=== PATIENT | female | born 1960 | race Caucasian/White ===

== ENCOUNTER 2018-09-09 13:40 | Inpatient (IN) | payer MEDICARE, OTHER ==
[2018-09-09 15:44] LABS: Basophils % (A) 0 %; Eosinophils # (A) 0.5 k/uL (0-0.7); Eosinophils % (A) 9 %; HCT 43.8 % (34.0-46.0); HGB 14.2 gm/dL (11.4-16.0); Lymphocytes # (A) 1.5 k/uL (1.0-4.8); Lymphocytes % (A) 28 %; MCH 29.7 pg (25.0-35.0); MCHC 32.4 g/dL (31.0-37.0); MCV 91.6 fL (80.0-100.0); Monocytes # (A) 0.6 k/uL (0-1.0); Monocytes % (A) 11 %; Neutrophils # (A) 2.6 k/uL (1.3-7.7); Neutrophils % (A) 48 %; Platelet Count 142 k/uL (150-450); RBC 4.79 m/uL (3.80-5.40); RDW 14.8 % (11.5-15.5); WBC 5.5 k/uL (3.8-10.6)
[2018-09-09 15:58] LABS: ALT 25 U/L (9-52); AST 30 U/L (14-36); Albumin 3.4 g/dL (3.5-5.0); Alcohol <10 mg/dL; Alkaline Phosphatase 66 U/L (38-126); Anion Gap 5 mmol/L; Blood Urea Nitrogen 12 mg/dL (7-17); Calcium 9.4 mg/dL (8.4-10.2); Carbon Dioxide 27 mmol/L (22-30); Chloride 111 mmol/L (98-107); Glucose 131 mg/dL (74-99); Potassium 4.2 mmol/L (3.5-5.1); Sodium 143 mmol/L (137-145); Total Bilirubin 0.3 mg/dL (0.2-1.3); Total Protein 6.6 g/dL (6.3-8.2)
--- NOTE | 2018-09-09 18:57 | ED ---
General Adult HPI - General Chief complaint: Weakness Stated complaint: Altered mental status Time Seen by Provider: 09/09/18 18:06 Source: patient Mode of arrival: EMS Limitations: no limitations - History of Present Illness Initial comments: 57-year-old female patient with past medical history significant for CVA, seizure disorder, wheelchair bound with disability, currently living in adult foster care, presents to the emergency department today for evaluation of decreased mental status. Caregiver reports that patient has had a gradual decline over the last year. They state that over the last 2 weeks this is becoming much worse. They state patient is sleeping constantly, not as interactive as she used to be, and is not feeding herself. They state this behavior is abnormal for her. States they have seen a psychiatrist multiple times for medication adjustments. States that it weaning her off her Seroquel but it is not helping. Caregiver reports that she did have elevated ammonia levels a few weeks ago, those have returned to normal. They believe is due to the Depakote however this medication has not been adjusted. Patient has been wearing oxygen during naps and at bedtime for decreased O2 saturation while sleeping. They deny any coughing. They deny any fever or chills. Some swelling, but no more than usual to the lower extremities. States her vital signs have been stable. Caregivers deny any rash, shortness breath, vomiting, or diarrhea. Patient is unable to contribute to history. - Related Data Home Medications Medication Instructions Recorded Confirmed ALPRAZolam [Xanax] 0.5 mg PO BID PRN 09/09/18 09/09/18 Baclofen [Lioresal] 10 mg PO DAILY@0700 09/09/18 09/09/18 Baclofen [Lioresal] 20 mg PO BID@1600,199909/09/18 09/09/18 Bethanechol Chloride [Urecholine] 50 mg PO TID@0700,1600,199909/09/18 09/09/18 Bisacodyl [Dulcolax] 10 mg RECTAL Q96H PRN 09/09/18 09/09/18 Carvedilol [Coreg] 3.125 mg PO BID@0800,199909/09/18 09/09/18 Divalproex Sodium [Depakote] 500 mg PO BID@0700,1600 09/09/18 09/09/18 Divalproex [Depakote] 250 mg PO BID@0700,199909/09/18 09/09/18 EPINEPHrine [Epipen 2-Molina] 0.3 mg IM ONCE PRN 09/09/18 09/09/18 Ergocalciferol (Vitamin D2) 50,000 unit PO FR@0700 09/09/18 09/09/18 [Vitamin D2] Escitalopram [Lexapro] 20 mg PO DAILY@0700 09/09/18 09/09/18 Haloperidol [Haldol] 5 mg PO BID@0700,1600 09/09/18 09/09/18 Ibuprofen [Motrin] 600 mg PO Q6HR PRN 09/09/18 09/09/18 Ketoconazole 2% Shampoo [Nizoral] 1 applic TOPICAL MOWEFR 09/09/18 09/09/18 Loratadine [Claritin] 10 mg PO DAILY@0700 09/09/18 09/09/18 Magnesium Hydroxide [Milk of 2,400 mg PO Q72H PRN 09/09/18 09/09/18 Magnesia] Montelukast [Singulair] 10 mg PO HS@199909/09/18 09/09/18 Mylanta 30 ml PO QID PRN 09/09/18 09/09/18 Na Phos,M-B/Na Phos,Di-Ba [Fleet 133 ml RECTAL Q120D PRN 09/09/18 09/09/18 Adult] Nystatin [Nystop] 1 applic TOPICAL BID PRN 09/09/18 09/09/18 Pravastatin Sodium [Pravachol] 20 mg PO HS@199909/09/18 09/09/18 Sennosides [Senna] 17.2 mg PO HS@199909/09/18 09/09/18 Sodium Chloride [[place]] 1 spray EA NOSTRIL BID PRN 09/09/18 09/09/18 Tamsulosin [Flomax] 0.4 mg PO HS@199909/09/18 09/09/18 Topiramate [Topamax] 50 mg PO HS@199909/09/18 09/09/18 Zinc Oxide [Desitin] 1 applic TOPICAL TID PRN 09/09/18 09/09/18 metroNIDAZOLE [metroNIDAZOLE 0.75% 1 applic TOPICAL BID@0800,199909/09/18 09/09/18 Gel] Allergies Allergy/AdvReac Type Severity Reaction Status Date / Time bee venom protein (honey bee) Allergy Unknown Verified 09/09/18 18:16 latex Allergy Unknown Verified 09/09/18 18:16 Penicillins Allergy Unknown Verified 09/09/18 18:16 sulfamethoxazole Allergy Unknown Verified 09/09/18 18:16 [From Bactrim] Tetanus Vaccines and Toxoid Allergy Unknown Verified 09/09/18 18:16 trimethoprim [From Bactrim] Allergy Unknown Verified 09/09/18 18:16 acetaminophen [From Tylenol] AdvReac Unknown Verified 09/09/18 18:16 Review of Systems ROS Statement: Those systems with pertinent positive or pertinent negative responses have been documented in the HPI. ROS Other: All systems not noted in ROS Statement are negative. Past Medical History Past Medical History: CVA/TIA, Seizure Disorder History of Any Multi-Drug Resistant Organisms: None Reported Past Psychological History: Anxiety, Schizophrenia Smoking Status: Former smoker Past Alcohol Use History: None Reported Past Drug Use History: None Reported General Exam Limitations: no limitations General appearance: in no apparent distress, lethargic, other (Physical well- developed, well-nourished adult female patient in no acute distress. Patient appears drowsy and lethargic upon exam. No respiratory distress. Vital signs upon presentation are temperature 98.4F, pulse 78, respirations 18, blood pressure 139/80, pulse ox 94% on room air.) Eye exam: Present: normal appearance, PERRL, EOMI. Absent: scleral icterus, conjunctival injection, periorbital swelling ENT exam: Present: normal exam, mucous membranes moist Respiratory exam: Present: normal lung sounds bilaterally. Absent: respiratory distress, wheezes, rales, rhonchi, stridor Cardiovascular Exam: Present: regular rate, normal rhythm, normal heart sounds. Absent: systolic murmur, diastolic murmur, rubs, gallop, clicks GI/Abdominal exam: Present: soft, normal bowel sounds. Absent: distended, tenderness, guarding, rebound, rigid Neurological exam: Present: other. Absent: alert (Drowsy), oriented X3 (Oriented 1) Psychiatric exam: Present: normal affect, normal mood Skin exam: Present: warm, dry, intact, normal color. Absent: rash Course Vital Signs 09/09/18 09/09/18 14:07 18:20 Temperature 98.4 F Pulse Rate 78 Respiratory 18 18 Rate Blood Pressure 139/80 O2 Sat by Pulse 94 L Oximetry EKG Findings - EKG Comments: EKG Findings:: EKG obtained in 194 shows normal sinus rhythm with a ventricular rate is 75, FL interval 164, QRS duration 84, QT 394, QTC 439. No evidence of ST elevation or depression. Medical Decision Making - Medical Decision Making 57-year-old female patient is brought in by caregivers for evaluation of altered mental status. The report patient is sleeping more, not acting her usual self, knows unable to feed herself. Physical examination reveals clear equal lung sounds. 2+ pitting edema to the bilateral lower legs and feet. Labs reviewed and showed an elevated ammonia level at 61. Depakote levels within therapeutic range at 105. White blood cell count is normal. Normal urinalysis. Chest x- ray showed advanced stage interstitial pulmonary edema versus pneumonia. Patient's oxygen saturations have been low and she was placed on oxygen 3 weeks ago to where at bedtime the nap time. Given patient's altered mental status, chest x-ray findings will admit to the hospital for further evaluation. We'll treat with IV antibiotics for possible pneumonia. We'll give Lasix given swelling and possibility of pulmonary edema. Lactulose will be given for elevated ammonia level. My attending Dr. Holman was in to see and evaluate the patient, he agrees with this plan of care. - Lab Data Result diagrams: 09/09/18 15:33 09/09/18 15:33 Lab Results 09/09/18 09/09/18 09/09/18 Range/Units 15:33 15:33 15:33 WBC 5.5 (3.8-10.6) k/uL RBC 4.79 (3.80-5.40) m/uL Hgb 14.2 (11.4-16.0) gm/dL Hct 43.8 (34.0-46.0) % MCV 91.6 (80.0-100.0) fL MCH 29.7 (25.0-35.0) pg MCHC 32.4 (31.0-37.0) g/dL RDW 14.8 (11.5-15.5) % Plt Count 142 L (150-450) k/uL Neutrophils % 48 % Lymphocytes % 28 % Monocytes % 11 % Eosinophils % 9 % Basophils % 0 % Neutrophils # 2.6 (1.3-7.7) k/uL Lymphocytes # 1.5 (1.0-4.8) k/uL Monocytes # 0.6 (0-1.0) k/uL Eosinophils # 0.5 (0-0.7) k/uL Basophils # 0.0 (0-0.2) k/uL Sodium 143 (137-145) mmol/L Potassium 4.2 (3.5-5.1) mmol/L Chloride 111 H (98-107) mmol/L Carbon Dioxide 27 (22-30) mmol/L Anion Gap 5 mmol/L BUN 12 (7-17) mg/dL Creatinine 0.57 (0.52-1.04) mg/dL Est GFR (CKD-EPI)AfAm >90 (>60 ml/min/1.73 sqM) Est GFR (CKD-EPI)NonAf >90 (>60 ml/min/1.73 sqM) Glucose 131 H (74-99) mg/dL Calcium 9.4 (8.4-10.2) mg/dL Total Bilirubin 0.3 (0.2-1.3) mg/dL AST 30 (14-36) U/L ALT 25 (9-52) U/L Alkaline Phosphatase 66 (38-126) U/L Ammonia (<30) umol/L NT-Pro-B Natriuret Pep 70 pg/mL Total Protein 6.6 (6.3-8.2) g/dL Albumin 3.4 L (3.5-5.0) g/dL Urine Color Urine Appearance (Clear) Urine pH (5.0-8.0) Ur Specific [place] (1.001-1.035) Urine Protein (Negative) Urine Glucose (UA) (Negative) Urine Ketones (Negative) Urine Blood (Negative) Urine Nitrite (Negative) Urine Bilirubin (Negative) Urine Urobilinogen (<2.0) mg/dL Ur Leukocyte Esterase (Negative) Urine Opiates Screen (NotDetected) Ur Oxycodone Screen (NotDetected) Urine Methadone Screen (NotDetected) Ur Propoxyphene Screen (NotDetected) Ur Barbiturates Screen (NotDetected) Valproic Acid ug/mL U Tricyclic Antidepress (NotDetected) Ur Phencyclidine Scrn (NotDetected) Ur Amphetamines Screen (NotDetected) U Methamphetamines Scrn (NotDetected) U Benzodiazepines Scrn (NotDetected) Urine Cocaine Screen (NotDetected) U Marijuana (THC) Screen (NotDetected) Serum Alcohol <10 mg/dL 09/09/18 09/09/18 09/09/18 Range/Units 19:35 19:35 19:35 WBC (3.8-10.6) k/uL RBC (3.80-5.40) m/uL Hgb (11.4-16.0) gm/dL Hct (34.0-46.0) % MCV (80.0-100.0) fL MCH (25.0-35.0) pg MCHC (31.0-37.0) g/dL RDW (11.5-15.5) % Plt Count (150-450) k/uL Neutrophils % % Lymphocytes % % Monocytes % % Eosinophils % % Basophils % % Neutrophils # (1.3-7.7) k/uL Lymphocytes # (1.0-4.8) k/uL Monocytes # (0-1.0) k/uL Eosinophils # (0-0.7) k/uL Basophils # (0-0.2) k/uL Sodium (137-145) mmol/L Potassium (3.5-5.1) mmol/L Chloride (98-107) mmol/L Carbon Dioxide (22-30) mmol/L Anion Gap mmol/L BUN (7-17) mg/dL Creatinine (0.52-1.04) mg/dL Est GFR (CKD-EPI)AfAm (>60 ml/min/1.73 sqM) Est GFR (CKD-EPI)NonAf (>60 ml/min/1.73 sqM) Glucose (74-99) mg/dL Calcium (8.4-10.2) mg/dL Total Bilirubin (0.2-1.3) mg/dL AST (14-36) U/L ALT (9-52) U/L Alkaline Phosphatase (38-126) U/L Ammonia 61 H (<30) umol/L NT-Pro-B Natriuret Pep pg/mL Total Protein (6.3-8.2) g/dL Albumin (3.5-5.0) g/dL Urine Color Yellow Urine Appearance Clear (Clear) Urine pH 6.5 (5.0-8.0) Ur Specific [place] 1.027 (1.001-1.035) Urine Protein Trace H (Negative) Urine Glucose (UA) Negative (Negative) Urine Ketones Negative (Negative) Urine Blood Negative (Negative) Urine Nitrite Negative (Negative) Urine Bilirubin Negative (Negative) Urine Urobilinogen 3.0 (<2.0) mg/dL Ur Leukocyte Esterase Negative (Negative) Urine Opiates Screen Not Detected (NotDetected) Ur Oxycodone Screen Not Detected (NotDetected) Urine Methadone Screen Not Detected (NotDetected) Ur Propoxyphene Screen Not Detected (NotDetected) Ur Barbiturates Screen Not Detected (NotDetected) Valproic Acid 105.7 ug/mL U Tricyclic Antidepress Detected H (NotDetected) Ur Phencyclidine Scrn Not Detected (NotDetected) Ur Amphetamines Screen Not Detected (NotDetected) U Methamphetamines Scrn Not Detected (NotDetected) U Benzodiazepines Scrn Not Detected (NotDetected) Urine Cocaine Screen Not Detected (NotDetected) U Marijuana (THC) Screen Not Detected (NotDetected) Serum Alcohol mg/dL - Radiology Data Radiology results: report reviewed, image reviewed Three-view x-ray of the chest was obtained. Report was reviewed in its entirety. Impression by Dr. Elaine shows suspect advanced interstitial alveolar phase cardiogenic pulmonary edema. Disposition Clinical Impression: Pulmonary edema, Pneumonia, Hyperammonemia, Altered mental status Disposition: ADMITTED IP TO THIS [facility] Condition: Serious Decision to Admit Reason: Admit from EC Decision Date: 09/09/18 Decision Time: 21:35
[2018-09-09 20:06] LABS: Appearance,Urine Clear (Clear); Bilirubin,Urine Negative (Negative); Blood,Urine Negative (Negative); Color,Urine Yellow; Glucose,Urine (UA) Negative (Negative); Ketones,Urine Negative (Negative); Leukocyte Esterase,Urine Negative (Negative); Nitrite,Urine Negative (Negative); PH, Urine 6.5 (5.0-8.0); Protein,Urine Trace (Negative); Specific Gravity,Urine 1.027 (1.001-1.035)
[2018-09-09 20:26] LABS: Amphetamine Screen,Urine Not Detected (NotDetected); Barbiturate Screen,Urine Not Detected (NotDetected); Benzodiazepines Screen,Urine Not Detected (NotDetected); Cocaine Screen,Urine Not Detected (NotDetected); Methadone Screen, Urine Not Detected (NotDetected); Opiate Screen,Urine Not Detected (NotDetected); Oxycodone Screen, Urine Not Detected (NotDetected); Phencyclidine Screen,Urine Not Detected (NotDetected); Tricyclic Antidepressant,Urine Detected (NotDetected); Urn Cannabinoid Scrn Not Detected (NotDetected)
--- NOTE | 2018-09-09 20:35 | XR ---
EXAMINATION: XR chest 3V DATE AND TIME: 09/09/2018 7:05 PM CLINICAL INDICATION: PHH; Pain TECHNIQUE: Departmental protocol COMPARISON: 09/11/2009 FINDINGS: The overlying soft tissues are very prominent. There is silhouetting of the pulmonary vasculature to a moderate marked by a fine reticular pattern o f increased density and with coalescent areas of pulmonary consolidation. Moderately enlarged cardiac silhouette noted. These radiographic findings suggest cardiogenic advanced interstitial and alveolar phase pulmonary edema. This diagnosis requires clinical exclusion of differential consideration, nam kel pneumonia. No abnormal gas collections. No acute bone or soft tissue findings. IMPRESSION: Suspect advanced interstitial/alveolar phase cardiogenic pulmonary edema.
[2018-09-09] MEDS ORDERED: LEVOFLOXACIN 750MG-D5W PMX 750 MG in DEXTROSE/WATER 1 150ML.BAG IVPB STA (21:29)
[2018-09-09] MEDS ORDERED: PIPERACILLIN-TAZOBACTAM 3.375 GM in SODIUM CHLORIDE 0.9% 100 ML IVPB STA (21:29)
[2018-09-09] MEDS ORDERED: FUROSEMIDE 10 MG/ML 4 ML VIAL IV STA (21:29)
[2018-09-09] MEDS ORDERED: NALOXONE 0.4 MG/ML 1 ML VIAL IV PRN (21:30)
[2018-09-09] MEDS ORDERED: LACTULOSE 20 GM/30 ML CUP PO ONE (21:32)
[2018-09-09 23:38] VITALS: BMI 32.4
[2018-09-10] MEDS ORDERED: TOPIRAMATE 25 MG TAB PO SCH (00:59)
[2018-09-10] MEDS: DIVALPROEX 250 MG TABLET.DR PO SCH ×2 (02:50→07:58)
[2018-09-10] MEDS: CARVEDILOL 3.125 MG TAB PO SCH ×3 (02:50→21:02)
[2018-09-10] MEDS ORDERED: LEVOFLOXACIN 750MG-D5W PMX 750 MG in DEXTROSE/WATER 1 150ML.BAG IVPB SCH (05:00)
[2018-09-10] MEDS ORDERED: PIPERACILLIN-TAZOBACTAM 3.375 GM in SODIUM CHLORIDE 0.9% 100 ML IVPB SCH (08:00)
[2018-09-10] MEDS ORDERED: FUROSEMIDE 10 MG/ML 2 ML VIAL IV SCH (09:00)
[2018-09-10 09:48] LABS: Basophils % (A) 0 %; Eosinophils # (A) 0.4 k/uL (0-0.7); Eosinophils % (A) 8 %; Lymphocytes # (A) 1.5 k/uL (1.0-4.8); Lymphocytes % (A) 26 %; MCH 29.3 pg (25.0-35.0); MCHC 31.9 g/dL (31.0-37.0); Mean Platelet Volume 7.6; Monocytes # (A) 0.5 k/uL (0-1.0); Monocytes % (A) 9 %; Neutrophils # (A) 3.1 k/uL (1.3-7.7); Neutrophils % (A) 54 %; Platelet Count 150 k/uL (150-450); RBC 5.11 m/uL (3.80-5.40); RDW 14.5 % (11.5-15.5); WBC 5.8 k/uL (3.8-10.6)
[2018-09-10] MEDS ORDERED: LACTULOSE 20 GM/30 ML CUP PO ONE (13:00)
[2018-09-10] MEDS ORDERED: NYSTATIN 100,000 UNIT/GM POWD 15 GM TOPICAL PRN (13:14)
[2018-09-10] MEDS ORDERED: MAG HYDROX/AL HYDROX/SIMETH 30 ML CUP PO PRN (13:14)
[2018-09-10] MEDS ORDERED: BISACODYL 10 MG SUPP RECTAL PRN (13:14)
[2018-09-10] MEDS ORDERED: EPINEPHrine 1 MG/ML 1 ML AMP IM PRN (13:14)
[2018-09-10] MEDS ORDERED: MAGNESIUM HYDROXIDE 2,400 MG/10 ML CUP PO PRN (13:14)
--- NOTE | 2018-09-10 13:17 | P.DS ---
Providers Date of admission: 09/09/18 21:39 Attending physician: Kwan Gomez Consults: 09/10/18 12:22 Consult Physician Routine Consulting Provider: Alan Erickson Consult Reason/Comments: Medication management Depakote, see today please Do you want consulting provider notified?: Yes Primary care physician: [facility] Course: Please refer to my HPI for further details Patient Condition at Discharge: Serious Plan - Discharge Summary Discharge Rx Participant: Yes New Discharge Prescriptions: Continue Mylanta 30 ml PO QID PRN PRN Reason: Chest Pain Ibuprofen [Motrin] 600 mg PO Q6HR PRN PRN Reason: Pain ALPRAZolam [Xanax] 0.5 mg PO BID PRN PRN Reason: Anxiety Sodium Chloride [[place]] 1 spray EA NOSTRIL BID PRN PRN Reason: Congestion Nystatin [Nystop] 1 applic TOPICAL BID PRN PRN Reason: Skin Irritation EPINEPHrine [Epipen 2-Molina] 0.3 mg IM ONCE PRN PRN Reason: Anaphylaxis Zinc Oxide [Desitin] 1 applic TOPICAL TID PRN PRN Reason: Skin Irritation Na Phos,M-B/Na Phos,Di-Ba [Fleet Adult] 133 ml RECTAL Q120D PRN PRN Reason: Constipation Bisacodyl [Dulcolax] 10 mg RECTAL Q96H PRN PRN Reason: Constipation Magnesium Hydroxide [Milk of Magnesia] 2,400 mg PO Q72H PRN PRN Reason: Constipation Ketoconazole 2% Shampoo [Nizoral] 1 applic TOPICAL MOWEFR metroNIDAZOLE [metroNIDAZOLE 0.75% Gel] 1 applic TOPICAL BID@0800,1999 Topiramate [Topamax] 50 mg PO HS@1999 Tamsulosin [Flomax] 0.4 mg PO HS@1999 Sennosides [Senna] 17.2 mg PO HS@1999 Pravastatin Sodium [Pravachol] 20 mg PO HS@1999 Montelukast [Singulair] 10 mg PO HS@1999 Divalproex Sodium [Depakote] 500 mg PO BID@0700,1600 Carvedilol [Coreg] 3.125 mg PO BID@0800,2000 Loratadine [Claritin] 10 mg PO DAILY@0700 Escitalopram [Lexapro] 20 mg PO DAILY@0700 Haloperidol [Haldol] 5 mg PO BID@0700,1600 Ergocalciferol (Vitamin D2) [Vitamin D2] 50,000 unit PO FR@0700 Bethanechol Chloride [Urecholine] 50 mg PO TID@07,1599,1999 Baclofen [Lioresal] 20 mg PO BID@1599,1999 Baclofen [Lioresal] 10 mg PO DAILY@0700 Changed Divalproex [Depakote] 250 mg PO HS #0 Discharge Medication List ALPRAZolam [Xanax] 0.5 mg PO BID PRN 09/09/18 [History] Baclofen [Lioresal] 10 mg PO DAILY@0709/09/18 [History] Baclofen [Lioresal] 20 mg PO BID@1599,199909/09/18 [History] Bethanechol Chloride [Urecholine] 50 mg PO TID@0700,1599,199909/09/18 [History] Bisacodyl [Dulcolax] 10 mg RECTAL Q96H PRN 09/09/18 [History] Carvedilol [Coreg] 3.125 mg PO BID@0800,199909/09/18 [History] Divalproex Sodium [Depakote] 500 mg PO BID@0700,159909/09/18 [History] EPINEPHrine [Epipen 2-Molina] 0.3 mg IM ONCE PRN 09/09/18 [History] Ergocalciferol (Vitamin D2) [Vitamin D2] 50,000 unit PO FR@0700 09/09/18 [History] Escitalopram [Lexapro] 20 mg PO DAILY@69909/09/18 [History] Haloperidol [Haldol] 5 mg PO BID@0700,159909/09/18 [History] Ibuprofen [Motrin] 600 mg PO Q6HR PRN 09/09/18 [History] Ketoconazole 2% Shampoo [Nizoral] 1 applic TOPICAL MOWEFR 09/09/18 [History] Loratadine [Claritin] 10 mg PO DAILY@69909/09/18 [History] Magnesium Hydroxide [Milk of Magnesia] 2,400 mg PO Q72H PRN 09/09/18 [History] Montelukast [Singulair] 10 mg PO HS@199909/09/18 [History] Mylanta 30 ml PO QID PRN 09/09/18 [History] Na Phos,M-B/Na Phos,Di-Ba [Fleet Adult] 133 ml RECTAL Q120D PRN 09/09/18 [History] Nystatin [Nystop] 1 applic TOPICAL BID PRN 09/09/18 [History] Pravastatin Sodium [Pravachol] 20 mg PO HS@199909/09/18 [History] Sennosides [Senna] 17.2 mg PO HS@199909/09/18 [History] Sodium Chloride [[place]] 1 spray EA NOSTRIL BID PRN 09/09/18 [History] Tamsulosin [Flomax] 0.4 mg PO HS@199909/09/18 [History] Topiramate [Topamax] 50 mg PO HS@199909/09/18 [History] Zinc Oxide [Desitin] 1 applic TOPICAL TID PRN 09/09/18 [History] metroNIDAZOLE [metroNIDAZOLE 0.75% Gel] 1 applic TOPICAL BID@0800,199909/09/18 [History] Divalproex [Depakote] 250 mg PO HS #0 09/10/18 [Rx] Follow up Appointment(s)/Referral(s): [facility]inley, JACKY [REFERRING] - 3 Days
--- NOTE | 2018-09-10 13:17 | P.HPIM ---
History of Present Illness Patient is a 57-year-old the on disability the and the mental retardation on multiple psychiatric medications polypharmacy brought in by the caregivers as patient is sleeping excessively. Patient is found to have limited ammonia le vels. Patient is also on a lot of medications that can make her drowsy and sleepy. Patient is on a lot of psychiatric medications. Patient is found to have elevated ammonia 60 received 1 dose of lactulose came down to 48. And that this elevated ammonia level is attributed to do Depakote I'm decreasing the dose of Depakote to 250 mg patient uses Depakote for mood stabilization patient is also on Lamictal and multiple other antipsychotic medications along with the cyclobenzaprine. Patient apparently was desaturating at nighttime as well but probably this may be related to his sleep apnea although chest x-ray showed suspicious infiltrate for the pulmonary edema or atypical pneumonia. Patient will benefit from a CAT scan which can be done as an outpatient patient will be referred to [facility]. Patient is clinically stable at this time patient does not have any signs or symptoms of pneumonia including fever or leukocytosis patient denied any cough. Patient does not have any elevated JVD and obtain an echocardiogram although this can be done as outpatient patient does need to stay here for that patient is saturating 98% on room air at this time patient will be discharged today after evaluation by psychiatric since patient is on multiple antipsychotic medications, will get their opinion before she leaves. Patient can be discharged today and is medically stable and patient will not be continued on any antibiotics with concerns of side effects from polypharmacy due to prolongation as there is no clear-cut evidence patient has pneumonia. Patient will not be continued on Lasix either as there is no conclusive evidence patient has pulmonary edema although she urinated well with Lasix patient's BNP is only 58 patient is prone for dehydration with diuretic therapy. We will try and obtain echo cardiac exam before discharge but that shouldn't hold her discharge. Review of Systems REVIEW OF SYSTEMS: CONSTITUTIONAL: No fever, no malaise, no fatigue. HEENT: No recent visual problems or hearing problems. Denied any sore throat. CARDIOVASCULAR: No chest pain, orthopnea, PND, no palpitations, no syncope. PULMONARY: No shortness of breath, no cough, no hemoptysis. GASTROINTESTINAL: No diarrhea, no nausea, no vomiting, no abdominal pain. NEUROLOGICAL: No headaches, no weakness, no numbness. HEMATOLOGICAL: Denies any bleeding or petechiae. GENITOURINARY: Denies any burning micturition, frequency, or urgency. MUSCULOSKELETAL/RHEUMATOLOGICAL: Denies any joint pain, swelling, or any muscle pain. ENDOCRINE: Denies any polyuria or polydipsia. The rest of the 14-point review of systems is negative. Past Medical History Past Medical History: CVA/TIA, Seizure Disorder Additional Past Medical History / Comment(s): Wears oxygen at night History of Any Multi-Drug Resistant Organisms: None Reported Past Psychological History: Anxiety, Schizophrenia Smoking Status: Former smoker Past Alcohol Use History: None Reported Past Drug Use History: None Reported - Past Family History Father Family Medical History: Unable to Obtain Mother Family Medical History: Unable to Obtain Medications and Allergies Home Medications Medication Instructions Recorded Confirmed Type ALPRAZolam [Xanax] 0.5 mg PO BID PRN 09/09/18 09/09/18 History Baclofen [Lioresal] 10 mg PO DAILY@0700 09/09/18 09/09/18 History Baclofen [Lioresal] 20 mg PO BID@1600,199909/09/18 09/09/18 History Bethanechol Chloride [Urecholine] 50 mg PO TID@0700,1600,199909/09/18 09/09/18 History Bisacodyl [Dulcolax] 10 mg RECTAL Q96H PRN 09/09/18 09/09/18 History Carvedilol [Coreg] 3.125 mg PO BID@0800,199909/09/18 09/09/18 History Divalproex Sodium [Depakote] 500 mg PO BID@0700,1600 09/09/18 09/09/18 History EPINEPHrine [Epipen 2-Molina] 0.3 mg IM ONCE PRN 09/09/18 09/09/18 History Ergocalciferol (Vitamin D2) 50,000 unit PO FR@69909/09/18 09/09/18 History [Vitamin D2] Escitalopram [Lexapro] 20 mg PO DAILY@0700 09/09/18 09/09/18 History Haloperidol [Haldol] 5 mg PO BID@0700,1600 09/09/18 09/09/18 History Ibuprofen [Motrin] 600 mg PO Q6HR PRN 09/09/18 09/09/18 History Ketoconazole 2% Shampoo [Nizoral] 1 applic TOPICAL MOWEFR 09/09/18 09/09/18 History Loratadine [Claritin] 10 mg PO DAILY@0700 09/09/18 09/09/18 History Magnesium Hydroxide [Milk of 2,400 mg PO Q72H PRN 09/09/18 09/09/18 History Magnesia] Montelukast [Singulair] 10 mg PO HS@199909/09/18 09/09/18 History Mylanta 30 ml PO QID PRN 09/09/18 09/09/18 History Na Phos,M-B/Na Phos,Di-Ba [Fleet 133 ml RECTAL Q120D PRN 09/09/18 09/09/18 History Adult] Nystatin [Nystop] 1 applic TOPICAL BID PRN 09/09/18 09/09/18 History Pravastatin Sodium [Pravachol] 20 mg PO HS@199909/09/18 09/09/18 History Sennosides [Senna] 17.2 mg PO HS@199909/09/18 09/09/18 History Sodium Chloride [[place]] 1 spray EA NOSTRIL BID PRN 09/09/18 09/09/18 History Tamsulosin [Flomax] 0.4 mg PO HS@199909/09/18 09/09/18 History Topiramate [Topamax] 50 mg PO HS@199909/09/18 09/09/18 History Zinc Oxide [Desitin] 1 applic TOPICAL TID PRN 09/09/18 09/09/18 History metroNIDAZOLE [metroNIDAZOLE 0.75% 1 applic TOPICAL BID@08,199909/09/18 09/09/18 History Gel] Divalproex [Depakote] 250 mg PO HS #0 09/10/18 09/09/18 Rx Allergies Allergy/AdvReac Type Severity Reaction Status Date / Time bee venom protein (honey bee) Allergy Unknown Verified 09/09/18 18:16 latex Allergy Unknown Verified 09/09/18 18:16 Penicillins Allergy Unknown Verified 09/09/18 18:16 sulfamethoxazole Allergy Unknown Verified 09/09/18 18:16 [From Bactrim] Tetanus Vaccines and Toxoid Allergy Unknown Verified 09/09/18 18:16 trimethoprim [From Bactrim] Allergy Unknown Verified 09/09/18 18:16 acetaminophen [From Tylenol] AdvReac Unknown Verified 09/09/18 18:16 Physical Exam Vitals: Vital Signs Temp Pulse Pulse Resp BP BP Pulse Ox 09/10/18 07:34 98.9 F 71 16 105/69 98 09/10/18 02:50 74 126/68 09/10/18 01:01 98.5 F 75 18 114/78 100 09/10/18 00:10 16 09/09/18 23:29 97 09/09/18 23:16 98.6 F 73 18 117/69 89 L 09/09/18 23:05 98.2 F 80 16 110/78 100 09/09/18 19:30 76 18 132/87 98 09/09/18 18:20 18 09/09/18 14:07 98.4 F 78 18 139/80 94 L Intake and Output 09/09/18 09/10/18 09/10/18 22:59 06:59 14:59 Intake Total 250 Balance 250 Intake: Intake, IV Titration 250 Amount Levofloxacin 750Mg-D5w 150 Pmx 750 mg In Dextrose/ Water 1 150ml.bag @ 100 mls/hr IVPB Q24H [facility] Rx#: [id number] Piperacillin-Tazobactam 3 100 .375 gm In Sodium Chloride 0.9% 100 ml @ 200 mls/hr IVPB ONCE STA Rx#:[id number] Other: Voiding Method Diaper Diaper Incontinent Incontinent # Voids 3 PHYSICAL EXAMINATION: GENERAL: The patient is alert and oriented x2 which is her baseline, not in any acute distress. Well developed, well nourished. HEENT: Pupils are round and equally reacting to light. EOMI. No scleral icterus. No conjunctival pallor. Normocephalic, atraumatic. No pharyngeal erythema. No thyromegaly. CARDIOVASCULAR: S1 and S2 present. No murmurs, rubs, or gallops. PULMONARY: Chest is clear to auscultation, no wheezing or crackles. ABDOMEN: Soft, nontender, nondistended, normoactive bowel sounds. No palpable organomegaly. MUSCULOSKELETAL: No joint swelling or deformity. EXTREMITIES: No cyanosis, clubbing, or pedal edema. NEUROLOGICAL: Gross neurological examination did not reveal any focal deficits. SKIN: No rashes. Results CBC & Chem 7: 09/10/18 08:52 09/09/18 15:33 Labs: Abnormal Lab Results - Last 24 Hours (Table) 09/09/18 09/09/18 09/09/18 Range/Units 15:33 15:33 19:35 Hct (34.0-46.0) % Plt Count 142 L (150-450) k/uL Chloride 111 H (98-107) mmol/L Glucose 131 H (74-99) mg/dL Ammonia 61 H (<30) umol/L Albumin 3.4 L (3.5-5.0) g/dL Urine Protein (Negative) U Tricyclic Antidepress (NotDetected) 09/09/18 09/10/18 09/10/18 Range/Units 19:35 08:52 08:52 Hct 47.0 H (34.0-46.0) % Plt Count (150-450) k/uL Chloride (98-107) mmol/L Glucose (74-99) mg/dL Ammonia 49 H (<30) umol/L Albumin (3.5-5.0) g/dL Urine Protein Trace H (Negative) U Tricyclic Antidepress Detected H (NotDetected) Thrombosis Risk Factor Assmnt - Choose All That Apply Each Factor Represents 1 point: Age 41-60 years, Obesity (BMI >25) Thrombosis Risk Factor Assessment Total Risk Factor Score: 2 Thrombosis Risk Factor Assessment Level: Low Risk Assessment and Plan Plan: -Decreased level of consciousness toxic encephalopathy from polypharmacy and Depakote may have contributed to that decreasing the dose of Depakote we'll give another dose of lactulose patient's ammonia level is elevated -Hyperammonemia secondary to Depakote dose of which will be decreased patient will be evaluated by psychiatric here and will be followed by psychiatry as an outpatient -Schizophrenia and anxiety disorder -Possible obstructive sleep apnea will benefit from outpatient sleep study -There is no convincing evidence of congestive heart failure or pneumonia we'll obtain a CAT scan of the abdomen patient will be referred to pulmonology as an outpatient -Hyperlipidemia -Hypertension Plan as mentioned above
--- NOTE | 2018-09-10 15:35 | CT ---
EXAMINATION TYPE: CT angio chest DATE OF EXAM: 09/10/2018 COMPARISON: None HISTORY: PE CT DLP: 569.7 mGycm CONTRAST: CT chest with contrast and 3D reconstruction with MIP imaging is performed with IV Contrast, patient injected with 100 mL of Isovue 370. Contrast-enhanced CT of the chest was performed through the course of the pulmonary arteries with kristin g and mediastinal window settings submitted. 3D reconstruction with MIP imaging was also performed. PULMONARY ARTERIES: The pulmonary arteries and their major tributaries are patent. I do not see analisa dence for sizable filling defect to suggest pulmonary embolic process. LUNGS: Diffuse airspace infiltrates may reflect a pneumonia multifocal type. No evidence for atelecta sis. No pulmonary nodule or mass is detected. No pleural effusion. MEDIASTINUM: Thoracic aorta is of normal caliber,however, evaluation is limited given timing of the contrast bolus. If there is concern for thoracic aortic pathology consider ERICK. Correlate clinicall y . The heart is not enlarged. No evidence for mediastinal mass. No mediastinal lymph nodes greater than 1cm. HILAR STRUCTURES: No evidence for mass. No hilar lymph nodes greater than 1 cm. UPPER ABDOMEN: No significant abnormality is seen. IMPRESSION: 1. No evidence for Pulmonary embolism at this time. 2. Consider multifocal pneumonia.
[2018-09-10] MEDS: HALOPERIDOL 5 MG TAB PO SCH (15:45)
[2018-09-10] MEDS: BETHANECHOL 25 MG TAB PO SCH ×2 (15:45→21:00)
--- NOTE | 2018-09-10 17:00 | P.CN ---
Psychiatric Consult - . Consult date: 09/10/18 Consult:: 09/10/18 16:54 Depakote adjustment and psychiatric medication evaluation Assessment and Plan (1) Major depressive disorder Narrative/Plan: 57-year-old female patient with past medical history significant for CVA, seizure disorder, wheelchair bound with disability, currently living in adult foster care, presents to the emergency department today for evaluation of decreased mental status. Caregiver reports that patient has had a gradual decline over the last year. They state that over the last 2 weeks this is becoming much worse. They state patient is sleeping constantly, not as interactive as she used to be, and is not feeding herself. They state this behavior is abnormal for her. States they have seen a psychiatrist multiple times for medication adjustments. States that it weaning her off her Seroquel but it is not helping. Caregiver reports that she did have elevated ammonia levels a few weeks ago, those have returned to normal. They believe is due to the Depakote however this medication has not been adjusted. Patient has been wearing oxygen during naps and at bedtime for decreased O2 saturation while sleeping. They deny any coughing. They deny any fever or chills. Some swelling, but no more than usual to the lower extremities. States her vital signs have been stable. Caregivers deny any rash, shortness breath, vomiting, or diarrhea. Patient is unable to contribute to history. - Related Data Home Medications Medication Instructions Recorded Confirmed ALPRAZolam [Xanax] 0.5 mg PO BID PRN 09/09/18 09/09/18 Baclofen [Lioresal] 10 mg PO DAILY@0700 09/09/18 09/09/18 Baclofen [Lioresal] 20 mg PO BID@1600,199909/09/18 09/09/18 Bethanechol Chloride [Urecholine] 50 mg PO TID@0700,1600,199909/09/18 09/09/18 Bisacodyl [Dulcolax] 10 mg RECTAL Q96H PRN 09/09/18 09/09/18 Carvedilol [Coreg] 3.125 mg PO BID@0800,199909/09/18 09/09/18 Divalproex Sodium [Depakote] 500 mg PO BID@0700,1600 09/09/18 09/09/18 Divalproex [Depakote] 250 mg PO BID@0700,199909/09/18 09/09/18 EPINEPHrine [Epipen 2-Molina] 0.3 mg IM ONCE PRN 09/09/18 09/09/18 Ergocalciferol (Vitamin D2) 50,000 unit PO FR@0700 09/09/18 09/09/18 [Vitamin D2] Escitalopram [Lexapro] 20 mg PO DAILY@0700 09/09/18 09/09/18 Haloperidol [Haldol] 5 mg PO BID@0700,1600 09/09/18 09/09/18 Ibuprofen [Motrin] 600 mg PO Q6HR PRN 09/09/18 09/09/18 Ketoconazole 2% Shampoo [Nizoral] 1 applic TOPICAL MOWEFR 09/09/18 09/09/18 Loratadine [Claritin] 10 mg PO DAILY@0700 09/09/18 09/09/18 Magnesium Hydroxide [Milk of 2,400 mg PO Q72H PRN 09/09/18 09/09/18 Magnesia] Montelukast [Singulair] 10 mg PO HS@199909/09/18 09/09/18 Mylanta 30 ml PO QID PRN 09/09/18 09/09/18 Na Phos,M-B/Na Phos,Di-Ba [Fleet 133 ml RECTAL Q120D PRN 09/09/18 09/09/18 Adult] Nystatin [Nystop] 1 applic TOPICAL BID PRN 09/09/18 09/09/18 Pravastatin Sodium [Pravachol] 20 mg PO HS@199909/09/18 09/09/18 Sennosides [Senna] 17.2 mg PO HS@199909/09/18 09/09/18 Sodium Chloride [[place]] 1 spray EA NOSTRIL BID PRN 09/09/18 09/09/18 Tamsulosin [Flomax] 0.4 mg PO HS@199909/09/18 09/09/18 Topiramate [Topamax] 50 mg PO HS@199909/09/18 09/09/18 Zinc Oxide [Desitin] 1 applic TOPICAL TID PRN 09/09/18 09/09/18 metroNIDAZOLE [metroNIDAZOLE 0.75% 1 applic TOPICAL BID@0800,199909/09/18 09/09/18 Gel] Allergies Allergy/AdvReac Type Severity Reaction Status Date / Time bee venom protein (honey bee) Allergy Unknown Verified 09/09/18 18:16 latex Allergy Unknown Verified 09/09/18 18:16 Penicillins Allergy Unknown Verified 09/09/18 18:16 sulfamethoxazole Allergy Unknown Verified 09/09/18 18:16 [From Bactrim] Tetanus Vaccines and Toxoid Allergy Unknown Verified 09/09/18 18:16 trimethoprim [From Bactrim] Allergy Unknown Verified 09/09/18 18:16 acetaminophen [From Tylenol] AdvReac Unknown Verified 09/09/18 18:16 Mental status examination: This is a pleasant 57-year-old female who was from the [facility] had altered mental status is able to answer some questions in mental status examination reveals a pleasant 57-year-old female who is awake and alert. It appears that her psychiatrist on the outpatient arena has been decreasing her Depakote and replacing it with Topamax. She had elevated blood level when she entered the hospital 107 ng per mL with elevated ammonia. After reviewing her mental status and discussing with internal medicine doctor I discontinued the Depakote and increase the Topamax 100 mg by mouth twice a day. Reviewing all her medications should stay intact including her haloperidol. Thank you for allowing me to participate care of your patient Alan Erickson D.O. PhD Current Visit: Yes Status: Acute Priority: Low Code(s): F32.9 - MAJOR DEPRESSIVE DISORDER, SINGLE EPISODE, UNSPECIFIED SNOMED Code(s): 244546525 (2) Neurocognitive disorder Current Visit: Yes Status: Acute Priority: Low Code(s): R41.9 - UNSP SYMPTOMS AND SIGNS W COGNITIVE FUNCTIONS AND AWARENESS SNOMED Code(s): 122544758 Time with Patient: Less than 30
[2018-09-10] MEDS: PIPERACILLIN-TAZOBACTAM 3.375 GM in SODIUM CHLORIDE 0.9% 100 ML IVPB SCH ×2 (17:25→23:48)
--- NOTE | 2018-09-10 17:54 | ECHOF ---
Referral Reason:r/o CHF MEASUREMENTS -------- HEIGHT: 157.5 cm WEIGHT: 84.4 kg BP: IVSd: 1.1 cm (0.6 - 1.1) LVIDd: 4.3 cm (3.9 - 5.3) LVPWd: 1.2 cm (0.6 - 1.1) IVSs: 1.7 cm LVIDs: 2.0 cm LVPWs: 1.8 cm Ao Diam: 2.8 cm (2.0 - 3.7) AV Cusp: 1.9 cm (1.5 - 2.6) LA Diam: 2.7 cm (2.7 - 3.8) MV E Bryan: 0.55 m/s MV DecT: 182 ms MV A Bryan: 0.53 m/s MV E/A Ratio: 1.04 RAP: 5.00 mmHg RVSP: 8.22 mmHg FINDINGS -------- Sinus rhythm. This was a technically difficult study with suboptimal views. The left ventricular size is normal. There is mild concentric left ventricular hypertrophy. Overa ll left ventricular systolic function is normal with, an EF between 55 - 60 %. The RV was not well visualized. The left atrium was not well visualized. The right atrium was not well visualized. Lumason used The aortic valve was not well visualized. The mitral valve was not well visualized. There is trace mitral regurgitation. The tricuspid valve was not well visualized. Trace tricuspid regurgitation present. The right onelia tricular systolic pressure, as measured by Doppler, is 8.22mmHg. The pulmonic valve was not well visualized. The aortic root size is normal. The inferior vena cava was not well visualized. CONCLUSIONS -------- 1. Sinus rhythm. 2. This was a technically difficult study with suboptimal views. 3. The left ventricular size is normal. 4. There is mild concentric left ventricular hypertrophy. 5. Overall left ventricular systolic function is normal with, an EF between 55 - 60 %. 6. The RV was not well visualized. 7. The left atrium was not well visualized. 8. The right atrium was not well visualized. 9. Lumason used 10. The aortic valve was not well visualized. 11. The mitral valve was not well visualized. 12. There is trace mitral regurgitation. 13. The tricuspid valve was not well visualized. 14. Trace tricuspid regurgitation present. 15. The right ventricular systolic pressure, as measured by Doppler, is 8.22mmHg. 16. The pulmonic valve was not well visualized. 17. The aortic root size is normal. 18. The inferior vena cava was not well visualized. ABATEMENT WORKER: Kiah Kaye RDCS
[2018-09-10] MEDS ORDERED: PRAVASTATIN SODIUM 20 MG TAB PO SCH (20:00)
[2018-09-10] MEDS ORDERED: SENNOSIDES 8.6 MG TAB PO SCH (20:00)
[2018-09-10] MEDS ORDERED: TAMSULOSIN 0.4 MG CAP.ER.24H PO SCH (20:00)
[2018-09-10] MEDS: TOPIRAMATE 100 MG TAB PO SCH (21:01)
[2018-09-11 01:25] VITALS: RESP 18
[2018-09-11] MEDS ORDERED: ESCITALOPRAM 20 MG TAB PO SCH (07:00)
[2018-09-11] MEDS: PIPERACILLIN-TAZOBACTAM 3.375 GM in SODIUM CHLORIDE 0.9% 100 ML IVPB SCH (08:18)
[2018-09-11] MEDS: CARVEDILOL 3.125 MG TAB PO SCH (08:18)
[2018-09-11] MEDS: BETHANECHOL 25 MG TAB PO SCH (08:18)
[2018-09-11] MEDS: TOPIRAMATE 100 MG TAB PO SCH (08:18)
[2018-09-11] MEDS: HALOPERIDOL 5 MG TAB PO SCH (08:19)
[2018-09-11 08:37] VITALS: BP 119/78; PULSE 98; TEMP 99
[2018-09-11] MEDS ORDERED: IPRATROPIUM-ALBUTEROL 3 ML NEB INHALATION PRN (09:52)
--- NOTE | 2018-09-11 10:36 | XR ---
EXAMINATION TYPE: XR chest 1V portable DATE OF EXAM: 09/11/2018 COMPARISON: Prior chest x-ray 09/09/2018 HISTORY: Shortness of breath, abnormal chest x-ray TECHNIQUE: Single frontal view of the chest is obtained. FINDINGS: Lung volumes are low. Heart is enlarged. Central vascularity and interstitium are increase d. Patchy bibasilar density persists. No pneumothorax or pleural effusion evident. Bandlike area of i ncreased density in the right upper lobe again seen. Arthropathy present in the shoulders. IMPRESSION: Expiratory rotated exam. Correlate for congestive heart failure, interstitial pneumoniti s, pneumonia, follow-up recommended.
[2018-09-11] MEDS ORDERED: AMOXIC-POT CLAV 875-125MG 1 EACH TAB PO SCH (11:00)
[2018-09-11] MEDS ORDERED: IPRATROPIUM-ALBUTEROL 3 ML NEB INHALATION SCH (13:00)
--- NOTE | 2018-09-11 13:05 | P.CNPUL ---
History of Present Illness Consult date: 09/11/18 Requesting physician: Ariana Hester Chief complaint: lethargy, altered mentation, desaturation History of present illness: This is a 57-year-old white female patient of Dr. Turk, who resides in a [place] [facility], and has past medical history of schizophrenia, anxiety, past medical history of CVA, seizure disorder, gait dysfunction, and patient is wheelchair- bound. Patient was brought in on 09/10/2018 for evaluation of increased lethargy, apparently patient was sleeping excessively at the [place] [facility], not feeding herself. Her give her reports patient had been gradually declining over the period of the last year, liver in the last 2 weeks she has been progressively worse, less interactive, more lethargic with decreased oral intake. Patient follows with a psychiatrist for medication adjustments, and there was a concern that some of her antipsychotic medications were causing excessive drowsiness. Patient has been requiring oxygen at bedtime and during naps related to decreased O2 saturations. No reports of fever or chills, no cough, or congestion. No increased swelling in her lower extremities. Reporte dly her vital signs have been stable at the [place] [facility]. No nausea, vomiting or diarrhea. Chest x-ray was completed showing a diffuse interstitial/alveolar phase cardiogenic pulmonary edema. EKG showed normal sinus rhythm with nonspecific T-wave abnormality. Echocardiogram showed preserved left ventricle systolic function with an EF of 55-60%, trace MR, trace TR no evidence of pulmonary hypertension with right-sided pressures of 8.22 mmHg. Blood work was reviewed, and showed no evidence of leukocytosis, white blood cell count was 5.5, hemoglobin is 14.2, lites were unremarkable, renal function was within normal limits, proBNP was normal at 70, an ammonia level was elevated at 61, and subsequently came down to 49. Urinalysis showed trace protein, but no evidence of infection, serum alcohol level was less than 10, urine tox screen showed tricyclic antidepressants. CT angios the chest was completed and showed no evidence for pulmonary embolism, it did show diffuse airspace infiltrates possibly relating to multifocal pneumonia, no evidence of atelectasis, no pulmonary nodules or mass, no pleural effusion. Patient has been diuresed, she was started on antibiotics in the form of Levaquin and Zosyn. Follow-up chest x-ray was obtained today showing increased central vascularity and interstitium, and persistence of patchy bibasilar density, with the possibility of interstitial pneumonitis, or pneumonia. Clinically patient is stable, she has been evaluated by psychiatry, and her anti-psychotics have been discontinued, Depakote has been discontinued, and Topamax was increased. She is more awake, she is answering simple questions, and she is able to make her needs known. She denies any shortness of breath, no cough or congestion, lung sounds reveal diminished breath sounds with basilar rales. No wheezing or rhonchi. Room air pulse ox is 94%, as have a low-grade fever with a temp of 99.1F. Respirations are even and nonlabored, we requested a repeat evaluation for evaluation of her swallowing ability. Otherwise seems to be pretty comfortable today's evaluation, no acute distress Review of Systems All systems: negative Constitutional: Reports lethargy, Reports weakness, Denies chills, Denies fever Eyes: denies blurred vision, denies pain Ears, nose, mouth and throat: Denies headache, Denies sore throat Cardiovascular: Denies chest pain, Denies shortness of breath Respiratory: Reports home oxygen, Denies cough Gastrointestinal: Denies abdominal pain, Denies diarrhea, Denies nausea, Denies vomiting Genitourinary: Denies dysuria, Denies hematuria Musculoskeletal: Denies myalgias Integumentary: Denies pruritus, Denies rash Neurological: Denies numbness, Denies weakness Psychiatric: Denies anxiety, Denies depression Endocrine: Denies fatigue, Denies weight change Past Medical History Past Medical History: CVA/TIA, Seizure Disorder Additional Past Medical History / Comment(s): Wears oxygen at night History of Any Multi-Drug Resistant Organisms: None Reported Past Psychological History: Anxiety, Schizophrenia Smoking Status: Former smoker Past Alcohol Use History: None Reported Past Drug Use History: None Reported - Past Family History Father Family Medical History: Unable to Obtain Mother Family Medical History: Unable to Obtain Medications and Allergies Home Medications Medication Instructions Recorded Confirmed Type ALPRAZolam [Xanax] 0.5 mg PO BID PRN 09/09/18 09/09/18 History Bethanechol Chloride [Urecholine] 50 mg PO TID@0700,1600,2000 09/09/18 09/09/18 History Bisacodyl [Dulcolax] 10 mg RECTAL Q96H PRN 09/09/18 09/09/18 History Carvedilol [Coreg] 3.125 mg PO BID@799,199909/09/18 09/09/18 History EPINEPHrine [Epipen 2-Molina] 0.3 mg IM ONCE PRN 09/09/18 09/09/18 History Ergocalciferol (Vitamin D2) 50,000 unit PO FR@69909/09/18 09/09/18 History [Vitamin D2] Escitalopram [Lexapro] 20 mg PO DAILY@0700 09/09/18 09/09/18 History Haloperidol [Haldol] 5 mg PO BID@0700,1600 09/09/18 09/09/18 History Ibuprofen [Motrin] 600 mg PO Q6HR PRN 09/09/18 09/09/18 History Ketoconazole 2% Shampoo [Nizoral] 1 applic TOPICAL MOWEFR 09/09/18 09/09/18 Hi story Magnesium Hydroxide [Milk of 2,400 mg PO Q72H PRN 09/09/18 09/09/18 History Magnesia] Montelukast [Singulair] 10 mg PO HS@199909/09/18 09/09/18 History Mylanta 30 ml PO QID PRN 09/09/18 09/09/18 History Na Phos,M-B/Na Phos,Di-Ba [Fleet 133 ml RECTAL Q120D PRN 09/09/18 09/09/18 Hi story Adult] Nystatin [Nystop] 1 applic TOPICAL BID PRN 09/09/18 09/09/18 History Pravastatin Sodium [Pravachol] 20 mg PO HS@199909/09/18 09/09/18 History Sennosides [Senna] 17.2 mg PO HS@199909/09/18 09/09/18 History Sodium Chloride [[place]st] 1 spray EA NOSTRIL BID PRN 09/09/18 09/09/18 History Tamsulosin [Flomax] 0.4 mg PO HS@199909/09/18 09/09/18 History Topiramate [Topamax] 50 mg PO HS@199909/09/18 09/09/18 History Zinc Oxide [Desitin] 1 applic TOPICAL TID PRN 09/09/18 09/09/18 History metroNIDAZOLE [metroNIDAZOLE 0.75% 1 applic TOPICAL BID@0800,199909/09/18 09/09/18 History Gel] Amoxic-Pot Clav 875-125Mg 1 tab PO Q12HR #14 tablet 09/11/18 Rx [Augmentin 875-125] Topiramate [Topamax] 100 mg PO BID tab 09/11/18 Rx Allergies Allergy/AdvReac Type Severity Reaction Status Date / Time bee venom protein (honey bee) Allergy Unknown Verified 09/09/18 18:16 latex Allergy Unknown Verified 09/09/18 18:16 Penicillins Allergy Unknown Verified 09/09/18 18:16 sulfamethoxazole Allergy Unknown Verified 09/09/18 18:16 [From Bactrim] Tetanus Vaccines and Toxoid Allergy Unknown Verified 09/09/18 18:16 trimethoprim [From Bactrim] Allergy Unknown Verified 09/09/18 18:16 acetaminophen [From Tylenol] AdvReac Unknown Verified 09/09/18 18:16 Physical Exam Vitals: Vital Signs Temp Pulse Resp BP Pulse Ox 09/11/18 08:00 18 09/11/18 07:00 99.0 F 98 16 119/78 94 L 09/11/18 01:12 99.1 F 76 18 123/72 96 09/10/18 19:06 99.1 F 88 20 117/80 92 L 09/10/18 14:02 97.6 F 74 16 109/71 94 L Intake and Output 09/10/18 09/11/18 09/11/18 22:59 06:59 14:59 Other: Voiding Method Diaper Diaper Incontinent Incontinent # Voids 1 1 1 # Bowel Movements 1 1 1 GENERAL EXAM: Alert, pleasant, 57-year-old white female, on room air, with a pulse ox of 94%, answering simple questions appropriately comfortable in no apparent distress. HEAD: Normocephalic/atraumatic. EYES: Normal reaction of pupils, equal size. Conjunctiva pink, sclera white. NOSE: Clear with pink turbinates. THROAT: No erythema or exudates. NECK: No masses, no JVD, no thyroid enlargement, no adenopathy. CHEST: No chest wall deformity. Symmetrical expansion. LUNGS: Equal air entry with diminished breath sounds with bibasilar crackles CVS: Regular rate and rhythm, normal S1 and S2, no gallops, no murmurs, no rubs ABDOMEN: Soft, nontender. No hepatosplenomegaly, normal bowel sounds, no guarding or rigidity. EXTREMITIES: No clubbing, no edema, no cyanosis, 2+ pulses and upper and lower extremities. MUSCULOSKELETAL: Muscle strength and tone normal. SPINE: No scoliosis or deformity SKIN: No rashes CENTRAL NERVOUS SYSTEM: Alert and oriented -1. No focal deficits, tone is normal in all 4 extremities. PSYCHIATRIC: Alert and oriented -1. Appropriate affect. Intact judgment and insight. Results - Laboratory Findings CBC and BMP: 09/10/18 08:52 09/09/18 15:33 Abnormal lab findings: Abnormal Labs 09/09/18 09/09/18 09/09/18 15:33 15:33 19:35 Hct Plt Count 142 L Chloride 111 H Glucose 131 H Ammonia 61 H Albumin 3.4 L Urine Protein U Tricyclic Antidepress 09/09/18 09/10/18 09/10/18 19:35 08:52 08:52 Hct 47.0 H Plt Count Chloride Glucose Ammonia 49 H Albumin Urine Protein Trace H U Tricyclic Antidepress Detected H - Diagnostic Findings Chest x-ray: report reviewed, image reviewed CT scan - chest: report reviewed, image reviewed Assessment and Plan Plan: Assessment: #1. Acute hypoxemic respiratory failure is secondary to diffuse airspace disease/multifocal pneumonia and there may be a component of pneumonitis, and pulmonary edema #2. Decreased level of consciousness, altered mentation on presentation, multifactorial, could be related to sepsis, in addition to psychiatric med ications, including antipsychotics, and seizure medications, in addition to elevated ammonia level #3. History of CVA/TIA #4. Seizure disorder, on Depakote and Topamax, Depakote has been placed on hold #5. Straight of schizophrenia, and anxiety #6. Former smoker #7. Gait dysfunction, patient is wheelchair bound #8. Decreased functional status, and patient requires extensive assistance with all ADLs including feeding, dressing, toileting #9. Resident of a local [place] [facility] Plan: Patient has been treated with one and Zosyn, and she has received several doses of IV diuretics, has been adjustments made to her psychiatric medications, and patient is clinically improving, she is more alert, she is answering simple questions, she is able to make her needs known. Remains on oxygen, at 2 L. She denies any shortness of breath, cough or congestion, today's chest x-ray has been reviewed and still show significant abnormality in the way of increased central vascularity and interstitium, and patchy bibasilar densities. Cultures showed no growth, low-grade fever of 99.1F, pulse signs are stable. Lab work is unremarkable. the attending physician is discharging the patient back to [place] [facility] today on oral antibiotics, she will need follow-up chest x-ray and follow-up appointments in the pulmonary clinic in one week I performed a history & physical examination of the patient and discussed their management with my nurse practitioner, Daphne Avila. I reviewed the nurse glory lezama's note and agree with the documented findings and plan of care. Lung sounds are positive for diminished breath sounds with bibasilar crackles. The findings and the impression was discussed with the patient. I attest to the documentation by the nurse practitioner. Time with Patient: Greater than 30
--- NOTE | 2018-09-11 14:44 | P.DS ---
Providers Date of admission: 09/09/18 21:39 Attending physician: Kwan Gomez Consults: 09/10/18 12:22 Consult Physician Routine Consulting Provider: Alan Erickson Consult Reason/Comments: Medication management Depakote, see today please Do you want consulting provider notified?: Yes 09/10/18 16:29 Consult Physician Routine Consulting Provider: Dash Jimenez Consult Reason/Comments: multifocal pneumonia Do you want consulting provider notified?: Yes Primary care physician: [facility] Course: Patient is a 57-year-old the on disability the and the mental retardation on multiple psychiatric medications polypharmacy brought in by the caregivers as patient is sleeping excessively. Patient is found to have limited ammonia levels. Patient is also on a lot of medications that can make her drowsy and sleepy. Patient is on a lot of psychiatric medications. Patient is found to have elevated ammonia 60 received 1 dose of lactulose came down to 48. And that this elevated ammonia level is attributed to do Depakote I'm decreasing the dose of Depakote to 250 mg patient uses Depakote for mood stabilization patient is also on Lamictal and multiple other antipsychotic medications along with the cyclobenzaprine. Patient apparently was desaturating at nighttime as well but probably this may be related to his sleep apnea although chest x-ray showed suspicious infiltrate for the pulmonary edema or atypical pneumonia. Patient will benefit from a CAT scan which can be done as an outpatient patient will be referred to food and beverage assistant. Patient is clinically stable at this time patient does not have any signs or symptoms of pneumonia including fever or leukocytosis patient denied any cough. Patient does not have any elevated JVD and obtain an echocardiogram although this can be done as outpatient patient does need to stay here for that patient is saturating 98% on room air at this time patient will be discharged today after evaluation by psychiatric since patient is on multiple antipsychotic medications, will get their opinion before she leaves. Patient can be discharged today and is medically stable and patient will not be continued on any antibiotics with concerns of side effects from polypharmacy due to prolongation as there is no clear-cut evidence patient has pneumonia. Patient will not be continued on Lasix either as there is no conclusive evidence patient has pulmonary edema although she urinated well with Lasix patient's BNP is only 58 patient is prone for dehydration with diuretic therapy. We will try and obtain echo cardiac exam before discharge but that shouldn't hold her discharge. 09/11/2018 I did a CAT scan of the chest as today which showed diffuse bilateral infiltrates consistent with pneumonia patient probably had aspiration pneumonia from excess Dilantin which is being discontinued at this time. Patient is clinically doing well today patient was started on Zosyn yesterday will be discharged on Augmentin for 7 days. Patient most probably has chemical pneumonitis PHYSICAL EXAMINATION: GENERAL: The patient is alert and oriented x2 which is her baseline, not in any acute distress. Well developed, well nourished. HEENT: Pupils are round and equally reacting to light. EOMI. No scleral icterus. No conjunctival pallor. Normocephalic, atraumatic. No pharyngeal erythema. No thyromegaly. CARDIOVASCULAR: S1 and S2 present. No murmurs, rubs, or gallops. PULMONARY: Chest is clear to auscultation, no wheezing or crackles. ABDOMEN: Soft, nontender, nondistended, normoactive bowel sounds. No palpable organomegaly. MUSCULOSKELETAL: No joint swelling or deformity. EXTREMITIES: No cyanosis, clubbing, or pedal edema. NEUROLOGICAL: Gross neurological examination did not reveal any focal deficits. SKIN: No rashes. Assessment and Plan Plan: -Decreased level of consciousness toxic encephalopathy from polypharmacy and Depakote may have contributed to that decreasing the dose of Depakote we'll give another dose of lactulose patient's ammonia level is elevated -Bilateral pneumonia probably secondary to aspiration from Dilantin and the was on Zosyn is being discharged on Augmentin for 7 days -Hypoxia not in respiratory failure is secondary to aspiration pneumonia -Hyperammonemia secondary to Depakote dose of which will be decreased patient will be evaluated by psychiatric here and will be followed by psychiatry as an outpatient -Schizophrenia and anxiety disorder -Possible obstructive sleep apnea will benefit from outpatient sleep study -There is no convincing evidence of congestive heart failure, patient had normal ejection fraction -Hyperlipidemia -Hypertension Patient Condition at Discharge: Serious Plan - Discharge Summary Discharge Rx Participant: Yes New Discharge Prescriptions: New Amoxic-Pot Clav 875-125Mg [Augmentin 875-125] 1 tab PO Q12HR #14 tablet Topiramate [Topamax] 100 mg PO BID #60 tab Continue Mylanta 30 ml PO QID PRN PRN Reason: Chest Pain Ibuprofen [Motrin] 600 mg PO Q6HR PRN PRN Reason: Pain ALPRAZolam [Xanax] 0.5 mg PO BID PRN PRN Reason: Anxiety Sodium Chloride [Freestone] 1 spray EA NOSTRIL BID PRN PRN Reason: Congestion Nystatin [Nystop] 1 applic TOPICAL BID PRN PRN Reason: Skin Irritation EPINEPHrine [Epipen 2-Molina] 0.3 mg IM ONCE PRN PRN Reason: Anaphylaxis Zinc Oxide [Desitin] 1 applic TOPICAL TID PRN PRN Reason: Skin Irritation Na Phos,M-B/Na Phos,Di-Ba [Fleet Adult] 133 ml RECTAL Q120D PRN PRN Reason: Constipation Bisacodyl [Dulcolax] 10 mg RECTAL Q96H PRN PRN Reason: Constipation Magnesium Hydroxide [Milk of Magnesia] 2,400 mg PO Q72H PRN PRN Reason: Constipation Ketoconazole 2% Shampoo [Nizoral] 1 applic TOPICAL MOWEFR metroNIDAZOLE [metroNIDAZOLE 0.75% Gel] 1 applic TOPICAL BID@799,1999 Topiramate [Topamax] 50 mg PO HS@1999 Tamsulosin [Flomax] 0.4 mg PO HS@1999 Sennosides [Senna] 17.2 mg PO HS@1999 Pravastatin Sodium [Pravachol] 20 mg PO HS@1999 Montelukast [Singulair] 10 mg PO HS@1999 Carvedilol [Coreg] 3.125 mg PO BID@799,1999 Escitalopram [Lexapro] 20 mg PO DAILY@0700 Haloperidol [Haldol] 5 mg PO BID@0700,1600 Ergocalciferol (Vitamin D2) [Vitamin D2] 50,000 unit PO FR@07 Bethanechol Chloride [Urecholine] 50 mg PO TID@0700,1599,1999 Discontinued Divalproex Sodium [Depakote] 500 mg PO BID@0700,1600 Divalproex [Depakote] 250 mg PO BID@699,1999 Loratadine [Claritin] 10 mg PO DAILY@0700 Baclofen [Lioresal] 20 mg PO BID@1599,1999 Baclofen [Lioresal] 10 mg PO DAILY@0700 Discharge Medication List ALPRAZolam [Xanax] 0.5 mg PO BID PRN 09/09/18 [History] Bethanechol Chloride [Urecholine] 50 mg PO TID@0700,1600,199909/09/18 [History] Bisacodyl [Dulcolax] 10 mg RECTAL Q96H PRN 09/09/18 [History] Carvedilol [Coreg] 3.125 mg PO BID@799,199909/09/18 [History] EPINEPHrine [Epipen 2-Molina] 0.3 mg IM ONCE PRN 09/09/18 [History] Ergocalciferol (Vitamin D2) [Vitamin D2] 50,000 unit PO FR@69909/09/18 [History] Escitalopram [Lexapro] 20 mg PO DAILY@69909/09/18 [History] Haloperidol [Haldol] 5 mg PO BID@0700,1600 09/09/18 [History] Ibuprofen [Motrin] 600 mg PO Q6HR PRN 09/09/18 [History] Ketoconazole 2% Shampoo [Nizoral] 1 applic TOPICAL MOWEFR 09/09/18 [History] Magnesium Hydroxide [Milk of Magnesia] 2,400 mg PO Q72H PRN 09/09/18 [History] Montelukast [Singulair] 10 mg PO HS@199909/09/18 [History] Mylanta 30 ml PO QID PRN 09/09/18 [History] Na Phos,M-B/Na Phos,Di-Ba [Fleet Adult] 133 ml RECTAL Q120D PRN 09/09/18 [History] Nystatin [Nystop] 1 applic TOPICAL BID PRN 09/09/18 [History] Pravastatin Sodium [Pravachol] 20 mg PO HS@199909/09/18 [History] Sennosides [Senna] 17.2 mg PO HS@199909/09/18 [History] Sodium Chloride [Freestone] 1 spray EA NOSTRIL BID PRN 09/09/18 [History] Tamsulosin [Flomax] 0.4 mg PO HS@199909/09/18 [History] Topiramate [Topamax] 50 mg PO HS@199909/09/18 [History] Zinc Oxide [Desitin] 1 applic TOPICAL TID PRN 09/09/18 [History] metroNIDAZOLE [metroNIDAZOLE 0.75% Gel] 1 applic TOPICAL BID@799,199909/09/18 [History] Amoxic-Pot Clav 875-125Mg [Augmentin 875-125] 1 tab PO Q12HR #14 tablet 09/11/18 [Rx] Topiramate [Topamax] 100 mg PO BID #60 tab 09/11/18 [Rx] Follow up Appointment(s)/Referral(s): [facility] [REFERRING] - 09/16/18 3:30 pm Yoon Montenegro MD [STAFF PHYSICIAN] - 09/17/18 3:15 pm (with Tiffany) Patient Instructions/Handouts: Pneumonia (DC) Activity/Diet/Wound Care/Special Instructions: Activity as tolerated Chopped food with 1:1 supervision Discharge Disposition: OTHER INSTITUTION NOT DEFINED
[2018-09-12] MEDS ORDERED: KETOCONAZOLE 2% SHAMPOO 1 APPLIC/ML TOPICAL SCH (09:00)
== END 2018-09-11 15:12 | disposition home or self-care (01) | DRG 91 ==
LOC: EC 13:40 → 4SSUR 21:39 → EEVIPCON 21:39
PROVIDERS: ADMIT Hospitalist; ATTEND Hospitalist
DX: G92 Toxic encephalopathy (principal); J69.0 Pneumonitis due to inhalation of food and vomit; E72.20 Disorder of urea cycle metabolism, unspecified; F20.9 Schizophrenia, unspecified; R09.02 Hypoxemia; T42.6X5A Adverse effect of other antiepileptic and sedative-hypnotic drugs, initial encounter; T42.0X5A Adverse effect of hydantoin derivatives, initial encounter; E86.0 Dehydration; F41.9 Anxiety disorder, unspecified; F79 Unspecified intellectual disabilities; G40.909 Epilepsy, unspecified, not intractable, without status epilepticus; G47.30 Sleep apnea, unspecified; E78.5 Hyperlipidemia, unspecified; R32 Unspecified urinary incontinence; I10 Essential (primary) hypertension; R26.9 Unspecified abnormalities of gait and mobility; Z99.81 Dependence on supplemental oxygen; Z79.899 Other long term (current) drug therapy; Z99.3 Dependence on wheelchair; Z86.73 Personal history of transient ischemic attack (TIA), and cerebral infarction without residual deficits; Z87.891 Personal history of nicotine dependence; Z88.0 Allergy status to penicillin; Z88.2 Allergy status to sulfonamides; Z88.7 Allergy status to serum and vaccine; Z88.6 Allergy status to analgesic agent; Z91.030 Bee allergy status; Z91.040 Latex allergy status
CPT/HCPCS: 36415; 71045; 71046; 71275; 80053; 80164; 80306; 80320; 81003; 82140; 83880; 85025; 87040; 93005; 93306; 96365; 96375; 99285

== ENCOUNTER 2019-01-23 17:26 | Inpatient (IN) | payer MEDICARE, OTHER ==
[2019-01-23] MEDS ORDERED: SODIUM CHLORIDE 0.9% 1,000 ML IV STA (18:23)
[2019-01-23] MEDS ORDERED: PNEUMONIA PROTOCOL UTILIZED 1 EACH MISC PO PRN (18:26)
[2019-01-23] MEDS ORDERED: IBUPROFEN 400 MG TAB PO STA (18:26)
[2019-01-23] MEDS ORDERED: AZTREONAM 2 GM in SODIUM CHLORIDE 0.9% 100 ML IVPB STA (18:31)
--- NOTE | 2019-01-23 18:36 | ED ---
General Adult HPI - General Chief complaint: Shortness of Breath Stated complaint: Cough Time Seen by Provider: 01/23/19 17:32 Source: patient, EMS, RN notes reviewed, old records reviewed (Review of report from [facility] Caregiver Mode of arrival: EMS Limitations: no limitations - History of Present Illness Initial comments: Patient is a pleasant 58 female presenting to the emergency department as a transfer from [facility]. While there patient was diagnosed with pneumonia. This was multifocal pneumonia on computed tomography scan. Patient had a lactic acid of 1.0. White blood cell count 16. Patient did have blood cultures ordered and was started on Levaquin. Patient has been coughing for months. Patient has had some difficulty in breathing and low pulse ox level. Patient states she does not feel short of breath at this time. - Related Data Home Medications Medication Instructions Recorded Confirmed ALPRAZolam [Xanax] 0.5 mg PO BID 09/09/18 01/23/19 Bethanechol Chloride [Urecholine] 50 mg PO TID@0700,1599,199909/09/18 01/23/19 Bisacodyl [Dulcolax] 10 mg RECTAL Q96H PRN 09/09/18 01/23/19 Carvedilol [Coreg] 3.125 mg PO BID@699,199909/09/18 01/23/19 EPINEPHrine [Epipen 2-Molina] 0.3 mg IM ONCE PRN 09/09/18 01/23/19 Ergocalciferol (Vitamin D2) 50,000 unit PO FR@69909/09/18 01/23/19 [Vitamin D2] Escitalopram [Lexapro] 20 mg PO DAILY@69909/09/18 01/23/19 Haloperidol [Haldol] 5 mg PO TID@0730,1530,2330 09/09/18 01/23/19 Ibuprofen [Motrin] 600 mg PO Q6HR PRN 09/09/18 01/23/19 Ketoconazole 2% Shampoo [Nizoral] 1 applic TOPICAL MOWEFR 09/09/18 01/23/19 Magnesium Hydroxide [Milk of 2,400 mg PO Q72H PRN 09/09/18 01/23/19 Magnesia] Montelukast [Singulair] 10 mg PO HS@199909/09/18 01/23/19 Mylanta 30 ml PO QID PRN 09/09/18 01/23/19 Na Phos,M-B/Na Phos,Di-Ba [Fleet 133 ml RECTAL Q120D PRN 09/09/18 01/23/19 Adult] Nystatin [Nystop] 1 applic TOPICAL BID PRN 09/09/18 01/23/19 Pravastatin Sodium [Pravachol] 20 mg PO HS@199909/09/18 01/23/19 Sennosides [Senna] 17.2 mg PO HS@199909/09/18 01/23/19 Sodium Chloride [Cul[place]on] 1 spray EA NOSTRIL BID PRN 09/09/18 01/23/19 Tamsulosin [Flomax] 0.4 mg PO HS@199909/09/18 01/23/19 Zinc Oxide [Desitin] 1 applic TOPICAL TID PRN 09/09/18 01/23/19 metroNIDAZOLE [metroNIDAZOLE 0.75% 1 applic TOPICAL BID@0800,199909/09/18 01/23/19 Gel] ALPRAZolam [Xanax] 0.5 mg PO DAILY PRN 01/23/19 01/23/19 Acetaminophen Tab [Tylenol Tab] 325 mg PO Q6H PRN 01/23/19 01/23/19 Aspirin EC [Ecotrin Low Dose] 81 mg PO DAILY@0700 01/23/19 01/23/19 Baclofen [Lioresal] 10 mg PO BID@0700,199901/23/19 01/23/19 Budesonide [Pulmicort] 0.5 mg INHALATION RT-BID 01/23/19 01/23/19 Miconazole Nitrate [Miconazole 1 applic TOPICAL BID@08,199901/23/19 01/23/19 Nitrate 2%] QUEtiapine [SEROquel] 200 mg PO HS@199901/23/19 01/23/19 Topiramate [Topamax] 100 mg PO BID@0800,199901/23/19 01/23/19 Trolamine Salicylate/Aloe Vera 1 applic TOPICAL BID PRN 01/23/19 01/23/19 [Aspercreme 10% Cream] Allergies Allergy/AdvReac Type Severity Reaction Status Date / Time bee venom protein (honey bee) Allergy Unknown Verified 01/23/19 17:57 latex Allergy Unknown Verified 01/23/19 17:57 Penicillins Allergy Unknown Verified 01/23/19 17:57 sulfamethoxazole Allergy Unknown Verified 01/23/19 17:57 [From Bactrim] Tetanus Vaccines and Toxoid Allergy Unknown Verified 01/23/19 17:57 trimethoprim [From Bactrim] Allergy Unknown Verified 01/23/19 17:57 acetaminophen [From Tylenol] AdvReac Unknown Verified 01/23/19 17:57 Review of Systems ROS Statement: Those systems with pertinent positive or pertinent negative responses have been documented in the HPI. ROS Other: All systems not noted in ROS Statement are negative. Constitutional: Denies: fever Eyes: Denies: eye pain ENT: Denies: ear pain Respiratory: Reports: cough, dyspnea Cardiovascular: Denies: chest pain Endocrine: Denies: fatigue Gastrointestinal: Denies: abdominal pain Genitourinary: Denies: dysuria Musculoskeletal: Denies: back pain Skin: Denies: rash Neurological: Denies: weakness Past Medical History Past Medical History: CVA/TIA, Seizure Disorder Additional Past Medical History / Comment(s): Wears oxygen at night History of Any Multi-Drug Resistant Organisms: None Reported Past Surgical History: Orthopedic Surgery Additional Past Surgical History / Comment(s): previous trach Past Psychological History: Anxiety, Schizophrenia Smoking Status: Former smoker Past Alcohol Use History: None Reported Past Drug Use History: None Reported - Past Family History Father Family Medical History: Unable to Obtain Mother Family Medical History: Unable to Obtain General Exam Limitations: no limitations General appearance: alert, in no apparent distress Head exam: Present: normocephalic Eye exam: Present: normal appearance Neck exam: Present: normal inspection Respiratory exam: Present: normal lung sounds bilaterally. Absent: respiratory distress Cardiovascular Exam: Present: regular rate, normal rhythm GI/Abdominal exam: Present: soft. Absent: tenderness Extremities exam: Present: normal inspection Neurological exam: Present: alert Psychiatric exam: Present: normal affect, normal mood Skin exam: Present: normal color Course Vital Signs 01/23/19 17:27 Temperature 100.7 F H Pulse Rate 92 Respiratory 18 Rate Blood Pressure 109/94 O2 Sat by Pulse 95 Oximetry Medical Decision Making - Medical Decision Making Case was discussed in detail with practitioner Glory Razo, who will admit covering for Dr. Shefifeld, who admits for Dr. Turk. Disposition Clinical Impression: Multifocal pneumonia, Sepsis Disposition: ADMITTED IP TO THIS HOSP Condition: Serious Is patient prescribed a controlled substance at d/c from ED?: No Referrals: Nicholas Turk MD [Primary Care Provider] - 1-2 days Decision Time: 18:36
[2019-01-23] MEDS: IPRATROPIUM-ALBUTEROL 3 ML NEB INHALATION PRN (19:33)
[2019-01-23] MEDS: SODIUM CHLORIDE 0.9% 1,000 ML IV SCH (19:35)
[2019-01-23] MEDS ORDERED: BISACODYL 10 MG SUPP RECTAL PRN (22:02)
[2019-01-23] MEDS ORDERED: ACETAMINOPHEN TAB 325 MG TAB PO PRN (22:02)
[2019-01-23] MEDS ORDERED: ALOE VERA TOPICAL PRN (22:02)
[2019-01-23] MEDS ORDERED: MYLANTA PO PRN (22:02)
[2019-01-23] MEDS ORDERED: TROLAMINE SALICYLATE TOPICAL PRN (22:02)
[2019-01-23] MEDS ORDERED: ZINC OXIDE TOPICAL PRN (22:02)
[2019-01-23] MEDS ORDERED: NYSTATIN 100,000 UNIT/GM POWD 15 GM TOPICAL PRN (22:02)
[2019-01-23] MEDS ORDERED: MAGNESIUM HYDROXIDE 2,400 MG/10 ML CUP PO PRN (22:02)
[2019-01-23] MEDS: ALPRAZolam 0.5 MG TAB PO SCH (22:28)
[2019-01-23] MEDS: HALOPERIDOL 5 MG TAB PO SCH (23:13)
[2019-01-24] MEDS: IBUPROFEN 600 MG TAB PO PRN ×2 (01:03→20:31)
[2019-01-24] MEDS: AZTREONAM 2 GM in SODIUM CHLORIDE 0.9% 100 ML IVPB SCH ×3 (04:10→20:12)
[2019-01-24] MEDS: SODIUM CHLORIDE 0.9% 1,000 ML IV SCH ×2 (04:29→08:35)
[2019-01-24] MEDS: ASPIRIN 81 MG PO SCH (06:46)
[2019-01-24] MEDS: BACLOFEN 10 MG TAB PO SCH ×2 (06:46→20:13)
[2019-01-24] MEDS: CARVEDILOL 3.125 MG TAB PO SCH ×2 (06:46→20:12)
[2019-01-24] MEDS: BETHANECHOL CHLORIDE 50 MG PO SCH ×3 (06:46→20:14)
[2019-01-24] MEDS: ESCITALOPRAM 20 MG TAB PO SCH (06:46)
[2019-01-24] MEDS: BUDESONIDE 0.5 MG/2 ML NEBU INHALATION SCH ×2 (08:10→19:24)
[2019-01-24] MEDS: ALPRAZolam 0.5 MG TAB PO SCH ×2 (08:33→22:26)
[2019-01-24] MEDS: HALOPERIDOL 5 MG TAB PO SCH ×3 (08:33→23:34)
[2019-01-24] MEDS: MICONAZOLE NITRATE 2% CREAM 14 GM TUBE TOPICAL SCH ×2 (08:34→20:15)
[2019-01-24] MEDS: TOPIRAMATE 100 MG TAB PO SCH ×2 (08:34→20:13)
[2019-01-24] MEDS: METRONIDAZOLE TOPICAL SCH ×2 (08:35→20:15)
--- NOTE | 2019-01-24 08:44 | XR ---
EXAMINATION TYPE: XR chest 2V DATE OF EXAM: 01/24/2019 HISTORY: pneumonia. REFERENCE: Previous study dated 09/11/2018. FINDINGS: The heart is enlarged. There is vascular congestion and pulmonary edema. I suspect small, b ilateral effusions. IMPRESSION: FINDINGS MOST CONSISTENT WITH CONGESTIVE HEART FAILURE. I COULD NOT EXCLUDE SUPERIMPOSED PNEUMONIA.
--- NOTE | 2019-01-24 11:54 | P.HPIM ---
History of Present Illness H&P Date: 01/24/19 Chief Complaint: Transferred from [facility] for pneumonia Ms. Armstrong is a 58-year-old female with a past medical history of COPD, schizophrenia, depression with anxiety, pseudotumor cerebri, hyperlipidemia, chronic low back pain, hypertension, urinary retention transferred from [facility] for multifocal pneumonia. The patient has been coughing for the past 1-2 months cough is nonproductive for the most part but sometimes with white phlegm has been happening for the past 1 month. She was seen by a video effects editor and started on Pulmicort that did not help her. So she was transferred to [facility]. In the hospital patient was found to have low oxygen saturation, elevated white count and a computed tomography scan of the chest was consistent with multifocal pneumonia. So the patient was given a dose of Levaquin and transferred to [facility]. The discharge papers from [facility] have been reviewed she had an EKG showing a heart rate of 88 bpm in sinus rhythm. A CT of the thorax without contrast showing multifocal patchy and confluent groundglass, greatest in the mid and lower lobes. No pleural effusion. Differential diagnosis ARDS, multifocal pneumonia including atypical infections, interstitial pneumonitis. Borderline and mildly enlarged mediastinal lymph nodes measuring up to 1.2 cm. She had a white count of 16.14, hemoglobin of 14, platelets 208. Sodium 141 potassium 4 chloride 109 bicarb 22 creatinine 0.7 troponin less than 0.012 lactic acid is 1 INR of 0.98 influenza A and B is negative. So the patient has been admitted for management of multifocal pneumonia and pulmonary consult has been placed. Currently the patient is lying comfortably in the bed, she still has some cough ongoing. She denies having any difficulty in breathing. No fevers chills or rigors. Patient denies having any abdominal pain nausea vomiting or diarrhea. Patient wears diapers for urinary incontinence. Patient has history of stroke and the is bedbound and mostly around with a wheelchair. She is a resident of [facility]. Patient has a public guardian Sana Lancaster - [phone]. Review of Systems REVIEW OF SYSTEMS: PSYCH: Schizophrenia NEURO: History of stroke. Moves around with a wheelchair VASCULAR: Denies having any lower extremity edema. HEMATOLOGIC: No history of easy bleeding and bruising . No recent infections . RESPIRATORY: As per HPI IMMUNE: No infections INTEGUMENT: no rashes OPHTHALMOLOGIC: No blurry vision and no eye discharge : No dysuria or hematuria RIDES SUPERVISOR: No bleeding PV CARDIAC: No chest pain or paroxysmal nocturnal dyspnea MUSCULOSKELETAL : No Aches or pains in the joints or muscles. GI: No abdominal pain, Nausea or vomiting. No constipation or diarrhea. All 13 review of systems are done. Patient is slow to respond but gives me appropriate answers. Past Medical History Past Medical History: COPD, CVA/TIA, GERD/Reflux, Osteoarthritis (OA), Seizure Disorder Additional Past Medical History / Comment(s): Wears oxygen at night History of Any Multi-Drug Resistant Organisms: None Reported Past Surgical History: Orthopedic Surgery Additional Past Surgical History / Comment(s): previous trach Past Psychological History: Anxiety, Schizophrenia Smoking Status: Former smoker Past Alcohol Use History: None Reported Past Drug Use History: None Reported - Past Family History Father Family Medical History: Unable to Obtain Mother Family Medical History: Unable to Obtain Medications and Allergies Home Medications Medication Instructions Recorded Confirmed Type ALPRAZolam [Xanax] 0.5 mg PO BID 09/09/18 01/23/19 History Bethanechol Chloride [Urecholine] 50 mg PO TID@0700,1600,199909/09/18 01/23/19 History Bisacodyl [Dulcolax] 10 mg RECTAL Q96H PRN 09/09/18 01/23/19 History Carvedilol [Coreg] 3.125 mg PO BID@699,199909/09/18 01/23/19 History EPINEPHrine [Epipen 2-Molina] 0.3 mg IM ONCE PRN 09/09/18 01/23/19 History Ergocalciferol (Vitamin D2) 50,000 unit PO FR@69909/09/18 01/23/19 History [Vitamin D2] Escitalopram [Lexapro] 20 mg PO DAILY@0700 09/09/18 01/23/19 History Haloperidol [Haldol] 5 mg PO TID@0730,1530,2330 09/09/18 01/23/19 History Ibuprofen [Motrin] 600 mg PO Q6HR PRN 09/09/18 01/23/19 History Ketoconazole 2% Shampoo [Nizoral] 1 applic TOPICAL MOWEFR 09/09/18 01/23/19 History Magnesium Hydroxide [Milk of 2,400 mg PO Q72H PRN 09/09/18 01/23/19 History Magnesia] Montelukast [Singulair] 10 mg PO HS@199909/09/18 01/23/19 History Mylanta 30 ml PO QID PRN 09/09/18 01/23/19 History Na Phos,M-B/Na Phos,Di-Ba [Fleet 133 ml RECTAL Q120D PRN 09/09/18 01/23/19 History Adult] Nystatin [Nystop] 1 applic TOPICAL BID PRN 09/09/18 01/23/19 History Pravastatin Sodium [Pravachol] 20 mg PO HS@199909/09/18 01/23/19 History Sennosides [Senna] 17.2 mg PO HS@199909/09/18 01/23/19 History Sodium Chloride [[place]ilwell] 1 spray EA NOSTRIL BID PRN 09/09/18 01/23/19 History Tamsulosin [Flomax] 0.4 mg PO HS@199909/09/18 01/23/19 History Zinc Oxide [Desitin] 1 applic TOPICAL TID PRN 09/09/18 01/23/19 History metroNIDAZOLE [metroNIDAZOLE 0.75% 1 applic TOPICAL BID@799,199909/09/18 01/23/19 History Gel] ALPRAZolam [Xanax] 0.5 mg PO DAILY PRN 01/23/19 01/23/19 History Acetaminophen Tab [Tylenol Tab] 325 mg PO Q6H PRN 01/23/19 01/23/19 History Aspirin EC [Ecotrin Low Dose] 81 mg PO DAILY@0700 01/23/19 01/23/19 History Baclofen [Lioresal] 10 mg PO BID@07,199901/23/19 01/23/19 History Budesonide [Pulmicort] 0.5 mg INHALATION RT-BID 01/23/19 01/23/19 History Miconazole Nitrate [Miconazole 1 applic TOPICAL BID@799,199901/23/19 01/23/19 History Nitrate 2%] QUEtiapine [SEROquel] 200 mg PO HS@199901/23/19 01/23/19 History Topiramate [Topamax] 100 mg PO BID@0800,2000 01/23/19 01/23/19 History Trolamine Salicylate/Aloe Vera 1 applic TOPICAL BID PRN 01/23/19 01/23/19 History [Aspercreme 10% Cream] Allergies Allergy/AdvReac Type Severity Reaction Status Date / Time bee venom protein (honey bee) Allergy Unknown Verified 01/23/19 17:57 latex Allergy Unknown Verified 01/23/19 17:57 Penicillins Allergy Unknown Verified 01/23/19 17:57 sulfamethoxazole Allergy Unknown Verified 01/23/19 17:57 [From Bactrim] Tetanus Vaccines and Toxoid Allergy Unknown Verified 01/23/19 17:57 trimethoprim [From Bactrim] Allergy Unknown Verified 01/23/19 17:57 Physical Exam Vitals: Vital Signs Temp Pulse Pulse Resp BP BP Pulse Ox 01/24/19 05:03 98.1 F 97 18 103/67 95 01/23/19 21:00 97.7 F 91 18 101/70 94 L 01/23/19 20:02 100.5 F H 88 20 100/60 97 01/23/19 19:47 96 01/23/19 19:33 98 01/23/19 19:25 20 01/23/19 18:39 89 18 109/58 95 01/23/19 17:27 100.7 F H 92 18 109/94 95 Intake and Output 01/23/19 01/24/19 01/24/19 22:59 06:59 14:59 Intake Total 300 Output Total 1 Balance 299 Intake: Oral 300 Output: Urine/Stool Mix 1 Other: Voiding Method Incontinent # Voids 4 1 # Bowel Movements 1 Weight 68.946 kg GEN. APPEARANCE: alert, in no apparent distress HEAD EXAM: atraumatic, normocephalic, normal inspection EYE EXAM: Pupils equal and round and reactive to light. No pallor. No icterus. ENT EXAM: normal exam, mucous membranes moist NECK EXAM: normal inspection. Absent: tenderness, meningismus, full ROM, lymphadenopathy RESPIRATORY EXAM: Diffuse rhonchi in all lung johns. CARDIOVASCULAR EXAM: regular rate, normal rhythm, normal heart sounds. No additional sounds. GI/ABDOMINAL EXAM: soft, normal bowel sounds. Absent: distended, tenderness, guarding, rebound, rigid EXTREMITIES EXAM: No lower extremity edema. NEUROLOGICAL EXAM: Patient is weak on the left upper and lower extremity compared to right. PSYCHIATRIC EXAM: normal affect, normal mood Results Results: Labs from [facility] have been reviewed. CAT scan of the chest reviewed. Thrombosis Risk Factor Assmnt - Choose All That Apply Each Factor Represents 1 point: Age 41-60 years Thrombosis Risk Factor Assessment Total Risk Factor Score: 1 Thrombosis Risk Factor Assessment Level: Low Risk Assessment and Plan Assessment: ASSESSMENT Sepsis secondary to multifocal pneumonia History of stroke/TIA - left-sided weakness Schizophrenia COPD Hypertension Bipolar disorder Hyperlipidemia Chronic debility PLAN: Patient has been started on aztreonam and levofloxacin and admitted for further management. Pulmonary consult has been placed. Continue with breathing treatments. Patient has been resumed on her home medications. Patient has a public legal guardian. All the reports from [facility] have been reviewed. The treatment plan was discussed in detail with the patient at bedside. Further recommendations to follow depending on the progress of the patient.
[2019-01-24 12:43] LABS: Basophils % (A) 0 %; Eosinophils % (A) 9 %; HCT 39.9 % (34.0-46.0); HGB 12.9 gm/dL (11.4-16.0); Lymphocytes # (A) 1.2 k/uL (1.0-4.8); Lymphocytes % (A) 10 %; MCH 29.2 pg (25.0-35.0); MCHC 32.4 g/dL (31.0-37.0); MCV 90.2 fL (80.0-100.0); Mean Platelet Volume 7.2; Monocytes # (A) 0.5 k/uL (0-1.0); Monocytes % (A) 4 %; Neutrophils # (A) 8.2 k/uL (1.3-7.7); Neutrophils % (A) 74 %; Platelet Count 184 k/uL (150-450); RBC 4.43 m/uL (3.80-5.40); RDW 13.3 % (11.5-15.5); WBC 11.1 k/uL (3.8-10.6)
[2019-01-24 12:50] LABS: ALT 21 U/L (9-52); AST 20 U/L (14-36); African American GFR (CKD) >90 (>60 ml/min/1.73 sqM); Albumin 3.5 g/dL (3.5-5.0); Alkaline Phosphatase 83 U/L (38-126); Anion Gap 6 mmol/L; Blood Urea Nitrogen 8 mg/dL (7-17); Calcium 8.8 mg/dL (8.4-10.2); Carbon Dioxide 24 mmol/L (22-30); Chloride 113 mmol/L (98-107); Glucose 99 mg/dL (74-99); Potassium 4.2 mmol/L (3.5-5.1); Sodium 143 mmol/L (137-145); Total Bilirubin 0.3 mg/dL (0.2-1.3); Total Protein 6.8 g/dL (6.3-8.2)
--- NOTE | 2019-01-24 13:06 | CONS ---
CONSULTATION This is a pulmonary/critical care. DATE OF SERVICE: January 24, 2019 HISTORY OF PRESENT ILLNESS: This is a 58-year-old female who was apparently brought to the emergency room with complaints of cough, chest congestion, phlegm production and shortness of breath. She has a history of schizophrenia, anxiety, and CVA as well as seizure disorder. Anyway, the patient was transferred down from [facility]. She apparently there was diagnosis having multifocal pneumonia on CT scan. [place] [address]. Her lactic acid was 1. Blood cultures were ordered and done and she was started on Levaquin and sent down for evaluation. Apparently she was quite short of breath. Her pulse ox was low. Currently, she is lying in bed. Nearly flat. She is able to verbalize. She does not appear to be in any respiratory distress. There is no audible wheezing, use of accessory muscles or conversational dyspnea. MEDICATIONS: Reviewed. She is on Xanax, Urocholine, Dulcolax, Coreg, EpiPen, vitamin D2, Lexapro, Haldol, Motrin, Nizoral, milk of magnesia, Singulair, Mylanta, Fleet's enema, nystatin, Pravachol, Senna, Preston nasal spray, Flomax, and Desitin ointment, metronidazole gel, Xanax,Tylenol, low-dose aspirin, baclofen, Pulmicort, miconazole nitrate, Seroquel, Topamax, and Aspercreme. ALLERGIES: INCLUDE BEE VENOM, LATEX AND PENICILLIN WELL SULFA ANTIBIOTICS, TETANUS VACCINE, TRIMETHOPRIM, AND TYLENOL. MEDICAL HISTORY: Vague. She apparently has a history of CAD, CVA, and seizure disorder. She also apparently has a history of anxiety and schizophrenia. She has a previous history of having a tracheostomy tube as well. Again, she is a poor historian and most of the history is obtained from the ER ghanshyam. She has also had some orthopedic procedures. SOCIAL HISTORY: Apparently positive for previous tobacco use. She apparently is unable to tell us about alcohol or illicit drug use. It appears to be that she has not had any of those 2 things in the past. FAMILY HISTORY: Family history is unable to be obtained. Again, the patient is probably a bit mentally challenged. Apparently, the documentation by the ER physician was from a [facility] caregiver. REVIEW OF SYSTEMS: Is positive for shortness of breath, cough, chest congestion and yellow phlegm production from the respiratory system. The rest of the other 13 of 14 review of systems is essentially negative, but again somewhat limited because of the fact the patient is a poor historian. PHYSICAL EXAMINATION: VITAL SIGNS: Current vital signs are reviewed. Temperature is 98.1. Heart rate 97, respiratory rate 18, blood pressure 103/67 mean 79, 3 L saturation 95%. GENERAL: Appears in no acute distress. HEENT examination is grossly unremarkable. Nasal O2 in place at 3 L/minute. NECK: Supple. Full range of motion. No adenopathy. Cardiovascular exam reveals regular rhythm and rate. S1, S2 normal. No S3, S4, or murmur. LUNGS: Reveal coarse rhonchi. No cough. No wheezes. A few scattered crackles. ABDOMEN: Soft. EXTREMITIES are intact. No edema. SKIN: Without rash. NEUROLOGIC: Examination is difficult to assess. She does verbalize. She seems to be reasonably alert. She does move all 4 extremities. LABS: Reviewed. No labs from this institution. Microbiology has not been done as well. She apparently does have a CT scan at the other institution showing multi focal pneumonia. Her chest x-ray here is evaluated. It shows what appears to be possible CHF versus pneumonia. Again, no labs have been done here. Medications are reviewed. ASSESSMENT: 1. Cough, shortness of breath, phlegm production, chest congestion, which may relate to underlying heart failure and/or pneumonia. 2. Very poor historian. 3. History of seizure disorder. 4. History of schizophrenia. 5. History of cerebrovascular accident. 6. Nocturnal hypoxemia. 7. Previous history of tobacco use. 8. Rule out chronic obstructive pulmonary disease. 9. Degenerative joint disease. 10.History of pseudotumor cerebri. 11.History of hyperlipidemia. 12.History of chronic back pain. 13.History of hypertension. 14.History of urinary retention. PLAN: Unfortunately, I do not have the data from the outside hospital to review. Apparently the CT scan of the thorax with contrast showed multifocal patchy and confluent ground- glass opacities, more so in the mid and lower lung johns. There was no pleural effusion. The differential diagnosis was that of ARDS versus multifocal pneumonia and/or atypical infections. Medications are reviewed. Additional recommendations and suggestions are forthcoming. We will get some basic labs including CBC, comprehensive metabolic profile. Urinalysis and N terminal proBNP. Additional recommendations and suggestions are forthcoming. MMODL / IJN: [id number] /
[2019-01-24] MEDS: ENOXAPARIN 40 MG/0.4 ML SYRINGE SQ SCH (13:15)
[2019-01-24] MEDS: LEVOFLOXACIN 750MG-D5W PMX 750 MG in DEXTROSE/WATER 1 150ML.BAG IVPB SCH (17:06)
[2019-01-24] MEDS: TAMSULOSIN 0.4 MG CAP.ER.24H PO SCH (20:12)
[2019-01-24] MEDS: SENNOSIDES 8.6 MG TAB PO SCH (20:12)
[2019-01-24] MEDS: PRAVASTATIN SODIUM 20 MG TAB PO SCH (20:13)
[2019-01-24] MEDS: MONTELUKAST 10 MG TAB PO SCH (20:13)
[2019-01-24] MEDS: QUEtiapine 200 MG TAB PO SCH (20:18)
[2019-01-25] MEDS: SODIUM CHLORIDE 0.9% 1,000 ML IV SCH ×3 (01:21→20:35)
[2019-01-25] MEDS: AZTREONAM 2 GM in SODIUM CHLORIDE 0.9% 100 ML IVPB SCH ×3 (03:50→20:31)
[2019-01-25] MEDS: BACLOFEN 10 MG TAB PO SCH ×2 (06:37→20:33)
[2019-01-25] MEDS: CARVEDILOL 3.125 MG TAB PO SCH ×2 (06:37→20:32)
[2019-01-25] MEDS: ASPIRIN 81 MG PO SCH (06:37)
[2019-01-25] MEDS: ESCITALOPRAM 20 MG TAB PO SCH (06:37)
[2019-01-25] MEDS: BETHANECHOL CHLORIDE 50 MG PO SCH ×3 (06:38→20:34)
[2019-01-25] MEDS: METRONIDAZOLE TOPICAL SCH ×2 (07:06→20:34)
[2019-01-25 07:49] LABS: Basophils # (A) 0.1 k/uL (0-0.2); Basophils % (A) 1 %; Eosinophils # (A) 0.9 k/uL (0-0.7); Eosinophils % (A) 9 %; HCT 42.1 % (34.0-46.0); HGB 12.5 gm/dL (11.4-16.0); Hypochromasia Moderate; Lymphocytes # (A) 1.2 k/uL (1.0-4.8); Lymphocytes % (A) 12 %; MCH 27.8 pg (25.0-35.0); MCHC 29.7 g/dL (31.0-37.0); MCV 93.7 fL (80.0-100.0); Mean Platelet Volume 7.8; Monocytes # (A) 0.5 k/uL (0-1.0); Monocytes % (A) 6 %; Neutrophils # (A) 6.9 k/uL (1.3-7.7); Neutrophils % (A) 70 %; Platelet Count 210 k/uL (150-450); RDW 13.6 % (11.5-15.5); WBC 9.9 k/uL (3.8-10.6)
[2019-01-25] MEDS: MICONAZOLE NITRATE 2% CREAM 14 GM TUBE TOPICAL SCH ×2 (07:58→20:33)
[2019-01-25] MEDS: TOPIRAMATE 100 MG TAB PO SCH ×2 (07:58→20:33)
[2019-01-25] MEDS: ENOXAPARIN 40 MG/0.4 ML SYRINGE SQ SCH (07:58)
[2019-01-25] MEDS: ALPRAZolam 0.5 MG TAB PO SCH ×2 (07:58→20:32)
[2019-01-25] MEDS: HALOPERIDOL 5 MG TAB PO SCH ×3 (07:58→23:36)
[2019-01-25 08:01] LABS: ALT 26 U/L (9-52); AST 20 U/L (14-36); African American GFR (CKD) >90 (>60 ml/min/1.73 sqM); Albumin 3.3 g/dL (3.5-5.0); Alkaline Phosphatase 93 U/L (38-126); Anion Gap 7 mmol/L; Blood Urea Nitrogen 7 mg/dL (7-17); Calcium 8.9 mg/dL (8.4-10.2); Carbon Dioxide 24 mmol/L (22-30); Chloride 112 mmol/L (98-107); Glucose 101 mg/dL (74-99); Sodium 143 mmol/L (137-145); Total Bilirubin 0.2 mg/dL (0.2-1.3); Total Protein 6.6 g/dL (6.3-8.2)
[2019-01-25] MEDS: BUDESONIDE 0.5 MG/2 ML NEBU INHALATION SCH ×2 (09:27→21:00)
--- NOTE | 2019-01-25 11:43 | P.PN ---
Subjective Progress Note Date: 01/25/19 Principal diagnosis: Multifocal pneumonia Ms. Armstrong is a 58-year-old female with a past medical history of COPD, schizophrenia, depression with anxiety, pseudotumor cerebri, hyperlipidemia, chronic low back pain, hypertension, urinary retention transferred from [facility] for multifocal pneumonia. The patient has been coughing for the past 1-2 months cough is nonproductive for the most part but sometimes with white phlegm has been happening for the past 1 month. She was seen by a box maker and started on Pulmicort that did not help her. So she was transferred to [facility]. In the hospital patient was found to have low oxygen saturation, elevated white count and a computed tomography scan of the chest was consistent with multifocal pneumonia. So the patient was given a dose of Levaquin and transferred to [facility]. On 01/25/2019-patient is lying in the bed comfortably. She states that she feels much better. She still has mild difficulty in breathing. No cough. Denies having any fevers chills or rigors. Patient denies having abdominal pain nausea vomiting or diarrhea. Patient wears diapers for urinary incontinence. No other new complaints. Active Medications Acetaminophen (Tylenol Tab) 325 mg PO Q6H PRN PRN Reason: MILD Pain Albuterol/Ipratropium (Duoneb 0.5 Mg-3 Mg/3 Ml Soln) 3 ml INHALATION RT-Q4H PRN PRN Reason: shortness of breath Last Admin: 01/23/19 19:33 Dose: 3 ml Documented by: Alprazolam (Xanax) 0.5 mg PO BID [facility] Last Admin: 01/25/19 07:58 Dose: 0.5 mg Documented by: Aspirin (Aspirin) 81 mg PO DAILY@0700 [facility] Last Admin: 01/25/19 06:37 Dose: 81 mg Documented by: Baclofen (Lioresal) 10 mg PO BID@0700,2000 [facility] Last Admin: 01/25/19 06:37 Dose: 10 mg Documented by: Bisacodyl (Dulcolax) 10 mg RECTAL Q96H PRN PRN Reason: Constipation Budesonide (Pulmicort) 0.5 mg INHALATION RT-BID [facility] Last Admin: 01/25/19 09:27 Dose: Not Given Documented by: Carvedilol (Coreg) 3.125 mg PO BID@699,1999 [facility] Last Admin: 01/25/19 06:37 Dose: 3.125 mg Documented by: Enoxaparin Sodium (Lovenox) 40 mg SQ DAILY [facility] Last Admin: 01/25/19 07:58 Dose: 40 mg Documented by: Escitalopram Oxalate (Lexapro) 20 mg PO DAILY@0700 [facility] Last Admin: 01/25/19 06:37 Dose: 20 mg Documented by: Haloperidol (Haldol) 5 mg PO TID@0730,1530,2330 [facility] Last Admin: 01/25/19 07:58 Dose: 5 mg Documented by: Sodium Chloride (Saline 0.9%) 1,000 mls @ 100 mls/hr IV .Q10H [facility] Last Admin: 01/25/19 01:21 Dose: 100 mls/hr Documented by: Aztreonam 2 gm/ Sodium (Chloride) 100 mls @ 100 mls/hr IVPB Q8H [facility]; Protocol Last Admin: 01/25/19 03:50 Dose: 100 mls/hr Documented by: Levofloxacin 750 mg/ IV (Solution) 150 mls @ 100 mls/hr IVPB Q24H [facility] Stop: 02/03/19 18:01 Last Admin: 01/24/19 17:06 Dose: 100 mls/hr Documented by: Ibuprofen (Motrin) 600 mg PO Q6HR PRN PRN Reason: MODERATE Pain Last Admin: 01/24/19 20:31 Dose: 600 mg Documented by: Magnesium Hydroxide (Milk Of Magnesia) 2,400 mg PO Q72H PRN PRN Reason: Constipation Miconazole Nitrate (Monistat-Derm) 1 applic TOPICAL BID@ [facility] Last Admin: 01/25/19 07:58 Dose: 1 applic Documented by: Miscellaneous Information (Pneumonia Protocol Utilized) 1 each PO ONCE PRN PRN Reason: Per Protocol Montelukast Sodium (Singulair) 10 mg PO HS@1999 [facility] Last Admin: 01/24/19 20:13 Dose: 10 mg Documented by: Bethanechol Chloride ([Urecholine] 50 Mg) 50 mg PO TID@0700,1600,1999 [facility] Last Admin: 01/25/19 07:07 Dose: Not Given Documented by: Metronidazole [ Metronidazole 0.75% Gel] 1 applic TOPICAL BID@ [facility] Last Admin: 01/25/19 07:06 Dose: Not Given Documented by: Nystatin (Mycostatin Powder) 1 applic TOPICAL BID PRN PRN Reason: Skin Irritation Pravastatin Sodium (Pravachol) 20 mg PO HS@1999 [facility] Last Admin: 01/24/19 20:13 Dose: 20 mg Documented by: Quetiapine Fumarate (Seroquel) 200 mg PO HS@1999 [facility] Last Admin: 01/24/19 20:18 Dose: 200 mg Documented by: Senna (Senokot) 17.2 mg PO HS@1999 [facility] Last Admin: 01/24/19 20:12 Dose: 17.2 mg Documented by: Tamsulosin HCl (Flomax) 0.4 mg PO HS@1999 [facility] Last Admin: 01/24/19 20:12 Dose: 0.4 mg Documented by: Topiramate (Topamax) 100 mg PO BID@ [facility] Last Admin: 01/25/19 07:58 Dose: 100 mg Documented by: Objective - Vital Signs Vital signs: Vital Signs Temp 97.7 F 01/25/19 04:52 Pulse 68 01/25/19 04:52 Resp 17 01/25/19 04:52 BP 116/75 01/25/19 04:52 Pulse Ox 99 01/25/19 04:52 Intake & Output 01/24/19 01/25/19 01/25/19 18:59 06:59 18:59 Intake Total 1950 300 Output Total 1 750 Balance 1949 -750 300 Intake: IV 1050 Aztreonam 2 gm In Sodium 100 Chloride 0.9% 100 ml @ 100 mls/hr IVPB Q8H [facility] Rx#:[id number] Levofloxacin 750Mg-D5w 150 Pmx 750 mg In Dextrose/ Water 1 150ml.bag @ 100 mls/hr IVPB Q24H [facility] Rx#: [id number] Sodium Chloride 0.9% 1, 800 000 ml @ 100 mls/hr IV . Q10H [facility] Rx#:[id number] Oral 900 300 Output: Urine 750 Urine/Stool Mix 1 Other: Voiding Method Incontinent Incontinent # Voids 1 - Exam GEN. APPEARANCE: alert, in no apparent distress HEAD EXAM: atraumatic, normocephalic, normal inspection EYE EXAM: Pupils equal and round and reactive to light. No pallor. No icterus. ENT EXAM: normal exam, mucous membranes moist NECK EXAM: No JVD. RESPIRATORY EXAM: Diffuse rhonchi in all lung johns. CARDIOVASCULAR EXAM: regular rate, normal rhythm, normal heart sounds. No additional sounds. GI/ABDOMINAL EXAM: soft, normal bowel sounds. Absent: distended, tenderness, guarding, rebound, rigid EXTREMITIES EXAM: No lower extremity edema. NEUROLOGICAL EXAM: Patient is weak on the left upper and lower extremity compared to right. PSYCHIATRIC EXAM: normal affect, normal mood - Labs CBC & Chem 7: 01/25/19 07:00 01/25/19 07:00 Labs: Abnormal Lab Results - Last 24 Hours (Table) 01/24/19 01/24/19 01/25/19 Range/Units 12:26 12:26 07:00 WBC 11.1 H (3.8-10.6) k/uL MCHC 29.7 L (31.0-37.0) g/dL Neutrophils # 8.2 H (1.3-7.7) k/uL Eosinophils # 1.0 H 0.9 H (0-0.7) k/uL Chloride 113 H (98-107) mmol/L Glucose (74-99) mg/dL Albumin (3.5-5.0) g/dL 01/25/19 Range/Units 07:00 WBC (3.8-10.6) k/uL MCHC (31.0-37.0) g/dL Neutrophils # (1.3-7.7) k/uL Eosinophils # (0-0.7) k/uL Chloride 112 H (98-107) mmol/L Glucose 101 H (74-99) mg/dL Albumin 3.3 L (3.5-5.0) g/dL Assessment and Plan Assessment: ASSESSMENT Sepsis secondary to multifocal pneumonia History of stroke/TIA - left-sided weakness Schizophrenia COPD Hypertension Bipolar disorder Hyperlipidemia Chronic debility PLAN: Continue with aztreonam and levofloxacin. Continue with breathing treatm ents. Continue with the current medication regimen. Continue with GI/DVT prophylaxis. Further recommendations to follow depending on the progress of the patient.
--- NOTE | 2019-01-25 12:50 | PN ---
PROGRESS NOTE DATE OF SERVICE: 01/25/2019 This is a 58-year-old mentally handicapped individual with severe schizophrenia, seizure disorder, and anxiety as well as CVA, who was brought in to the emergency room, transferred down from [facility] for possible multifocal pneumonia. She was a very poor historian. It was difficult to get any history from her. It was not clear to me that this was pneumonia versus heart failure. Anyway, the patient is seemingly much more stable today. She seems much less short of breath. She is on a couple liters of O2. She is not complaining of any issues right now although, again, she is a very poor historian. She is lying nearly flat in bed. Does not appear to be in any distress. No audible wheezing or use of accessory muscles. She denies any other complaints including chest pain, chest discomfort, nausea, vomiting or diarrhea. PHYSICAL EXAMINATION: Current vital signs reviewed. Temperature 97.7 heart rate 68, respiratory rate 17, blood pressure 116/75, mean 88, 3 L saturation is 99%. Appears in no acute distress. No respiratory distress. HEENT examination is grossly unremarkable. Mucous membranes are moist. Nasal O2 noted. NECK: Supple. Full range of motion. No adenopathy or thyromegaly. Neck veins flat. CARDIOVASCULAR examination reveals regular rhythm and rate. Heart rate in the 60s. S1, S2 normal. No distinct murmur. LUNGS: Reveal a few scattered rhonchi and crackles. No wheezes. Breath sounds are equal. She does not take deep breaths. ABDOMEN: Soft. Bowel sounds are heard. EXTREMITIES are intact. No edema. SKIN: Without rash. NEUROLOGIC examination is very difficult to assess. She is a little lethargic initially. She does arouse. She does answer questions. She moves all 4 extremities. LABS: Reviewed. White count 9.9, hemoglobin 12.5, hematocrit 42.1, platelet count normal. Sodium and potassium normal. Chloride 112, CO2 is 24. BUN is 7, creatinine 0.55, anion gap is 7. Her N-terminal proBNP was only 315. Albumin 3.3. Microbiologic studies are negative. Chest x-ray shows diffuse bilateral infiltrates. In my opinion, it is more consistent with CHF than with pneumonia. A repeat chest x-ray will be ordered in the morning. Current medications are reviewed. She is on aztreonam, updrafts and Levaquin. She is not getting any Lasix. I will add some to her regimen. ASSESSMENT: 1. Diffuse bilateral infiltrates, with shortness of breath and cough, which may relate to underlying pneumonia and/or heart failure. 2. Very poor historian. 3. History of seizure disorder. 4. History of severe schizophrenia. 5. History of cerebrovascular accident. 6. Nocturnal hypoxemia. 7. Previous history of tobacco use. 8. Possible underlying chronic obstructive pulmonary disease. 9. Degenerative joint disease. 10.History of pseudotumor cerebri. 11.History of hyperlipidemia. 12.History of chronic back pain. 13.History of hypertension. 14.History of urinary retention. PLAN: The patient will have some Lasix added to her regimen at 40 mg a day. Additional recommendations and suggestions are forthcoming. Repeat chest x-ray in the morning. Clinically, she looks much more stable today than yesterday. MMODL / RANULFON: [id number] /
[2019-01-25] MEDS: FUROSEMIDE 40 MG TAB PO SCH (15:40)
[2019-01-25] MEDS: LEVOFLOXACIN 750MG-D5W PMX 750 MG in DEXTROSE/WATER 1 150ML.BAG IVPB SCH (17:23)
[2019-01-25] MEDS: PRAVASTATIN SODIUM 20 MG TAB PO SCH (20:32)
[2019-01-25] MEDS: SENNOSIDES 8.6 MG TAB PO SCH (20:32)
[2019-01-25] MEDS: TAMSULOSIN 0.4 MG CAP.ER.24H PO SCH (20:33)
[2019-01-25] MEDS: MONTELUKAST 10 MG TAB PO SCH (20:33)
[2019-01-25] MEDS: QUEtiapine 200 MG TAB PO SCH (20:38)
[2019-01-25] MEDS: IBUPROFEN 600 MG TAB PO PRN (21:49)
[2019-01-26] MEDS: AZTREONAM 2 GM in SODIUM CHLORIDE 0.9% 100 ML IVPB SCH (04:02)
[2019-01-26] MEDS: SODIUM CHLORIDE 0.9% 1,000 ML IV SCH ×2 (04:03→15:12)
[2019-01-26] MEDS: ESCITALOPRAM 20 MG TAB PO SCH (06:04)
[2019-01-26] MEDS: CARVEDILOL 3.125 MG TAB PO SCH ×2 (06:04→20:55)
[2019-01-26] MEDS: BETHANECHOL CHLORIDE 50 MG PO SCH ×3 (06:04→20:57)
[2019-01-26] MEDS: BACLOFEN 10 MG TAB PO SCH ×2 (06:04→20:55)
[2019-01-26] MEDS: ASPIRIN 81 MG PO SCH (06:04)
[2019-01-26] MEDS: METRONIDAZOLE TOPICAL SCH ×2 (07:32→20:57)
[2019-01-26] MEDS: HALOPERIDOL 5 MG TAB PO SCH ×3 (07:33→22:47)
[2019-01-26] MEDS: FUROSEMIDE 40 MG TAB PO SCH ×2 (07:33→15:11)
[2019-01-26] MEDS: ENOXAPARIN 40 MG/0.4 ML SYRINGE SQ SCH (07:33)
[2019-01-26] MEDS: MICONAZOLE NITRATE 2% CREAM 14 GM TUBE TOPICAL SCH ×2 (07:33→20:56)
[2019-01-26] MEDS: ALPRAZolam 0.5 MG TAB PO SCH ×2 (07:33→20:55)
[2019-01-26] MEDS: TOPIRAMATE 100 MG TAB PO SCH ×2 (07:33→20:55)
[2019-01-26 08:03] LABS: Basophils # (A) 0.1 k/uL (0-0.2); Basophils % (A) 1 %; Eosinophils # (A) 0.7 k/uL (0-0.7); Eosinophils % (A) 7 %; HCT 40.7 % (34.0-46.0); HGB 12.4 gm/dL (11.4-16.0); Hypochromasia Slight; Lymphocytes # (A) 1.4 k/uL (1.0-4.8); Lymphocytes % (A) 14 %; MCH 28.3 pg (25.0-35.0); MCHC 30.4 g/dL (31.0-37.0); Mean Platelet Volume 7.9; Monocytes # (A) 0.5 k/uL (0-1.0); Monocytes % (A) 6 %; Neutrophils % (A) 71 %; Platelet Count 170 k/uL (150-450); RBC 4.37 m/uL (3.80-5.40); RDW 13.5 % (11.5-15.5); WBC 9.9 k/uL (3.8-10.6)
[2019-01-26 08:14] LABS: African American GFR (CKD) >90 (>60 ml/min/1.73 sqM); Anion Gap 8 mmol/L; Blood Urea Nitrogen 11 mg/dL (7-17); Calcium 8.6 mg/dL (8.4-10.2); Carbon Dioxide 27 mmol/L (22-30); Chloride 107 mmol/L (98-107); Glucose 107 mg/dL (74-99); Potassium 3.8 mmol/L (3.5-5.1); Sodium 142 mmol/L (137-145)
[2019-01-26] MEDS: BUDESONIDE 0.5 MG/2 ML NEBU INHALATION SCH ×2 (10:11→21:07)
--- NOTE | 2019-01-26 10:39 | XR ---
EXAMINATION TYPE: XR chest 2V DATE OF EXAM: 01/26/2019 COMPARISON: 01/24/2019 INDICATION: CHF versus pneumonia TECHNIQUE: Frontal and lateral views of the chest are obtained. FINDINGS: The heart size is enlarged. The pulmonary vasculature is prominent. There is patchy diffuse infiltrate increased infiltrates bilaterally more compatible with pulmonary e sudha.. IMPRESSION: 1. Findings compatible with congestive heart failure in the proper clinical setting.
[2019-01-26] MEDS: metroNIDAZOLE-NS PMX 500 MG in SALINE 1 100ML.BAG IVPB SCH ×2 (11:42→20:56)
--- NOTE | 2019-01-26 13:30 | FL ---
EXAMINATION TYPE: FL barium swallow w video DATE OF EXAM: 01/26/2019 COMPARISON: NONE HISTORY: Pneumonia, rule out aspiration TECHNIQUE: Fluoroscopy. FINDINGS: Fluoroscopic guidance was provided for the procedure performed in conjunction with the [facility] pathology department. Please see complete report forthcoming from the Speech Pathology departmen t. Various consistencies from thin liquid to solids were administered. Fluoroscopy time 1 minute 39 seconds. Number of images: 0. No aspiration or penetration was evident. No significant pooling was observed in the vallecula. There was normal propulsion of the bolus. IMPRESSION: 1. Normal modified barium swallow.
[2019-01-26 13:57] LABS: Appearance,Urine Clear (Clear); Bilirubin,Urine Negative (Negative); Blood,Urine Negative (Negative); Color,Urine Light Yellow; Glucose,Urine (UA) Negative (Negative); Ketones,Urine Negative (Negative); Leukocyte Esterase,Urine Negative (Negative); Nitrite,Urine Negative (Negative); Protein,Urine Negative (Negative); Specific Gravity,Urine 1.011 (1.001-1.035); Urobilinogen,Urine <2.0 mg/dL (<2.0)
--- NOTE | 2019-01-26 16:01 | P.PN ---
Subjective Progress Note Date: 01/26/19 Principal diagnosis: Diffuse bilateral infiltrates, shortness of breath, related to possibility of underlying pneumonia, and interstitial lung disease On 01/26/2019 patient seen in follow-up on medical surgical floor. She is resting in bed, is currently on 2 L of oxygen her pulse ox is 95%, patient did have a fever spike last night with a T-max of 102.3 degrees Fahrenheit, this morning she is afebrile, hemodynamically patient is stable. There is a questionable pneumonia at diffuse infiltrates bilaterally. Reviewing patient's previous CT chest with contrast patient does have some chronic changes involving bilateral bases, likely related to interstitial lung disease. Possibility of chronic aspiration is being considered, current antibiotic coverage includes aztreonam and Levaquin, related to patient's ALLERGY to penicillins. His labs have been reviewed, and showing white blood cell count of 9.9, hemoglobin of 12.4, electrodes and renal profile were within normal limits, is unable to produce a sputum culture for us, blood culture showed no growth, ID service c onsultation was requested, and their evaluation is pending, patient is also being diuresis, she is on Lasix 40 twice a day by mouth. Today's follow-up chest x-ray has been reviewed showing findings compatible with prominent pulmonary vasculature, and patchy diffuse infiltrates bilaterally. His ech ocardiogram from August 2018 showed EF of 55-60%, no evidence of significant valvular disease. No pulmonary hypertension, with a PA systolic of 8.2 mmHg. Objective - Vital Signs Vital signs: Vital Signs Temp 99.5 F 01/26/19 14:19 Pulse 111 H 01/26/19 14:19 Resp 18 01/26/19 14:19 BP 117/77 01/26/19 14:19 Pulse Ox 95 01/26/19 14:19 Intake & Output 01/25/19 01/26/19 01/26/19 18:59 06:59 18:59 Intake Total 1768 450 240 Output Total 1600 600 Balance 168 -150 240 Intake: IV 1050 Aztreonam 2 gm In Sodium 100 Chloride 0.9% 100 ml @ 100 mls/hr IVPB Q8H [facility] Rx#:[id number] Levofloxacin 750Mg-D5w 150 Pmx 750 mg In Dextrose/ Water 1 150ml.bag @ 100 mls/hr IVPB Q24H [facility] Rx#: [id number] Sodium Chloride 0.9% 1, 800 000 ml @ 100 mls/hr IV . Q10H [facility] Rx#:[id number] Oral 718 450 240 Output: Urine 1600 600 Other: Voiding Method Incontinent Incontinent Incontinent # Voids 0 # Bowel Movements 0 0 1 - Exam GENERAL EXAM: Alert, pleasant 58-year-old white female, on 2 L of oxygen, patient has mumbled speech at times, and appears to be somewhat developmentally delayed but comfortable in no apparent distress. HEAD: Normocephalic/atraumatic. EYES: Normal reaction of pupils, equal size. Conjunctiva pink, sclera white. NOSE: Clear with pink turbinates. THROAT: No erythema or exudates. NECK: No masses, no JVD, no thyroid enlargement, no adenopathy. CHEST: No chest wall deformity. Symmetrical expansion. LUNGS: Equal air entry with no crackles, wheeze, rhonchi or dullness. Diminished breath sounds bilaterally. Coarse Velcro-like crackles at posterior bilateral bases CVS: Regular rate and rhythm, normal S1 and S2, no gallops, no murmurs, no rubs ABDOMEN: Soft, nontender. No hepatosplenomegaly, normal bowel sounds, no guard ing or rigidity. EXTREMITIES: No clubbing, no edema, no cyanosis, 2+ pulses and upper and lower extremities. MUSCULOSKELETAL: Muscle strength and tone normal. SPINE: No scoliosis or deformity SKIN: No rashes CENTRAL NERVOUS SYSTEM: Alert and oriented -3. No focal deficits, tone is normal in all 4 extremities. PSYCHIATRIC: Alert and oriented -3. Appropriate affect. Intact judgment and insight. - Labs CBC & Chem 7: 01/26/19 07:14 01/26/19 07:14 Labs: Abnormal Lab Results - Last 24 Hours (Table) 01/26/19 01/26/19 01/26/19 Range/Units 06:02 07:14 07:14 MCHC 30.4 L (31.0-37.0) g/dL ESR 64 H (0-20) mm/hr Glucose 107 H (74-99) mg/dL Assessment and Plan Plan: Assessment: #1. Diffuse bilateral infiltrates, and the possibility of pneumonia is being considered, possibly related to chronic aspiration on the background of interstitial lung disease possibly IPF #2. Acute toxic rest or a failure related to the above #3. History of cerebrovascular accident with residual left-sided weakness #4. History of schizophrenia #5. History of seizure disorder #6. Previous history of tobacco use #7. Hypertension #11. History of hyperlipidemia #12. History of chronic pain #13. History of chronic medical debility #14. COPD Plan: We'll switch the antibiotic coverage from aztreonam and Levaquin to Levaquin and Flagyl, continue with the bronchodilators, continue oral Lasix, we will request speech therapy evaluation chronic aspiration suspected. ID service evaluation is pending, continue maintaining aspiration precautions, here for culture, will follow I performed a history & physical examination of the patient and discussed their management with my nurse practitioner, Daphne Avila. I reviewed the nurse practitioner's note and agree with the documented findings and plan of care. Lung sounds are positive for Velcro-like crackles. The findings and the impression was discussed with the patient. I attest to the documentation by the nurse practitioner. Time with Patient: Less than 30
--- NOTE | 2019-01-26 16:21 | P.PN ---
Subjective Progress Note Date: 01/26/19 Principal diagnosis: Multifocal pneumonia Ms. Armstrong is a 58-year-old female with a past medical history of COPD, schizophrenia, depression with anxiety, pseudotumor cerebri, hyperlipidemia, chronic low back pain, hypertension, urinary retention transferred from [facility] for multifocal pneumonia. The patient has been coughing for the past 1-2 months cough is nonproductive for the most part but sometimes with white phlegm has been happening for the past 1 month. She was seen by a burnt lime drawer and started on Pulmicort that did not help her. So she was transferred to [facility]. In the hospital patient was found to have low oxygen saturation, elevated white count and a computed tomography scan of the chest was consistent with multifocal pneumonia. So the patient was given a dose of Levaquin and transferred to [facility]. On 01/25/2019-patient is lying in the bed comfortably. She states that she feels much better. She still has mild difficulty in breathing. No cough. Denies having any fevers chills or rigors. Patient denies having abdominal pain nausea vomiting or diarrhea. Patient wears diapers for urinary incontinence. No other new complaints. On 01/26/2019 - overnight patient spiked a fever of 102.3 but afebrile c urrently. Her blood pressure and heart rate has been stable. Patient denies having any cough or difficulty in breathing. She is mostly bedbound. On reviewing her last on this morning her white count has been around 9. So we will get a chest x-ray. Patient continues to be on aztreonam and levofloxacin for multifocal pneumonia. Patient denies having any lower extremity swelling. No abdominal pain nausea vomiting or diarrhea. No dysuria or hematuria. Active Medications Acetaminophen (Tylenol Tab) 325 mg PO Q6H PRN PRN Reason: MILD Pain Albuterol/Ipratropium (Duoneb 0.5 Mg-3 Mg/3 Ml Soln) 3 ml INHALATION RT-Q4H PRN PRN Reason: shortness of breath Last Admin: 01/23/19 19:33 Dose: 3 ml Documented by: Alprazolam (Xanax) 0.5 mg PO BID ILEANA Last Admin: 01/26/19 07:33 Dose: 0.5 mg Documented by: Aspirin (Aspirin) 81 mg PO DAILY@0700 [facility] Last Admin: 01/26/19 06:04 Dose: 81 mg Documented by: Baclofen (Lioresal) 10 mg PO BID@ [facility] Last Admin: 01/26/19 06:04 Dose: 10 mg Documented by: Bisacodyl (Dulcolax) 10 mg RECTAL Q96H PRN PRN Reason: Constipation Budesonide (Pulmicort) 0.5 mg INHALATION RT-BID [facility] Last Admin: 01/26/19 10:11 Dose: Not Given Documented by: Carvedilol (Coreg) 3.125 mg PO BID@ [facility] Last Admin: 01/26/19 06:04 Dose: 3.125 mg Documented by: Enoxaparin Sodium (Lovenox) 40 mg SQ DAILY [facility] Last Admin: 01/26/19 07:33 Dose: 40 mg Documented by: Escitalopram Oxalate (Lexapro) 20 mg PO DAILY@0700 [facility] Last Admin: 01/26/19 06:04 Dose: 20 mg Documented by: Furosemide (Lasix) 40 mg PO BID@0900,1600 [facility] Last Admin: 01/26/19 15:11 Dose: 40 mg Documented by: Haloperidol (Haldol) 5 mg PO TID@0730,1530,2330 [facility] Last Admin: 01/26/19 15:11 Dose: 5 mg Documented by: Sodium Chloride (Saline 0.9%) 1,000 mls @ 100 mls/hr IV .Q10H [facility] Last Admin: 01/26/19 15:12 Dose: 100 mls/hr Documented by: Levofloxacin 750 mg/ IV (Solution) 150 mls @ 100 mls/hr IVPB Q24H [facility] Stop: 02/03/19 18:01 Last Admin: 01/25/19 17:23 Dose: 100 mls/hr Documented by: Metronidazole 500 mg/ IV (Solution) 100 mls @ 100 mls/hr IVPB Q8H [facility] Last Admin: 01/26/19 11:42 Dose: 100 mls/hr Documented by: Ibuprofen (Motrin) 600 mg PO Q6HR PRN PRN Reason: MODERATE Pain Last Admin: 01/25/19 21:49 Dose: 600 mg Documented by: Magnesium Hydroxide (Milk Of Magnesia) 2,400 mg PO Q72H PRN PRN Reason: Constipation Miconazole Nitrate (Monistat-Derm) 1 applic TOPICAL BID@ [facility] Last Admin: 01/26/19 07:33 Dose: 1 applic Documented by: Miscellaneous Information (Pneumonia Protocol Utilized) 1 each PO ONCE PRN PRN Reason: Per Protocol Montelukast Sodium (Singulair) 10 mg PO HS@1999 [facility] Last Admin: 01/25/19 20:33 Dose: 10 mg Documented by: Bethanechol Chloride ([Urecholine] 50 Mg) 50 mg PO TID@07, [facility] Last Admin: 01/26/19 15:12 Dose: Not Given Documented by: Metronidazole [ Metronidazole 0.75% Gel] 1 applic TOPICAL BID@ [facility] Last Admin: 01/26/19 07:32 Dose: Not Given Documented by: Nystatin (Mycostatin Powder) 1 applic TOPICAL BID PRN PRN Reason: Skin Irritation Pravastatin Sodium (Pravachol) 20 mg PO HS@1999 [facility] Last Admin: 01/25/19 20:32 Dose: 20 mg Documented by: Quetiapine Fumarate (Seroquel) 200 mg PO HS@1999 [facility] Last Admin: 01/25/19 20:38 Dose: 200 mg Documented by: Senna (Senokot) 17.2 mg PO HS@1999 [facility] Last Admin: 01/25/19 20:32 Dose: 17.2 mg Documented by: Tamsulosin HCl (Flomax) 0.4 mg PO HS@1999 [facility] Last Admin: 01/25/19 20:33 Dose: 0.4 mg Documented by: Topiramate (Topamax) 100 mg PO BID@ [facility] Last Admin: 01/26/19 07:33 Dose: 100 mg Documented by: Objective - Vital Signs Vital signs: Vital Signs Temp 99.5 F 01/26/19 14:19 Pulse 111 H 01/26/19 14:19 Resp 18 01/26/19 14:19 BP 117/77 01/26/19 14:19 Pulse Ox 95 01/26/19 14:19 Intake & Output 01/25/19 01/26/19 01/26/19 18:59 06:59 18:59 Intake Total 1768 450 240 Output Total 1600 600 Balance 168 -150 240 Intake: IV 1050 Aztreonam 2 gm In Sodium 100 Chloride 0.9% 100 ml @ 100 mls/hr IVPB Q8H [facility] Rx#:[id number] Levofloxacin 750Mg-D5w 150 Pmx 750 mg In Dextrose/ Water 1 150ml.bag @ 100 mls/hr IVPB Q24H [facility] Rx#: [id number] Sodium Chloride 0.9% 1, 800 000 ml @ 100 mls/hr IV . Q10H [facility] Rx#:[id number] Oral 718 450 240 Output: Urine 1600 600 Other: Voiding Method Incontinent Incontinent Incontinent # Voids 0 # Bowel Movements 0 0 1 - Exam GEN. APPEARANCE: alert, in no apparent distress HEAD EXAM: atraumatic, normocephalic, normal inspection EYE EXAM: Pupils equal and round and reactive to light. No pallor. No icterus. ENT EXAM: Mucous membranes looks dry NECK EXAM: No JVD. RESPIRATORY EXAM: Diffuse rhonchi in all lung johns. CARDIOVASCULAR EXAM: regular rate, normal rhythm, normal heart sounds. No additional sounds. GI/ABDOMINAL EXAM: soft, normal bowel sounds. Absent: distended, tenderness, guarding, rebound, rigid EXTREMITIES EXAM: No lower extremity edema. NEUROLOGICAL EXAM: Patient is weak on the left upper and lower extremity compar ed to right. - Labs CBC & Chem 7: 01/26/19 07:14 01/26/19 07:14 Labs: Abnormal Lab Results - Last 24 Hours (Table) 01/26/19 01/26/19 01/26/19 Range/Units 06:02 07:14 07:14 MCHC 30.4 L (31.0-37.0) g/dL ESR 64 H (0-20) mm/hr Glucose 107 H (74-99) mg/dL Assessment and Plan Assessment: ASSESSMENT Sepsis secondary to multifocal pneumonia Fever History of stroke/TIA - left-sided weakness Schizophrenia COPD Hypertension Bipolar disorder Hyperlipidemia Chronic debility PLAN: As she spiked a fever overnight, will obtain a chest x-ray. We will also get blood cultures, sputum cultures and urine analysis. Continue with aztreonam and levofloxacin for now and will consult ID Dr. Aldridge. Continue with breathing treatments. Continue with the current medication regimen. Continue with GI/DVT prophylaxis. Further recommendations to follow depending on the progress of the patient.
[2019-01-26] MEDS: LEVOFLOXACIN 750MG-D5W PMX 750 MG in DEXTROSE/WATER 1 150ML.BAG IVPB SCH (17:01)
[2019-01-26 18:36] LABS: Anti-Smith Ab Interp NEGATIVE (NEGATIVE)
[2019-01-26] MEDS: QUEtiapine 200 MG TAB PO SCH (20:55)
[2019-01-26] MEDS: TAMSULOSIN 0.4 MG CAP.ER.24H PO SCH (20:55)
[2019-01-26] MEDS: MONTELUKAST 10 MG TAB PO SCH (20:55)
[2019-01-26] MEDS: PRAVASTATIN SODIUM 20 MG TAB PO SCH (20:55)
[2019-01-26] MEDS: SENNOSIDES 8.6 MG TAB PO SCH (20:55)
[2019-01-26 21:19] LABS: Rheumatoid Factor 5 IU/mL (0-15)
[2019-01-27 00:29] LABS: Procalcitonin 0.05 ng/mL (0.02-0.09)
[2019-01-27] MEDS: SODIUM CHLORIDE 0.9% 1,000 ML IV SCH ×3 (04:44→22:01)
[2019-01-27] MEDS: metroNIDAZOLE-NS PMX 500 MG in SALINE 1 100ML.BAG IVPB SCH ×3 (04:44→20:02)
[2019-01-27] MEDS: BACLOFEN 10 MG TAB PO SCH ×2 (06:07→20:00)
[2019-01-27] MEDS: BETHANECHOL CHLORIDE 50 MG PO SCH ×3 (06:08→20:07)
[2019-01-27] MEDS: ESCITALOPRAM 20 MG TAB PO SCH (06:08)
[2019-01-27] MEDS: ASPIRIN 81 MG PO SCH (06:08)
[2019-01-27] MEDS: CARVEDILOL 3.125 MG TAB PO SCH ×3 (06:08→20:21)
[2019-01-27] MEDS: IPRATROPIUM-ALBUTEROL 3 ML NEB INHALATION PRN ×3 (07:33→19:20)
[2019-01-27] MEDS: BUDESONIDE 0.5 MG/2 ML NEBU INHALATION SCH ×2 (07:34→19:20)
[2019-01-27 07:55] LABS: Basophils % (A) 0 %; Eosinophils # (A) 0.7 k/uL (0-0.7); Eosinophils % (A) 6 %; HCT 41.3 % (34.0-46.0); HGB 13.1 gm/dL (11.4-16.0); Hypochromasia Slight; Lymphocytes # (A) 1.4 k/uL (1.0-4.8); Lymphocytes % (A) 13 %; MCH 28.6 pg (25.0-35.0); MCHC 31.7 g/dL (31.0-37.0); Mean Platelet Volume 6.4; Monocytes # (A) 0.6 k/uL (0-1.0); Monocytes % (A) 5 %; Neutrophils # (A) 7.8 k/uL (1.3-7.7); Neutrophils % (A) 72 %; Platelet Count 203 k/uL (150-450); RBC 4.59 m/uL (3.80-5.40); WBC 10.8 k/uL (3.8-10.6)
[2019-01-27] MEDS: HALOPERIDOL 5 MG TAB PO SCH ×3 (08:01→22:32)
[2019-01-27] MEDS: ENOXAPARIN 40 MG/0.4 ML SYRINGE SQ SCH (08:02)
[2019-01-27] MEDS: FUROSEMIDE 40 MG TAB PO SCH ×2 (08:02→16:56)
[2019-01-27] MEDS: MICONAZOLE NITRATE 2% CREAM 14 GM TUBE TOPICAL SCH ×2 (08:02→20:04)
[2019-01-27] MEDS: ALPRAZolam 0.5 MG TAB PO SCH ×2 (08:02→21:18)
[2019-01-27] MEDS: TOPIRAMATE 100 MG TAB PO SCH ×2 (08:02→20:01)
[2019-01-27] MEDS: METRONIDAZOLE TOPICAL SCH ×2 (08:03→20:07)
[2019-01-27 08:15] LABS: African American GFR (CKD) >90 (>60 ml/min/1.73 sqM); Anion Gap 7 mmol/L; Blood Urea Nitrogen 12 mg/dL (7-17); Calcium 8.9 mg/dL (8.4-10.2); Carbon Dioxide 27 mmol/L (22-30); Chloride 107 mmol/L (98-107); Glucose 123 mg/dL (74-99); Potassium 3.6 mmol/L (3.5-5.1); Sodium 141 mmol/L (137-145)
--- NOTE | 2019-01-27 09:21 | P.PN ---
Subjective Progress Note Date: 01/27/19 I am seeing this patient in follow-up on 01/27/2019. Seeing this patient in follow-up. The patient was thought to have interstitial lung disease/fibrosis. A superimposed pneumonia was doubtful. Based on that, I ordered a pro Kimberly level that came back at 0.05 indicating that the possibility of an acute infection is felt to be less likely. The patient had also connected tissue disease markers sent that came back within normal limits. Swallow evaluation was done and there was no evidence of any aspiration. Currently the patient is on 2 L of oxygen by nasal cannula. The white cell count is not elevated. She is not much communicative on today's evaluation. Electrodes are all within normal limits. The patient has not spiked temperatures since 01/25/2019. Her current temperature is 97.4. Objective - Vital Signs Vital signs: Vital Signs Temp 97.4 F L 01/27/19 05:00 Pulse 76 01/27/19 07:50 Resp 18 01/27/19 05:00 BP 107/66 01/27/19 05:00 Pulse Ox 98 01/27/19 05:00 Intake & Output 01/26/19 01/27/19 01/27/19 18:59 06:59 18:59 Intake Total 360 500 120 Output Total 1200 Balance 360 -700 120 Intake: Oral 360 500 120 Output: Urine 1200 Other: Voiding Method Incontinent Incontinent # Voids 0 # Bowel Movements 1 0 - Exam GENERAL EXAM: Alert, pleasant 58-year-old white female, on 2 L of oxygen, patient has mumbled speech at times, and appears to be somewhat developmentally delayed but comfortable in no apparent distress. HEAD: Normocephalic/atraumatic. EYES: Normal reaction of pupils, equal size. Conjunctiva pink, sclera white. NOSE: Clear with pink turbinates. THROAT: No erythema or exudates. NECK: No masses, no JVD, no thyroid enlargement, no adenopathy. CHEST: No chest wall deformity. Symmetrical expansion. LUNGS: Equal air entry with no crackles, wheeze, rhonchi or dullness. Diminished breath sounds bilaterally. Coarse Velcro-like crackles at posterior bilateral bases CVS: Regular rate and rhythm, normal S1 and S2, no gallops, no murmurs, no rubs ABDOMEN: Soft, nontender. No hepatosplenomegaly, normal bowel sounds, no guarding or rigidity. EXTREMITIES: No clubbing, no edema, no cyanosis, 2+ pulses and upper and lower extremities. MUSCULOSKELETAL: Muscle strength and tone normal. SPINE: No scoliosis or deformity SKIN: No rashes CENTRAL NERVOUS SYSTEM: Alert and oriented -3. No focal deficits, tone is normal in all 4 extremities. PSYCHIATRIC: Alert and oriented -3. Appropriate affect. Intact judgment and insight. - Labs CBC & Chem 7: 01/27/19 07:41 01/27/19 07:41 Labs: Abnormal Lab Results - Last 24 Hours (Table) 01/26/19 01/27/19 01/27/19 Range/Units 06:02 07:41 07:41 WBC 10.8 H (3.8-10.6) k/uL Neutrophils # 7.8 H (1.3-7.7) k/uL ESR 64 H (0-20) mm/hr Glucose 123 H (74-99) mg/dL Assessment and Plan Plan: #1. Diffuse bilateral infiltrates, and the possibility of pneumonia is being considered, possibly related to chronic aspiration on the background of interstitial lung disease possibly IPF the connected tissue disease markers of been all negative. The possibility of a recurrent aspiration cannot be compl etely excluded. In my opinion, the comparison CAT scan of the chest has not shown any major difference comparing it to the previous CAT scan from August 2018. The patient has chronic ILD. Currently she is afebrile. #2. Acute hypoxic respiratory failure related to the above #3. History of cerebrovascular accident with residual left-sided weakness #4. History of schizophrenia #5. History of seizure disorder #6. Previous history of tobacco use #7. Hypertension #11. History of hyperlipidemia #12. History of chronic pain #13. History of chronic medical debility #14. COPD ISAIAH No clear indication for an underlying pneumonia. The patient could have possibly a aspiration/chemical pneumonitis which caused some fever. The pro calcitonin level is low. The CAT chest findings are essentially chronic related to ILD. This is most likely consistent with IPF. I do not think this patient is a candidate for a thoracoscopic wedge biopsy based on her comorbidities. Aspiration precautions. Swallow evaluation came back within normal limits. Connected tissue disease markers came back within normal limits. Pro calcitonin is low. Complete the course of antibiotics for a total of 5 days utilizing a combination of Levaquin and Flagyl and the patient can be released.
--- NOTE | 2019-01-27 12:45 | P.CONS ---
History of Present Illness - Reason for Consult Consult date: 01/26/19 Multifocal pneumonia Requesting physician: Johanne Wakefield - Chief Complaint Shortness of breath fever and cough - History of Present Illness Patient is a 58 year female who was transferred to this facility from [facility] after the patient was diagnosed with pneumonia at that facility with evidence of multifocal pneumonia on computed tomography scan pat ient did have elevated white count of 16,000 was 1.0 patient did have blood culture drawn and she was started on Levaquin and subsequently transferred to this facility, on presentation hospital the patient did have a fever 100.7 the patient did spike another fever 102.3 last night that prompted this infection disease consultation, patient did have mildly elevated white count of 11.1 on presentation that has subsequently normalized, patient has been treated with IV Levaquin and Flagyl was added yesterday for concern for aspiration pneumonia as the patient to have multiple antibiotic ALLERGIES, patient currently afebrile as of this morning the patient had denies having any chest pain she did have some cough and occasionally bring up some sputum denies having any nausea no vomiting no choking on the food no abdominal pain or diarrhea and no urinary symptoms Review of Systems Positive point has been mentioned in the HPI rest of the systems are negative Past Medical History Past Medical History: COPD, CVA/TIA, GERD/Reflux, Osteoarthritis (OA), Seizure Disorder Additional Past Medical History / Comment(s): Wears oxygen at night History of Any Multi-Drug Resistant Organisms: None Reported Past Surgical History: Orthopedic Surgery Additional Past Surgical History / Comment(s): previous trach Past Psychological History: Anxiety, Schizophrenia Smoking Status: Former smoker Past Alcohol Use History: None Reported Past Drug Use History: None Reported - Past Family History Father Family Medical History: Unable to Obtain Mother Family Medical History: Unable to Obtain Medications and Allergies Home Medications Medication Instructions Recorded Confirmed Type ALPRAZolam [Xanax] 0.5 mg PO BID 09/09/18 01/23/19 History Bethanechol Chloride [Urecholine] 50 mg PO TID@0700,1600,199909/09/18 01/23/19 History Bisacodyl [Dulcolax] 10 mg RECTAL Q96H PRN 09/09/18 01/23/19 History Carvedilol [Coreg] 3.125 mg PO BID@0700,199909/09/18 01/23/19 History EPINEPHrine [Epipen 2-Molina] 0.3 mg IM ONCE PRN 09/09/18 01/23/19 History Ergocalciferol (Vitamin D2) 50,000 unit PO FR@0700 09/09/18 01/23/19 History [Vitamin D2] Escitalopram [Lexapro] 20 mg PO DAILY@0700 09/09/18 01/23/19 History Haloperidol [Haldol] 5 mg PO TID@0730,1530,2330 09/09/18 01/23/19 History Ibuprofen [Motrin] 600 mg PO Q6HR PRN 09/09/18 01/23/19 History Ketoconazole 2% Shampoo [Nizoral] 1 applic TOPICAL MOWEFR 09/09/18 01/23/19 History Magnesium Hydroxide [Milk of 2,400 mg PO Q72H PRN 09/09/18 01/23/19 History Magnesia] Montelukast [Singulair] 10 mg PO HS@199909/09/18 01/23/19 History Mylanta 30 ml PO QID PRN 09/09/18 01/23/19 History Na Phos,M-B/Na Phos,Di-Ba [Fleet 133 ml RECTAL Q120D PRN 09/09/18 01/23/19 History Adult] Nystatin [Nystop] 1 applic TOPICAL BID PRN 09/09/18 01/23/19 History Pravastatin Sodium [Pravachol] 20 mg PO HS@199909/09/18 01/23/19 History Sennosides [Senna] 17.2 mg PO HS@199909/09/18 01/23/19 History Sodium Chloride [[place]] 1 spray EA NOSTRIL BID PRN 09/09/18 01/23/19 History Tamsulosin [Flomax] 0.4 mg PO HS@199909/09/18 01/23/19 History Zinc Oxide [Desitin] 1 applic TOPICAL TID PRN 09/09/18 01/23/19 History metroNIDAZOLE [metroNIDAZOLE 0.75% 1 applic TOPICAL BID@0800,199909/09/18 01/23/19 History Gel] ALPRAZolam [Xanax] 0.5 mg PO DAILY PRN 01/23/19 01/23/19 History Acetaminophen Tab [Tylenol Tab] 325 mg PO Q6H PRN 01/23/19 01/23/19 History Aspirin EC [Ecotrin Low Dose] 81 mg PO DAILY@0700 01/23/19 01/23/19 History Baclofen [Lioresal] 10 mg PO BID@0700,199901/23/19 01/23/19 History Budesonide [Pulmicort] 0.5 mg INHALATION RT-BID 01/23/19 01/23/19 History Miconazole Nitrate [Miconazole 1 applic TOPICAL BID@08,199901/23/19 01/23/19 History Nitrate 2%] QUEtiapine [SEROquel] 200 mg PO HS@199901/23/19 01/23/19 History Topiramate [Topamax] 100 mg PO BID@0800,199901/23/19 01/23/19 History Trolamine Salicylate/Aloe Vera 1 applic TOPICAL BID PRN 01/23/19 01/23/19 History [Aspercreme 10% Cream] Allergies Allergy/AdvReac Type Severity Reaction Status Date / Time bee venom protein (honey bee) Allergy Unknown Verified 01/23/19 17:57 latex Allergy Unknown Verified 01/23/19 17:57 Penicillins Allergy Unknown Verified 01/23/19 17:57 sulfamethoxazole Allergy Unknown Verified 01/23/19 17:57 [From Bactrim] Tetanus Vaccines and Toxoid Allergy Unknown Verified 01/23/19 17:57 trimethoprim [From Bactrim] Allergy Unknown Verified 01/23/19 17:57 Physical Exam Vitals: Vital Signs Temp Pulse Pulse Resp BP Pulse Ox 01/26/19 10:47 97.5 F L 83 14 116/75 01/26/19 05:00 97.0 F L 68 20 93/60 97 01/25/19 23:38 98.8 F 01/25/19 21:15 84 01/25/19 21:00 102.3 F H 80 88 20 133/77 98 01/25/19 15:39 100.3 F H 01/25/19 13:42 100.8 F H 76 20 112/71 96 Intake and Output 01/25/19 01/26/19 01/26/19 22:59 06:59 14:59 Intake Total 318 250 120 Output Total 1400 200 Balance -1082 50 120 Intake: Oral 318 250 120 Output: Urine 1400 200 Other: Voiding Method Incontinent Incontinent Incontinent # Voids 0 0 # Bowel Movements 0 0 1 GENERAL DESCRIPTION: Middle-aged female lying in bed, no distress. No tachypnea or accessory muscle of respiration use. HEENT: Shows Pallor , no scleral icterus. Oral mucous membrane is dry. No pharyngeal erythema or thrush NECK: Trachea central, no thyromegaly. LUNGS: Unlabored breathing. Decreased breath sound at the base. No wheeze or crackle. HEART: S1, S2, regular rate and rhythm. No loud murmur ABDOMEN: Soft, no tenderness , guarding or rigidity, no organomegaly EXTREMITIES: No edema of feet. SKIN: No rash, no masses palpable. NEUROLOGICAL: The patient is awake, alert, oriented x2, mood and affect normal. Results CBC & Chem 7: 01/27/19 07:41 01/27/19 07:41 Labs: Abnormal Lab Results - Last 24 Hours (Table) 01/26/19 01/26/19 Range/Units 07:14 07:14 MCHC 30.4 L (31.0-37.0) g/dL Glucose 107 H (74-99) mg/dL Assessment and Plan Assessment: 1-patient admitted to the hospital with sepsis in this patient who did have a fever of 100.7 subsequent to spike a fever 10 2F tachycardia did have elevated white count and presentation source is likely pneumonia with a question of possible community acquired versus pneumonia of aspiration etiology, as patient currently with no other clinical focus of infection her abdominal soft and clinical examination evidence of any cellulitis and UA on admission has been negative 2-Patient with multiple antibiotic ALLERGIES that would limit the number of antibiotic safe to use (1) Multifocal pneumonia Current Visit: Yes Status: Acute Code(s): J18.9 - PNEUMONIA, UNSPECIFIED ORGANISM SNOMED Code(s): 750684827 Plan: 1-we will try to obtain sputum for Gram stain and culture 2-await swallow evaluation and aspiration precaution 3-continue patient on Levaquin and Flagyl combination We will follow on clinical condition and cultures to further adjust medication if needed Thank you for this consultation will follow this patient with you Time with Patient: Greater than 30
[2019-01-27] MEDS: LEVOFLOXACIN 750MG-D5W PMX 750 MG in DEXTROSE/WATER 1 150ML.BAG IVPB SCH (16:34)
--- NOTE | 2019-01-27 16:37 | P.PN ---
Subjective Progress Note Date: 01/27/19 Principal diagnosis: Multifocal pneumonia Ms. Armstrong is a 58-year-old female with a past medical history of COPD, schizophrenia, depression with anxiety, pseudotumor cerebri, hyperlipidemia, chronic low back pain, hypertension, urinary retention transferred from [facility] for multifocal pneumonia. The patient has been coughing for the past 1-2 months cough is nonproductive for the most part but sometimes with white phlegm has been happening for the past 1 month. She was seen by a cdl b driver and started on Pulmicort that did not help her. So she was transferred to [facility]. In the hospital patient was found to have low oxygen saturation, elevated white count and a computed tomography scan of the chest was consistent with multifocal pneumonia. So the patient was given a dose of Levaquin and transferred to [facility]. On 01/25/2019-patient is lying in the bed comfortably. She states that she feels much better. She still has mild difficulty in breathing. No cough. Denies having any fevers chills or rigors. Patient denies having abdominal pain nausea vomiting or diarrhea. Patient wears diapers for urinary incontinence. No other new complaints. On 01/26/2019 - overnight patient spiked a fever of 102.3 but afebrile c urrently. Her blood pressure and heart rate has been stable. Patient denies having any cough or difficulty in breathing. She is mostly bedbound. On reviewing her last on this morning her white count has been around 9. So we will get a chest x-ray. Patient continues to be on aztreonam and levofloxacin for multifocal pneumonia. Patient denies having any lower extremity swelling. No abdominal pain nausea vomiting or diarrhea. No dysuria or hematuria. 01/27/2019 Patient is lying in bed in no acute distress and is quite lethargic but arousable. Patient continues to fall in and out of sleep when talking with her and her speech is incomprehensible. Patient does make nods and gestures ap propriately. Pulmonary is following. Patient denies any chest pain, shortness of breath, or palpitations at this time. Patient is afebrile today. Patient denies any nausea or vomiting. Will continue to monitor closely. Today's white blood count is 10.8. Will continue on antibiotics at this time. Infectious disease is following. Guarded prognosis. Objective - Vital Signs Vital signs: Vital Signs Temp 97.9 F 01/27/19 12:51 Pulse 80 01/27/19 15:56 Resp 16 01/27/19 12:51 BP 106/55 01/27/19 12:51 Pulse Ox 96 01/27/19 12:51 Intake & Output 01/26/19 01/27/19 01/27/19 18:59 06:59 18:59 Intake Total 360 500 120 Output Total 1200 Balance 360 -700 120 Intake: Oral 360 500 120 Output: Urine 1200 Other: Voiding Method Incontinent Incontinent Incontinent # Voids 0 # Bowel Movements 1 0 - Exam GEN. APPEARANCE: alert, in no apparent distress HEAD EXAM: atraumatic, normocephalic, normal inspection EYE EXAM: Pupils equal and round and reactive to light. No pallor. No icterus. ENT EXAM: Mucous membranes looks dry NECK EXAM: No JVD. RESPIRATORY EXAM: Diffuse rhonchi in all lung johns. CARDIOVASCULAR EXAM: regular rate, normal rhythm, normal heart sounds. No additional sounds. GI/ABDOMINAL EXAM: soft, normal bowel sounds. Absent: distended, tenderness, guarding, rebound, rigid EXTREMITIES EXAM: No lower extremity edema. NEUROLOGICAL EXAM: Patient is weak on the left upper and lower extremity compared to right. - Labs CBC & Chem 7: 01/27/19 07:41 01/27/19 07:41 Labs: Abnormal Lab Results - Last 24 Hours (Table) 01/27/19 01/27/19 Range/Units 07:41 07:41 WBC 10.8 H (3.8-10.6) k/uL Neutrophils # 7.8 H (1.3-7.7) k/uL Glucose 123 H (74-99) mg/dL Microbiology - Last 24 Hours (Table) 01/26/19 10:49 Blood Culture - Preliminary Blood No Growth after 24 hours Assessment and Plan Assessment: Sepsis secondary to multifocal pneumonia Fever History of stroke/TIA - left-sided weakness Schizophrenia COPD Hypertension Bipolar disorder Hyperlipidemia Chronic debility Recommend irrigations and discussion: Rec of and continue current medications, management, and symptomatic treatment. Patient is currently on IV antibiotics and infectious disease was consulted for antibiotic recommendations. Will continue with inhalation treatments at this time. Pulmonary is following. Chest x-ray was done yesterday showing findings compatible with congestive heart failure with patchy diffuse infiltrate bilaterally that may be more compatible with pulmonary edema. Patient is currently on oral Lasix and will continue at this time. Will continue to monitor vital signs and labs closely. Due to multiple complex medical issues prognosis is guarded. Further recommendations to follow. Case management and social work are following as patient resides at [facility].
--- NOTE | 2019-01-27 18:47 | PN ---
PROGRESS NOTE DATE OF SERVICE: 01/27/2019. REASON FOR FOLLOWUP: Pneumonia. INTERVAL HISTORY: The patient is currently afebrile. Patient has been breathing more comfortably. She did have some cough but not bringing up any sputum. No worsening cough though. No chest pain. No nausea. No abdominal pain. Has complaints of pain to the right shoulder and arm area and no diarrhea. PHYSICAL EXAMINATION: Blood pressure 106/55 with a pulse of 76, temperature 97.9. She is 96% on 2 L nasal cannula. General description is middle-aged female, lying in bed in no distress. Respiratory system: Unlabored breathing with decreased intensity of breath sounds. No wheeze. Heart S1, S2. Regular rate and rhythm. Abdomen soft. No tenderness. LABS: Hemoglobin 13.1, white count 10.9, BUN of 12, creatinine 0.55. Blood culture has been negative. Swallow evaluation came back negative. DIAGNOSTIC IMPRESSION AND PLAN: Patient admitted to the hospital with evidence of multifocal pneumonia with question of possible aspiration etiology. Patient did have a PENICILLIN ALLERGY. Currently covered with Levaquin and Flagyl with overall improvement in her clinical symptoms to continue. Try to obtain a sputum to narrow down her antibiotics and continue supportive care. MMODL / IJN: [id number] /
[2019-01-27] MEDS: MONTELUKAST 10 MG TAB PO SCH (20:00)
[2019-01-27] MEDS: QUEtiapine 200 MG TAB PO SCH (20:00)
[2019-01-27] MEDS: SENNOSIDES 8.6 MG TAB PO SCH (20:00)
[2019-01-27] MEDS: PRAVASTATIN SODIUM 20 MG TAB PO SCH (20:00)
[2019-01-27] MEDS: TAMSULOSIN 0.4 MG CAP.ER.24H PO SCH (20:01)
[2019-01-27] MEDS: IBUPROFEN 600 MG TAB PO PRN (22:06)
[2019-01-27] MEDS ORDERED: HALOPERIDOL 5 MG TAB ONE (23:30)
[2019-01-28] MEDS: IPRATROPIUM-ALBUTEROL 3 ML NEB INHALATION PRN (07:20)
[2019-01-28] MEDS: BUDESONIDE 0.5 MG/2 ML NEBU INHALATION SCH (07:20)
[2019-01-28] MEDS: metroNIDAZOLE-NS PMX 500 MG in SALINE 1 100ML.BAG IVPB SCH ×2 (08:54→14:02)
[2019-01-28] MEDS: FUROSEMIDE 40 MG TAB PO SCH ×2 (08:57→17:21)
[2019-01-28] MEDS: ESCITALOPRAM 20 MG TAB PO SCH (08:57)
[2019-01-28] MEDS: BACLOFEN 10 MG TAB PO SCH (08:57)
[2019-01-28] MEDS: TOPIRAMATE 100 MG TAB PO SCH (08:57)
[2019-01-28] MEDS: ASPIRIN 81 MG PO SCH (08:57)
[2019-01-28] MEDS: CARVEDILOL 3.125 MG TAB PO SCH (08:57)
[2019-01-28] MEDS: ALPRAZolam 0.5 MG TAB PO SCH (08:58)
[2019-01-28] MEDS: ENOXAPARIN 40 MG/0.4 ML SYRINGE SQ SCH (08:58)
[2019-01-28] MEDS: HALOPERIDOL 5 MG TAB PO SCH ×2 (08:59→17:21)
[2019-01-28] MEDS: BETHANECHOL CHLORIDE 50 MG PO SCH ×2 (08:59→17:18)
[2019-01-28] MEDS: METRONIDAZOLE TOPICAL SCH (08:59)
[2019-01-28] MEDS: MICONAZOLE NITRATE 2% CREAM 14 GM TUBE TOPICAL SCH (08:59)
[2019-01-28] MEDS: SODIUM CHLORIDE 0.9% 1,000 ML IV SCH (08:59)
[2019-01-28 10:23] LABS: Basophils % (A) 0 %; Eosinophils # (A) 0.7 k/uL (0-0.7); Eosinophils % (A) 11 %; HCT 39.1 % (34.0-46.0); HGB 12.4 gm/dL (11.4-16.0); Hypochromasia Slight; Lymphocytes # (A) 1.3 k/uL (1.0-4.8); Lymphocytes % (A) 21 %; MCHC 31.8 g/dL (31.0-37.0); Mean Platelet Volume 6.9; Monocytes # (A) 0.3 k/uL (0-1.0); Monocytes % (A) 4 %; Neutrophils # (A) 3.7 k/uL (1.3-7.7); Neutrophils % (A) 61 %; Platelet Count 179 k/uL (150-450); RBC 4.29 m/uL (3.80-5.40)
[2019-01-28 10:36] LABS: African American GFR (CKD) >90 (>60 ml/min/1.73 sqM); Anion Gap 8 mmol/L; Blood Urea Nitrogen 12 mg/dL (7-17); Calcium 8.8 mg/dL (8.4-10.2); Carbon Dioxide 28 mmol/L (22-30); Chloride 107 mmol/L (98-107); Glucose 218 mg/dL (74-99); Potassium 3.5 mmol/L (3.5-5.1); Sodium 143 mmol/L (137-145)
--- NOTE | 2019-01-28 10:51 | P.PN ---
Subjective Progress Note Date: 01/28/19 On 01/28/2019 seeing this patient for a follow-up. Diagnosis patient having IMV/fibrosis. Superimposed pneumonia was also considered including the possibility of a chemical aspiration. The patient was treated with a combination of Levaquin and Flagyl. The patient is coughing less and she is overall improved. She has been afebrile for the past 48 hours. She is swallowing food well. She passed her swallow evaluation. Connected tissue disease markers came back negative. She is currently on room air oxygen. She was seen by infectious disease. Not otherwise for now. Objective - Vital Signs Vital signs: Vital Signs Temp 98 F 01/27/19 19:29 Pulse 68 01/28/19 07:49 Resp 20 01/27/19 19:29 BP 84/57 01/27/19 19:29 Pulse Ox 93 L 01/27/19 19:29 Intake & Output 01/27/19 01/28/19 01/28/19 18:59 06:59 18:59 Intake Total 360 240 Output Total 1200 Balance -840 240 Intake: Oral 360 240 Output: Urine 1200 Other: Voiding Method Incontinent Incontinent # Emeses 1 - Exam GENERAL EXAM: Alert, pleasant 58-year-old white female, on 2 L of oxygen, patient has mumbled speech at times, and appears to be somewhat developmentally delayed but comfortable in no apparent distress. HEAD: Normocephalic/atraumatic. EYES: Normal reaction of pupils, equal size. Conjunctiva pink, sclera white. NOSE: Clear with pink turbinates. THROAT: No erythema or exudates. NECK: No masses, no JVD, no thyroid enlargement, no adenopathy. CHEST: No chest wall deformity. Symmetrical expansion. LUNGS: Equal air entry with no crackles, wheeze, rhonchi or dullness. Diminished breath sounds bilaterally. Coarse Velcro-like crackles at posterior bilateral bases CVS: Regular rate and rhythm, normal S1 and S2, no gallops, no murmurs, no rubs ABDOMEN: Soft, nontender. No hepatosplenomegaly, normal bowel sounds, no guarding or rigidity. EXTREMITIES: No clubbing, no edema, no cyanosis, 2+ pulses and upper and lower extremities. MUSCULOSKELETAL: Muscle strength and tone normal. SPINE: No scoliosis or deformity SKIN: No rashes CENTRAL NERVOUS SYSTEM: Alert and oriented -3. No focal deficits, tone is normal in all 4 extremities. PSYCHIATRIC: Alert and oriented -3. Appropriate affect. Intact judgment and insight. - Labs CBC & Chem 7: 01/28/19 09:45 01/28/19 09:45 Labs: Abnormal Lab Results - Last 24 Hours (Table) 01/28/19 Range/Units 09:45 Glucose 218 H (74-99) mg/dL Microbiology - Last 24 Hours (Table) 01/26/19 10:49 Blood Culture - Preliminary Blood No Growth after 24 hours Assessment and Plan Plan: #1. Diffuse bilateral infiltrates, and the possibility of pneumonia is being considered, possibly related to chronic aspiration on the background of interst itial lung disease possibly IPF the connected tissue disease markers of been all negative. The possibility of a recurrent aspiration cannot be completely excluded. In my opinion, the comparison CAT scan of the chest has not shown any major difference comparing it to the previous CAT scan from August 2018. The patient has chronic ILD. Currently she is afebrile. She was treated with a combination of Levaquin and Flagyl. The patient is improved. The patient is currently afebrile hemodynamically stable. #2. Acute hypoxic respiratory failure related to the above, improved and currently the patient is on room air #3. History of cerebrovascular accident with residual left-sided weakness #4. History of schizophrenia #5. History of seizure disorder #6. Previous history of tobacco use #7. Hypertension #11. History of hyperlipidemia #12. History of chronic pain #13. History of chronic medical debility #14. COPD ISAIAH No clear indication for an underlying pneumonia. The patient could have possibly a aspiration/chemical pneumonitis which caused some fever. The pro calcitonin level is low. The CAT chest findings are essentially chronic related to ILD. This is most likely consistent with IPF. This patient is improved clinically. Improved. The cough has subsided. Continue the one week course of antibiotics and discharge planning is in progress.
--- NOTE | 2019-01-28 14:11 | P.DS ---
Providers Date of admission: 01/23/19 18:26 Expected date of discharge: 01/28/19 Attending physician: Alirio Larson Consults: 01/23/19 18:26 Consult Physician Routine Consulting Provider: Yoon Montenegro Consult Reason/Comments: Pneumonia, sepsis Do you want consulting provider notified?: Yes 01/26/19 10:34 Consult Physician Routine Consulting Provider: Dinesh Aldridge Consult Reason/Comments: Multifocal Pneumonia Do you want consulting provider notified?: Yes Primary care physician: [facility] Course: Final diagnosis Sepsis secondary to multifocal pneumonia Fever History of stroke/TIA with chronic left-sided weakness Schizophrenia COPD Hypertension Bipolar disorder Hyperlipidemia Chronic debility Discharge disposition Patient is being discharged in a stable condition with guarded prognosis back to [facility] home and will follow-up with her primary care provider upon discharge. Per infectious disease recommendations patient will continue on oral antibiotics in the form of Levaquin for 7 days. Total time taken is 35 minutes. History of present illness This is a 58-year-old female was recently transferred from [facility] to [facility] for multifocal pneumonia and was being closely monitored. Pulmonary and infectious disease was following. Today patient is sitting up in the bed much more awake and alert and responding appropriately to questions and commands. Per infectious disease recommendations patient will continue on a seven-day course of oral Levaquin 750 mg daily upon discharge. Currently patient denies any chest pain, shortness of breath, or palpitations at this time. Patient is afebrile. Patient denies any nausea or vomiting and has been tolerating diet. During hospitalization patient did have a swallow eval done and passed. Currently patient's condition is stable with much improvement and will be discharged back to the [facility] home today. Guarded prognosis. On exam vital signs are stable. Temp is 98.3F, pulse is 72, respirations 20, blood pressure 110/72, oxygen saturation is 99% on 2 L via nasal cannula. cardio S1 and S2 are present. Respiratory system shows diminished breath sounds at the bases with a few scattered crackles noted. Abdomen is soft, obese, and nontender. Nervous system shows no focal deficits. Please refer to medication reconciliation sheet for a list of medications. Patient Condition at Discharge: Fair Plan - Discharge Summary Discharge Rx Participant: No New Discharge Prescriptions: New Levofloxacin [Levaquin] 750 mg PO DAILY 7 Days #7 tab Continue Mylanta 30 ml PO QID PRN PRN Reason: Chest Pain Ibuprofen [Motrin] 600 mg PO Q6HR PRN PRN Reason: Pain ALPRAZolam [Xanax] 0.5 mg PO BID Sodium Chloride [Lajas] 1 spray EA NOSTRIL BID PRN PRN Reason: Congestion Nystatin [Nystop] 1 applic TOPICAL BID PRN PRN Reason: Skin Irritation EPINEPHrine [Epipen 2-Molina] 0.3 mg IM ONCE PRN PRN Reason: Anaphylaxis Zinc Oxide [Desitin] 1 applic TOPICAL TID PRN PRN Reason: Skin Irritation Na Phos,M-B/Na Phos,Di-Ba [Fleet Adult] 133 ml RECTAL Q120D PRN PRN Reason: Constipation Bisacodyl [Dulcolax] 10 mg RECTAL Q96H PRN PRN Reason: Constipation Magnesium Hydroxide [Milk of Magnesia] 2,400 mg PO Q72H PRN PRN Reason: Constipation Ketoconazole 2% Shampoo [Nizoral] 1 applic TOPICAL MOWEFR metroNIDAZOLE [metroNIDAZOLE 0.75% Gel] 1 applic TOPICAL BID@799,1999 Tamsulosin [Flomax] 0.4 mg PO HS@1999 Sennosides [Senna] 17.2 mg PO HS@1999 Pravastatin Sodium [Pravachol] 20 mg PO HS@1999 Montelukast [Singulair] 10 mg PO HS@1999 Carvedilol [Coreg] 3.125 mg PO BID@699,1999 Escitalopram [Lexapro] 20 mg PO DAILY@0700 Haloperidol [Haldol] 5 mg PO TID@0730,1530,2330 Ergocalciferol (Vitamin D2) [Vitamin D2] 50,000 unit PO FR@0700 Bethanechol Chloride [Urecholine] 50 mg PO TID@0700,1600,1999 Acetaminophen Tab [Tylenol] 325 mg PO Q6H PRN PRN Reason: Pain Aspirin EC [Ecotrin Low Dose] 81 mg PO DAILY@0700 Budesonide [Pulmicort] 0.5 mg INHALATION RT-BID Baclofen [Lioresal] 10 mg PO BID@07,1999 Miconazole Nitrate [Miconazole Nitrate 2%] 1 applic TOPICAL BID@799,1999 QUEtiapine [SEROquel] 200 mg PO HS@1999 Topiramate [Topamax] 100 mg PO BID@799,1999 ALPRAZolam [Xanax] 0.5 mg PO DAILY PRN PRN Reason: Anxiety Trolamine Salicylate/Aloe Vera [Aspercreme 10% Cream] 1 applic TOPICAL BID PRN PRN Reason: EXTERNAL PAIN Discharge Medication List ALPRAZolam [Xanax] 0.5 mg PO BID 09/09/18 [History] Bethanechol Chloride [Urecholine] 50 mg PO TID@0700,1600,199909/09/18 [History] Bisacodyl [Dulcolax] 10 mg RECTAL Q96H PRN 09/09/18 [History] Carvedilol [Coreg] 3.125 mg PO BID@699,199909/09/18 [History] EPINEPHrine [Epipen 2-Molina] 0.3 mg IM ONCE PRN 09/09/18 [History] Ergocalciferol (Vitamin D2) [Vitamin D2] 50,000 unit PO FR@69909/09/18 [History] Escitalopram [Lexapro] 20 mg PO DAILY@69909/09/18 [History] Haloperidol [Haldol] 5 mg PO TID@0730,1530,2330 09/09/18 [History] Ibuprofen [Motrin] 600 mg PO Q6HR PRN 09/09/18 [History] Ketoconazole 2% Shampoo [Nizoral] 1 applic TOPICAL MOWEFR 09/09/18 [History] Magnesium Hydroxide [Milk of Magnesia] 2,400 mg PO Q72H PRN 09/09/18 [History] Montelukast [Singulair] 10 mg PO HS@199909/09/18 [History] Mylanta 30 ml PO QID PRN 09/09/18 [History] Na Phos,M-B/Na Phos,Di-Ba [Fleet Adult] 133 ml RECTAL Q120D PRN 09/09/18 [Hist ory] Nystatin [Nystop] 1 applic TOPICAL BID PRN 09/09/18 [History] Pravastatin Sodium [Pravachol] 20 mg PO HS@199909/09/18 [History] Sennosides [Senna] 17.2 mg PO HS@199909/09/18 [History] Sodium Chloride [Lajas] 1 spray EA NOSTRIL BID PRN 09/09/18 [History] Tamsulosin [Flomax] 0.4 mg PO HS@199909/09/18 [History] Zinc Oxide [Desitin] 1 applic TOPICAL TID PRN 09/09/18 [History] metroNIDAZOLE [metroNIDAZOLE 0.75% Gel] 1 applic TOPICAL BID@799,199909/09/18 [History] ALPRAZolam [Xanax] 0.5 mg PO DAILY PRN 01/23/19 [History] Acetaminophen Tab [Tylenol] 325 mg PO Q6H PRN 01/23/19 [History] Aspirin EC [Ecotrin Low Dose] 81 mg PO DAILY@0701/23/19 [History] Baclofen [Lioresal] 10 mg PO BID@699,199901/23/19 [History] Budesonide [Pulmicort] 0.5 mg INHALATION RT-BID 01/23/19 [History] Miconazole Nitrate [Miconazole Nitrate 2%] 1 applic TOPICAL BID@799,199901/23/19 [History] QUEtiapine [SEROquel] 200 mg PO HS@199901/23/19 [History] Topiramate [Topamax] 100 mg PO BID@799,199901/23/19 [History] Trolamine Salicylate/Aloe Vera [Aspercreme 10% Cream] 1 applic TOPICAL BID PRN 01/23/19 [History] Levofloxacin [Levaquin] 750 mg PO DAILY 7 Days #7 tab 01/28/19 [Rx] Follow up Appointment(s)/Referral(s): Nicholas Turk MD [Primary Care Provider] - 1-2 days [facility], [NON-STAFF] - Activity/Diet/Wound Care/Special Instructions: [facility] [phone] Activity as tolerated Continue current diet Continue full course of antibiotics until finished Follow-up with primary care provider upon discharge Discharge Disposition: OTHER INSTITUTION NOT DEFINED
--- NOTE | 2019-01-28 14:59 | PN ---
PROGRESS NOTE DATE OF SERVICE: 01/28/2019. REASON FOR FOLLOWUP: Pneumonia. INTERVAL HISTORY: The patient is currently afebrile. Patient has been breathing comfortably 90 minimal cough no sputum. No nausea, vomiting. No abdominal pain no diarrhea. PHYSICAL EXAMINATION: VITAL SIGNS: Pulse is 68. General description is a middle-aged female, lying in bed, in no distress. RESPIRATORY SYSTEM: Unlabored breathing, clear to auscultation anteriorly. HEART: S1, S2. Regular rate and rhythm. ABDOMEN: Soft. LABS: Hemoglobin is 12.4, white count is 6.0 BUN of 5, creatinine 0.64. Blood cultures have been negative. DIAGNOSTIC IMPRESSION AND PLAN: Patient admitted to the hospital with difficulty breathing and fever with concern for multifocal pneumonia, possible community-acquired. This patient did have multiple antibiotic allergies. Plan is to finish therapy with oral Levaquin for another 7 days. Plan of care discussed with the nurse practitioner for the admitting team. MMANDRAE / ADELAIDE: [id number] /
[2019-01-28 15:06] VITALS: BP 101/65; PULSE 76; RESP 17; TEMP 98.6
--- NOTE | 2019-02-03 08:14 | CDI ---
Documentation Clarification Form Date: 02/03/2019 7:56:39 AM From: Judithstefani Flores Phone: If you have a question about this query, please contact Silva Dickson, Firefighting Equipment Specialist at [phone] between 8am and 5pm. Admit Date: 01/23/2019 6:26:00 PM Patient Name: Vilma Armstrong Visit Number: [id number] Discharge Date: 01/28/2019 5:41:00 PM ATTENTION: The Clinical Documentation Specialists (CDI) and [facility] Coding Staff appreciate your assistance in clarifying documentation. Please respond to the clarification below the line at the bottom and electronically sign. The CDI & [facility] Coding staff will review the response and follow-up if needed. Please note: Queries are made part of the Legal Health Record. If you have any questions, please contact the author of this message via ITS. Dr. Johanne Wakefield The patient presented with SOB and diagnosied with sepsis and pneumonia. PN 01/27 and 01/28 document acute hypoxic respiratory failure. Please clarify if patient had acute hypsoxic respiratory failure, of so was it POA or was it ruled out. History/Risk Factors: pneumonia sepsis COPD Home O2 Tobacco use: hx of tobacco Home oxygen: Home O2 Vital signs: 100.7 F, 92 bpm, 18-20, 109/94, 95% 2L on admit 93% 2L 01/27 Lung/BreatABhing assessment: diminshed breath sounds wheezing Treatment: Oxygen In your professional opinion, can you please clarify if these findings signify one of the following conditions? Acute Respiratory Failure Acute on Chronic Respiratory Failure Chronic Respiratory Failure Acute Respiratory Distress Acute Respiratory Insufficiency Other Diagnosis, please specify Unable to determine Acute hypoxic respiratory failure ruled out Specificity: If known, further specify (if known): With hypercapnia? (pCO2 >50 and pH <7.35) With hypoxia? (pO2 <60 mm Hg or SpO2 <91% on room air) Acute on Chronic Respiratory Failure With hypoxia MTDD
--- NOTE | 2019-02-04 13:27 | CDI ---
Documentation Clarification Form Date: 02/04/2019 12:06:00 PM From: Alice Higuera Phone: If you have a question about this query, please contact Silva Dickson Swage Tender at [phone] between 8am and 5pm. Admit Date: 01/27/2019 3:33:00 PM Patient Name: Inna Mas Visit Number: [id number] Discharge Date: 01/29/2019 5:38:00 PM ATTENTION: The Clinical Documentation Specialists (CDI) and [facility] Coding Staff appreciate your assistance in clarifying documentation. Please respond to the clarification below the line at the bottom and electronically sign. The CDI & [facility] Coding staff will review the response and follow-up if needed. Please note: Queries are made part of the Legal Health Record. If you have any questions, please contact the author of this message via ITS. Dr. Zoltan Rendon Conflicting documentation has been found in the medical record: Per cardiology consult: states elevated troponins, Type II PR secondary to PE. 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 Troponin I- 0.053, 0.046, 0.044 Treatment: serial EKGs and enzymes, consult cardiology In your opinion, what is the most clinically appropriate diagnosis for this patient? Type II PR PR specify type Other explanation of clinical findings Unable to determine (no explanation for clinical findings) MTDD
== END 2019-01-28 17:41 | disposition home health service (06) | DRG 871 ==
LOC: EC 17:26 → 4MS4W 18:26
PROVIDERS: ADMIT Internal Medicine; ATTEND Internal Medicine
DX: A41.9 Sepsis, unspecified organism (principal); J18.9 Pneumonia, unspecified organism; J96.21 Acute and chronic respiratory failure with hypoxia; I69.354 Hemiplegia and hemiparesis following cerebral infarction affecting left non-dominant side; J44.0 Chronic obstructive pulmonary disease with (acute) lower respiratory infection; E78.5 Hyperlipidemia, unspecified; F20.9 Schizophrenia, unspecified; F31.9 Bipolar disorder, unspecified; G40.909 Epilepsy, unspecified, not intractable, without status epilepticus; I50.9 Heart failure, unspecified; I11.0 Hypertensive heart disease with heart failure; I25.10 Atherosclerotic heart disease of native coronary artery without angina pectoris; K21.9 Gastro-esophageal reflux disease without esophagitis; K59.00 Constipation, unspecified; M19.90 Unspecified osteoarthritis, unspecified site; R32 Unspecified urinary incontinence; Z79.82 Long term (current) use of aspirin; Z79.899 Other long term (current) drug therapy; Z87.891 Personal history of nicotine dependence; Z88.0 Allergy status to penicillin; Z88.1 Allergy status to other antibiotic agents; Z88.2 Allergy status to sulfonamides; Z88.7 Allergy status to serum and vaccine; Z91.030 Bee allergy status; Z91.040 Latex allergy status; Z99.3 Dependence on wheelchair; Z99.81 Dependence on supplemental oxygen; Z74.01 Bed confinement status; M54.9 Dorsalgia, unspecified; G89.29 Other chronic pain; R53.81 Other malaise; F41.8 Other specified anxiety disorders
CPT/HCPCS: 71046; 74230; 80048; 80053; 81003; 83880; 84145; 85025; 85652; 86038; 86235; 86431; 87040; 94640; 94760; 96361; 96365; 99285

== ENCOUNTER → 2021-07-10 | Outpatient (CLI) | payer MEDICARE, OTHER ==
--- NOTE | 2021-07-10 14:06 | FL ---
EXAMINATION TYPE: FL barium swallow w video DATE OF EXAM: 07/10/2021 COMPARISON: NONE HISTORY: Dysphagia. The patient was evaluated in the lateral projection during real-time fluoroscopy, during ingestion of barium mixed with solids and liquids. No aspiration or laryngeal penetration. See report from [facility]. 44 seconds fluoroscopy time. No images obtained.
== END | disposition home or self-care (01) ==
LOC: RADFLMAIN 10:57
PROVIDERS: ATTEND Family Medicine
DX: J69.0 Pneumonitis due to inhalation of food and vomit (principal)
CPT/HCPCS: 74230

== ENCOUNTER 2021-07-19 15:24 | Inpatient (IN) | payer MEDICARE, OTHER ==
[2021-07-19] MEDS ORDERED: methylPREDNISolone SOD SUCCI 125 MG/2 ML VIAL IV STA (16:03)
[2021-07-19] MEDS ORDERED: IPRATROPIUM 0.5 MG/2.5 ML NEBU INHALATION STA (16:03)
[2021-07-19] MEDS ORDERED: ALBUTEROL NEBULIZED 2.5 MG/3 ML INHALATION STA (16:03)
[2021-07-19] MEDS ORDERED: SODIUM CHLORIDE 0.9% 1,000 ML IV STA (16:03)
[2021-07-19 16:29] LABS: Basophils % (A) 0 %; Eosinophils % (A) 0 %; HCT 48.8 % (34.0-46.0); HGB 15.8 gm/dL (11.4-16.0); Hypochromasia Slight; Lymphocytes # (A) 0.9 k/uL (1.0-4.8); Lymphocytes % (A) 10 %; MCH 30.2 pg (25.0-35.0); MCHC 32.4 g/dL (31.0-37.0); MCV 93.3 fL (80.0-100.0); Mean Platelet Volume 9.3; Monocytes # (A) 0.4 k/uL (0-1.0); Monocytes % (A) 5 %; Neutrophils # (A) 7.6 k/uL (1.3-7.7); Neutrophils % (A) 83 %; Platelet Count 149 k/uL (150-450); RBC 5.23 m/uL (3.80-5.40); RDW 14.1 % (11.5-15.5); WBC 9.2 k/uL (3.8-10.6)
[2021-07-19 16:50] LABS: VBG PH 7.26 (7.31-7.41)
--- NOTE | 2021-07-19 16:52 | XR ---
EXAMINATION TYPE: XR chest 1V portable DATE OF EXAM: 07/19/2021 COMPARISON: Chest x-ray January 26, 2019 HISTORY: Shortness of breath TECHNIQUE: Single AP portable frontal semiupright view of the chest is obtained. FINDINGS: Persistent low lung volumes with reticular interstitial changes bilaterally. Findings fav or parenchymal fibrosis with component of edema not excluded The cardiac silhouette size remains enla rged. Cholecystectomy clips are present. The osseous structures are intact. IMPRESSION: Low lung volumes with bilateral interstitial fibrosis and/or edema again seen.
[2021-07-19 17:01] LABS: ALT 31 U/L (4-34); AST 28 U/L (14-36); African American GFR (CKD) >90 (>60 ml/min/1.73 sqM); Albumin 3.9 g/dL (3.5-5.0); Alkaline Phosphatase 89 U/L (38-126); Anion Gap 5 mmol/L; Blood Urea Nitrogen 16 mg/dL (7-17); Calcium 8.7 mg/dL (8.4-10.2); Carbon Dioxide 29 mmol/L (22-30); Chloride 110 mmol/L (98-107); Glucose 118 mg/dL (74-99); Non-African American GFR(CKD) >90 (>60 ml/min/1.73 sqM); Potassium 4.6 mmol/L (3.5-5.1); Sodium 144 mmol/L (137-145); Total Bilirubin 0.5 mg/dL (0.2-1.3); Total Protein 7.2 g/dL (6.3-8.2)
[2021-07-19 17:05] LABS: INR 0.9 (<1.2); Partial Thromboplastin Time 22.3 sec (22.0-30.0); Prothrombin Time 10.3 sec (9.0-12.0)
--- NOTE | 2021-07-19 19:04 | ED ---
General Adult HPI - General Chief complaint: Shortness of Breath Stated complaint: SOB,RSV Time Seen by Provider: 07/19/21 15:44 Source: EMS, RN notes reviewed, old records reviewed Mode of arrival: EMS Limitations: altered mental status - History of Present Illness Initial comments: 60-year-old female presents with worsening cough and dyspnea. Patient was diagnosed with RSV at outside hospital earlier this week. She has a history of COPD. History is obtained from the patient's caregivers. She is able to answer some simple questions. No reported fevers. No chest pain. - Related Data Home Medications Medication Instructions Recorded Confirmed Bethanechol Chloride [Urecholine] 50 mg PO TID@0700,1600,199909/09/18 07/19/21 EPINEPHrine [Epipen 2-Molina] 0.3 mg IM ONCE PRN 09/09/18 07/19/21 Ergocalciferol (Vitamin D2) 50,000 unit PO FR@0700 09/09/18 07/19/21 [Vitamin D2] Escitalopram [Lexapro] 20 mg PO BID@07,199909/09/18 07/19/21 Ibuprofen [Motrin] 600 mg PO Q6HR PRN 09/09/18 07/19/21 Ketoconazole 2% Shampoo [Nizoral] 1 applic TOPICAL MOWEFR 09/09/18 07/19/21 Montelukast [Singulair] 10 mg PO HS@199909/09/18 07/19/21 Nystatin [Nystop] 1 applic TOPICAL BID PRN 09/09/18 07/19/21 Pravastatin Sodium [Pravachol] 20 mg PO HS@199909/09/18 07/19/21 Tamsulosin [Flomax] 0.4 mg PO HS@199909/09/18 07/19/21 carvediloL [Coreg] 3.125 mg PO BID@0700,199909/09/18 07/19/21 haloperidoL [Haldol] 5 mg PO BID@0700,1400 09/09/18 07/19/21 metroNIDAZOLE [metroNIDAZOLE 0.75% 1 applic TOPICAL BID@0700,199909/09/18 07/19/21 Gel] Aspirin EC [Ecotrin Low Dose] 81 mg PO DAILY@0700 01/23/19 07/19/21 Baclofen [Lioresal] 15 mg PO DAILY@0700 01/23/19 07/19/21 Budesonide [Pulmicort] 0.5 mg INHALATION RT-BID 01/23/19 07/19/21 Topiramate [Topamax] 100 mg PO BID@0700,199901/23/19 07/19/21 Albuterol Nebulized [Ventolin 2.5 mg INHALATION RT-Q6H PRN 07/19/21 07/19/21 Nebulized] Baclofen [Lioresal] 10 mg PO BID@1400,199907/19/21 07/19/21 Brexpiprazole [Rexulti] 4 mg PO HS@199907/19/21 07/19/21 Famotidine [Pepcid] 20 mg PO DAILY@0700 07/19/21 07/19/21 Loratadine 10 mg PO DAILY PRN 07/19/21 07/19/21 clonazePAM [KlonoPIN] 1 mg PO BID@1200,1700 07/19/21 07/19/21 clonazePAM [KlonoPIN] 2 mg PO HS@232907/19/21 07/19/21 guaiFENesin SYRUP 100MG/5ML 200 mg PO Q4H PRN 07/19/21 07/19/21 [Robitussin] predniSONE [Deltasone] 20 mg PO HS@232907/19/21 07/19/21 Allergies Allergy/AdvReac Type Severity Reaction Status Date / Time bee venom protein (honey bee) Allergy Unknown Verified 01/23/19 17:57 latex Allergy Unknown Verified 01/23/19 17:57 Penicillins Allergy Unknown Verified 01/23/19 17:57 sulfamethoxazole Allergy Unknown Verified 01/23/19 17:57 [From Bactrim] Tetanus Vaccines and Toxoid Allergy Unknown Verified 01/23/19 17:57 trimethoprim [From Bactrim] Allergy Unknown Verified 01/23/19 17:57 Review of Systems ROS Statement: Those systems with pertinent positive or pertinent negative responses have been documented in the HPI. ROS Other: All systems not noted in ROS Statement are negative. Past Medical History Past Medical History: COPD, CVA/TIA, GERD/Reflux, Osteoarthritis (OA), Seizure Disorder Additional Past Medical History / Comment(s): Wears oxygen at night History of Any Multi-Drug Resistant Organisms: None Reported Past Surgical History: Orthopedic Surgery Additional Past Surgical History / Comment(s): previous trach Past Psychological History: Anxiety, Schizophrenia Past Alcohol Use History: None Reported Past Drug Use History: None Reported - Past Family History Father Family Medical History: Unable to Obtain Mother Family Medical History: Unable to Obtain General Exam Limitations: no limitations General appearance: lethargic, in distress Head exam: Present: atraumatic, normocephalic Eye exam: Present: normal appearance, PERRL ENT exam: Present: mucous membranes moist Respiratory exam: Present: respiratory distress, wheezes, rhonchi, decreased breath sounds Cardiovascular Exam: Present: regular rate, normal rhythm GI/Abdominal exam: Present: soft. Absent: distended, tenderness, guarding Extremities exam: Present: normal inspection, normal capillary refill. Absent: pedal edema Neurological exam: Absent: motor sensory deficit Skin exam: Present: warm, dry, intact. Absent: cyanosis, diaphoretic Course Vital Signs 07/19/21 07/19/21 07/19/21 15:34 15:44 17:26 Temperature 98.4 F Pulse Rate 62 85 Respiratory 26 H 26 H Rate Blood Pressure 99/64 O2 Sat by Pulse 97 Oximetry EKG Findings - EKG Comments: EKG Findings:: EKG: Sinus rhythm possible right ventricular. 3, rate of 62, VT interval 181, QRS duration 98, QTC 408, no ST segment elevation. Medical Decision Making - Medical Decision Making 60-year-old female presenting with cough dyspnea, history of COPD. History is limited from this patient. Chest x-ray shows pulmonary fibrosis. She has normal CBC, normal CMP, elevated CO2 on venous gas. I did discuss case with Dr. Gaines who will admit for COPD exacerbation and hypercarbia. - Lab Data Result diagrams: 07/19/21 16:07 07/19/21 16:30 Lab Results 07/19/21 07/19/21 07/19/21 Range/Units 16:07 16:07 16:07 WBC 9.2 (3.8-10.6) k/uL RBC 5.23 (3.80-5.40) m/uL Hgb 15.8 (11.4-16.0) gm/dL Hct 48.8 H (34.0-46.0) % MCV 93.3 (80.0-100.0) fL MCH 30.2 (25.0-35.0) pg MCHC 32.4 (31.0-37.0) g/dL RDW 14.1 (11.5-15.5) % Plt Count 149 L (150-450) k/uL MPV 9.3 Neutrophils % 83 % Lymphocytes % 10 % Monocytes % 5 % Eosinophils % 0 % Basophils % 0 % Neutrophils # 7.6 (1.3-7.7) k/uL Lymphocytes # 0.9 L (1.0-4.8) k/uL Monocytes # 0.4 (0-1.0) k/uL Eosinophils # 0.0 (0-0.7) k/uL Basophils # 0.0 (0-0.2) k/uL Hypochromasia Slight PT 10.3 (9.0-12.0) sec INR 0.9 (<1.2) APTT 22.3 (22.0-30.0) sec VBG pH 7.26 L (7.31-7.41) VBG pCO2 65 H (37-51) mmHg VBG HCO3 28 (24-28) mmol/L Sodium (137-145) mmol/L Potassium (3.5-5.1) mmol/L Chloride (98-107) mmol/L Carbon Dioxide (22-30) mmol/L Anion Gap mmol/L BUN (7-17) mg/dL Creatinine (0.52-1.04) mg/dL Est GFR (CKD-EPI)AfAm (>60 ml/min/1.73 sqM) Est GFR (CKD-EPI)NonAf (>60 ml/min/1.73 sqM) Glucose (74-99) mg/dL Plasma Lactic Acid Philip (0.7-2.0) mmol/L Calcium (8.4-10.2) mg/dL Total Bilirubin (0.2-1.3) mg/dL AST (14-36) U/L ALT (4-34) U/L Alkaline Phosphatase (38-126) U/L Total Protein (6.3-8.2) g/dL Albumin (3.5-5.0) g/dL 07/19/21 07/19/21 Range/Units 16:30 16:30 WBC (3.8-10.6) k/uL RBC (3.80-5.40) m/uL Hgb (11.4-16.0) gm/dL Hct (34.0-46.0) % MCV (80.0-100.0) fL MCH (25.0-35.0) pg MCHC (31.0-37.0) g/dL RDW (11.5-15.5) % Plt Count (150-450) k/uL MPV Neutrophils % % Lymphocytes % % Monocytes % % Eosinophils % % Basophils % % Neutrophils # (1.3-7.7) k/uL Lymphocytes # (1.0-4.8) k/uL Monocytes # (0-1.0) k/uL Eosinophils # (0-0.7) k/uL Basophils # (0-0.2) k/uL Hypochromasia PT (9.0-12.0) sec INR (<1.2) APTT (22.0-30.0) sec VBG pH (7.31-7.41) VBG pCO2 (37-51) mmHg VBG HCO3 (24-28) mmol/L Sodium 144 (137-145) mmol/L Potassium 4.6 (3.5-5.1) mmol/L Chloride 110 H (98-107) mmol/L Carbon Dioxide 29 (22-30) mmol/L Anion Gap 5 mmol/L BUN 16 (7-17) mg/dL Creatinine 0.66 (0.52-1.04) mg/dL Est GFR (CKD-EPI)AfAm >90 (>60 ml/min/1.73 sqM) Est GFR (CKD-EPI)NonAf >90 (>60 ml/min/1.73 sqM) Glucose 118 H (74-99) mg/dL Plasma Lactic Acid Philip 0.9 (0.7-2.0) mmol/L Calcium 8.7 (8.4-10.2) mg/dL Total Bilirubin 0.5 (0.2-1.3) mg/dL AST 28 (14-36) U/L ALT 31 (4-34) U/L Alkaline Phosphatase 89 (38-126) U/L Total Protein 7.2 (6.3-8.2) g/dL Albumin 3.9 (3.5-5.0) g/dL Critical Care Time Critical Care Time: Yes Total Critical Care Time: 35 Disposition Clinical Impression: Acute exacerbation of chronic obstructive pulmonary disease Disposition: ADMITTED IP TO THIS [facility] Condition: Stable Is patient prescribed a controlled substance at d/c from ED?: No Referrals: Louis Hoffmann MD [Primary Care Provider] - 1-2 days Decision to Admit Reason: Admit from EC Decision Date: 07/19/21 Decision Time: 19:04
[2021-07-19] MEDS ORDERED: IPRATROPIUM-ALBUTEROL 3 ML NEB INHALATION PRN (19:09)
[2021-07-19] MEDS: IPRATROPIUM-ALBUTEROL 3 ML NEB INHALATION SCH (19:35)
[2021-07-19] MEDS: SODIUM CHLORIDE 0.9% 1,000 ML IV SCH (20:00)
[2021-07-19] MEDS ORDERED: guaiFENesin SYRUP 100MG/5ML 200 MG/10 ML CUP PO PRN (22:36)
[2021-07-19] MEDS ORDERED: IBUPROFEN 600 MG TAB PO PRN (22:36)
[2021-07-19] MEDS ORDERED: LORATADINE 10 MG TAB PO PRN (22:36)
[2021-07-19] MEDS: ACETAMINOPHEN TAB 325 MG TAB PO PRN (23:33)
[2021-07-19] MEDS: clonazePAM 1 MG TAB PO SCH (23:34)
[2021-07-20] MEDS: methylPREDNISolone SOD SUCCI 125 MG/2 ML VIAL IV SCH ×4 (00:56→17:24)
[2021-07-20] MEDS: IPRATROPIUM-ALBUTEROL 3 ML NEB INHALATION SCH ×4 (08:05→20:39)
[2021-07-20] MEDS: ESCITALOPRAM 20 MG TAB PO SCH ×2 (08:29→21:58)
[2021-07-20] MEDS: BACLOFEN 10 MG TAB PO SCH ×3 (08:29→21:58)
[2021-07-20] MEDS: carvediloL 3.125 MG TAB PO SCH ×2 (08:29→21:58)
[2021-07-20] MEDS: FAMOTIDINE 20 MG TAB PO SCH (08:29)
[2021-07-20] MEDS: TOPIRAMATE 100 MG TAB PO SCH ×2 (08:29→21:58)
[2021-07-20] MEDS: ASPIRIN 81 MG PO SCH (08:29)
[2021-07-20] MEDS: haloperidoL 5 MG TAB PO SCH ×2 (08:30→12:49)
[2021-07-20] MEDS: BETHANECHOL 25 MG TAB PO SCH ×3 (08:30→21:58)
[2021-07-20] MEDS: SODIUM CHLORIDE 0.9% 1,000 ML IV SCH ×2 (08:31→22:05)
[2021-07-20] MEDS: clonazePAM 1 MG TAB PO SCH ×2 (12:49→17:24)
[2021-07-20] MEDS: MONTELUKAST 10 MG TAB PO SCH (21:57)
[2021-07-20] MEDS: TAMSULOSIN 0.4 MG CAP.ER.24H PO SCH (21:58)
[2021-07-20] MEDS: NON FORMULARY DRUG (Brexpiprazole [Rexulti] 4 MG Tablet) PO SCH (21:58)
[2021-07-20] MEDS: PRAVASTATIN SODIUM 20 MG TAB PO SCH (21:58)
[2021-07-21] MEDS: methylPREDNISolone SOD SUCCI 125 MG/2 ML VIAL IV SCH ×5 (00:28→23:54)
[2021-07-21] MEDS: clonazePAM 1 MG TAB PO SCH ×4 (00:28→22:42)
[2021-07-21] MEDS: ESCITALOPRAM 20 MG TAB PO SCH ×2 (07:59→21:13)
[2021-07-21] MEDS: TOPIRAMATE 100 MG TAB PO SCH ×2 (07:59→21:14)
[2021-07-21] MEDS: BACLOFEN 10 MG TAB PO SCH ×3 (07:59→21:13)
[2021-07-21] MEDS: carvediloL 3.125 MG TAB PO SCH ×2 (07:59→21:13)
[2021-07-21] MEDS: ASPIRIN 81 MG PO SCH (07:59)
[2021-07-21] MEDS: FAMOTIDINE 20 MG TAB PO SCH (07:59)
[2021-07-21] MEDS: haloperidoL 5 MG TAB PO SCH ×2 (08:00→13:44)
[2021-07-21] MEDS: BETHANECHOL 25 MG TAB PO SCH ×3 (08:00→22:42)
[2021-07-21] MEDS: IPRATROPIUM-ALBUTEROL 3 ML NEB INHALATION SCH ×4 (08:29→19:22)
[2021-07-21] MEDS ORDERED: ERGOCALCIFEROL 1,250 MCG (50,000 IU) CAPSULE PO SCH (09:00)
[2021-07-21 10:35] LABS: Basophils # (A) 0.01 X 10*3/uL (0.00-0.10); Basophils % (A) 0.1 %; Eosinophils # (A) 0 X 10*3/uL (0.04-0.35); Eosinophils % (A) 0 %; HCT 47.5 % (37.2-46.3); HGB 14.3 g/dL (12.0-15.0); Immature Grans, Automated 0.4 %; Lymphocytes # (A) 1.08 X 10*3/uL (0.90-5.00); Lymphocytes % (A) 10.8 %; MCH 28.1 pg (27.0-32.0); MCHC 30.1 g/dL (32.0-37.0); MCV 93.5 fL (80.0-97.0); Mean Platelet Volume 11.4 fL (9.5-12.2); Monocytes # (A) 0.33 X 10*3/uL (0.20-1.00); Monocytes % (A) 3.3 %; NRBC Per 100 WBC 0 /100 WBCS (0.0-0.0); Neutrophils # (A) 8.51 X 10*3/uL (1.80-7.70); Neutrophils % (A) 85.4 %; Platelet Count 149 X 10*3/uL (140-440); RBC 5.08 X 10*6/uL (4.10-5.20); RDW 13.6 % (11.5-14.5); WBC 9.97 X 10*3/uL (4.50-10.00)
[2021-07-21 12:06] LABS: ALT 40 U/L (8-44); AST 22 U/L (13-35); African American GFR (CKD) 116.4 (60.0-200.0); Albumin 3.6 g/dL (3.8-4.9); Albumin/Globulin Ratio 1.38 (1.60-3.17); Alkaline Phosphatase 82 U/L (41-126); BUN/Creat Ratio 25.33 Ratio (12.00-20.00); Blood Urea Nitrogen 15.2 mg/dL (9.0-27.0); Calcium 8.9 mg/dL (8.7-10.3); Carbon Dioxide 22.8 mmol/L (20.0-27.5); Chloride 109 mmol/L (96-109); Globulin 2.6 g/dL (1.6-3.3); Glucose 171 mg/dL (70-110); Non-African American GFR(CKD) 100.5 (60.0-200.0); Potassium 4.1 mmol/L (3.5-5.5); Sodium 143 mmol/L (135-145); Total Bilirubin <0.15 mg/dL (0.30-1.20); Total Protein 6.2 g/dL (6.2-8.2)
[2021-07-21] MEDS: SODIUM CHLORIDE 0.9% 1,000 ML IV SCH (13:47)
--- NOTE | 2021-07-21 15:56 | HP ---
HISTORY AND PHYSICAL This 60-year-old white female came with cough, congestion, shortness of breath, transferred from another hospital due to COVID. Patient's caregiver sent her to the hospital for respiratory distress. Home medicines include Pravachol Singulair, shampoo, Lexapro, vitamin D, EpiPen, Haldol 5 mg b.i.d., Coreg 3.25 b.i.d., Flomax 0.4 daily, daily, Topamax 100 b.i.d., Pepcid 20 daily, loratadine 10 daily, Klonopin 1 mg b.i.d. 2 mg at night. PAST MEDICAL HISTORY: COPD, CVA, GERD, osteoarthritis, seizures. FAMILY HISTORY: See chart. PHYSICAL EXAMINATION: She appears to be wheezing, inspiratory and respiratory mild. Cardiovascular S1, S2. GI is soft. Endocrine: BMI is over 40. Hematology negative Homans. Blood pressure 90s over 60s, O2 97. EKG shows sinus rhythm. ASSESSMENT: 1. Chronic obstructive pulmonary disease exacerbation. 2. Pulmonary fibrosis. 3. Possibly hypercapnic respiratory failure. 4. Possibly RSV. 5. Acute hypercapnic respiratory failure with elevated CO2. Get Pulmonary and Infectious Disease, steroids, updrafts. Prognosis guarded. MMODL / IJN: [id number] /
--- NOTE | 2021-07-21 16:47 | P.CNPUL ---
History of Present Illness Consult date: 07/21/21 Reason for consult: dyspnea, cough, COPD Chief complaint: Shortness of breath and cough for 1 week History of present illness: Patient is a 60-year-old female nonverbal but however come negative through the chest has data predominantly obtained from the chart as patient cannot give a detailed history and review of the data revealed that patient has a history of COPD CVA also has a history of GERD degenerative joint disease osteoarthritis and seizure disorder and severe schizophrenia. She does have a history of prior tracheostomy. She came into the hospital with worsening cough and dyspnea she was diagnosed as the RSV in outside facility. Currently she is on 4 L nasal cannula oxygen saturation is 98%, she is afebrile with stable hemodynamics. X- ray low lung volumes with bilateral interstitial fibrosis. Currently patient is being treated with bronchodilators continuation of home medications including baclofen and IV Solu-Medrol. Computed tomography scan just have been performed patient showed extensive bilateral infiltrate with in between groundglass attenuation. Labs reviewed white cell count has been stable [place]. Hemoglobin and hematocrit stable as well, platelet count of 1 49,000, venous blood gas pH is 7.26 pCO2 65. Patient can benefit from BiPAP machine at nighttime Review of Systems ROS unobtainable: due to mental status Past Medical History Past Medical History: COPD, CVA/TIA, GERD/Reflux, Osteoarthritis (OA), Seizure Disorder Additional Past Medical History / Comment(s): Wears oxygen at night, no seizures for 10 years, bedrest can't bare weight anymore History of Any Multi-Drug Resistant Organisms: None Reported Past Surgical History: Orthopedic Surgery Additional Past Surgical History / Comment(s): previous trach Past Anesthesia/Blood Transfusion Reactions: No Reported Reaction Past Psychological History: Anxiety, Schizophrenia 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 Smoking Status: Former smoker Past Alcohol Use History: None Reported Past Drug Use History: None Reported - Past Family History Father Family Medical History: Unable to Obtain Mother Family Medical History: Unable to Obtain Medications and Allergies Home Medications Medication Instructions Recorded Confirmed Type Bethanechol Chloride [Urecholine] 50 mg PO TID@0700,1600,199909/09/18 07/19/21 History EPINEPHrine [Epipen 2-Molina] 0.3 mg IM ONCE PRN 09/09/18 07/19/21 History Ergocalciferol (Vitamin D2) 50,000 unit PO FR@0709/09/18 07/19/21 History [Vitamin D2] Escitalopram [Lexapro] 20 mg PO BID@699,199909/09/18 07/19/21 History Ibuprofen [Motrin] 600 mg PO Q6HR PRN 09/09/18 07/19/21 History Ketoconazole 2% Shampoo [Nizoral] 1 applic TOPICAL MOWEFR 09/09/18 07/19/21 History Montelukast [Singulair] 10 mg PO HS@199909/09/18 07/19/21 History Nystatin [Nystop] 1 applic TOPICAL BID PRN 09/09/18 07/19/21 History Pravastatin Sodium [Pravachol] 20 mg PO HS@199909/09/18 07/19/21 History Tamsulosin [Flomax] 0.4 mg PO HS@199909/09/18 07/19/21 History carvediloL [Coreg] 3.125 mg PO BID@07,199909/09/18 07/19/21 History haloperidoL [Haldol] 5 mg PO BID@0700,1400 09/09/18 07/19/21 History metroNIDAZOLE [metroNIDAZOLE 0.75% 1 applic TOPICAL BID@699,199909/09/18 07/19/21 History Gel] Aspirin EC [Ecotrin Low Dose] 81 mg PO DAILY@0700 01/23/19 07/19/21 History Baclofen [Lioresal] 15 mg PO DAILY@0701/23/19 07/19/21 History Budesonide [Pulmicort] 0.5 mg INHALATION RT-BID 01/23/19 07/19/21 History Topiramate [Topamax] 100 mg PO BID@07,199901/23/19 07/19/21 History Albuterol Nebulized [Ventolin 2.5 mg INHALATION RT-Q6H PRN 07/19/21 07/19/21 History Nebulized] Baclofen [Lioresal] 10 mg PO BID@1400,199907/19/21 07/19/21 History Brexpiprazole [Rexulti] 4 mg PO HS@199907/19/21 07/19/21 History Famotidine [Pepcid] 20 mg PO DAILY@0700 07/19/21 07/19/21 History Loratadine 10 mg PO DAILY PRN 07/19/21 07/19/21 History clonazePAM [KlonoPIN] 1 mg PO BID@1200,1700 07/19/21 07/19/21 History clonazePAM [KlonoPIN] 2 mg PO HS@2330 07/19/21 07/19/21 History guaiFENesin SYRUP 100MG/5ML 200 mg PO Q4H PRN 07/19/21 07/19/21 History [Robitussin] predniSONE [Deltasone] 20 mg PO HS@2330 07/19/21 07/19/21 History Allergies Allergy/AdvReac Type Severity Reaction Status Date / Time bee venom protein (honey bee) Allergy Unknown Verified 01/23/19 17:57 latex Allergy Unknown Verified 01/23/19 17:57 Penicillins Allergy Unknown Verified 01/23/19 17:57 sulfamethoxazole Allergy Unknown Verified 01/23/19 17:57 [From Bactrim] Tetanus Vaccines and Toxoid Allergy Unknown Verified 01/23/19 17:57 trimethoprim [From Bactrim] Allergy Unknown Verified 01/23/19 17:57 Physical Exam Vitals: Vital Signs Temp Pulse Pulse Resp BP Pulse Ox 07/21/21 14:00 97.8 F 59 L 20 111/63 98 07/21/21 11:38 70 07/21/21 11:25 70 07/21/21 08:42 70 07/21/21 08:31 70 07/21/21 07:55 98.3 F 65 18 107/58 94 L 07/21/21 02:18 96.9 F L 53 L 19 114/69 96 07/20/21 19:36 98.2 F 61 18 100/51 96 07/20/21 17:20 56 L 07/20/21 17:11 68 Intake and Output 07/21/21 07/21/21 07/21/21 06:59 14:59 22:59 Intake Total 180 Output Total 300 Balance -300 180 Intake: Oral 180 Output: Urine 300 Other: Voiding Method External Catheter # Voids 1 # Bowel Movements 1 1 - Constitutional General appearance: disheveled, mild distress, morbidly obese - EENT Eyes: EOMI, PERRLA Ears: bilateral: normal - Neck Neck: normal ROM Carotids: bilateral: upstroke normal Thyroid: bilateral: normal size - Respiratory Respiratory: bilateral: diminished, wheezing - Cardiovascular Rhythm: regular Heart sounds: normal: S1, S2 - Gastrointestinal General gastrointestinal: normal bowel sounds - Integumentary Integumentary: decreased turgor - Neurologic Neurologic: CNII-XII intact - Musculoskeletal Musculoskeletal: generalized weakness Results - Laboratory Findings CBC and BMP: 07/21/21 07:59 07/21/21 07:59 PT/INR, D-dimer PT 10.3 sec (9.0-12.0) 07/19/21 16:07 INR 0.9 (<1.2) 07/19/21 16:07 Abnormal lab findings: Abnormal Labs 07/19/21 07/19/21 07/19/21 16:07 16:07 16:30 Hct 48.8 H MCHC Plt Count 149 L Neutrophils # Lymphocytes # 0.9 L Eosinophils # VBG pH 7.26 L VBG pCO2 65 H Chloride 110 H BUN/Creatinine Ratio Glucose 118 H Total Bilirubin Albumin Albumin/Globulin Ratio 07/21/21 07/21/21 07:59 07:59 Hct 47.5 H MCHC 30.1 L Plt Count Neutrophils # 8.51 H Lymphocytes # Eosinophils # 0 L VBG pH VBG pCO2 Chloride BUN/Creatinine Ratio 25.33 H Glucose 171 H Total Bilirubin <0.15 L Albumin 3.6 L Albumin/Globulin Ratio 1.38 L - Diagnostic Findings Chest x-ray: report reviewed, image reviewed CT scan - chest: report reviewed, image reviewed Assessment and Plan Assessment: Acute hypoxic and hypercapnic respiratory failure RSV pneumonia Secondary bacterial pneumonia cannot be excluded but however less likely Developed been no early ARDS-like pattern History of stroke Patient has at risk of aspiration pneumonia Obesity hypoventilation syndrome Plan: Add antibiotics would do doxycycline and clindamycin Continue IV steroids and bronchodilator Continue supplemental oxygen BiPAP support each night and when necessary during day Further recommendations pending plan of care as per clinical response of patient Time with Patient: Greater than 30
--- NOTE | 2021-07-21 16:59 | CT ---
EXAMINATION TYPE: CT chest wo con CT DLP: 415.8 mGycm, Automated exposure control for dose reduction was used. DATE OF EXAM: 07/21/2021 4:29 PM COMPARISON: Chest radiograph from 07/19/2021. Multiple CTs of the chest with most recent on 09/10/2018 . CLINICAL INDICATION:Female, 60 years old with history of cap, Community acquired pneumonia. TECHNIQUE: Multiple axial images were obtained through the chest without IV contrast. Lack of IV or o ral contrast limits evaluation of solid and hollow organ viscera. FINDINGS: Motion limits evaluation. LUNGS/ PLEURA: Scattered groundglass opacities and curvilinear scarring/atelectasis are again seen. T here is scattered areas of consolidation like changes seen within the lung bases which are not signif icantly different from prior. Exam is slightly limited given expiratory exam and motion resulting in mosaic attenuation to the lung parenchyma. There is mild intralobular septal thickening. AIRWAY: Patent and unremarkable.. HEART: The heart is enlarged for size. There is three-vessel coronary artery atherosclerosis. MEDIASTINUM: Prominent lymph nodes are seen in the prevascular space, right low paratracheal space an d subcarinal space. The largest in the right low paratracheal measuring 12 mm in short axis. VASCULATURE: No aortic aneurysm. Mild atherosclerosis of the arterial vasculature. MUSCULOSKELETAL: No acute osseous abnormalities. Multilevel disc degeneration changes are seen throug hout the spine. SOFT TISSUES/LYMPH NODES: Unremarkable. LOWER NECK: Partially visualized left thyroid calcified nodule.1 UPPER ABDOMEN: No significant findings. Cholecystectomy clips are present. IMPRESSION: 1. Slightly limited exam given expiration and respiratory motion. Overall the lungs appear similar t o prior in 2019 with groundglass opacities and scattered curvilinear atelectasis/scarring with areas of more consolidation like changes within the lung bases. Superimposed acute infection is not entirel y excluded. Underlying interstitial lung disease is also not entirely excluded given the persistence of lung opacities from 2019. 2. Mild pulmonary vascular congestion with cardiomegaly correlate with serum BNP for congestive hear t failure.
--- NOTE | 2021-07-21 21:10 | P.CONS ---
History of Present Illness - Reason for Consult Consult date: 07/21/21 Positive RSV Requesting physician: Dann Perla - Chief Complaint shortness of breath x few days - History of Present Illness Patient is a 60-year-old with a past medical history significant for CVA TIA seizure disorder history of schizophrenia patient presented to outside facility for evaluation of increasing shortness of breath patient was diagnosed with RSV subsequent the patient be transferred to surgery for further evaluation patient on presentation to this facility was afebrile and no fever had recorded subsequently patient is currently at 97 to 96% on 4 L nasal cannula patient did have a normal white count kidney function has been normal liver exams are normal patient did have a chest x-ray lower lung volumes with bilateral interstitial fibrosis and or edema again seen patient has been admitted to hospital infectious he was consulted for the RSV infection has been diagnosed in the outpatient setting most information has been obtained from review the chart and nursing staff at the patient has some elevated good historian currently on nasal cannula oxygen when asked specifically denies any chest pain he did have some cough unable to quantify it further no sputum production no nausea no vomiting no choking on the food abdominal pain or any diarrhea Review of Systems Positive points has been mentioned in HPI complete review could not be obtained because of his underlying mental status Past Medical History Past Medical History: COPD, CVA/TIA, GERD/Reflux, Osteoarthritis (OA), Seizure Disorder Additional Past Medical History / Comment(s): Wears oxygen at night, no seizures for 10 years, bedrest can't bare weight anymore History of Any Multi-Drug Resistant Organisms: None Reported Past Surgical History: Orthopedic Surgery Additional Past Surgical History / Comment(s): previous trach Past Anesthesia/Blood Transfusion Reactions: No Reported Reaction Past Psychological History: Anxiety, Schizophrenia 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 Smoking Status: Former smoker Past Alcohol Use History: None Reported Past Drug Use History: None Reported - Past Family History Father Family Medical History: Unable to Obtain Mother Family Medical History: Unable to Obtain Medications and Allergies Home Medications Medication Instructions Recorded Confirmed Type Bethanechol Chloride [Urecholine] 50 mg PO TID@0700,1600,199909/09/18 07/19/21 History EPINEPHrine [Epipen 2-Molina] 0.3 mg IM ONCE PRN 09/09/18 07/19/21 History Ergocalciferol (Vitamin D2) 50,000 unit PO FR@0700 05/28/19 04/06/22 History [Vitamin D2] Escitalopram [Lexapro] 20 mg PO BID@699,199909/09/18 07/19/21 History Ibuprofen [Motrin] 600 mg PO Q6HR PRN 09/09/18 07/19/21 History Ketoconazole 2% Shampoo [Nizoral] 1 applic TOPICAL MOWEFR 09/09/18 07/19/21 History Montelukast [Singulair] 10 mg PO HS@199909/09/18 07/19/21 History Nystatin [Nystop] 1 applic TOPICAL BID PRN 09/09/18 07/19/21 History Pravastatin Sodium [Pravachol] 20 mg PO HS@199909/09/18 07/19/21 History Tamsulosin [Flomax] 0.4 mg PO HS@199909/09/18 07/19/21 History carvediloL [Coreg] 3.125 mg PO BID@699,199909/09/18 07/19/21 History haloperidoL [Haldol] 5 mg PO BID@0700,1400 09/09/18 07/19/21 History metroNIDAZOLE [metroNIDAZOLE 0.75% 1 applic TOPICAL BID@699,199909/09/1810/04 History Gel] Aspirin EC [Ecotrin Low Dose] 81 mg PO DAILY@0700 01/23/19 07/19/21 History Baclofen [Lioresal] 15 mg PO DAILY@0701/23/19 07/19/21 History Budesonide [Pulmicort] 0.5 mg INHALATION RT-BID 01/23/19 07/19/21 History Topiramate [Topamax] 100 mg PO BID@07,199901/23/19 07/19/21 History Albuterol Nebulized [Ventolin 2.5 mg INHALATION RT-Q6H PRN 07/19/21 07/19/21 His tory Nebulized] Baclofen [Lioresal] 10 mg PO BID@1399,199907/19/21 07/19/21 History Brexpiprazole [Rexulti] 4 mg PO HS@199907/19/21 07/19/21 History Famotidine [Pepcid] 20 mg PO DAILY@0700 07/19/21 07/19/21 History Loratadine 10 mg PO DAILY PRN 07/19/21 07/19/21 History clonazePAM [KlonoPIN] 1 mg PO BID@1200,1700 07/19/21 07/19/21 History clonazePAM [KlonoPIN] 2 mg PO HS@2330 07/19/21 07/19/21 History guaiFENesin SYRUP 100MG/5ML 200 mg PO Q4H PRN 07/19/21 07/19/21 History [Robitussin] predniSONE [Deltasone] 20 mg PO HS@2330 07/19/21 07/19/21 History Allergies Allergy/AdvReac Type Severity Reaction Status Date / Time bee venom protein (honey bee) Allergy Unknown Verified 01/23/19 17:57 latex Allergy Unknown Verified 01/23/19 17:57 Penicillins Allergy Unknown Verified 01/23/19 17:57 sulfamethoxazole Allergy Unknown Verified 01/23/19 17:57 [From Bactrim] Tetanus Vaccines and Toxoid Allergy Unknown Verified 01/23/19 17:57 trimethoprim [From Bactrim] Allergy Unknown Verified 01/23/19 17:57 Physical Exam Vitals: Vital Signs Temp Pulse Pulse Resp BP Pulse Ox 07/21/21 11:38 70 07/21/21 11:25 70 07/21/21 08:42 70 07/21/21 08:31 70 07/21/21 07:55 98.3 F 65 18 107/58 94 L 07/21/21 02:18 96.9 F L 53 L 19 114/69 96 07/20/21 19:36 98.2 F 61 18 100/51 96 07/20/21 17:20 56 L 07/20/21 17:11 68 07/20/21 14:00 97.9 F 72 18 115/71 97 Intake and Output 07/20/21 07/21/21 07/21/21 22:59 06:59 14:59 Intake Total 1080 180 Output Total 500 300 Balance 580 -300 180 Intake: Oral 1080 180 Output: Urine 500 300 Other: Voiding Method External Catheter External Catheter # Bowel Movements 1 GENERAL DESCRIPTION: Middle-aged female lying in bed, no distress. No tachypnea or accessory muscle of respiration use. HEENT: Shows Pallor , no scleral icterus. Oral mucous membrane is dry. No pharyngeal erythema or thrush NECK: Trachea central, no thyromegaly. LUNGS: Unlabored breathing. Diminished breath sounds. No wheeze or crackle. HEART: S1, S2, regular rate and rhythm. No loud murmur ABDOMEN: Soft, no tenderness , guarding or rigidity, no organomegaly EXTREMITIES: No edema of feet. SKIN: No rash, no masses palpable. NEUROLOGICAL: The patient is awake, alert, orientation could not be determined Results CBC & Chem 7: 07/21/21 07:59 07/21/21 07:59 Labs: Abnormal Lab Results - Last 24 Hours (Table) 07/21/21 07/21/21 Range/Units 07:59 07:59 Hct 47.5 H (37.2-46.3) % MCHC 30.1 L (32.0-37.0) g/dL Neutrophils # 8.51 H (1.80-7.70) X 10*3/uL Eosinophils # 0 L (0.04-0.35) X 10*3/uL BUN/Creatinine Ratio 25.33 H (12.00-20.00) Ratio Glucose 171 H (70-110) mg/dL Total Bilirubin <0.15 L (0.30-1.20) mg/dL Albumin 3.6 L (3.8-4.9) g/dL Albumin/Globulin Ratio 1.38 L (1.60-3.17) g/dL Assessment and Plan (1) Viral pneumonia Current Visit: Yes Status: Acute Code(s): J12.9 - VIRAL PNEUMONIA, UNSPECIFIED SNOMED Code(s): 43404815 Plan: 1patient presented the outside facility for increasing shortness of breath and has been diagnosed with an RSV infection in this patient currently with mild hypoxemia and need for supplemental oxygen chest x-ray did not show significant pneumonia patient with no fever and no evidence of any secondary bacterial pneumonia the history remains to be limited, treatment for RSV will be mostly supportive. 2we will check influenza a and B PCR Covid testing and recheck her RSV testing 3-check CRP procalcitonin 4-droplet isolation We will follow on clinical condition and cultures to further adjust medication if needed Thank you for this consultation will follow this patient along with you Time with Patient: Greater than 30
[2021-07-21] MEDS: TAMSULOSIN 0.4 MG CAP.ER.24H PO SCH (21:13)
[2021-07-21] MEDS: DOXYCYCLINE 100 MG CAP PO SCH (21:13)
[2021-07-21] MEDS: MONTELUKAST 10 MG TAB PO SCH (21:14)
[2021-07-21] MEDS: PRAVASTATIN SODIUM 20 MG TAB PO SCH (21:14)
[2021-07-21] MEDS: NON FORMULARY DRUG (Brexpiprazole [Rexulti] 4 MG Tablet) PO SCH (21:21)
[2021-07-21] MEDS: CLINDAMYCIN 600 MG in DEXTROSE 5% IN WATER 50 ML IVPB SCH ×2 (23:53)
[2021-07-22] MEDS: SODIUM CHLORIDE 0.9% 1,000 ML IV SCH ×3 (01:47→16:11)
[2021-07-22] MEDS: methylPREDNISolone SOD SUCCI 125 MG/2 ML VIAL IV SCH ×2 (05:33→16:15)
[2021-07-22] MEDS: IPRATROPIUM-ALBUTEROL 3 ML NEB INHALATION SCH ×4 (09:22→19:40)
[2021-07-22] MEDS: ASPIRIN 81 MG PO SCH (09:24)
[2021-07-22] MEDS: BACLOFEN 10 MG TAB PO SCH ×3 (09:25→20:42)
[2021-07-22] MEDS: haloperidoL 5 MG TAB PO SCH ×2 (09:27→15:43)
[2021-07-22] MEDS: BETHANECHOL 25 MG TAB PO SCH ×3 (09:28→20:43)
[2021-07-22] MEDS: DOXYCYCLINE 100 MG CAP PO SCH ×2 (09:28→20:43)
[2021-07-22] MEDS: ESCITALOPRAM 20 MG TAB PO SCH ×2 (09:51→20:42)
[2021-07-22] MEDS: FAMOTIDINE 20 MG TAB PO SCH (09:51)
[2021-07-22] MEDS: TOPIRAMATE 100 MG TAB PO SCH ×2 (09:51→20:42)
[2021-07-22] MEDS: carvediloL 3.125 MG TAB PO SCH ×2 (10:59→20:16)
[2021-07-22] MEDS: clonazePAM 1 MG TAB PO SCH ×3 (13:24→23:40)
--- NOTE | 2021-07-22 14:30 | PN ---
PROGRESS NOTE This is a 60-year-old white female admitted with COPD, RSV, pneumonia. The patient has a reddened face and I think that is secondary to steroids. We are going to cut her steroids down from 60 q.6 to 40 q.8 to try to get her the redness of her face improved. She appears to be breathing better. She is eating and drinking well. She is a little dehydrated, but her IV was stopped yesterday, as it fell out. We are going to restart her IV and will get fluids today per IV to increase her blood pressure back toward normal. We are going to run an echo and have Cardiology see her for hypotension, but suspect that is why her blood pressure is low; that her fluids/IV came out. Psych: She is giving appropriate answers. Lungs with scattered rhonchi and wheeze. Cardiovascular S1-S2. Hematology negative Homans. Psych fair mood and affect. ASSESSMENT: 1. Chronic obstructive pulmonary disease. 2. RSV. Will check cortisol level. Will wean down her steroids. Continue breathing treatments. Increase fluids back on the IV. Prognosis guarded. MMODL / IJN: [id number] /
--- NOTE | 2021-07-22 14:44 | P.CRDCN ---
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 Patient apparently was diagnosed to have RSV infection and pneumonia. Since admission, the patient has been afebrile. No fever or saturations have been in the range of 97%. Chest x-ray showed low lung volumes and bilateral interstitial fibrosis. There may be an element of CHF. However her BNP level is within normal limits. She is also being followed by infectious disease and pulmonary. Apparently her blood pressure has been running low and her pulse was slow. Patient was on Coreg, which is being held. Echocardiogram was pending at this time. EKG showed sinus rhythm without any acute changes. Continue current management with IV fluids. Hold Coreg for her bradycardia and hypotension. Further recommended she depend upon the findings a nd echocardiogram and clinical course Review of Systems As per the chart Past Medical History Past Medical History: COPD, CVA/TIA, GERD/Reflux, Osteoarthritis (OA), Seizure Disorder Additional Past Medical History / Comment(s): Wears oxygen at night, no seizures for 10 years, bedrest can't bare weight anymore History of Any Multi-Drug Resistant Organisms: None Reported Past Surgical History: Orthopedic Surgery Additional Past Surgical History / Comment(s): previous trach Past Anesthesia/Blood Transfusion Reactions: No Reported Reaction Past Psychological History: Anxiety, Schizophrenia 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 Smoking Status: Former smoker Past Alcohol Use History: None Reported Past Drug Use History: None Reported - Past Family History Father Family Medical History: Unable to Obtain Mother Family Medical History: Unable to Obtain Medications and Allergies Home Medications Medication Instructions Recorded Confirmed Type Bethanechol Chloride [Urecholine] 50 mg PO TID@0700,1599,199909/09/18 07/19/21 History EPINEPHrine [Epipen 2-Molina] 0.3 mg IM ONCE PRN 09/09/18 07/19/21 History Ergocalciferol (Vitamin D2) 50,000 unit PO FR@0700 09/09/18 07/19/21 History [Vitamin D2] Escitalopram [Lexapro] 20 mg PO BID@699,199909/09/18 07/19/21 History Ibuprofen [Motrin] 600 mg PO Q6HR PRN 09/09/18 07/19/21 History Ketoconazole 2% Shampoo [Nizoral] 1 applic TOPICAL MOWEFR 09/09/18 07/19/21 History Montelukast [Singulair] 10 mg PO HS@199909/09/18 07/19/21 History Nystatin [Nystop] 1 applic TOPICAL BID PRN 09/09/18 07/19/21 History Pravastatin Sodium [Pravachol] 20 mg PO HS@199909/09/18 07/19/21 History Tamsulosin [Flomax] 0.4 mg PO HS@199909/09/18 07/19/21 History carvediloL [Coreg] 3.125 mg PO BID@0700,199909/09/18 07/19/21 History haloperidoL [Haldol] 5 mg PO BID@0700,1400 09/09/18 07/19/21 History metroNIDAZOLE [metroNIDAZOLE 0.75% 1 applic TOPICAL BID@07,199909/09/18 07/19/21 History Gel] Aspirin EC [Ecotrin Low Dose] 81 mg PO DAILY@0700 01/23/19 07/19/21 History Baclofen [Lioresal] 15 mg PO DAILY@0700 01/23/19 07/19/21 History Budesonide [Pulmicort] 0.5 mg INHALATION RT-BID 01/23/19 07/19/21 History Topiramate [Topamax] 100 mg PO BID@0700,199901/23/19 07/19/21 History Albuterol Nebulized [Ventolin 2.5 mg INHALATION RT-Q6H PRN 07/19/21 07/19/21 History Nebulized] Baclofen [Lioresal] 10 mg PO BID@1400,199907/19/21 07/19/21 History Brexpiprazole [Rexulti] 4 mg PO HS@199907/19/21 07/19/21 History Famotidine [Pepcid] 20 mg PO DAILY@0700 07/19/21 07/19/21 History Loratadine 10 mg PO DAILY PRN 07/19/21 07/19/21 History clonazePAM [KlonoPIN] 1 mg PO BID@1200,1700 07/19/21 07/19/21 History clonazePAM [KlonoPIN] 2 mg PO HS@2330 07/19/21 07/19/21 History guaiFENesin SYRUP 100MG/5ML 200 mg PO Q4H PRN 07/19/21 07/19/21 History [Robitussin] predniSONE [Deltasone] 20 mg PO HS@2330 07/19/21 07/19/21 History Allergies Allergy/AdvReac Type Severity Reaction Status Date / Time bee venom protein (honey bee) Allergy Unknown Verified 01/23/19 17:57 latex Allergy Unknown Verified 01/23/19 17:57 Penicillins Allergy Unknown Verified 01/23/19 17:57 sulfamethoxazole Allergy Unknown Verified 01/23/19 17:57 [From Bactrim] Tetanus Vaccines and Toxoid Allergy Unknown Verified 01/23/19 17:57 trimethoprim [From Bactrim] Allergy Unknown Verified 01/23/19 17:57 Physical Exam Vitals: Vital Signs Temp Pulse Pulse Pulse Resp BP BP 07/22/21 11:56 63 07/22/21 11:48 62 07/22/21 09:50 56 L 07/22/21 09:46 53 L 16 104/66 07/22/21 09:33 60 07/22/21 09:22 56 L 07/22/21 07:46 97.3 F L 45 L 19 109/67 07/22/21 02:27 98.4 F 44 L 116/68 07/21/21 21:21 98.2 F 48 L 16 114/63 07/21/21 19:32 60 07/21/21 19:23 59 L Pulse Ox 07/22/21 11:56 07/22/21 11:48 07/22/21 09:50 07/22/21 09:46 96 07/22/21 09:33 07/22/21 09:22 07/22/21 07:46 97 07/22/21 02:27 99 07/21/21 21:21 97 07/21/21 19:32 07/21/21 19:23 Intake and Output 07/21/21 07/22/21 07/22/21 22:59 06:59 14:59 Intake Total 180 840 180 Output Total 800 Balance 180 40 180 Intake: Intake, IV Titration 840 Amount Sodium Chloride 0.9% 1, 840 000 ml @ 75 mls/hr IV . [id number] ILE[facility] Rx#:[id number] Oral 180 180 Output: Urine 800 Other: Voiding Method External Catheter External Catheter # Voids 1 # Bowel Movements 1 1 GENERAL EXAM: Patient is alert and oriented and doesn't appear to be in any acute distress HEENT: Normocephalic. Normal reaction of pupils, equal size, normal range of extraocular motion. No erythema or exudates in the throat. NECK: No masses, no nuchal rigidity. CHEST: No chest wall deformity. LUNGS: Scattered rhonchi] HEART: [S1 and S2 normal with no audible mumurs or gallops. Regular rhythm, femorals equal on both sides..] ABDOMEN: No hepatosplenomegaly, normal bowel sounds, no guarding or rigidity. SKIN: No rashes CENTRAL NERVOUS SYSTEM: No focal deficits. EXTREMITIES: [No cyanosis, clubbing or edema.] Results 07/21/21 07:59 07/21/21 07:59 Current Medications Generic Name Dose Route Start Last Admin Trade Name Freq PRN Reason Stop Dose Admin Acetaminophen 650 mg 07/19/21 22:35 07/19/21 23:33 Acetaminophen Tab 325 Mg Tab PO 650 mg Q6HR PRN Administration Fever and/ or Pain Albuterol/Ipratropium 3 ml 07/19/21 19:09 07/19/21 23:41 Ipratropium-Albuterol 3 Ml Neb INHALATION 3 ml RT-Q4H PRN Administration Shortness Of Breath Or Wheezing Albuterol/Ipratropium 3 ml 07/19/21 20:00 07/22/21 11:47 Ipratropium-Albuterol 3 Ml Neb INHALATION 3 ml RT-QID ILEANA Administration Aspirin 81 mg 07/20/21 09:00 07/22/21 09:24 Aspirin 81 Mg PO 81 mg DAILY ILEANA Administration Baclofen 10 mg 07/20/21 14:00 07/22/21 13:23 Baclofen 10 Mg Tab PO 10 mg BID@1400,2000 I[facility] Administration Baclofen 15 mg 07/20/21 07:00 07/22/21 09:25 Baclofen 10 Mg Tab PO 15 mg DAILY@0700 ILE[facility] Administration Bethanechol Chloride 50 mg 07/20/21 09:00 07/22/21 09:28 Bethanechol 25 Mg Tab PO 50 mg TID ILE[facility] Administration Carvedilol 3.125 mg 07/20/21 09:00 07/22/21 10:59 Carvedilol 3.125 Mg Tab PO Not Given BID I[facility] Clonazepam 1 mg 07/20/21 12:00 07/22/21 13:24 Clonazepam 1 Mg Tab PO 1 mg BID@1200,1700 I[facility] Administration Clonazepam 2 mg 07/19/21 23:30 07/21/21 22:42 Clonazepam 1 Mg Tab PO 2 mg HS@2330 I[facility] Administration Doxycycline Monohydrate 100 mg 07/21/21 21:00 07/22/21 09:28 Doxycycline 100 Mg Cap PO 100 mg BID ILE[facility] Administration Protocol Ergocalciferol 1,250 mcg 07/21/21 09:00 07/21/21 08:01 Ergocalciferol 1,250 Mcg (50,000 Iu) Capsule PO 1,250 mcg Fr@0900 [facility] Administration Escitalopram Oxalate 20 mg 07/20/21 09:00 07/22/21 09:51 Escitalopram 20 Mg Tab PO 20 mg BID ILE[facility] Administration Famotidine 20 mg 07/20/21 09:00 07/22/21 09:51 Famotidine 20 Mg Tab PO 20 mg DAILY ILE[facility] Administration Guaifenesin 200 mg 07/19/21 22:36 07/22/21 01:45 Guaifenesin Syrup 100mg/5ml 200 Mg/10 Ml Cup PO 200 mg Q4H PRN Administration Cough Haloperidol 5 mg 07/20/21 07:00 07/22/21 09:27 Haloperidol 5 Mg Tab PO 5 mg BID@0700,1400 ILE[facility] Administration Sodium Chloride 1,000 mls @ 75 mls/hr 07/19/21 19:45 07/22/21 01:47 Saline 0.9% IV 75 mls/hr .[id number] ILE[facility] Administration Clindamycin Phosphate 600 mg/ 54 mls @ 50 mls/hr 07/22/21 00:00 07/21/21 23:53 Dextrose/Water IVPB 50 mls/hr Q8HR ILE[facility] Administration Protocol Sodium Chloride 1,000 mls @ 75 mls/hr 07/22/21 14:15 Saline 0.9% IV .[id number] I[facility] Ibuprofen 600 mg 07/19/21 22:36 Ibuprofen 600 Mg Tab PO Q6HR PRN Pain Loratadine 10 mg 07/19/21 22:36 Loratadine 10 Mg Tab PO DAILY PRN Allergy Symptoms Methylprednisolone Sodium Succinate 40 mg 07/22/21 16:00 Methylprednisolone Sod Succi 40 Mg/Ml 1 Ml Vial IV Q8HR [facility] Metronidazole 1 applic 07/20/21 09:00 07/22/21 09:29 Metronidazole 0.75% Cream 45 Gm Tube TOPICAL 1 applic BID ILE[facility] Administration Montelukast Sodium 10 mg 07/20/21 21:00 07/21/21 21:14 Montelukast 10 Mg Tab PO 10 mg HS ILE[facility] Administration Non-Formulary Medication 4 mg 07/20/21 21:00 07/21/21 21:21 Brexpiprazole [Rexulti] PO Not Given HS [facility] Pravastatin Sodium 20 mg 07/20/21 21:00 07/21/21 21:14 Pravastatin Sodium 20 Mg Tab PO 20 mg HS ILEANA Administration Tamsulosin HCl 0.4 mg 07/20/21 21:00 07/21/21 21:13 Tamsulosin 0.4 Mg Cap.Er.24h PO 0.4 mg HS [facility] Administration Topiramate 100 mg 07/20/21 09:00 07/22/21 09:51 Topiramate 100 Mg Tab PO 100 mg BID ILEANA Administration Intake and Output 07/21/21 07/22/21 07/22/21 22:59 06:59 14:59 Intake Total 180 840 180 Output Total 800 Balance 180 40 180 Intake: Intake, IV Titration 840 Amount Sodium Chloride 0.9% 1, 840 000 ml @ 75 mls/hr IV . [id number] [facility] Rx#:[id number] Oral 180 180 Output: Urine 800 Other: Voiding Method External Catheter External Catheter # Voids 1 # Bowel Movements 1 1 07/21/21 07:59 07/21/21 07:59 EKG Interpretations (text) Sinus rhythm Assessment and Plan (1) Bradycardia Current Visit: Yes Status: Acute Code(s): R00.1 - BRADYCARDIA, UNSPECIFIED SNOMED Code(s): 73322729 (2) Pneumonia Current Visit: No Status: Acute Code(s): J18.9 - PNEUMONIA, UNSPECIFIED ORGANISM SNOMED Code(s): 962408686 (3) Hypertension Current Visit: Yes Status: Acute Code(s): I10 - ESSENTIAL (PRIMARY) HYPERTENSION SNOMED Code(s): 04380190 (4) Hypotension Current Visit: Yes Status: Acute Code(s): I95.9 - HYPOTENSION, UNSPECIFIED SNOMED Code(s): 72944596 (5) RSV (respiratory syncytial virus pneumonia) Current Visit: Yes Status: Acute Code(s): J12.1 - RESPIRATORY SYNCYTIAL VIRUS PNEUMONIA SNOMED Code(s): 887155298 Plan: At this point, we'll hold Coreg. Continue with IV fluids. Echocardiogram. Continue rest of the management
[2021-07-22] MEDS: CLINDAMYCIN 600 MG in DEXTROSE 5% IN WATER 50 ML IVPB SCH ×6 (14:55→23:40)
--- NOTE | 2021-07-22 15:00 | ECHOF ---
Referral Reason:CHF MEASUREMENTS -------- HEIGHT: 157.5 cm WEIGHT: 80.3 kg BP: 104/66 RVIDd: 2.7 cm (< 3.3) IVSd: 1.3 cm (0.6 - 1.1) LVIDd: 5.0 cm (3.9 - 5.3) LVPWd: 1.3 cm (0.6 - 1.1) IVSs: 2.0 cm LVIDs: 3.3 cm LVPWs: 1.7 cm LA Diam: 3.1 cm (2.7 - 3.8) Ao Diam: 3.1 cm (2.0 - 3.7) AV Cusp: 2.0 cm (1.5 - 2.6) MV EXCURSION: 19.436 mm (> 18.000) MV EF SLOPE: 94 mm/s (70 - 150) EPSS: 0.7 cm MV E Bryan: 1.05 m/s MV DecT: 184 ms MV A Bryan: 0.73 m/s MV E/A Ratio: 1.43 FINDINGS -------- Sinus rhythm. This was a technically adequate study. The left ventricular size is normal. There is mild concentric left ventricular hypertrophy. Overa ll left ventricular systolic function is normal with, an EF between 60 - 65 %. The right ventricle is normal in size. The left atrium is normal in size. The right atrium is normal in size. Interatrial and interventricular septum intact. The aortic valve is trileaflet, and appears structurally normal. No aortic stenosis or regurgitation. Mild mitral annular calcification present. The tricuspid valve was not well visualized. Unable to estimate RVSP due to inadequate TR jet spect ral doppler profile. The pulmonic valve is normal. The aortic root size is normal. There is no pericardial effusion. CONCLUSIONS -------- 1. The left ventricular size is normal. 2. There is mild concentric left ventricular hypertrophy. 3. Overall left ventricular systolic function is normal with, an EF between 60 - 65 %. 4. Mild mitral annular calcification present. 5. There is no pericardial effusion. TELEPHONER: Nallely Rosa [facility]
[2021-07-22] MEDS: methylPREDNISolone SOD SUCCI 40 MG/ML 1 ML VIAL IV SCH ×2 (16:11→23:40)
--- NOTE | 2021-07-22 16:12 | P.PN ---
Subjective Progress Note Date: 07/22/21 Principal diagnosis: RSV pneumonia Patient is a 60-year-old female presented to the outside facility with shortness of breath apparently the patient did have a nasopharyngeal swab positive for his RSV are patient subsequently has been sent to this facility for further evaluation. On today's evaluation that is 07/22/2021 the patient remains to be afebrile, patient is breathing comfortably on 4 L nasal cannula but no specifically denies any chest pain or any worsening cough no abdominal pain and no diarrhea has been reported Objective - Vital Signs Vital signs: Vital Signs Temp 97.3 F L 07/22/21 07:46 Pulse 63 07/22/21 11:56 Resp 16 07/22/21 09:46 BP 104/66 07/22/21 09:46 Pulse Ox 96 07/22/21 09:46 Intake & Output 07/21/21 07/22/21 07/22/21 18:59 06:59 18:59 Intake Total 360 840 180 Output Total 800 Balance 360 40 180 Intake: Intake, IV Titration 840 Amount Sodium Chloride 0.9% 1, 840 000 ml @ 75 mls/hr IV . [id number] [facility] Rx#:[id number] Oral 360 180 Output: Urine 800 Other: Voiding Method External Catheter External Catheter External Catheter # Voids 1 # Bowel Movements 1 1 - Exam GENERAL DESCRIPTION: A middle-aged female lying in bed in no distress RESPIRATORY SYSTEM: Unlabored breathing , decreased breath sounds at bases HEART: S1 S2 regular rate and rhythm , ABDOMEN: Soft , no tenderness EXTREMITIES: No edema feet - Labs CBC & Chem 7: 07/21/21 07:59 07/21/21 07:59 Assessment and Plan (1) Viral pneumonia Current Visit: Yes Status: Acute Code(s): J12.9 - VIRAL PNEUMONIA, UNSPECI FIED SNOMED Code(s): 49927981 Plan: 1patient presented the outside facility for increasing shortness of breath and has been diagnosed with an RSV infection in this patient currently with mild hypoxemia and need for supplemental oxygen chest x-ray did not show significant pneumonia patient with no fever and no evidence of any secondary bacterial pneumonia the history remains to be limited, treatment for RSV will be mostly supportive. 2influenza and cover test came back negative RSV was canceled by the lab 3The patient procalcitonin is normal, there is no need for antibiotic therapy 4-droplet isolation Time with Patient: Less than 30
[2021-07-22] MEDS: NON FORMULARY DRUG (Brexpiprazole [Rexulti] 4 MG Tablet) PO SCH (20:26)
[2021-07-22] MEDS: TAMSULOSIN 0.4 MG CAP.ER.24H PO SCH (20:42)
[2021-07-22] MEDS: MONTELUKAST 10 MG TAB PO SCH (20:42)
[2021-07-22] MEDS: PRAVASTATIN SODIUM 20 MG TAB PO SCH (20:42)
[2021-07-23] MEDS: SODIUM CHLORIDE 0.9% 1,000 ML IV SCH ×4 (04:20→21:01)
[2021-07-23] MEDS: IPRATROPIUM-ALBUTEROL 3 ML NEB INHALATION SCH ×4 (08:10→21:09)
[2021-07-23] MEDS: carvediloL 3.125 MG TAB PO SCH ×2 (09:58→22:09)
[2021-07-23] MEDS: FAMOTIDINE 20 MG TAB PO SCH (09:59)
[2021-07-23] MEDS: TOPIRAMATE 100 MG TAB PO SCH ×2 (09:59→22:19)
[2021-07-23] MEDS: ASPIRIN 81 MG PO SCH (09:59)
[2021-07-23] MEDS: BACLOFEN 10 MG TAB PO SCH ×3 (09:59→22:19)
[2021-07-23] MEDS: ESCITALOPRAM 20 MG TAB PO SCH ×2 (09:59→22:18)
[2021-07-23] MEDS: BETHANECHOL 25 MG TAB PO SCH ×3 (10:00→22:19)
[2021-07-23] MEDS: DOXYCYCLINE 100 MG CAP PO SCH ×2 (10:00→22:19)
[2021-07-23] MEDS: haloperidoL 5 MG TAB PO SCH ×2 (10:00→13:33)
[2021-07-23] MEDS: methylPREDNISolone SOD SUCCI 40 MG/ML 1 ML VIAL IV SCH ×3 (10:18→23:59)
[2021-07-23] MEDS: CLINDAMYCIN 600 MG in DEXTROSE 5% IN WATER 50 ML IVPB SCH ×6 (10:18→23:59)
[2021-07-23] MEDS: clonazePAM 1 MG TAB PO SCH ×3 (12:20→22:19)
--- NOTE | 2021-07-23 12:35 | P.PN ---
Subjective Progress Note Date: 07/23/21 Principal diagnosis: Acute hypoxic and hypercapnic respiratory failure RSV pneumonia Secondary bacterial pneumonia cannot be excluded but however less likely Developed been no early ARDS-like pattern History of stroke Patient has at risk of aspiration pneumonia Obesity hypoventilation syndrome Patient is a 60-year-old morbidly obese female seen evaluated examined on the floor, patient is more awake and alert on Cerner and respond to simple questions, also care discussed care plan with the respiratory and the staff, patient has a swab for RSV is still positive,, discussed with the respiratory therapist FiO2 decreased to 2, sats on 4 L and 100%, blood pressure is 100/60, her COVID-19 as well as the influenza A and B has been negative, she remains on IV steroids and IV antibiotics with clindamycin and Doxy. She has intermittent bradycardia cardiovascular services as are following, will repeat x-ray tomorrow to see the response of therapy, also decreases oxygen 2 L and monitor oxygen saturation closely Patient is a 60-year-old female nonverbal but however come negative through the chest has data predominantly obtained from the chart as patient cannot give a detailed history and review of the data revealed that patient has a history of COPD CVA also has a history of GERD degenerative joint disease osteoarthritis and seizure disorder and severe schizophrenia. She does have a history of prior tracheostomy. She came into the hospital with worsening cough and dyspnea she was diagnosed as the RSV in outside facility. Currently she is on 4 L nasal cannula oxygen saturation is 98%, she is afebrile with stable hemodynamics. X- ray low lung volumes with bilateral interstitial fibrosis. Currently patient is being treated with bronchodilators continuation of home medications including baclofen and IV Solu-Medrol. Computed tomography scan just have been performed patient showed extensive bilateral infiltrate with in between groundglass attenuation. Labs reviewed white cell count has been stable Thousand. Hemoglobin and hematocrit stable as well, platelet count of 1 49,000, venous blood gas pH is 7.26 pCO2 65. Patient can benefit from BiPAP machine at nighttime Objective - Vital Signs Vital signs: Vital Signs Temp 98.4 F 07/23/21 08:00 Pulse 88 07/23/21 11:53 Resp 17 07/23/21 08:00 BP 121/70 07/23/21 10:07 Pulse Ox 100 07/23/21 08:00 Intake & Output 07/22/21 07/23/21 07/23/21 18:59 06:59 18:59 Intake Total 540 Output Total 700 Balance 540 -700 Intake: Oral 540 Output: Urine 700 Other: Voiding Method External Catheter External Catheter External Catheter # Bowel Movements 1 - Exam - Constitutional General appearance: disheveled, mild distress, morbidly obese - EENT Eyes: EOMI, PERRLA Ears: bilateral: normal - Neck Neck: normal ROM Carotids: bilateral: upstroke normal Thyroid: bilateral: normal size - Respiratory Respiratory: bilateral: diminished, wheezing - Cardiovascular Rhythm: regular Heart sounds: normal: S1, S2 - Gastrointestinal General gastrointestinal: normal bowel sounds - Integumentary Integumentary: decreased turgor - Neurologic Neurologic: CNII-XII intact - Musculoskeletal Musculoskeletal: generalized weakness - Labs CBC & Chem 7: 07/21/21 07:59 07/21/21 07:59 Labs: Abnormal Lab Results - Last 24 Hours (Table) 07/22/21 Range/Units 17:50 RSV (PCR) Positive H (Negative) Assessment and Plan Assessment: Acute hypoxic and hypercapnic respiratory failure RSV pneumonia Secondary bacterial pneumonia cannot be excluded but however less likely Developed been no early ARDS-like pattern History of stroke Patient has at risk of aspiration pneumonia Obesity hypoventilation syndrome Plan: Continue doxycycline and clindamycin Continue IV steroids and bronchodilator Follow-up chest x-ray in the morning Continue supplemental oxygen, titrated gradually BiPAP support each night and when necessary during day Further recommendations pending plan of care as per clinical response of patient Time with Patient: Greater than 30
--- NOTE | 2021-07-23 12:54 | PN ---
PROGRESS NOTE 60-year-old white female. Cardiology saw her and ordered an echo. Blood pressure has been stable now with a fluids back in with IV fluids. She pulls her oxygen off all the time. We will have to maintain her oxygen compliance. She is admitted with RSV pneumonia. Her labs are stable. RSV titers positive. Her breathing slowly is improving. Remains on clindamycin, DuoNeb, doxycycline, IV steroids. We cut down steroids due to facial redness. The redness is much improved today compared to yesterday. She appears to be breathing stable with her medications. She is on Flomax in order to get the urine out for urinary retention, which is improving her. Blood pressure is 121/70, pulse is in the 50s without Coreg but currently up to 86-88. O2 is 2 L, maintaining good oxygen levels. Lungs scattered rhonchi and wheeze. Psych: Fair mood and affect. Can give simple answers. Cardiovascular: Bradycardic but now normal. IMPRESSION: 1. RSV pneumonia. 2. Acute hypoxemic respiratory distress. PLAN: Continue with antibiotics as ordered. Steroids as ordered. Updrafts as ordered. Echocardiogram came back as normal. Ejection fraction is normal. Suspect the patient is slowly going to get better as she is slowly improving. Prognosis is good. MMODL / IJN: [id number] /
[2021-07-23] MEDS: NON FORMULARY DRUG (Brexpiprazole [Rexulti] 4 MG Tablet) PO SCH (22:13)
[2021-07-23] MEDS: TAMSULOSIN 0.4 MG CAP.ER.24H PO SCH (22:18)
[2021-07-23] MEDS: MONTELUKAST 10 MG TAB PO SCH (22:18)
[2021-07-23] MEDS: PRAVASTATIN SODIUM 20 MG TAB PO SCH (22:18)
--- NOTE | 2021-07-23 23:34 | P.PN ---
Subjective Progress Note Date: 07/23/21 Principal diagnosis: RSV pneumonia Patient is a 60-year-old female presented to the outside facility with shortness of breath apparently the patient did have a nasopharyngeal swab positive for his RSV are patient subsequently has been sent to this facility for further evaluation. On today's evaluation that is 07/23/2021 the patient continues to be afebrile, patient is breathing comfortably on 4 L nasal cannula, the patient denies any chest pain or any worsening cough no abdominal pain and no diarrhea has been reported Objective - Vital Signs Vital signs: Vital Signs Temp 98.4 F 07/23/21 08:00 Pulse 88 07/23/21 11:53 Resp 17 07/23/21 08:00 BP 121/70 07/23/21 10:07 Pulse Ox 100 07/23/21 08:00 Intake & Output 07/22/21 07/23/21 07/23/21 18:59 06:59 18:59 Intake Total 540 Output Total 700 Balance 540 -700 Intake: Oral 540 Output: Urine 700 Other: Voiding Method External Catheter External Catheter External Catheter # Bowel Movements 1 - Exam GENERAL DESCRIPTION: A middle-aged female lying in bed in no distress RESPIRATORY SYSTEM: Unlabored breathing , decreased breath sounds at bases HEART: S1 S2 regular rate and rhythm , ABDOMEN: Soft , no tenderness EXTREMITIES: No edema feet - Labs CBC & Chem 7: 07/21/21 07:59 07/21/21 07:59 Labs: Abnormal Lab Results - Last 24 Hours (Table) 07/22/21 Range/Units 17:50 RSV (PCR) Positive H (Negative) Assessment and Plan (1) Viral pneumonia Current Visit: Yes Status: Acute Code(s): J12.9 - VIRAL PNEUMONIA, UNSPECIFIED SNOMED Code(s): 70683372 Plan: 1patient presented the outside facility for increasing shortness of breath and has been diagnosed with an RSV infection in this patient currently with mild hypoxemia and need for supplemental oxygen chest x-ray did not show significant pneumonia patient with no fever and no evidence of any secondary bacterial pneumonia the history remains to be limited, treatment for RSV will be mostly supportive. 2influenza and covid 19 test came back negative RSV came back positive, treatment for RSV is mostly supportive and no need for anti-viral therapy 3The patient procalcitonin is normal, there is no need for antibiotic therapy 4-droplet isolation Time with Patient: Less than 30
[2021-07-24] MEDS: FAMOTIDINE 20 MG TAB PO SCH (08:57)
[2021-07-24] MEDS: ASPIRIN 81 MG PO SCH (08:57)
[2021-07-24] MEDS: BACLOFEN 10 MG TAB PO SCH ×3 (08:57→20:31)
[2021-07-24] MEDS: ESCITALOPRAM 20 MG TAB PO SCH ×2 (08:58→22:58)
[2021-07-24] MEDS: haloperidoL 5 MG TAB PO SCH ×2 (08:58→13:21)
[2021-07-24] MEDS: BETHANECHOL 25 MG TAB PO SCH ×3 (08:58→20:32)
[2021-07-24] MEDS: carvediloL 3.125 MG TAB PO SCH ×2 (08:58→20:30)
[2021-07-24] MEDS: DOXYCYCLINE 100 MG CAP PO SCH ×2 (08:58→20:30)
[2021-07-24] MEDS: TOPIRAMATE 100 MG TAB PO SCH ×2 (08:58→20:30)
[2021-07-24] MEDS: IPRATROPIUM-ALBUTEROL 3 ML NEB INHALATION SCH ×4 (08:59→20:29)
[2021-07-24] MEDS: CLINDAMYCIN 600 MG in DEXTROSE 5% IN WATER 50 ML IVPB SCH ×6 (08:59→22:58)
[2021-07-24] MEDS: SODIUM CHLORIDE 0.9% 1,000 ML IV SCH ×3 (09:08→13:23)
[2021-07-24] MEDS: methylPREDNISolone SOD SUCCI 40 MG/ML 1 ML VIAL IV SCH ×2 (09:26→17:09)
--- NOTE | 2021-07-24 11:14 | P.PN ---
Subjective Progress Note Date: 07/24/21 HISTORY OF PRESENT ILLNESS: This is a 60-year-old female with history of previous CVA/TIA/is a disorder and also history of schizophrenia who was transferred from outside facility for increasing shortness of breath. Patient apparently was diagnosed to have RSV infection and pneumonia. Since admission, the patient has been afebrile. No fever or saturations have been in the range of 97%. Chest x-ray showed low lung volumes and bilateral interstitial fibrosis. There may be an element of CHF. However her BNP level is within normal limits. She is also being followed by infectious disease and pulmonary. Apparently her blood pressure has been running low and her pulse was slow. Patient was on Coreg, which is being held. Echocardiogram was pending at this time. EKG showed sinus rhythm without any acute changes. Continue current management with IV fluids. Hold Coreg for her bradycardia and hypotension. Further recommended she depend upon the findings and echocardiogram and clinical course 07/24/2021 Patient examined this morning at the bedside. Patient denies chest pain or pressure. She denies shortness of breath. Echocardiogram completed revealing ejection fraction 60-65%. Heart rate in the 60s. Blood pressure stable. PHYSICAL EXAM: VITAL SIGNS: Reviewed. GENERAL: Well-developed in no acute distress. NECK: Supple. No JVD or thyromegaly LUNGS: Respirations even and unlabored. Lungs diminished to auscultation bilaterally. HEART: Regular rate and rhythm. S1 and S2 heard. EXTREMITIES: Normal range of motion. No clubbing or cyanosis. Peripheral pulses intact. No lower extremity edema ASSESSMENT: RSV pneumonia Acute hypoxic and hypercapnic respiratory failure History of CVA/TIA History of schizophrenia Bradycardia PLAN: Continue to hold Coreg Patient is currently stable from a cardiac standpoint No further inpatient recommendations from a cardiac perspective. We will sign off. Please reconsult if needed. Nurse practitioner note has been reviewed by physician. Signing provider agrees with the documented findings, assessment, and plan of care. Objective - Vital Signs Vital signs: Vital Signs Temp 97.4 F L 07/24/21 07:58 Pulse 66 07/24/21 09:09 Resp 18 07/24/21 10:08 BP 122/76 07/24/21 07:58 Pulse Ox 98 07/24/21 07:58 Intake & Output 07/23/21 07/24/21 07/24/21 18:59 06:59 18:59 Output Total 1100 1000 900 Balance -1100 -1000 -900 Output: Urine 1000 900 Stool 1100 Other: Voiding Method External Catheter External Catheter External Catheter - Labs CBC & Chem 7: 07/21/21 07:59 07/21/21 07:59
[2021-07-24] MEDS: clonazePAM 1 MG TAB PO SCH ×3 (12:01→22:58)
--- NOTE | 2021-07-24 18:19 | P.PN ---
Subjective Progress Note Date: 07/24/21 Principal diagnosis: Acute hypoxic and hypercapnic respiratory failure RSV pneumonia Secondary bacterial pneumonia cannot be excluded but however less likely Developed been no early ARDS-like pattern History of stroke Patient has at risk of aspiration pneumonia Obesity hypoventilation syndrome 07/24/2021, patient seen eval reexamined during the rounds labs reviewed medica tions reviewed care plan discussed, respiratory status remains stable on 3 L oxygen breathing comfortably saturation low to mid 90s, hemodynamic status stable remains afebrile, more awake and alert expressing herself in simple sentences 07/23/2021 Patient is a 60-year-old morbidly obese female seen evaluated examined on the floor, patient is more awake and alert on Cerner and respond to simple questions, also care discussed care plan with the respiratory and the staff, patient has a swab for RSV is still positive,, discussed with the respiratory therapist FiO2 decreased to 2, sats on 4 L and 100%, blood pressure is 100/60, her COVID-19 as well as the influenza A and B has been negative, she remains on IV steroids and IV antibiotics with clindamycin and Doxy. She has intermittent bradycardia cardiovascular services as are following, will repeat x-ray tomorrow to see the response of therapy, also decreases oxygen 2 L and monitor oxygen saturation closely Patient is a 60-year-old female nonverbal but however come negative through the chest has data predominantly obtained from the chart as patient cannot give a detailed history and review of the data revealed that patient has a history of COPD CVA also has a history of GERD degenerative joint disease osteoarthritis and seizure disorder and severe schizophrenia. She does have a history of prior tracheostomy. She came into the hospital with worsening cough and dyspnea she was diagnosed as the RSV in outside facility. Currently she is on 4 L nasal cannula oxygen saturation is 98%, she is afebrile with stable hemodynamics. X- ray low lung volumes with bilateral interstitial fibrosis. Currently patient is being treated with bronchodilators continuation of home medications including baclofen and IV Solu-Medrol. Computed tomography scan just have been performed patient showed extensive bilateral infiltrate with in between groundglass attenuation. Labs reviewed white cell count has been stable Thousand. Hemoglobin and hematocrit stable as well, platelet count of 1 49,000, venous blood gas pH is 7.26 pCO2 65. Patient can benefit from BiPAP machine at nighttime Objective - Vital Signs Vital signs: Vital Signs Temp 98.5 F 04/11/22 14:00 Pulse 68 07/24/21 15:12 Resp 18 07/24/21 10:08 BP 110/56 07/24/21 14:00 Pulse Ox 92 L 07/24/21 14:00 Intake & Output 07/23/21 07/24/21 07/24/21 18:59 06:59 18:59 Output Total 1100 1000 1900 Balance -1100 -1000 -1900 Output: Urine 1000 1900 Stool 1100 Other: Voiding Method External Catheter External Catheter External Catheter # Voids 1 # Bowel Movements 1 - Exam - Constitutional General appearance: disheveled, mild distress, morbidly obese - EENT Eyes: EOMI, PERRLA Ears: bilateral: normal - Neck Neck: normal ROM Carotids: bilateral: upstroke normal Thyroid: bilateral: normal size - Respiratory Respiratory: bilateral: diminished, wheezing - Cardiovascular Rhythm: regular Heart sounds: normal: S1, S2 - Gastrointestinal General gastrointestinal: normal bowel sounds - Integumentary Integumentary: decreased turgor - Neurologic Neurologic: CNII-XII intact - Musculoskeletal Musculoskeletal: generalized weakness - Labs CBC & Chem 7: 07/21/21 07:59 07/21/21 07:59 Assessment and Plan Assessment: Acute hypoxic and hypercapnic respiratory failure RSV pneumonia Secondary bacterial pneumonia cannot be excluded but however less likely Developed been no early ARDS-like pattern History of stroke Patient has at risk of aspiration pneumonia Obesity hypoventilation syndrome Plan: Continue doxycycline and clindamycin Continue IV steroids and bronchodilator Follow-up chest x-ray pending Continue supplemental oxygen, titrated gradually BiPAP support each night and when necessary during day Further recommendations pending plan of care as per clinical response of patient Time with Patient: Greater than 30
[2021-07-24] MEDS: MONTELUKAST 10 MG TAB PO SCH (20:30)
[2021-07-24] MEDS: PRAVASTATIN SODIUM 20 MG TAB PO SCH (20:30)
[2021-07-24] MEDS: TAMSULOSIN 0.4 MG CAP.ER.24H PO SCH (20:31)
[2021-07-24] MEDS: NON FORMULARY DRUG (Brexpiprazole [Rexulti] 4 MG Tablet) PO SCH (20:39)
--- NOTE | 2021-07-24 21:22 | P.PN ---
Subjective Progress Note Date: 07/24/21 Principal diagnosis: RSV pneumonia Patient is a 60-year-old female presented to the outside facility with shortness of breath apparently the patient did have a nasopharyngeal swab positive for his RSV are patient subsequently has been sent to this facility for further evaluation. On today's evaluation that is 07/24/2021 the patient remains to be afebrile, patient is breathing comfortably on nasal cannula oxygen, the patient denies any chest pain, mild cough no sputum no abdominal pain and no diarrhea Objective - Vital Signs Vital signs: Vital Signs Temp 97.4 F L 07/24/21 07:58 Pulse 80 07/24/21 12:50 Resp 18 07/24/21 10:08 BP 122/76 07/24/21 07:58 Pulse Ox 98 07/24/21 07:58 Intake & Output 07/23/21 07/24/21 07/24/21 18:59 06:59 18:59 Output Total 1100 1000 900 Balance -1100 -1000 -900 Output: Urine 1000 900 Stool 1100 Other: Voiding Method External Catheter External Catheter External Catheter # Voids 1 # Bowel Movements 1 - Exam GENERAL DESCRIPTION: A middle-aged female lying in bed in no distress RESPIRATORY SYSTEM: Unlabored breathing , decreased breath sounds at bases HEART: S1 S2 regular rate and rhythm , ABDOMEN: Soft , no tenderness EXTREMITIES: No edema feet - Labs CBC & Chem 7: 07/21/21 07:59 07/21/21 07:59 Assessment and Plan (1) Viral pneumonia Current Visit: Yes Status: Acute Code(s): J12.9 - VIRAL PNEUMONIA, U NSPECIFIED SNOMED Code(s): 94062314 Plan: 1patient presented the outside facility for increasing shortness of breath and has been diagnosed with an RSV infection in this patient currently with mild hypoxemia and need for supplemental oxygen chest x-ray did not show significant pneumonia patient with no fever and no evidence of any secondary bacterial pneumonia the history remains to be limited, treatment for RSV will be mostly supportive. And the patient seems to have shown some clinical improvement 2influenza and covid 19 test came back negative RSV came back positive, treatment for RSV is mostly supportive and no need for anti-viral therapy 3The patient procalcitonin is normal, recommend no antibiotics at this point 4-continue with droplet isolation Time with Patient: Less than 30
[2021-07-25] MEDS: methylPREDNISolone SOD SUCCI 40 MG/ML 1 ML VIAL IV SCH ×4 (01:10→22:30)
[2021-07-25 02:33] VITALS: RESP 16
[2021-07-25] MEDS: TOPIRAMATE 100 MG TAB PO SCH ×2 (07:31→22:28)
[2021-07-25] MEDS: BACLOFEN 10 MG TAB PO SCH ×3 (07:31→22:28)
[2021-07-25] MEDS: FAMOTIDINE 20 MG TAB PO SCH (07:32)
[2021-07-25] MEDS: BETHANECHOL 25 MG TAB PO SCH ×3 (07:32→22:29)
[2021-07-25] MEDS: ASPIRIN 81 MG PO SCH (07:32)
[2021-07-25] MEDS: haloperidoL 5 MG TAB PO SCH ×2 (07:32→14:47)
[2021-07-25] MEDS: ESCITALOPRAM 20 MG TAB PO SCH ×2 (07:32→22:28)
[2021-07-25] MEDS: DOXYCYCLINE 100 MG CAP PO SCH ×2 (07:33→22:29)
[2021-07-25] MEDS: CLINDAMYCIN 600 MG in DEXTROSE 5% IN WATER 50 ML IVPB SCH ×6 (07:34→22:42)
[2021-07-25] MEDS: SODIUM CHLORIDE 0.9% 1,000 ML IV SCH ×2 (07:34→22:29)
[2021-07-25] MEDS: IPRATROPIUM-ALBUTEROL 3 ML NEB INHALATION SCH ×4 (07:48→21:41)
[2021-07-25] MEDS: carvediloL 3.125 MG TAB PO SCH ×2 (08:15→22:29)
--- NOTE | 2021-07-25 08:20 | XR ---
EXAMINATION TYPE: XR chest 1V DATE OF EXAM: 07/25/2021 COMPARISON: NONE HISTORY: cough TECHNIQUE: Single frontal view of the chest is obtained. FINDINGS: Persistent low lung volumes with reticular interstitial changes bilaterally. Findings favo r parenchymal fibrosis with component of edema not excluded The cardiac silhouette size remains enlar ged. Cholecystectomy clips are present. The osseous structures are intact. IMPRESSION: Bilateral interstitial infiltrate stable.
--- NOTE | 2021-07-25 10:51 | P.PN ---
Subjective Progress Note Date: 07/25/21 Principal diagnosis: Acute hypoxic and hypercapnic respiratory failure RSV pneumonia Secondary bacterial pneumonia cannot be excluded but however less likely Developed been no early ARDS-like pattern History of stroke Patient has at risk of aspiration pneumonia Obesity hypoventilation syndrome 07/25/2021, patient seen eval reexamined during the rounds labs reviewed medica tions reviewed care plan discussed, patient slightly more awake and alert she is responding to simple question with appropriate mask, she has been on 2 L oxygen currently she is on room air for home oxygen assessment, oxygen saturation on monitor is 91%, no obvious respiratory distress is present, patient remains on IV steroids and antibiotics can be switched to oral at the time of discharge with slow taper will evaluate on outpatient basis. Chest x-ray bilateral stable interstitial infiltrate 07/24/2021, patient seen eval reexamined during the rounds labs reviewed medications reviewed care plan discussed, respiratory status remains stable on 3 L oxygen breathing comfortably saturation low to mid 90s, hemodynamic status stable remains afebrile, more awake and alert expressing herself in simple sentences 07/23/2021 Patient is a 60-year-old morbidly obese female seen evaluated examined on the floor, patient is more awake and alert on Cerner and respond to simple questions, also care discussed care plan with the respiratory and the staff, patient has a swab for RSV is still positive,, discussed with the respiratory therapist FiO2 decreased to 2, sats on 4 L and 100%, blood pressure is 100/60, her COVID-19 as well as the influenza A and B has been negative, she remains on IV steroids and IV antibiotics with clindamycin and Doxy. She has intermittent bradycardia cardiovascular services as are following, will repeat x-ray tomorrow to see the response of therapy, also decreases oxygen 2 L and monitor oxygen saturation closely Patient is a 60-year-old female nonverbal but however come negative through the chest has data predominantly obtained from the chart as patient cannot give a detailed history and review of the data revealed that patient has a history of COPD CVA also has a history of GERD degenerative joint disease osteoarthritis and seizure disorder and severe schizophrenia. She does have a history of prior tracheostomy. She came into the hospital with worsening cough and dyspnea she was diagnosed as the RSV in outside facility. Currently she is on 4 L nasal cannula oxygen saturation is 98%, she is afebrile with stable hemodynamics. X- ray low lung volumes with bilateral interstitial fibrosis. Currently patient is being treated with bronchodilators continuation of home medications including baclofen and IV Solu-Medrol. Computed tomography scan just have been performed patient showed extensive bilateral infiltrate with in between groundglass atten uation. Labs reviewed white cell count has been stable Thousand. Hemoglobin and hematocrit stable as well, platelet count of 1 49,000, venous blood gas pH is 7.26 pCO2 65. Patient can benefit from BiPAP machine at nighttime Objective - Vital Signs Vital signs: Vital Signs Temp 98.0 F 07/25/21 07:27 Pulse 54 L 07/25/21 07:58 Resp 16 07/25/21 07:30 BP 133/82 07/25/21 07:27 Pulse Ox 98 07/25/21 07:27 Intake & Output 07/24/21 07/25/21 07/25/21 18:59 06:59 18:59 Output Total 1900 1600 1000 Balance -1900 -1600 -1000 Output: Urine 1900 1600 1000 Other: Voiding Method External Catheter External Catheter External Catheter # Voids 1 2 # Bowel Movements 1 - Exam - Constitutional General appearance: disheveled, mild distress, morbidly obese - EENT Eyes: EOMI, PERRLA Ears: bilateral: normal - Neck Neck: normal ROM Carotids: bilateral: upstroke normal Thyroid: bilateral: normal size - Respiratory Respiratory: bilateral: diminished, wheezing - Cardiovascular Rhythm: regular Heart sounds: normal: S1, S2 - Gastrointestinal General gastrointestinal: normal bowel sounds - Integumentary Integumentary: decreased turgor - Neurologic Neurologic: CNII-XII intact - Musculoskeletal Musculoskeletal: generalized weakness - Labs CBC & Chem 7: 07/21/21 07:59 07/21/21 07:59 Assessment and Plan Assessment: Acute hypoxic and hypercapnic respiratory failure RSV pneumonia Secondary bacterial pneumonia cannot be excluded but however less likely Developed been an early ARDS-like pattern History of stroke Patient has at risk of aspiration pneumonia Obesity hypoventilation syndrome Plan: Continue doxycycline and clindamycin hopefully will DC clindamycin tomorrow Continue IV steroids and bronchodilator, can be changed to oral at the time of discharge Follow-up chest x-ray reviewed Continue supplemental oxygen, titrated gradually, continue assessment at room air BiPAP support each night and when necessary during day, to be evaluated outpatient basis with sleep study Further recommendations pending plan of care as per clinical response of patient Time with Patient: Greater than 30
[2021-07-25] MEDS: clonazePAM 1 MG TAB PO SCH ×3 (11:53→22:26)
[2021-07-25 12:14] VITALS: BMI 32.3
[2021-07-25 13:48] VITALS: TEMP 98.9
--- NOTE | 2021-07-25 20:00 | PN ---
PROGRESS NOTE This is a 60-year-old white female with RSV pneumonia, acute hypoxemic respiratory distress. She has acute hypoxemic respiratory failure, RSV pneumonia, secondary bacterial pneumonia, obesity hypoventilation syndrome. She is slightly more alert, answering questions more appropriately. She does not wear oxygen at home normally. Trying to wean her oxygen down. She is still on 91% O2 level. Cardiovascular S1-S2. Lungs with scattered rhonchi and wheeze. Hematology negative Homans. Psych fair mood and affect. She is pleasantly confused. ASSESSMENT: 1. Acute hypoxemic hypercapnic respiratory failure. 2. RVS pneumonia. 3. Secondary bacterial pneumonia. 4. ARDS versus pulmonary fibrosis. 5. Prior history of stroke and aspiration pneumonia. Continue doxycycline, clindamycin. Continue IV steroids, bronchodilators. Possibly change to oral tomorrow and try to get her home on room air and BiPAP at night. Try to wean her off oxygen in the next 24 hours. Prognosis guarded. MMODL / IJN: [id number] /
--- NOTE | 2021-07-25 21:34 | P.PN ---
Subjective Progress Note Date: 07/25/21 Principal diagnosis: RSV pneumonia Patient is a 60-year-old female presented to the outside facility with shortness of breath apparently the patient did have a nasopharyngeal swab positive for his RSV are patient subsequently has been sent to this facility for further evaluation. On today's evaluation that is 07/25/2021 the patient is afebrile, patient is breathing comfortably on nasal cannula oxygen, the patient denies chest pain, the patient did have mild cough no sputum no abdominal pain and no diarrhea Objective - Vital Signs Vital signs: Vital Signs Temp 98.0 F 07/25/21 07:27 Pulse 56 L 07/25/21 11:29 Resp 16 07/25/21 07:30 BP 133/82 07/25/21 07:27 Pulse Ox 98 07/25/21 07:27 Intake & Output 07/24/21 07/25/21 07/25/21 18:59 06:59 18:59 Output Total 1900 1600 1000 Balance -1900 -1600 -1000 Weight 80.286 kg Output: Urine 1900 1600 1000 Other: Voiding Method External Catheter External Catheter External Catheter # Voids 1 2 # Bowel Movements 1 - Exam GENERAL DESCRIPTION: A middle-aged female lying in bed in no distress RESPIRATORY SYSTEM: Unlabored breathing , decreased breath sounds at bases HEART: S1 S2 regular rate and rhythm , ABDOMEN: Soft , no tenderness EXTREMITIES: No edema feet - Labs CBC & Chem 7: 07/21/21 07:59 07/21/21 07:59 Assessment and Plan (1) Viral pneumonia Current Visit: Yes Status: Acute Code(s): J12.9 - VIRAL PNEUMONIA, UNSPECIFIED SNOMED Code(s): 81665445 Plan: 1patient presented the outside facility for increasing shortness of breath and has been diagnosed with an RSV infection in this patient currently with mild hypoxemia and need for supplemental oxygen chest x-ray did not show significant pneumonia patient with no fever and no evidence of any secondary bacterial pneumonia the history remains to be limited, treatment for RSV will be mostly supportive. And the patient is slowly clinically improving 2influenza and covid 19 test came back negative RSV came back positive, treatment for RSV is mostly supportive and no need for anti-viral therapy 3The patient procalcitonin is normal, hence no need for systemic antibiotic therapy 4-patient to continue with droplet isolation Time with Patient: Less than 30
[2021-07-25] MEDS: PRAVASTATIN SODIUM 20 MG TAB PO SCH (22:27)
[2021-07-25] MEDS: MONTELUKAST 10 MG TAB PO SCH (22:27)
[2021-07-25] MEDS: TAMSULOSIN 0.4 MG CAP.ER.24H PO SCH (22:28)
[2021-07-25] MEDS: NON FORMULARY DRUG (Brexpiprazole [Rexulti] 4 MG Tablet) PO SCH (22:29)
[2021-07-26 07:29] VITALS: BP 122/63
[2021-07-26] MEDS: IPRATROPIUM-ALBUTEROL 3 ML NEB INHALATION SCH ×3 (08:40→16:29)
[2021-07-26] MEDS: DOXYCYCLINE 100 MG CAP PO SCH (09:23)
[2021-07-26] MEDS: BETHANECHOL 25 MG TAB PO SCH ×2 (09:24→17:39)
[2021-07-26] MEDS: ESCITALOPRAM 20 MG TAB PO SCH (09:24)
[2021-07-26] MEDS: haloperidoL 5 MG TAB PO SCH ×2 (09:24→14:12)
[2021-07-26] MEDS: carvediloL 3.125 MG TAB PO SCH (09:25)
[2021-07-26] MEDS: TOPIRAMATE 100 MG TAB PO SCH (09:25)
[2021-07-26] MEDS: BACLOFEN 10 MG TAB PO SCH ×2 (09:25→14:13)
[2021-07-26] MEDS: ASPIRIN 81 MG PO SCH (09:25)
[2021-07-26] MEDS: methylPREDNISolone SOD SUCCI 40 MG/ML 1 ML VIAL IV SCH (09:26)
[2021-07-26] MEDS: FAMOTIDINE 20 MG TAB PO SCH (09:27)
[2021-07-26] MEDS: CLINDAMYCIN 600 MG in DEXTROSE 5% IN WATER 50 ML IVPB SCH ×2 (09:34)
[2021-07-26] MEDS: ACETAMINOPHEN TAB 325 MG TAB PO PRN (09:39)
[2021-07-26] MEDS: clonazePAM 1 MG TAB PO SCH ×2 (14:13→17:39)
[2021-07-26] MEDS: SODIUM CHLORIDE 0.9% 1,000 ML IV SCH (14:13)
--- NOTE | 2021-07-26 14:20 | P.PN ---
Subjective Progress Note Date: 07/26/21 Principal diagnosis: Acute hypoxic and hypercapnic respiratory failure RSV pneumonia Secondary bacterial pneumonia cannot be excluded but however less likely Developed been no early ARDS-like pattern History of stroke Patient has at risk of aspiration pneumonia Obesity hypoventilation syndrome 07/26/2021, patient seen eval reexamined during the rounds labs reviewed medi cations reviewed, patient has been on room air oxygen saturation is 92%, patient is on doxycycline and clindamycin seems to be responding well ID service have been following patient is on IV steroids as well will DC clindamycin and oxacillin and observe patient on and best supportive care will decrease IV steroids as well 07/25/2021, patient seen eval reexamined during the rounds labs reviewed me dications reviewed care plan discussed, patient slightly more awake and alert she is responding to simple question with appropriate mask, she has been on 2 L oxygen currently she is on room air for home oxygen assessment, oxygen saturation on monitor is 91%, no obvious respiratory distress is present, patient remains on IV steroids and antibiotics can be switched to oral at the time of discharge with slow taper will evaluate on outpatient basis. Chest x- ray bilateral stable interstitial infiltrate 07/24/2021, patient seen eval reexamined during the rounds labs reviewed medications reviewed care plan discussed, respiratory status remains stable on 3 L oxygen breathing comfortably saturation low to mid 90s, hemodynamic status stable remains afebrile, more awake and alert expressing herself in simple sentences 07/23/2021 Patient is a 60-year-old morbidly obese female seen evaluated exam ined on the floor, patient is more awake and alert on [employer] and respond to simple questions, also care discussed care plan with the respiratory and the staff, patient has a swab for RSV is still positive,, discussed with the respiratory therapist FiO2 decreased to 2, sats on 4 L and 100%, blood pressure is 100/60, her COVID-19 as well as the influenza A and B has been negative, she remains on IV steroids and IV antibiotics with clindamycin and Doxy. She has intermittent bradycardia cardiovascular services as are following, will repeat x-ray tomorrow to see the response of therapy, also decreases oxygen 2 L and monitor oxygen saturation closely Patient is a 60-year-old female nonverbal but however come negative through the chest has data predominantly obtained from the chart as patient cannot give a detailed history and review of the data revealed that patient has a history of COPD CVA also has a history of GERD degenerative joint disease osteoarthritis and seizure disorder and severe schizophrenia. She does have a history of prior tracheostomy. She came into the hospital with worsening cough and dyspnea she was diagnosed as the RSV in outside facility. Currently she is on 4 L nasal cannula oxygen saturation is 98%, she is afebrile with stable hemodynamics. X- ray low lung volumes with bilateral interstitial fibrosis. Currently patient is being treated with bronchodilators continuation of home medications including baclofen and IV Solu-Medrol. Computed tomography scan just have been performed patient showed extensive bilateral infiltrate with in between groundglass a ttenuation. Labs reviewed white cell count has been stable [place]. Hemoglobin and hematocrit stable as well, platelet count of 1 49,000, venous blood gas pH is 7.26 pCO2 65. Patient can benefit from BiPAP machine at nighttime Objective - Vital Signs Vital signs: Vital Signs Temp 98.9 F 07/26/21 07:28 Pulse 56 L 07/26/21 12:15 Resp 16 07/26/21 02:15 BP 122/63 07/26/21 07:28 Pulse Ox 97 07/26/21 07:28 Intake & Output 07/25/21 07/26/21 07/26/21 18:59 06:59 18:59 Output Total 1900 2400 550 Balance -1900 -2400 -550 Weight 80.286 kg Output: Urine 1900 2400 550 Other: Voiding Method External Catheter External Catheter External Catheter # Voids 1 # Bowel Movements 1 1 - Exam - Constitutional General appearance: disheveled, mild distress, morbidly obese - EENT Eyes: EOMI, PERRLA Ears: bilateral: normal - Neck Neck: normal ROM Carotids: bilateral: upstroke normal Thyroid: bilateral: normal size - Respiratory Respiratory: bilateral: diminished, wheezing - Cardiovascular Rhythm: regular Heart sounds: normal: S1, S2 - Gastrointestinal General gastrointestinal: normal bowel sounds - Integumentary Integumentary: decreased turgor - Neurologic Neurologic: CNII-XII intact - Musculoskeletal Musculoskeletal: generalized weakness - Labs CBC & Chem 7: 07/21/21 07:59 07/21/21 07:59 Assessment and Plan Assessment: Acute hypoxic and hypercapnic respiratory failure RSV pneumonia Secondary bacterial pneumonia cannot be excluded but however less likely Developed been an early ARDS-like pattern History of stroke Patient has at risk of aspiration pneumonia Obesity hypoventilation syndrome Plan: DC doxycycline and clindamycin and observe patient off of antibiotics Continue IV steroids and bronchodilator, can be changed to oral at the time of discharge we'll taper down the steroids as well Follow-up chest x-ray reviewed Continue supplemental oxygen, titrated gradually, continue assessment at room air BiPAP support each night and when necessary during day, to be evaluated outpatient basis with sleep study Further recommendations pending plan of care as per clinical response of patient Time with Patient: Greater than 30
[2021-07-26 16:30] VITALS: PULSE 50
[2021-07-26] MEDS ORDERED: methylPREDNISolone SOD SUCCI 40 MG/ML 1 ML VIAL IV SCH (21:00)
--- NOTE | 2021-07-28 17:36 | P.PN ---
Subjective Progress Note Date: 07/26/21 Principal diagnosis: RSV pneumonia Patient is a 60-year-old female presented to the outside facility with shortness of breath apparently the patient did have a nasopharyngeal swab positive for his RSV are patient subsequently has been sent to this facility for further evaluation. On today's evaluation that is 07/26/2021 the patient remains to be afebrile, patient is breathing comfortably on nasal cannula oxygen, the patient denies chest pain, the patient did have mild cough but no sputum has been reported ,, the patient denies abdominal pain and no diarrhea Objective - Vital Signs Vital signs: Vital Signs Temp 98.9 F 07/26/21 07:28 Pulse 56 L 07/26/21 12:15 Resp 16 07/26/21 02:15 BP 122/63 07/26/21 07:28 Pulse Ox 97 07/26/21 07:28 Intake & Output 07/25/21 07/26/21 07/26/21 18:59 06:59 18:59 Output Total 1900 2400 550 Balance -1900 -2400 -550 Weight 80.286 kg Output: Urine 1900 2400 550 Other: Voiding Method External Catheter External Catheter External Catheter # Voids 1 # Bowel Movements 1 1 - Exam GENERAL DESCRIPTION: A middle-aged female lying in bed in no distress RESPIRATORY SYSTEM: Unlabored breathing , decreased breath sounds at bases HEART: S1 S2 regular rate and rhythm , ABDOMEN: Soft , no tenderness EXTREMITIES: No edema feet - Labs CBC & Chem 7: 07/21/21 07:59 07/21/21 07:59 Assessment and Plan (1) Viral pneumonia Status: Acute Code(s): J12.9 - VIRAL PNEUMONIA, UNSPECIFIED SNOMED Code(s): 54063185 Plan: 1patient presented the outside facility for increasing shortness of breath and has been diagnosed with an RSV infection in this patient currently with mild hypoxemia and need for supplemental oxygen chest x-ray did not show significant pneumonia patient with no fever and no evidence of any secondary bacterial pneumonia the history remains to be limited, treatment for RSV will be mostly supportive. And the patient is slowly clinically improving 2influenza and covid 19 test came back negative RSV came back positive, treatment for RSV is mostly supportive and no need for anti-viral therapy 3The patient procalcitonin is normal, hence there is no need for any systemic antibiotics on discharge Time with Patient: Less than 30
== END 2021-07-26 18:18 | disposition home or self-care (01) | DRG 193 ==
LOC: EC 15:24 → 4SSUR 19:10
PROVIDERS: ADMIT Family Medicine; ATTEND Family Medicine
DX: J12.1 Respiratory syncytial virus pneumonia (principal); J96.01 Acute respiratory failure with hypoxia; J96.02 Acute respiratory failure with hypercapnia; J44.1 Chronic obstructive pulmonary disease with (acute) exacerbation; J44.0 Chronic obstructive pulmonary disease with (acute) lower respiratory infection; E66.2 Morbid (severe) obesity with alveolar hypoventilation; J84.10 Pulmonary fibrosis, unspecified; I95.9 Hypotension, unspecified; E86.0 Dehydration; F20.9 Schizophrenia, unspecified; Z20.822 Contact with and (suspected) exposure to COVID-19; R33.9 Retention of urine, unspecified; R00.1 Bradycardia, unspecified; I10 Essential (primary) hypertension; F41.9 Anxiety disorder, unspecified; K21.9 Gastro-esophageal reflux disease without esophagitis; M19.90 Unspecified osteoarthritis, unspecified site; L53.9 Erythematous condition, unspecified; T38.0X5A Adverse effect of glucocorticoids and synthetic analogues, initial encounter; Z68.32 Body mass index [BMI] 32.0-32.9, adult; Z79.82 Long term (current) use of aspirin; Z79.51 Long term (current) use of inhaled steroids; Z79.899 Other long term (current) drug therapy; Z86.73 Personal history of transient ischemic attack (TIA), and cerebral infarction without residual deficits; Z86.69 Personal history of other diseases of the nervous system and sense organs; Z87.39 Personal history of other diseases of the musculoskeletal system and connective tissue; Z87.891 Personal history of nicotine dependence; Z98.890 Other specified postprocedural states; Z71.3 Dietary counseling and surveillance; Z88.0 Allergy status to penicillin; Z88.2 Allergy status to sulfonamides; Z88.7 Allergy status to serum and vaccine; Z91.030 Bee allergy status; Z91.040 Latex allergy status
CPT/HCPCS: 36415; 71045; 71250; 80053; 82140; 82533; 82803; 83605; 83880; 84145; 85025; 85379; 85610; 85730; 86140; 87502; 87634; 93005; 93306; 94640; 94760; 96361; 96374; 99291

== ENCOUNTER 2022-08-18 02:40 | Inpatient (IN) | payer MEDICARE, OTHER ==
[2022-08-18 03:39] LABS: ALT 49 U/L (4-34); AST 24 U/L (14-36); African American GFR (CKD) >90 (>60 ml/min/1.73 sqM); Alcohol <10 mg/dL; Alkaline Phosphatase 90 U/L (38-126); Anion Gap 4 mmol/L; Blood Urea Nitrogen 20 mg/dL (7-17); Calcium 8.8 mg/dL (8.4-10.2); Carbon Dioxide 30 mmol/L (22-30); Chloride 114 mmol/L (98-107); Glucose 185 mg/dL (74-99); Non-African American GFR(CKD) >90 (>60 ml/min/1.73 sqM); Potassium 3.7 mmol/L (3.5-5.1); Sodium 148 mmol/L (137-145); Total Bilirubin 0.2 mg/dL (0.2-1.3); Total Protein 5.9 g/dL (6.3-8.2)
[2022-08-18 03:46] LABS: Glucose,Whole Blood 158 mg/dL (70-110)
[2022-08-18 03:48] LABS: INR 0.9 (<1.2); Partial Thromboplastin Time 20.2 sec (22.0-30.0); Prothrombin Time 9.5 sec (9.0-12.0)
[2022-08-18 03:50] LABS: Basophils % (A) 0 %; Eosinophils % (A) 0 %; HCT 41.1 % (34.0-46.0); HGB 12.8 gm/dL (11.4-16.0); Hypochromasia Slight; Lymphocytes # (A) 1.8 k/uL (1.0-4.8); Lymphocytes % (A) 22 %; MCH 28.2 pg (25.0-35.0); MCHC 31.2 g/dL (31.0-37.0); MCV 90.4 fL (80.0-100.0); Mean Platelet Volume 8.5; Monocytes # (A) 0.4 k/uL (0-1.0); Monocytes % (A) 5 %; Neutrophils # (A) 5.9 k/uL (1.3-7.7); Neutrophils % (A) 70 %; Platelet Count 187 k/uL (150-450); RBC 4.55 m/uL (3.80-5.40); RDW 13.6 % (11.5-15.5); WBC 8.4 k/uL (3.8-10.6)
--- NOTE | 2022-08-18 06:30 | ED ---
Altered Mental Status HPI - General Chief Complaint: Altered Mental Status Stated Complaint: Altered mental Time Seen by Provider: 08/18/22 03:13 Source: Caregiver Mode of arrival: EMS Limitations: altered mental status - History of Present Illness Initial Comments: This patient is a 61-year-old woman here from [facility] to have evaluation for altered mental status. The patient normally oriented was not tonight. She was also very somnolent. After arrival here, we are able to arouse the patient and she is able to answer direct questions though not provide much additional history. She has been coughing and having some shortness of breath. MD Complaint: altered mental status -: hour(s) Severity: moderate Consistency of Symptoms: getting worse Context: history of similar presentation - Related Data Home Medications Medication Instructions Recorded Confirmed EPINEPHrine [Epipen 2-Molina] 0.3 mg IM ONCE PRN 09/09/18 08/18/22 Escitalopram [Lexapro] 20 mg PO BID@0700,199909/09/18 08/18/22 Ketoconazole 2% Shampoo [Nizoral] 1 applic TOPICAL MOWEFR 09/09/18 08/18/22 Montelukast [Singulair] 10 mg PO HS@199909/09/18 08/18/22 Pravastatin Sodium [Pravachol] 20 mg PO HS@199909/09/18 08/18/22 haloperidoL [Haldol] 5 mg PO TID@0700,1400,199909/09/18 08/18/22 Aspirin EC [Ecotrin Low Dose] 81 mg PO DAILY@0700 01/23/19 08/18/22 Baclofen [Lioresal] 15 mg PO DAILY@0700 01/23/19 08/18/22 Topiramate [Topamax] 100 mg PO BID@0700,199901/23/19 08/18/22 Albuterol Nebulized [Ventolin 2.5 mg INHALATION RT-Q6H PRN 07/19/21 08/18/22 Nebulized] Baclofen [Lioresal] 10 mg PO BID@1400,199907/19/21 08/18/22 Famotidine [Pepcid] 20 mg PO DAILY@0700 07/19/21 08/18/22 clonazePAM [KlonoPIN] 1 mg PO TID@0730,1530,2330 07/19/21 08/18/22 Albuterol Inhaler [Ventolin Hfa 2 puff INHALATION RT-Q6H PRN 08/18/22 08/18/22 Inhaler] Budesonide 0.5 mg INHALATION RT-BID 08/18/22 08/18/22 Ergocalciferol [Vitamin D2 (1250 1,250 mcg PO FR@0700 08/18/22 08/18/22 Mcg = 15867 Iu)] Magnesium Hydroxide [Milk of 2,400 mg PO DAILY PRN 08/18/22 08/18/22 Magnesia] Metoprolol Succinate (ER) [Toprol 25 mg PO DAILY@0700 08/18/22 08/18/22 XL] Na Phos,M-B/Na Phos,Di-Ba [Fleet 133 ml RECTAL DAILY PRN 08/18/22 08/18/22 Adult] Nystatin [Nystatin Oral Susp] 500,000 unit PO QID 08/18/22 08/18/22 bisacodyL [Dulcolax] 10 mg RECTAL DAILY PRN 08/18/22 08/18/22 cloZAPine [Clozaril] 25 mg PO BID@0700,1200 08/18/22 08/18/22 cloZAPine [Clozaril] 150 mg PO HS@2000 08/18/22 08/18/22 polyethylene glycoL 3350 [Miralax] 17 gm PO DAILY@0600 08/18/22 08/18/22 predniSONE See Taper PO DAILY@0700 08/18/22 08/18/22 Previous Rx's Medication Instructions Recorded Cefdinir Oral Susp [Omnicef Oral 300 mg PO Q12HR 7 Days #14 ml 08/23/22 Susp] Ipratropium-Albuterol Nebulize 3 ml INHALATION RT-QID 30 Days 08/23/22 [Duoneb 0.5 mg-3 mg/3 ml Soln] #120 each Allergies Allergy/AdvReac Type Severity Reaction Status Date / Time bee venom protein (honey bee) Allergy Unknown Verified 08/18/22 10:51 latex Allergy Unknown Verified 08/18/22 10:51 Penicillins Allergy Unknown Verified 08/18/22 10:51 sulfamethoxazole Allergy Unknown Verified 08/18/22 10:51 [From Bactrim] Tetanus Vaccines and Toxoid Allergy Unknown Verified 08/18/22 10:51 trimethoprim [From Bactrim] Allergy Unknown Verified 08/18/22 10:51 Review of Systems ROS Statement: Those systems with pertinent positive or pertinent negative responses have been documented in the HPI. ROS Other: All systems not noted in ROS Statement are negative. Limitations: ROS unobtainable due to patients medical condition Constitutional: Denies: fever Respiratory: Reports: cough, dyspnea Cardiovascular: Denies: chest pain Gastrointestinal: Denies: abdominal pain, vomiting Musculoskeletal: Denies: back pain Neurological: Denies: headache Past Medical History Past Medical History: COPD, CVA/TIA, GERD/Reflux, Osteoarthritis (OA), Seizure Disorder Additional Past Medical History / Comment(s): Wears oxygen at night, no seizures for 10 years, bedrest can't bare weight anymore History of Any Multi-Drug Resistant Organisms: None Reported Past Surgical History: Orthopedic Surgery Additional Past Surgical History / Comment(s): previous trach Past Anesthesia/Blood Transfusion Reactions: No Reported Reaction Past Psychological History: Anxiety, Schizophrenia 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 Smoking Status: Former smoker Past Alcohol Use History: None Reported Past Drug Use History: None Reported - Past Family History Father Family Medical History: Unable to Obtain Mother Family Medical History: Unable to Obtain General Exam Limitations: altered mental status General appearance: other (The patient is somnolent but arouses to tactile stimulus) Head exam: Present: atraumatic, normocephalic Eye exam: Present: normal appearance. Absent: scleral icterus, conjunctival injection ENT exam: Present: mucous membranes dry Neck exam: Present: normal inspection Respiratory exam: Present: wheezes. Absent: respiratory distress, rales, rhonchi, stridor, accessory muscle use, decreased breath sounds Cardiovascular Exam: Present: regular rate, normal rhythm, normal heart sounds. Absent: systolic murmur, diastolic murmur, rubs, gallop GI/Abdominal exam: Present: soft. Absent: distended, tenderness, guarding, rebound, rigid, mass Extremities exam: Present: normal inspection, normal capillary refill. Absent: pedal edema, calf tenderness Back exam: Present: normal inspection. Absent: CVA tenderness (R), CVA tenderness (L) Neurological exam: Absent: oriented X3, motor sensory deficit Skin exam: Present: warm, dry, intact, normal color. Absent: rash Course Vital Signs 08/18/22 08/18/22 08/18/22 02:41 03:55 07:09 Temperature 98.2 F Pulse Rate 60 60 Respiratory 18 18 18 Rate Blood Pressure O2 Sat by Pulse 98 98 Oximetry 08/18/22 08/18/22 08/18/22 08:29 10:30 11:34 Temperature 98.2 F Pulse Rate 60 65 66 Respiratory 18 18 Rate Blood Pressure 114/70 139/86 O2 Sat by Pulse 98 98 Oximetry 08/18/22 08/18/22 11:44 12:00 Temperature 98.1 F Pulse Rate 68 67 Respiratory 18 Rate Blood Pressure 120/99 O2 Sat by Pulse 97 Oximetry Medical Decision Making - Medical Decision Making Patient is 61-year-old woman from [facility] where she was noted to have some cough and wheezing. She also was not at her baseline mental status. He is a patient is a little more alert and responsive. On the exam she does have marked wheezing. The patient is sent for computed tomography scan of the brain which I interpreted as showing no acute intracranial hemorrhage. There is some atrophy. The patient had chest x-ray which I interpreted as showing patchy bilateral infiltrates. Given that the patient does appear to have pneumonia and altered mental status, will admit, start IV antibiotics, case discussed with admitting physician. Was pt. sent in by a medical professional or institution ([facility], WINTER INTERN, urgent care, hospital, or senior living...) When possible be specific @ -Patient is sent from [facility] to have evaluation Did you speak to anyone other than the patient for history (EMS, parent, family, police, friend...)? What history was obtained from this source @ -[No] Did you review nursing and triage notes (agree or disagree)? Why? @ -[I reviewed and agree with nursing and triage notes] Were old charts reviewed (outside hosp., previous admission, EMS record, old EKG, old radiological studies, urgent care reports/EKG's, senior living records)? Report findings @ -[No old charts were reviewed] Differential Diagnosis (chest pain, altered mental status, abdominal pain women, abdominal pain men, vaginal bleeding, weakness, fever, dyspnea, syncope, he adache, dizziness, GI bleed, back pain, seizure, CVA, palpatations, mental health, musculoskeletal)? @ -[Differential Altered Mental Status: Hypoglycemia, DKA, hypercapnia, ETOH, overdose, CO poisoning, trauma, myxedema coma, HTN encephalopathy, infection, encephalitis, psychosis, intercranial hemorrhage, hepatic encephalopathy, meningitis, CVA, this is not meant to be an all-inclusive list EKG interpreted by me (3pts min.). @ -[As above] X-rays interpreted by me (1pt min.). @ -[As above CT interpreted by me (1pt min.). @ -[As above U/S interpreted by me (1pt. min.). @ -[None done] What testing was considered but not performed or refused? (CT, X-rays, U/S, labs)? Why? @ -[None] What meds were considered but not given or refused? Why? @ -[None] Did you discuss the management of the patient with other professionals (demi gtz i.e. , PA, WINTER INTERN, lab, RT, psych nurse, social media assistant, charge entry specialist, teacher, chief digital officer, case finishing machine adjuster)? Give summary @ -[Case discussed with admitting physician Was smoking cessation discussed for >3mins.? @ -[No] Was critical care preformed (if so, how long)? @ -[No] Were there social determinants of health that impacted care today? How? (Homelessness, low income, unemployed, alcoholism, drug addiction, transportation, low edu. Level, literacy, decrease access to med. care, senior care, rehab)? @ -[No] Was there de-escalation of care discussed even if they declined (Discuss DNR or withdrawal of care, Hospice)? DNR status @ -[No] What co-morbidities impacted this encounter? (DM, HTN, Smoking, COPD, CAD, Cancer, CVA, ARF, Chemo, Hep., AIDS, mental health diagnosis, sleep apnea, morbid obesity)? @ -[None] Was patient admitted / discharged? Hospital course, mention meds given and route, prescriptions, significant lab abnormalities, going to OR and other pertinent info. @ -[Patient is admitted to start IV antibiotics and to have infectious disease consultation Undiagnosed new problem with uncertain prognosis? @ -[No] Drug Therapy requiring intensive monitoring for toxicity (Heparin, Nitro, Insulin, Cardizem)? @ -[No] Were any procedures done? @ -[No] Diagnosis/symptom? @ -[Altered mental status Acute pneumonia Acute, or Chronic, or Acute on Chronic? @ -[Acute Uncomplicated (without systemic symptoms) or Complicated (systemic symptoms)? @ -[Uncomplicated Side effects of treatment? @ -[No] Exacerbation, Progression, or Severe Exacerbation? @ -[No] Poses a threat to life or bodily function? How? (Chest pain, [place], [place], pneumonia, PE, COPD, DKA, ARF, appy, cholecystitis, CVA, Diverticulitis, Homicidal, Suicidal, threat to staff... and all critical care pts) @ -[Yes - Lab Data Result diagrams: 08/23/22 05:21 08/23/22 05:21 Lab Results 08/18/22 08/18/22 08/18/22 Range/Units 02:41 03:00 03:00 WBC 8.4 (3.8-10.6) k/uL RBC 4.55 (3.80-5.40) m/uL Hgb 12.8 (11.4-16.0) gm/dL Hct 41.1 (34.0-46.0) % MCV 90.4 (80.0-100.0) fL MCH 28.2 (25.0-35.0) pg MCHC 31.2 (31.0-37.0) g/dL RDW 13.6 (11.5-15.5) % Plt Count 187 (150-450) k/uL MPV 8.5 Neutrophils % 70 % Lymphocytes % 22 % Monocytes % 5 % Eosinophils % 0 % Basophils % 0 % Neutrophils # 5.9 (1.3-7.7) k/uL Lymphocytes # 1.8 (1.0-4.8) k/uL Monocytes # 0.4 (0-1.0) k/uL Eosinophils # 0.0 (0-0.7) k/uL Basophils # 0.0 (0-0.2) k/uL Hypochromasia Slight PT 9.5 (9.0-12.0) sec INR 0.9 (<1.2) APTT 20.2 L (22.0-30.0) sec Sodium (137-145) mmol/L Potassium (3.5-5.1) mmol/L Chloride (98-107) mmol/L Carbon Dioxide (22-30) mmol/L Anion Gap mmol/L BUN (7-17) mg/dL Creatinine (0.52-1.04) mg/dL Est GFR (CKD-EPI)AfAm (>60 ml/min/1.73 sqM) Est GFR (CKD-EPI)NonAf (>60 ml/min/1.73 sqM) Glucose (74-99) mg/dL POC Glucose (mg/dL) (70-110) mg/dL POC Glu Product Development Worker ID Plasma Lactic Acid Philip 1.1 (0.7-2.0) mmol/L Calcium (8.4-10.2) mg/dL Total Bilirubin (0.2-1.3) mg/dL AST (14-36) U/L ALT (4-34) U/L Alkaline Phosphatase (38-126) U/L Troponin I (0.000-0.034) ng/mL NT-Pro-B Natriuret Pep pg/mL Total Protein (6.3-8.2) g/dL Albumin (3.5-5.0) g/dL Serum Alcohol mg/dL 08/18/22 08/18/22 08/18/22 Range/Units 03:00 03:00 03:44 WBC (3.8-10.6) k/uL RBC (3.80-5.40) m/uL Hgb (11.4-16.0) gm/dL Hct (34.0-46.0) % MCV (80.0-100.0) fL MCH (25.0-35.0) pg MCHC (31.0-37.0) g/dL RDW (11.5-15.5) % Plt Count (150-450) k/uL MPV Neutrophils % % Lymphocytes % % Monocytes % % Eosinophils % % Basophils % % Neutrophils # (1.3-7.7) k/uL Lymphocytes # (1.0-4.8) k/uL Monocytes # (0-1.0) k/uL Eosinophils # (0-0.7) k/uL Basophils # (0-0.2) k/uL Hypochromasia PT (9.0-12.0) sec INR (<1.2) APTT (22.0-30.0) sec Sodium 148 H (137-145) mmol/L Potassium 3.7 (3.5-5.1) mmol/L Chloride 114 H (98-107) mmol/L Carbon Dioxide 30 (22-30) mmol/L Anion Gap 4 mmol/L BUN 20 H (7-17) mg/dL Creatinine 0.71 (0.52-1.04) mg/dL Est GFR (CKD-EPI)AfAm >90 (>60 ml/min/1.73 sqM) Est GFR (CKD-EPI)NonAf >90 (>60 ml/min/1.73 sqM) Glucose 185 H (74-99) mg/dL POC Glucose (mg/dL) 158 H (70-110) mg/dL POC Glu Product Development Worker ID Carolann Burciaga Plasma Lactic Acid Philip (0.7-2.0) mmol/L Calcium 8.8 (8.4-10.2) mg/dL Total Bilirubin 0.2 (0.2-1.3) mg/dL AST 24 (14-36) U/L ALT 49 H (4-34) U/L Alkaline Phosphatase 90 (38-126) U/L Troponin I <0.012 (0.000-0.034) ng/mL NT-Pro-B Natriuret Pep pg/mL Total Protein 5.9 L (6.3-8.2) g/dL Albumin 3.0 L (3.5-5.0) g/dL Serum Alcohol <10 mg/dL 08/18/22 Range/Units 04:00 WBC (3.8-10.6) k/uL RBC (3.80-5.40) m/uL Hgb (11.4-16.0) gm/dL Hct (34.0-46.0) % MCV (80.0-100.0) fL MCH (25.0-35.0) pg MCHC (31.0-37.0) g/dL RDW (11.5-15.5) % Plt Count (150-450) k/uL MPV Neutrophils % % Lymphocytes % % Monocytes % % Eosinophils % % Basophils % % Neutrophils # (1.3-7.7) k/uL Lymphocytes # (1.0-4.8) k/uL Monocytes # (0-1.0) k/uL Eosinophils # (0-0.7) k/uL Basophils # (0-0.2) k/uL Hypochromasia PT (9.0-12.0) sec INR (<1.2) APTT (22.0-30.0) sec Sodium (137-145) mmol/L Potassium (3.5-5.1) mmol/L Chloride (98-107) mmol/L Carbon Dioxide (22-30) mmol/L Anion Gap mmol/L BUN (7-17) mg/dL Creatinine (0.52-1.04) mg/dL Est GFR (CKD-EPI)AfAm (>60 ml/min/1.73 sqM) Est GFR (CKD-EPI)NonAf (>60 ml/min/1.73 sqM) Glucose (74-99) mg/dL POC Glucose (mg/dL) (70-110) mg/dL POC Glu Product Development Worker ID Plasma Lactic Acid Phiilp (0.7-2.0) mmol/L Calcium (8.4-10.2) mg/dL Total Bilirubin (0.2-1.3) mg/dL AST (14-36) U/L ALT (4-34) U/L Alkaline Phosphatase (38-126) U/L Troponin I (0.000-0.034) ng/mL NT-Pro-B Natriuret Pep 79 pg/mL Total Protein (6.3-8.2) g/dL Albumin (3.5-5.0) g/dL Serum Alcohol mg/dL - EKG Data -: EKG Interpreted by Sc EKG shows normal: sinus rhythm, axis (Normal), intervals (There is moderate intraventricular conduction delay) Rate: bradycardia (Rate 56 bpm) Disposition Clinical Impression: Pneumonia, Altered mental status Disposition: ADMITTED IP TO THIS [facility] Condition: Fair
--- NOTE | 2022-08-18 07:27 | CT ---
EXAMINATION TYPE: CT brain wo con CT DLP: 1272 mGycm, Automated exposure control for dose reduction was used. DATE OF EXAM: 08/18/2022 4:11 AM COMPARISON: None. CLINICAL INDICATION:Female, 61 years old with history of altered mental status, TECHNIQUE: Brain: Axial CT images of the brain were obtained with coronal and sagittal reformats created and rev iewed. Contrast used: None. Oral contrast used: None. FINDINGS: Brain: Extra-axial spaces: No abnormal extra-axial fluid collections. Ventricular system: Dilation of ventricles including the lateral ventricles and third ventricle. Cerebral parenchyma: No acute intraparenchymal hemorrhage or mass effect. The martinez-white junction is well differentiated. Cerebellum: Unremarkable. Mass effect: No evidence of midline shift. Intracranial vasculature: unremarkable Soft tissues: Normal. Calvarium/osseous structures: No depressed skull fracture. Paranasal sinuses and mastoid air cells: Moderate scattered paranasal sinus disease. Visualized orbits: Orbital contents are intact. IMPRESSION: 1. Dilation of the ventricles, correlate for hydrocephalus. No priors are available to evaluate for chronicity. Consider comparison with priors at outside institutions. 2. Moderate paranasal sinus disease.
--- NOTE | 2022-08-18 07:37 | XR ---
EXAMINATION TYPE: XR chest 1V portable DATE OF EXAM: 08/18/2022 4:38 AM COMPARISON: Chest radiographs from 07/25/2021 TECHNIQUE: XR chest 1V portable Frontal view of the chest. CLINICAL INDICATION:Female, 61 years old with history of altered mental status; FINDINGS: Lungs/Pleura: Similar multifocal airspace opacities. No evidence of pneumothorax or pleural effusion. Pulmonary vascularity: Unremarkable. Heart/mediastinum: Cardiomediastinal silhouette is unremarkable. Musculoskeletal: No acute osseous pathology. IMPRESSION: Similar multifocal airspace opacities.
[2022-08-18] MEDS ORDERED: AZITHROMYCIN 500 MG TAB PO STA (08:01)
[2022-08-18] MEDS ORDERED: PNEUMONIA PROTOCOL UTILIZED 1 EACH MISC PO PRN (08:21)
[2022-08-18] MEDS ORDERED: ALBUTEROL NEBULIZED 2.5 MG/3 ML INHALATION PRN ×2 (08:21→12:58)
[2022-08-18] MEDS ORDERED: predniSONE 20 MG TAB PO STA (08:46)
[2022-08-18] MEDS: IPRATROPIUM-ALBUTEROL 3 ML NEB INHALATION SCH ×3 (11:33→21:56)
[2022-08-18] MEDS ORDERED: NA PHOS,M-B/NA PHOS,DI-BA 133 ML ENEMA RECTAL PRN (12:58)
[2022-08-18] MEDS ORDERED: bisacodyL 10 MG SUPP RECTAL PRN (12:58)
[2022-08-18 13:05] LABS: Appearance,Urine Clear (Clear); Bilirubin,Urine Negative (Negative); Blood,Urine Small (Negative); Color,Urine Yellow; Glucose,Urine (UA) Negative (Negative); Ketones,Urine Negative (Negative); Leukocyte Esterase,Urine Negative (Negative); Mucus,Urine Rare /hpf; Nitrite,Urine Negative (Negative); PH, Urine 6.5 (5.0-8.0); Protein,Urine Negative (Negative); RBC,Urine 28 /hpf (0-5); Specific Gravity,Urine 1.017 (1.001-1.035); Squamous Epithelial Cell,Urine <1 /hpf (0-4); WBC,Urine 1 /hpf (0-5)
[2022-08-18 13:26] LABS: Amphetamine Screen,Urine Not Detected (NotDetected); Barbiturate Screen,Urine Not Detected (NotDetected); Benzodiazepines Screen,Urine Not Detected (NotDetected); Cocaine Screen,Urine Not Detected (NotDetected); Methadone Screen, Urine Not Detected (NotDetected); Opiate Screen,Urine Detected (NotDetected); Oxycodone Screen, Urine Not Detected (NotDetected); Phencyclidine Screen,Urine Not Detected (NotDetected); Tricyclic Antidepressant,Urine Not Detected (NotDetected); Urn Cannabinoid Scrn Not Detected (NotDetected)
[2022-08-18] MEDS: haloperidoL 5 MG TAB PO SCH ×2 (14:40→20:43)
[2022-08-18] MEDS: clonazePAM 1 MG TAB PO SCH ×2 (14:40→22:41)
[2022-08-18] MEDS: BACLOFEN 10 MG TAB PO SCH ×2 (14:40→20:43)
[2022-08-18] MEDS ORDERED: carvediloL 3.125 MG TAB PO SCH (20:00)
[2022-08-18] MEDS: ESCITALOPRAM 20 MG TAB PO SCH (20:43)
[2022-08-18] MEDS: cloZAPine 100 MG TAB PO SCH (20:43)
[2022-08-18] MEDS: PRAVASTATIN SODIUM 20 MG TAB PO SCH (20:44)
[2022-08-18] MEDS: MONTELUKAST 10 MG TAB PO SCH (20:44)
[2022-08-18] MEDS: TOPIRAMATE 100 MG TAB PO SCH (20:44)
[2022-08-18] MEDS ORDERED: METOPROLOL TARTRATE 25 MG TAB PO SCH (21:00)
[2022-08-18] MEDS: BUDESONIDE 0.5 MG/2 ML NEBU INHALATION SCH (21:56)
[2022-08-19] MEDS: ASPIRIN 81 MG PO SCH (06:21)
[2022-08-19] MEDS: FAMOTIDINE 20 MG TAB PO SCH (06:22)
[2022-08-19] MEDS: METOPROLOL SUCCINATE (ER) 25 MG TAB.ER.24H PO SCH (06:22)
[2022-08-19] MEDS: ESCITALOPRAM 20 MG TAB PO SCH ×2 (06:22→21:10)
[2022-08-19] MEDS: haloperidoL 5 MG TAB PO SCH ×3 (06:22→21:10)
[2022-08-19] MEDS: cloZAPine 25 MG TAB PO SCH ×2 (06:22→12:02)
[2022-08-19] MEDS: TOPIRAMATE 100 MG TAB PO SCH ×2 (06:22→21:10)
[2022-08-19] MEDS: clonazePAM 1 MG TAB PO SCH ×3 (06:23→22:46)
[2022-08-19] MEDS ORDERED: METOPROLOL SUCCINATE (ER) 25 MG TAB.ER.24H PO SCH (07:00)
--- NOTE | 2022-08-19 07:38 | XR ---
EXAMINATION TYPE: XR chest 1V portable DATE OF EXAM: 08/19/2022 6:50 AM COMPARISON: Chest radiograph from one day prior. TECHNIQUE: XR chest 1V portable Frontal view of the chest. CLINICAL INDICATION:Female, 61 years old with history of pneumonia; FINDINGS: Lungs/Pleura: Low lung volumes, Similar multifocal airspace opacities. No evidence of pneumothorax or pleural effusion. Pulmonary vascularity: Unremarkable. Heart/mediastinum: Cardiomediastinal silhouette is enlarged and partially obscured due to overlying a nd adjacent opacities. Musculoskeletal: Degenerative changes of the shoulder joints. IMPRESSION: Similar multifocal airspace opacities.
[2022-08-19] MEDS: BUDESONIDE 0.5 MG/2 ML NEBU INHALATION SCH ×2 (07:50→21:29)
[2022-08-19] MEDS: IPRATROPIUM-ALBUTEROL 3 ML NEB INHALATION SCH ×4 (07:50→21:29)
[2022-08-19] MEDS: AZITHROMYCIN 500 MG TAB PO SCH (07:56)
[2022-08-19] MEDS: methylPREDNISolone SOD SUCCI 40 MG/ML 1 ML VIAL IV SCH ×2 (08:02→15:47)
--- NOTE | 2022-08-19 09:00 | HP ---
HISTORY AND PHYSICAL HISTORY OF PRESENT ILLNESS: A 61-year-old white female, came in from a [facility] for altered mental status, . She was sent to the emergency room. She was found to have pneumonia, respiratory failure, and she was admitted due to shortness of breath, tachycardia, tachypnea, progressed in severity. MEDICINES: 1. Lexapro 20 b.i.d. 2. Motrin 600 q.6. 3. Ketoconazole 2% shampoo. 4. Singulair 10 mg daily. 5. Pravachol 20 mg daily. 6. Flomax 0.4 mg daily. 7. Coreg 3.125 b.i.d. 8. Desyrel 50 mg daily. 9. Aspirin 81 daily. 10.Requip 4 mg at night. 11.Pepcid 20 b.i.d. 12.Loratadine 10 mg daily. 13.Klonopin 1 mg b.i.d. 14.Prednisone 20 daily. ALLERGIES: See above. REVIEW OF SYSTEMS: 14-point review of systems unobtainable because of patient's mental disorder and learning disorder. PAST MEDICAL HISTORY: She wears oxygen at night. No seizures for 10 years. She has COPD, CVA, GERD, osteoarthritis, seizure disorder, orthopedic surgery, anxiety, paranoid schizophrenia. FAMILY HISTORY: Please see history. PHYSICAL EXAMINATION: VITAL SIGNS: Temp 98.2, respiratory rate 18 to 20, pulse 98 to 100. CARDIOVASCULAR: S1, S2. LUNGS: Clear. GI: Soft. HEMATOLOGY: Negative Homans. LUNGS: Scattered rhonchi and wheeze x4. CARDIOVASCULAR: S1, S2. HEENT: Ophthalmologic, pupils equal, round, reactive. EKG, sinus rhythm. ASSESSMENT: Community-acquired pneumonia, acute hypoxemic respiratory distress, schizophrenia, oxygen-dependent asthma, chronic obstructive pulmonary disease. Please see further orders. IV antibiotics and steroids were given. given. Prognosis guarded. MMODL / IJN: [id number] /
[2022-08-19] MEDS: BACLOFEN 10 MG TAB PO SCH ×2 (15:47→21:09)
--- NOTE | 2022-08-19 20:53 | P.CONS ---
History of Present Illness - Reason for Consult Consult date: 08/19/22 Community acquired pneumonia Requesting physician: Louis Hoffmann - Chief Complaint Mental status changes x one day - History of Present Illness Patient is a 61-year old female with a past medical history significant for COPD CVA TIA reflux seizure disorder [facility] resident patient has been sent to the ER for evaluation of mental status changes patient was slightly somnolent patient on presentation to the hospital was afebrile and no fever have been called subsequently patient did not have any significant hypoxemia need for supplemental oxygen did have a normal white count creatinine was normal did have a negative UA urine testing was positive for opiates COVID testing was negative patient did have a CT of the brain that was negative for any bleed chest x-ray had multifocal airspace opacity concerning for pneumonia patient has been admitted to hospital patient was started on Rocephin and Zithromax infectious disease was consulted for further management of antibiotic therapy, patient not a very good historian has been complaining of some shortn ess of breath did have a mild cough not bringing up any sputum denies any nausea vomiting no choking on the food no abdominal pain no diarrhea Review of Systems Positive point and negatives has been mentioned in the HPI, complete review of systems was performed and all other systems are negative Past Medical History Past Medical History: COPD, CVA/TIA, GERD/Reflux, Osteoarthritis (OA), Seizure Disorder Additional Past Medical History / Comment(s): Wears oxygen at night, no seizures for 10 years, bedrest can't bare weight anymore, cervical stenosis, CVA, Coma. 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 Past Anesthesia/Blood Transfusion Reactions: No Reported Reaction Past Psychological History: Anxiety, Schizophrenia Additional Psychological History / Comment(s): Paranoid schizophrenia Smoking Status: Former smoker Past Alcohol Use History: None Reported Past Drug Use History: None Reported - Past Family History Father Family Medical History: Unable to Obtain Mother Family Medical History: Unable to Obtain Medications and Allergies Home Medications Medication Instructions Recorded Confirmed Type EPINEPHrine [Epipen 2-Molina] 0.3 mg IM ONCE PRN 09/09/18 08/18/22 History Escitalopram [Lexapro] 20 mg PO BID@0700,199909/09/18 08/18/22 History Ketoconazole 2% Shampoo [Nizoral] 1 applic TOPICAL MOWEFR 09/09/18 08/18/22 History Montelukast [Singulair] 10 mg PO HS@199909/09/18 08/18/22 History Pravastatin Sodium [Pravachol] 20 mg PO HS@199909/09/18 08/18/22 History haloperidoL [Haldol] 5 mg PO TID@0700,1400,199909/09/18 08/18/22 History metroNIDAZOLE [metroNIDAZOLE 0.75% 1 applic TOPICAL BID 09/09/18 08/18/22 History Gel] Aspirin EC [Ecotrin Low Dose] 81 mg PO DAILY@69901/23/19 08/18/22 History Baclofen [Lioresal] 15 mg PO DAILY@69901/23/19 08/18/22 History Topiramate [Topamax] 100 mg PO BID@07,199901/23/19 08/18/22 History Albuterol Nebulized [Ventolin 2.5 mg INHALATION RT-Q6H PRN 07/19/21 08/18/22 History Nebulized] Baclofen [Lioresal] 10 mg PO BID@1400,199907/19/21 08/18/22 History Famotidine [Pepcid] 20 mg PO DAILY@69907/19/21 08/18/22 History clonazePAM [KlonoPIN] 1 mg PO TID@0730,1530,2330 07/19/21 08/18/22 History Albuterol Inhaler [Ventolin Hfa 2 puff INHALATION RT-Q6H PRN 08/18/22 08/18/22 History Inhaler] Budesonide 0.5 mg INHALATION RT-BID 08/18/22 08/18/22 History Ergocalciferol [Vitamin D2 (1250 1,250 mcg PO FR@69908/18/22 08/18/22 History Mcg = 70779 Iu)] Levofloxacin [Levaquin] 750 mg PO DAILY@69908/18/22 08/18/22 History Magnesium Hydroxide [Milk of 2,400 mg PO DAILY PRN 08/18/22 08/18/22 History Magnesia] Metoprolol Succinate (ER) [Toprol 25 mg PO DAILY@69908/18/22 08/18/22 History Xl] Na Phos,M-B/Na Phos,Di-Ba [Fleet 133 ml RECTAL DAILY PRN 08/18/22 08/18/22 History Adult] Nystatin 1 applic TOPICAL QID 08/18/22 08/18/22 History Nystatin [Nystatin Oral Susp] 500,000 unit PO QID 08/18/22 08/18/22 History bisacodyL [Dulcolax] 10 mg RECTAL DAILY PRN 08/18/22 08/18/22 History cloZAPine [Clozaril] 25 mg PO BID@0700,1200 08/18/22 08/18/22 History cloZAPine [Clozaril] 150 mg PO HS@2000 08/18/22 08/18/22 History polyethylene glycoL 3350 [Miralax] 17 gm PO DAILY@0600 08/18/22 08/18/22 History predniSONE See Taper PO DAILY@0700 08/18/22 08/18/22 History Allergies Allergy/AdvReac Type Severity Reaction Status Date / Time bee venom protein (honey bee) Allergy Unknown Verified 08/18/22 10:51 latex Allergy Unknown Verified 08/18/22 10:51 Penicillins Allergy Unknown Verified 08/18/22 10:51 sulfamethoxazole Allergy Unknown Verified 08/18/22 10:51 [From Bactrim] Tetanus Vaccines and Toxoid Allergy Unknown Verified 08/18/22 10:51 trimethoprim [From Bactrim] Allergy Unknown Verified 08/18/22 10:51 Physical Exam Vitals: Vital Signs Temp Pulse Pulse Resp BP Pulse Ox 08/19/22 13:44 98.6 F 70 18 98/60 92 L 08/19/22 11:31 70 08/19/22 11:28 95 08/19/22 11:22 68 08/19/22 08:03 64 08/19/22 07:53 60 98 08/19/22 07:13 98.2 F 59 L 16 105/67 92 L 08/19/22 02:00 98.4 F 57 L 16 112/73 98 08/18/22 22:09 60 08/18/22 21:58 58 L 08/18/22 19:51 98.7 F 59 L 16 112/72 95 08/18/22 15:49 72 Intake and Output 08/18/22 08/19/22 08/19/22 22:59 06:59 14:59 Output Total 550 650 Balance -550 -650 Output: Urine 550 650 Other: Voiding Method External Catheter External Catheter GENERAL DESCRIPTION: Middle-aged female lying in bed, no distress. No tachypnea or accessory muscle of respiration use. HEENT: Shows Pallor , no scleral icterus. Oral mucous membrane is dry. NECK: Trachea central, no thyromegaly. LUNGS: Unlabored breathing. Decreased breath sound at the base. HEART: S1, S2, regular rate and rhythm. No loud murmur ABDOMEN: Soft, no tenderness , guarding or rigidity, no organomegaly EXTREMITIES: No edema of feet. SKIN: No rash, no masses palpable. NEUROLOGICAL: The patient is awake, alert, oriented x3, mood and affect normal. Results CBC & Chem 7: 08/20/22 05:31 08/20/22 05:31 Assessment and Plan (1) Pneumonia Current Visit: Yes Status: Acute Code(s): J18.9 - PNEUMONIA, UNSPECIFIED ORGANISM SNOMED Code(s): 151648424 Plan: 1patient presented to hospital with mental status changes in this patient with evidence of multifocal pneumonia on the chest x-ray possible community-acquired patient did tested negative for COVID-19 2-we will check a CRP procalcitonin and try to obtain sputum for Gram stain and culture 3-continue with Rocephin and Zithromax We will follow on clinical condition and cultures to further adjust medication if needed Thank you for this consultation we will follow the patient along with you Time with Patient: Greater than 30
[2022-08-19] MEDS: cloZAPine 100 MG TAB PO SCH (21:09)
[2022-08-19] MEDS: MONTELUKAST 10 MG TAB PO SCH (21:10)
[2022-08-19] MEDS: PRAVASTATIN SODIUM 20 MG TAB PO SCH (21:10)
--- NOTE | 2022-08-19 22:07 | PN ---
PROGRESS NOTE SUBJECTIVE: This is a 61-year-old white female with community-acquired pneumonia, admitted for altered mental status. For pneumonia., she was started on IV antibiotics, steroids. We are going to get a CAT scan of her lungs tonight. Try to wean her down on the oxygen and possibly send her home tomorrow. States she is getting better. OBJECTIVE: CARDIOVASCULAR: S1, S2. LUNGS: Scattered rhonchi and wheeze. HEMATOLOGY: Negative for Homans. PSYCH: Fair mood and affect. ASSESSMENT: Community-acquired pneumonia, schizophrenia, learning disorder. Please see further orders. Continue Rocephin azithromycin. Possible discharge home tomorrow. Check CAT scan. MMODL / IJN: [id number] /
[2022-08-20] MEDS: methylPREDNISolone SOD SUCCI 40 MG/ML 1 ML VIAL IV SCH ×4 (00:14→22:59)
[2022-08-20] MEDS: haloperidoL 5 MG TAB PO SCH ×3 (06:05→20:16)
[2022-08-20] MEDS: TOPIRAMATE 100 MG TAB PO SCH ×2 (06:05→20:15)
[2022-08-20] MEDS: FAMOTIDINE 20 MG TAB PO SCH (06:05)
[2022-08-20] MEDS: ESCITALOPRAM 20 MG TAB PO SCH ×2 (06:05→20:15)
[2022-08-20] MEDS: cloZAPine 25 MG TAB PO SCH ×2 (06:05→12:35)
[2022-08-20] MEDS: METOPROLOL SUCCINATE (ER) 25 MG TAB.ER.24H PO SCH (06:05)
[2022-08-20] MEDS: ASPIRIN 81 MG PO SCH (06:05)
[2022-08-20] MEDS: clonazePAM 1 MG TAB PO SCH ×3 (06:06→22:59)
[2022-08-20] MEDS: IPRATROPIUM-ALBUTEROL 3 ML NEB INHALATION SCH ×4 (08:24→21:49)
[2022-08-20] MEDS: BUDESONIDE 0.5 MG/2 ML NEBU INHALATION SCH ×2 (08:24→21:48)
[2022-08-20] MEDS: KETOCONAZOLE 2% SHAMPOO 1 APPLIC/ML TOPICAL SCH (08:32)
[2022-08-20] MEDS: AZITHROMYCIN 500 MG TAB PO SCH (08:32)
[2022-08-20 09:00] LABS: Basophils # (A) 0.05 X 10*3/uL (0.00-0.10); Basophils % (A) 0.4 %; Eosinophils # (A) 0 X 10*3/uL (0.04-0.35); Eosinophils % (A) 0 %; HCT 42.7 % (37.2-46.3); HGB 13.6 g/dL (12.0-15.0); Immature Grans, Automated 4.6 %; Lymphocytes # (A) 1.35 X 10*3/uL (0.90-5.00); Lymphocytes % (A) 11.2 %; MCH 28.1 pg (27.0-32.0); MCHC 31.9 g/dL (32.0-37.0); MCV 88.2 fL (80.0-97.0); Mean Platelet Volume 10.9 fL (9.5-12.2); Monocytes # (A) 0.29 X 10*3/uL (0.20-1.00); Monocytes % (A) 2.4 %; NRBC Per 100 WBC 0 /100 WBCS (0.0-0.0); Neutrophils # (A) 9.79 X 10*3/uL (1.80-7.70); Neutrophils % (A) 81.4 %; Platelet Count 224 X 10*3/uL (140-440); RBC 4.84 X 10*6/uL (4.10-5.20); RDW 13.1 % (11.5-14.5); WBC 12.03 X 10*3/uL (4.50-10.00)
[2022-08-20 10:19] LABS: ALT 73 U/L (8-44); AST 37 U/L (13-35); African American GFR (CKD) 122.8 (60.0-200.0); Albumin 3.7 g/dL (3.8-4.9); Albumin/Globulin Ratio 1.28 (1.60-3.17); Alkaline Phosphatase 99 U/L (41-126); Blood Urea Nitrogen 16.1 mg/dL (9.0-27.0); C Reactive Protein <0.30 mg/dL (0.00-0.80); Calcium 9.4 mg/dL (8.7-10.3); Carbon Dioxide 21.6 mmol/L (20.0-27.5); Chloride 111 mmol/L (96-109); Globulin 2.9 g/dL (1.6-3.3); Glucose 171 mg/dL (70-110); Non-African American GFR(CKD) 105.9 (60.0-200.0); Potassium 4.3 mmol/L (3.5-5.5); Sodium 146 mmol/L (135-145); Total Protein 6.6 g/dL (6.2-8.2)
--- NOTE | 2022-08-20 10:37 | CT ---
EXAMINATION TYPE: CT chest wo con DATE OF EXAM: 08/20/2022 COMPARISON: 07/21/2021 HISTORY: pneumonia CT DLP: 529.3 mGycm, Automated exposure control for dose reduction was used. CONTRAST: Performed injected with 0 mL of Isovue 300. TECHNIQUE: Axial images were obtained at 5 mm thick sections. Reconstructed images are reviewed on [employer] computer in the coronal plane. FINDINGS: Portion of the thyroid visualized is normal. Bibasilar infiltrates are present. Some air bronchograms are noted. Correlate for atelectasis and pne umonia. There is an additional consolidation in the right upper lobe which is nonspecific. Pneumonia and atel ectasis as well as some underlying scarring could be considered. This right upper lobe area was prese nt previously. No enlarged mediastinal or hilar adenopathy is evident. The ascending aorta diameter at the level o f the main pulmonary artery is 2.7 cm. The main pulmonary artery diameter at the bifurcation is 2.7 cm. While coronary artery calcification is present. Limited CT sections are obtained through the upper abdomen. There is a 1.2 cm nodule on the right upp er adrenal gland. Gallbladder is surgically absent. IMPRESSIONS: 1. Bibasilar infiltrates. Correlate for atelectasis and pneumonia. 2. Right upper lobe infiltrate is less specific, this could be chronic. Pneumonia and atelectasis pos sible at this location as well.
--- NOTE | 2022-08-20 11:44 | P.CNPUL ---
History of Present Illness Consult date: 08/20/22 Reason for consult: dyspnea, cough Chief complaint: Shortness of breath History of present illness: Patient is a half-way resident presented to the ER with altered mental status patient was somnolent and sleepy as well however she was afebrile. Her urine drug screen was positive for opiate aware significant testing included computed tomography scan of the brain was negative for any acute intracranial process, patchy infiltrate seen consistent with pneumonia on a chest x-ray. Chest CT bilateral lower lobe infiltrate with some patchy infiltrate in the upper lobe Currently patient is on albuterol along with Rocephin and Solu-Medrol patient is mostly nonverbal and noncommunicative due to prior stroke Review of Systems ROS unobtainable: due to mental status Past Medical History Past Medical History: COPD, CVA/TIA, GERD/Reflux, Osteoarthritis (OA), Seizure Disorder Additional Past Medical History / Comment(s): Wears oxygen at night, no seizures for 10 years, bedrest can't bare weight anymore, cervical stenosis, CVA, Coma. 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 Past Anesthesia/Blood Transfusion Reactions: No Reported Reaction Past Psychological History: Anxiety, Schizophrenia Additional Psychological History / Comment(s): Paranoid schizophrenia Smoking Status: Former smoker Past Alcohol Use History: None Reported Past Drug Use History: None Reported - Past Family History Father Family Medical History: Unable to Obtain Mother Family Medical History: Unable to Obtain Medications and Allergies Home Medications Medication Instructions Recorded Confirmed Type EPINEPHrine [Epipen 2-Molina] 0.3 mg IM ONCE PRN 09/09/18 08/18/22 History Escitalopram [Lexapro] 20 mg PO BID@0700,199909/09/18 08/18/22 History Ketoconazole 2% Shampoo [Nizoral] 1 applic TOPICAL MOWEFR 09/09/18 08/18/22 History Montelukast [Singulair] 10 mg PO HS@199909/09/18 08/18/22 History Pravastatin Sodium [Pravachol] 20 mg PO HS@199909/09/18 08/18/22 History haloperidoL [Haldol] 5 mg PO TID@0700,1400,199909/09/18 08/18/22 History metroNIDAZOLE [metroNIDAZOLE 0.75% 1 applic TOPICAL BID 09/09/18 08/18/22 History Gel] Aspirin EC [Ecotrin Low Dose] 81 mg PO DAILY@0701/23/19 08/18/22 History Baclofen [Lioresal] 15 mg PO DAILY@0701/23/19 08/18/22 History Topiramate [Topamax] 100 mg PO BID@07,199901/23/19 08/18/22 History Albuterol Nebulized [Ventolin 2.5 mg INHALATION RT-Q6H PRN 07/19/21 08/18/22 History Nebulized] Baclofen [Lioresal] 10 mg PO BID@1400,199907/19/21 08/18/22 History Famotidine [Pepcid] 20 mg PO DAILY@0707/19/21 08/18/22 History clonazePAM [KlonoPIN] 1 mg PO TID@0730,1530,2330 07/19/21 08/18/22 History Albuterol Inhaler [Ventolin Hfa 2 puff INHALATION RT-Q6H PRN 08/18/22 08/18/22 History Inhaler] Budesonide 0.5 mg INHALATION RT-BID 08/18/22 08/18/22 History Ergocalciferol [Vitamin D2 (1250 1,250 mcg PO FR@69908/18/22 08/18/22 History Mcg = 36288 Iu)] Levofloxacin [Levaquin] 750 mg PO DAILY@0708/18/22 08/18/22 History Magnesium Hydroxide [Milk of 2,400 mg PO DAILY PRN 08/18/22 08/18/22 History Magnesia] Metoprolol Succinate (ER) [Toprol 25 mg PO DAILY@0708/18/22 08/18/22 History Xl] Na Phos,M-B/Na Phos,Di-Ba [Fleet 133 ml RECTAL DAILY PRN 08/18/22 08/18/22 History Adult] Nystatin 1 applic TOPICAL QID 08/18/22 08/18/22 History Nystatin [Nystatin Oral Susp] 500,000 unit PO QID 08/18/22 08/18/22 History bisacodyL [Dulcolax] 10 mg RECTAL DAILY PRN 08/18/22 08/18/22 History cloZAPine [Clozaril] 25 mg PO BID@0700,1200 08/18/22 08/18/22 History cloZAPine [Clozaril] 150 mg PO HS@2000 08/18/22 08/18/22 History polyethylene glycoL 3350 [Miralax] 17 gm PO DAILY@0600 08/18/22 08/18/22 History predniSONE See Taper PO DAILY@0700 08/18/22 08/18/22 History Allergies Allergy/AdvReac Type Severity Reaction Status Date / Time bee venom protein (honey bee) Allergy Unknown Verified 08/18/22 10:51 latex Allergy Unknown Verified 08/18/22 10:51 Penicillins Allergy Unknown Verified 08/18/22 10:51 sulfamethoxazole Allergy Unknown Verified 08/18/22 10:51 [From Bactrim] Tetanus Vaccines and Toxoid Allergy Unknown Verified 08/18/22 10:51 trimethoprim [From Bactrim] Allergy Unknown Verified 08/18/22 10:51 Physical Exam Vitals: Vital Signs Temp Pulse Pulse Resp BP Pulse Ox FiO2 08/20/22 08:39 70 08/20/22 08:31 76 16 08/20/22 08:24 70 94 L 21 08/20/22 07:40 98.0 F 76 16 111/70 92 L 08/20/22 02:18 97.5 F L 56 L 16 97/60 95 08/19/22 21:40 64 08/19/22 21:32 60 08/19/22 20:34 98.1 F 60 16 107/67 93 L 08/19/22 16:22 70 08/19/22 16:09 74 08/19/22 13:44 98.6 F 70 18 98/60 92 L Intake and Output 08/19/22 08/20/22 08/20/22 22:59 06:59 14:59 Intake Total 50 Output Total 800 600 Balance -800 -550 Intake: Oral 50 Output: Urine 800 600 Other: Voiding Method External Catheter # Bowel Movements 1 - Constitutional General appearance: average body habitus, disheveled - EENT Eyes: PERRLA Ears: bilateral: normal - Neck Neck: normal ROM Carotids: bilateral: upstroke normal - Respiratory Respiratory: bilateral: rales, rhonchi, wheezing, prolonged expiration - Cardiovascular Rhythm: regular Heart sounds: normal: S1, S2 - Gastrointestinal General gastrointestinal: decreased bowel sounds, soft - Musculoskeletal Musculoskeletal: generalized weakness Results - Laboratory Findings CBC and BMP: 08/20/22 05:31 08/20/22 05:31 PT/INR, D-dimer PT 9.5 sec (9.0-12.0) 08/18/22 03:00 INR 0.9 (<1.2) 08/18/22 03:00 Abnormal lab findings: Abnormal Labs 08/18/22 08/18/22 08/18/22 03:00 03:00 03:44 WBC MCHC Immature Gran # Neutrophils # Eosinophils # APTT 20.2 L Sodium 148 H Chloride 114 H BUN 20 H Creatinine BUN/Creatinine Ratio Glucose 185 H POC Glucose (mg/dL) 158 H AST ALT 49 H Total Protein 5.9 L Albumin 3.0 L Albumin/Globulin Ratio Urine Blood Urine RBC Urine Mucus Urine Opiates Screen 08/18/22 08/20/22 08/20/22 12:20 05:31 05:31 WBC 12.03 H MCHC 31.9 L Immature Gran # 0.55 H Neutrophils # 9.79 H Eosinophils # 0 L APTT Sodium 146 H Chloride 111 H BUN Creatinine 0.5 L BUN/Creatinine Ratio 32.20 H Glucose 171 H POC Glucose (mg/dL) AST 37 H ALT 73 H Total Protein Albumin 3.7 L Albumin/Globulin Ratio 1.28 L Urine Blood Small H Urine RBC 28 H Urine Mucus Rare H Urine Opiates Screen Detected H - Diagnostic Findings Chest x-ray: report reviewed, image reviewed CT scan - chest: report reviewed, image reviewed (Finding as noted above) Assessment and Plan Assessment: Altered mental status metabolic likely related to pneumonia Pneumonia, likely community-acquired Prior history of CVA Prior history of seizure disorder Plan: Continue broad-spectrum antibiotics with Rocephin and Zithromax Supplemental oxygen as needed Deep breathing exercise incentive spirometry Further plan of care as per clinical response of patient IV steroids can be tapered and DC in next 24-48 hours Time with Patient: Greater than 30
--- NOTE | 2022-08-20 11:44 | P.PN ---
Subjective Progress Note Date: 08/20/22 Principal diagnosis: Pneumonia Patient is a 61-year old female with a past medical history significant for COPD CVA TIA reflux seizure disorder [facility] resident suhas shaw has been sent to the ER for evaluation of mental status changes , patient did have evidence of airspace disease and a chest x-ray concerning for pneumonia patient did have a CT of the chest we did shows bibasilar infiltrate suggestive of pneumonia. On today's evaluation that is 08/20/2022, the patient denies having any fever or any chills patient is breathing slightly comfortably she did have a cough not bringing up any sputum no nausea no vomiting no abdominal pain or diarrhea Objective - Vital Signs Vital signs: Vital Signs Temp 98.0 F 08/20/22 07:40 Pulse 70 08/20/22 08:39 Resp 16 08/20/22 08:31 BP 111/70 08/20/22 07:40 Pulse Ox 94 L 08/20/22 08:24 FiO2 21 08/20/22 08:24 Intake & Output 08/19/22 08/20/22 08/20/22 18:59 06:59 18:59 Intake Total 50 Output Total 800 600 Balance -800 -550 Intake: Oral 50 Output: Urine 800 600 Other: Voiding Method External Catheter External Catheter # Bowel Movements 1 - Exam GENERAL DESCRIPTION: Middle-age female lying in bed in no distress RESPIRATORY SYSTEM: Unlabored breathing , decreased breath sounds at bases HEART: S1 S2 regular rate and rhythm , ABDOMEN: Soft , no tenderness EXTREMITIES: No edema feet - Labs CBC & Chem 7: 08/20/22 05:31 08/20/22 05:31 Labs: Abnormal Lab Results - Last 24 Hours (Table) 08/20/22 08/20/22 Range/Units 05:31 05:31 WBC 12.03 H (4.50-10.00) X 10*3/uL MCHC 31.9 L (32.0-37.0) g/dL Immature Gran # 0.55 H (0.00-0.04) X 10*3/uL Neutrophils # 9.79 H (1.80-7.70) X 10*3/uL Eosinophils # 0 L (0.04-0.35) X 10*3/uL Sodium 146 H (135-145) mmol/L Chloride 111 H (96-109) mmol/L Creatinine 0.5 L (0.6-1.5) mg/dL BUN/Creatinine Ratio 32.20 H (12.00-20.00) Ratio Glucose 171 H (70-110) mg/dL AST 37 H (13-35) U/L ALT 73 H (8-44) U/L Albumin 3.7 L (3.8-4.9) g/dL Albumin/Globulin Ratio 1.28 L (1.60-3.17) g/dL Microbiology - Last 24 Hours (Table) 08/18/22 10:53 Blood Culture - Preliminary Blood 08/18/22 10:51 Blood Culture - Preliminary Blood Assessment and Plan (1) Pneumonia Current Visit: Yes Status: Acute Code(s): J18.9 - PNEUMONIA, UNSPECIFIED ORGANISM SNOMED Code(s): 018855422 Plan: 1patient presented to hospital with mental status changes in this patient with evidence of multifocal pneumonia on the chest x-ray possible community-acquired patient did tested negative for COVID-19 2-patient seemed to have some clinical improvement and with Rocephin and Zithromax, monitor clinical course closely Time with Patient: Less than 30
[2022-08-20 14:58] VITALS: BMI 25.6
[2022-08-20] MEDS: BACLOFEN 10 MG TAB PO SCH ×2 (15:23→20:15)
[2022-08-20] MEDS: cloZAPine 100 MG TAB PO SCH (20:15)
[2022-08-20] MEDS: PRAVASTATIN SODIUM 20 MG TAB PO SCH (20:15)
[2022-08-20] MEDS: MONTELUKAST 10 MG TAB PO SCH (20:15)
--- NOTE | 2022-08-21 05:53 | PN ---
PROGRESS NOTE SUBJECTIVE: This is a 61-year-old white female with pneumonia. shows bilateral pneumonia continues on broad-spectrum antibiotics, seen by pulmonology. OBJECTIVE: VITAL SIGNS: Saturating at 93 on room air, temp 97.1, pulse 67, and respiratory rate 16 to 18. CARDIOVASCULAR: S1, S2. LUNGS: Scattered rhonchi and wheeze. HEMATOLOGY: Negative for Homans. PSYCH: Fair mood and affect. ASSESSMENT: Bilateral pneumonia, acute hypoxemic respiratory distress, broad-spectrum antibiotics. Updraft treatments. Prognosis guarded from 24 to 48 hours. Wait for Pulmonary and Infectious Disease recommendations. MMODL / IJN: [id number] /
[2022-08-21] MEDS: ESCITALOPRAM 20 MG TAB PO SCH ×2 (06:45→19:42)
[2022-08-21] MEDS: haloperidoL 5 MG TAB PO SCH ×3 (06:45→20:30)
[2022-08-21] MEDS: FAMOTIDINE 20 MG TAB PO SCH (06:45)
[2022-08-21] MEDS: METOPROLOL SUCCINATE (ER) 25 MG TAB.ER.24H PO SCH (06:45)
[2022-08-21] MEDS: clonazePAM 1 MG TAB PO SCH ×3 (06:45→23:27)
[2022-08-21] MEDS: ASPIRIN 81 MG PO SCH (06:45)
[2022-08-21] MEDS: TOPIRAMATE 100 MG TAB PO SCH ×2 (06:45→19:42)
[2022-08-21] MEDS: cloZAPine 25 MG TAB PO SCH ×2 (06:45→11:27)
[2022-08-21] MEDS: IPRATROPIUM-ALBUTEROL 3 ML NEB INHALATION SCH ×4 (07:38→20:37)
[2022-08-21] MEDS: BUDESONIDE 0.5 MG/2 ML NEBU INHALATION SCH ×2 (07:38→20:37)
[2022-08-21] MEDS: methylPREDNISolone SOD SUCCI 40 MG/ML 1 ML VIAL IV SCH ×3 (08:01→23:27)
--- NOTE | 2022-08-21 11:31 | P.PN ---
Subjective Progress Note Date: 08/21/22 Principal diagnosis: Pneumonia Patient is a 61-year old female with a past medical history significant for COPD CVA TIA reflux seizure disorder [facility] resident suhas colin has been sent to the ER for evaluation of mental status changes , patient did have evidence of airspace disease and a chest x-ray concerning for pneumonia patient did have a CT of the chest we did shows bibasilar infiltrate suggestive of pneumonia. On today's evaluation that is 08/21/2022, the patient remains to be afebrile, patient is breathing slightly comfortably and is currently on room air, she did have a cough but unable to bring up any sputum, no nausea no vomiting no abdominal pain or diarrhea Objective - Vital Signs Vital signs: Vital Signs Temp 98.4 F 08/21/22 06:47 Pulse 64 08/21/22 07:51 Resp 16 08/21/22 06:47 BP 116/78 08/21/22 06:47 Pulse Ox 92 L 08/21/22 07:38 FiO2 21 08/20/22 08:24 Intake & Output 08/20/22 08/21/22 08/21/22 18:59 06:59 18:59 Output Total 400 Balance -400 Weight 63.503 kg Output: Urine 400 Other: Voiding Method External Catheter External Catheter External Catheter - Exam GENERAL DESCRIPTION: Middle-age female lying in bed in no distress RESPIRATORY SYSTEM: Unlabored breathing , decreased breath sounds at bases HEART: S1 S2 regular rate and rhythm , ABDOMEN: Soft , no tenderness EXTREMITIES: No edema feet - Labs CBC & Chem 7: 08/20/22 05:31 08/20/22 05:31 Labs: Microbiology - Last 24 Hours (Table) 08/18/22 10:53 Blood Culture - Preliminary Blood 08/18/22 10:51 Blood Culture - Preliminary Blood Assessment and Plan (1) Pneumonia Current Visit: Yes Status: Acute Code(s): J18.9 - PNEUMONIA, UNSPECIFIED ORGANISM SNOMED Code(s): 020464371 Plan: 1patient presented to hospital with mental status changes in this patient with evidence of multifocal pneumonia on the chest x-ray possible community-acquired patient did tested negative for COVID-19 2-patient slowly clinically improving to continue with Rocephin and Zithromax, try to be in his sputum, monitor clinical course closely Time with Patient: Less than 30
--- NOTE | 2022-08-21 13:29 | CDI ---
Documentation Clarification Form Date: 08/21/2022 1:09:30 PM From: Nighat Grant Phone: [phone] Admit Date: 08/18/2022 8:21:00 AM Patient Name: Vilma Armstrong Visit Number: [id number] Discharge Date: ATTENTION: The Clinical Documentation Specialists (CDI) and [facility] Coding Staff appreciate your assistance in clarifying documentation. Please respond to the clarification below the line at the bottom and electronically sign. The CDI & [facility] Coding staff will review the response and follow-up if needed. Please note: Queries are made part of the Legal Health Record. If you have any questions, please contact the author of this message via ITS. Dr. Louis Hoffmann Your patient has the documented symptom of Altered Mental Status 08/19, H&P. Additional clarification regarding the etiology/cause of this symptom is requested. History/Risk Factors: 61 year old female presents to the ED for evaluation of altered mental status. She was very somnolent. Patient has been coughing and having shortness of breath. Medical History: COPD, Anxiety, Paranoid schizophrenia, COPD, CVA/TIA, GERD, OA and Seizure disorder. 08/18, ED note. Clinical Indicators: VSS: 08/18 B/P 114/70; HR 60; Temp 98.2 F oral; RR 18; SpO2 98% 2L nasal cannula Labs: 08/18 Wbc 8.4, Na 148, chl 114, bun 20, glucose 185 X Ray, 08/18: Similar Multifocal airspace opacities. CT Brain , 08/18: Dilation of the ventricles, moderate paranasal sinus disease. H&P, 08/19: came in from a long term for altered mental status. She was found to have pneumonia and respiratory failure. Respiratory consult, 08/20: Altered mental status metabolic likely related to pneumonia Treatment: 08/18 Zithromax po x1; Ceftriaxone ivpb X1; Prednisone 40mg po x 1; 08/19 Solumedrol IV Q8H IV; 08/19 Zithromax po daily; 08/19 Ceftriaxone IVPB Q24H Please clarify the etiology of the symptom of Altered Mental Status: [ ] Metabolic Encephalopathy due to Pneumonia [ ] Other condition (please specify) [ ] Unable to determine (Template Last Revised: May 2020) MTDD
--- NOTE | 2022-08-21 14:20 | CDI ---
Documentation Clarification Form Date: 08/21/2022 1:30:23 PM From: Nighat Grant RN CCDS Phone: [phone] Admit Date: 08/18/2022 8:21:00 AM Patient Name: Vilma Armstrong Visit Number: [id number] Discharge Date: ATTENTION: The Clinical Documentation Specialists (CDI) and [facility] Coding Staff appreciate your assistance in clarifying documentation. Please respond to the clarification below the line at the bottom and electronically sign. The CDI & [facility] Coding staff will review the response and follow-up if needed. Please note: Queries are made part of the Legal Health Record. If you have any questions, please contact the author of this message via ITS. Dr. Louis Hoffmann Conflicting documentation has been found in the medical record. As attending physician, please provide clarification. Acute Respiratory failure, 08/19, H&P Acute Hypoxic Respiratory distress, 08/19, H&P. Oxygen dependent asthma, 08/19, H&P. History/Risk Factors: 61 year old female presents to the ED for evaluation of altered mental status. She was very somnolent. Patient has been coughing and having shortness of breath. Medical History: COPD, Anxiety, Paranoid schizophrenia, COPD, CVA/TIA, GERD, OA and Seizure disorder. 08/18, ED note. Clinical Indicators: 08/19, H&P: Wears oxygen at night 08/18, CXR: Multifocal airspace opacities. 08/19, H&P Lung assessment: Scattered rhonchi and wheeze x 4. 08/20, Respiratory Consult Lung assessment: Rales, rhonchi, wheezing, prolonged expiration. 08/19 15:43: RR 18; SpO2 96% room air 08/19 20:41: RR 18; SpO2 90% room air 08/20 01:24: RR 20; SpO2 93% 2L nasal cannula through to 08/20 20:37: RR 18; SpO2 89% room air 08/20 22:10: RR 16; SpO2 100% 2L nasal cannula through to 08/21 06:48: RR 16; SpO2 95% 3L nasal cannula Treatment: nasal cannula 2L 3L nasal cannula; 08/18 Zithromax po x1; Ceftriaxone ivpb X1; Prednisone 40mg po x 1; 08/19 Solumedrol IV Q8H IV; 08/19 Zithromax po daily; 08/19 Ceftriaxone IVPB Q24H Please clarify which diagnosis is most appropriate: [ ] Acute hypoxic respiratory failure [ ] Acute hypoxic respiratory distress [ ] Chronic respiratory failure [ ] Other (please specify) [ ] Unable to determine (Template Last Revised: June 2020) MTDD
[2022-08-21] MEDS: BACLOFEN 10 MG TAB PO SCH ×2 (15:07→19:43)
[2022-08-21] MEDS: cloZAPine 100 MG TAB PO SCH (19:42)
[2022-08-21] MEDS: MONTELUKAST 10 MG TAB PO SCH (19:42)
[2022-08-21] MEDS: PRAVASTATIN SODIUM 20 MG TAB PO SCH (19:43)
--- NOTE | 2022-08-21 23:10 | PN ---
PROGRESS NOTE SUBJECTIVE: The patient was admitted with community-acquired pneumonia, Pulmonary has been seeing her. She has bilateral pneumonia, she has a cough. OBJECTIVE: VITAL SIGNS: Oxygen level is 92, blood pressure 116/78, pulse 64, respiratory rate 16, and temp 98.4. LUNGS: Has unlabored breathing. HEART: S1, S2. ABDOMEN: Soft. EXTREMITIES: No edema. ASSESSMENT: Multilobular pneumonia. Chest x-ray negative for COVID, improved with Rocephin, azithromycin. Await for sputum collection PT, OT, wear oxygen at night. MMODL / IJN: [id number] /
[2022-08-22] MEDS: cloZAPine 25 MG TAB PO SCH ×2 (06:14→13:01)
[2022-08-22] MEDS: clonazePAM 1 MG TAB PO SCH ×3 (06:14→23:36)
[2022-08-22] MEDS: TOPIRAMATE 100 MG TAB PO SCH ×2 (06:14→21:28)
[2022-08-22] MEDS: haloperidoL 5 MG TAB PO SCH ×3 (06:14→21:27)
[2022-08-22] MEDS: ESCITALOPRAM 20 MG TAB PO SCH ×2 (06:14→21:28)
[2022-08-22] MEDS: ASPIRIN 81 MG PO SCH (06:15)
[2022-08-22] MEDS: METOPROLOL SUCCINATE (ER) 25 MG TAB.ER.24H PO SCH (06:15)
[2022-08-22] MEDS: FAMOTIDINE 20 MG TAB PO SCH (06:15)
[2022-08-22 06:26] LABS: Basophils # (A) 0.1 k/uL (0-0.2); Basophils % (A) 1 %; Eosinophils % (A) 0 %; HCT 45.7 % (34.0-46.0); HGB 14.8 gm/dL (11.4-16.0); Lymphocytes # (A) 1.3 k/uL (1.0-4.8); Lymphocytes % (A) 9 %; MCH 28.5 pg (25.0-35.0); MCHC 32.5 g/dL (31.0-37.0); MCV 87.5 fL (80.0-100.0); Mean Platelet Volume 8.7; Monocytes # (A) 0.7 k/uL (0-1.0); Monocytes % (A) 5 %; Neutrophils # (A) 12.6 k/uL (1.3-7.7); Neutrophils % (A) 84 %; Platelet Count 228 k/uL (150-450); RBC 5.22 m/uL (3.80-5.40); RDW 13.5 % (11.5-15.5)
[2022-08-22] MEDS: BUDESONIDE 0.5 MG/2 ML NEBU INHALATION SCH ×2 (07:38→21:06)
[2022-08-22] MEDS: IPRATROPIUM-ALBUTEROL 3 ML NEB INHALATION SCH ×4 (07:38→21:06)
[2022-08-22 09:27] LABS: ALT 170 U/L (8-44); AST 61 U/L (13-35); African American GFR (CKD) 115.2 (60.0-200.0); Albumin 3.5 g/dL (3.8-4.9); Albumin/Globulin Ratio 1.33 (1.60-3.17); Alkaline Phosphatase 108 U/L (41-126); BUN/Creat Ratio 40.86 Ratio (12.00-20.00); Blood Urea Nitrogen 24.8 mg/dL (9.0-27.0); Calcium 9.4 mg/dL (8.7-10.3); Carbon Dioxide 23.9 mmol/L (20.0-27.5); Chloride 109 mmol/L (96-109); Globulin 2.7 g/dL (1.6-3.3); Glucose 212 mg/dL (70-110); Non-African American GFR(CKD) 99.4 (60.0-200.0); Potassium 4.5 mmol/L (3.5-5.5); Sodium 143 mmol/L (135-145); Total Bilirubin <0.15 mg/dL (0.30-1.20); Total Protein 6.2 g/dL (6.2-8.2)
[2022-08-22] MEDS: methylPREDNISolone SOD SUCCI 40 MG/ML 1 ML VIAL IV SCH ×3 (09:32→23:34)
[2022-08-22] MEDS: KETOCONAZOLE 2% SHAMPOO 1 APPLIC/ML TOPICAL SCH (13:01)
[2022-08-22] MEDS: BACLOFEN 10 MG TAB PO SCH ×2 (13:01→21:27)
--- NOTE | 2022-08-22 15:23 | P.PN ---
Subjective Progress Note Date: 08/22/22 Principal diagnosis: Pneumonia Patient is a 61-year old female with a past medical history significant for COPD CVA TIA reflux seizure disorder assisted resident suhas shaw has been sent to the ER for evaluation of mental status changes , patient did have evidence of airspace disease and a chest x-ray concerning for pneumonia patient did have a CT of the chest we did shows bibasilar infiltrate suggestive of pneumonia. On today's evaluation that is 08/22/2022, the patient continues to be afebrile, patient is breathing comfortably and remains to be on room air, she did have a cough but unable to bring up any sputum, patient was being fed by aide, mentioned no choking on food, no nausea no vomiting no abdominal pain or diarrhea Objective - Vital Signs Vital signs: Vital Signs Temp 97.5 F L 08/22/22 07:32 Pulse 60 08/22/22 11:10 Resp 16 08/22/22 11:10 BP 107/70 08/22/22 07:32 Pulse Ox 95 08/22/22 07:32 FiO2 21 08/20/22 08:24 Intake & Output 08/21/22 08/22/22 08/22/22 18:59 06:59 18:59 Intake Total 1080 Output Total 650 1375 415 Balance 430 1375 -415 Intake: Oral 1080 Output: Urine 650 1375 415 Other: Voiding Method External Catheter External Catheter External Catheter # Bowel Movements 1 - Exam GENERAL DESCRIPTION: Middle-age female lying in bed in no distress RESPIRATORY SYSTEM: Unlabored breathing , decreased breath sounds at bases HEART: S1 S2 regular rate and rhythm , ABDOMEN: Soft , no tenderness EXTREMITIES: No edema feet - Labs CBC & Chem 7: 08/22/22 05:48 08/22/22 05:48 Labs: Abnormal Lab Results - Last 24 Hours (Table) 08/22/22 08/22/22 Range/Units 05:48 05:48 WBC 15.0 H (3.8-10.6) k/uL Neutrophils # 12.6 H (1.3-7.7) k/uL BUN/Creatinine Ratio 40.86 H (12.00-20.00) Ratio Glucose 212 H (70-110) mg/dL Total Bilirubin <0.15 L (0.30-1.20) mg/dL AST 61 H (13-35) U/L ALT 170 H (8-44) U/L Albumin 3.5 L (3.8-4.9) g/dL Albumin/Globulin Ratio 1.33 L (1.60-3.17) g/dL Microbiology - Last 24 Hours (Table) 08/18/22 10:53 Blood Culture - Preliminary Blood 08/18/22 10:51 Blood Culture - Preliminary Blood Assessment and Plan (1) Pneumonia Current Visit: Yes Status: Acute Code(s): J18.9 - PNEUMONIA, UNSPECIFIED ORGANISM SNOMED Code(s): 833332697 Plan: 1patient presented to hospital with mental status changes in this patient with evidence of multifocal pneumonia on the chest x-ray possible community-acquired patient did tested negative for COVID-19 2-patient seemed to have shown some clinical improvement, patient has received doses of Rocephin and subsequently has been discontinued given short course of oral Ceftin, repeat Chest x-ray tomorrow 3-leukocytosis likely steroid effect and will recheck inflammatory markers with am labs Time with Patient: Less than 30
--- NOTE | 2022-08-22 16:15 | P.PN ---
Subjective Progress Note Date: 08/21/22 Principal diagnosis: Altered mental status metabolic likely related to pneumonia Pneumonia, likely community-acquired Prior history of CVA Prior history of seizure disorder 08/21/2022, patient more awake and alert care for present at bedside, no fever or chills are present, no nausea vomiting abdominal pain or diarrhea, no cough is present patient continued to be on therapy of multifocal pneumonia with broad-spectrum antibiotics with Rocephin and Zithromax tolerating well Patient is a jail resident presented to the ER with altered mental status patient was somnolent and sleepy as well however she was afebrile. Her urine drug screen was positive for opiate aware significant testing included computed tomography scan of the brain was negative for any acute intracranial process, patchy infiltrate seen consistent with pneumonia on a chest x-ray. Chest CT bilateral lower lobe infiltrate with some patchy infiltrate in the upper lobe Currently patient is on albuterol along with Rocephin and Solu-Medrol patient is mostly nonverbal and noncommunicative due to prior stroke Objective - Vital Signs Vital signs: Vital Signs Temp 98.4 F 08/21/22 06:47 Pulse 68 08/21/22 11:21 Resp 16 08/21/22 06:47 BP 116/78 08/21/22 06:47 Pulse Ox 92 L 08/21/22 07:38 FiO2 21 08/20/22 08:24 Intake & Output 08/20/22 08/21/22 08/21/22 18:59 06:59 18:59 Output Total 400 Balance -400 Weight 63.503 kg Output: Urine 400 Other: Voiding Method External Catheter External Catheter External Catheter - Exam - Constitutional General appearance: average body habitus, disheveled - EENT Eyes: PERRLA Ears: bilateral: normal - Neck Neck: normal ROM Carotids: bilateral: upstroke normal - Respiratory Respiratory: bilateral: rales, rhonchi, wheezing, prolonged expiration - Cardiovascular Rhythm: regular Heart sounds: normal: S1, S2 - Gastrointestinal General gastrointestinal: decreased bowel sounds, soft - Musculoskeletal Musculoskeletal: generalized weakness - Labs CBC & Chem 7: 08/22/22 05:48 08/22/22 05:48 Labs: Microbiology - Last 24 Hours (Table) 08/18/22 10:53 Blood Culture - Preliminary Blood 08/18/22 10:51 Blood Culture - Preliminary Blood Assessment and Plan Assessment: Altered mental status metabolic likely related to pneumonia Pneumonia, likely community-acquired Prior history of CVA Prior history of seizure disorder Plan: Continue broad-spectrum antibiotics with Rocephin and Zithromax Supplemental oxygen as needed Deep breathing exercise incentive spirometry Further plan of care as per clinical response of patient IV steroids can be tapered and DC in next 24-48 hours Time with Patient: Greater than 30
--- NOTE | 2022-08-22 16:18 | P.PN ---
Subjective Progress Note Date: 08/22/22 Principal diagnosis: Altered mental status metabolic likely related to pneumonia Pneumonia, likely community-acquired Prior history of CVA Prior history of seizure disorder 08/22/2022, patient seen eval examined during rounds labs reviewed medications reviewed care plan discussed, patient is awake on room air him a vitals are stable remains afebrile, hemodynamic status stable, oxygen saturation is 93-94% on 3 L on room air dropped down to 92%, labs reviewed white cell count is up to 15,000 noted a small rise in AST/ALT from 37/72 to 61/170 08/21/2022, patient more awake and alert care for present at bedside, no fever or chills are present, no nausea vomiting abdominal pain or diarrhea, no cough is present patient continued to be on therapy of multifocal pneumonia with broad-spectrum antibiotics with Rocephin and Zithromax tolerating well Patient is a [facility] resident presented to the ER with altered mental status patient was somnolent and sleepy as well however she was afebrile. Her urine drug screen was positive for opiate aware significant testing included computed tomography scan of the brain was negative for any acute intracranial process, patchy infiltrate seen consistent with pneumonia on a chest x-ray. Chest CT bilateral lower lobe infiltrate with some patchy infiltrate in the upper lobe Currently patient is on albuterol along with Rocephin and Solu-Medrol patient is mostly nonverbal and noncommunicative due to prior stroke Objective - Vital Signs Vital signs: Vital Signs Temp 97.8 F 08/22/22 14:47 Pulse 65 08/22/22 14:47 Resp 18 08/22/22 14:47 BP 108/68 08/22/22 14:47 Pulse Ox 92 L 08/22/22 14:47 FiO2 21 08/20/22 08:24 Intake & Output 08/21/22 08/22/22 08/22/22 18:59 06:59 18:59 Intake Total 1080 Output Total 650 1375 415 Balance 430 -5664 -415 Intake: Oral 1080 Output: Urine 650 1375 415 Other: Voiding Method External Catheter External Catheter External Catheter # Bowel Movements 1 - Exam - Constitutional General appearance: average body habitus, disheveled - EENT Eyes: PERRLA Ears: bilateral: normal - Neck Neck: normal ROM Carotids: bilateral: upstroke normal - Respiratory Respiratory: bilateral: rales, rhonchi, wheezing, prolonged expiration - Cardiovascular Rhythm: regular Heart sounds: normal: S1, S2 - Gastrointestinal General gastrointestinal: decreased bowel sounds, soft - Musculoskeletal Musculoskeletal: generalized weakness - Labs CBC & Chem 7: 08/22/22 05:48 08/22/22 05:48 Labs: Abnormal Lab Results - Last 24 Hours (Table) 08/22/22 08/22/22 Range/Units 05:48 05:48 WBC 15.0 H (3.8-10.6) k/uL Neutrophils # 12.6 H (1.3-7.7) k/uL BUN/Creatinine Ratio 40.86 H (12.00-20.00) Ratio Glucose 212 H (70-110) mg/dL Total Bilirubin <0.15 L (0.30-1.20) mg/dL AST 61 H (13-35) U/L ALT 170 H (8-44) U/L Albumin 3.5 L (3.8-4.9) g/dL Albumin/Globulin Ratio 1.33 L (1.60-3.17) g/dL Microbiology - Last 24 Hours (Table) 08/18/22 10:53 Blood Culture - Preliminary Blood 08/18/22 10:51 Blood Culture - Preliminary Blood Assessment and Plan Assessment: Altered mental status metabolic likely related to pneumonia Pneumonia, likely community-acquired Prior history of CVA Prior history of seizure disorder Rising LFTs we'll continue to trend Plan: Continue broad-spectrum antibiotics with Rocephin and Zithromax Supplemental oxygen as needed Deep breathing exercise incentive spirometry Further plan of care as per clinical response of patient IV steroids can be tapered and DC in next 24-48 hours Time with Patient: Greater than 30
[2022-08-22] MEDS: MONTELUKAST 10 MG TAB PO SCH (21:27)
[2022-08-22] MEDS: cloZAPine 100 MG TAB PO SCH (21:27)
[2022-08-22] MEDS: PRAVASTATIN SODIUM 20 MG TAB PO SCH (21:27)
[2022-08-22] MEDS: CEFDINIR ORAL SUSP 1,500 MG/60 ML BOTTLE PO SCH (21:28)
--- NOTE | 2022-08-23 00:08 | PN ---
PROGRESS NOTE SUBJECTIVE: This is a white female who is asking to go home. She says she is improved, she wants to go home. Discussed case with her specialist. White count is 15, hemoglobin is 14.8, glucose 212. She has altered mental status secondary to pneumonia, likely community acquired. Prior history of CVA, prior history of seizures, rising LFT, continue with azithromycin, Rocephin. Incentive spirometry. Possible discharge home in next 24 for 48 hours. MMODL / IJN: [id number] /
[2022-08-23] MEDS: cloZAPine 25 MG TAB PO SCH ×2 (05:38→12:17)
[2022-08-23] MEDS: TOPIRAMATE 100 MG TAB PO SCH (05:38)
[2022-08-23] MEDS: FAMOTIDINE 20 MG TAB PO SCH (05:38)
[2022-08-23] MEDS: ASPIRIN 81 MG PO SCH (05:38)
[2022-08-23] MEDS: METOPROLOL SUCCINATE (ER) 25 MG TAB.ER.24H PO SCH (07:46)
[2022-08-23] MEDS: haloperidoL 5 MG TAB PO SCH ×2 (07:49→13:13)
[2022-08-23] MEDS: ESCITALOPRAM 20 MG TAB PO SCH (07:50)
--- NOTE | 2022-08-23 08:47 | XR ---
EXAMINATION TYPE: XR chest 1V portable DATE OF EXAM: 08/23/2022 COMPARISON: 08/19/2022 HISTORY: Cough TECHNIQUE: Single frontal view of the chest is obtained. FINDINGS: Limited inspiration with elevated right hemidiaphragm. There is bilateral interstitial inf iltrates. No pneumothorax or pleural effusion. Surgical clips are upper quadrant. Arthropathy of the shoulders. IMPRESSION: Persistent interstitial infiltrates stable appearance to correlate for interstitial pneu monitis or atypical pneumonia.
[2022-08-23] MEDS: IPRATROPIUM-ALBUTEROL 3 ML NEB INHALATION SCH ×3 (08:49→15:40)
[2022-08-23] MEDS: BUDESONIDE 0.5 MG/2 ML NEBU INHALATION SCH (08:49)
[2022-08-23] MEDS ORDERED: predniSONE 20 MG TAB PO SCH (09:00)
[2022-08-23] MEDS: CEFDINIR ORAL SUSP 1,500 MG/60 ML BOTTLE PO SCH (09:38)
[2022-08-23] MEDS: clonazePAM 1 MG TAB PO SCH ×2 (09:38→16:27)
[2022-08-23 10:34] LABS: ALT 185 U/L (8-44); AST 42 U/L (13-35); African American GFR (CKD) 115.6 (60.0-200.0); Albumin 3.5 g/dL (3.8-4.9); Albumin/Globulin Ratio 1.25 (1.60-3.17); Alkaline Phosphatase 107 U/L (41-126); BUN/Creat Ratio 39.83 Ratio (12.00-20.00); Blood Urea Nitrogen 23.9 mg/dL (9.0-27.0); C Reactive Protein <0.30 mg/dL (0.00-0.80); Calcium 9.6 mg/dL (8.7-10.3); Carbon Dioxide 26.8 mmol/L (20.0-27.5); Chloride 105 mmol/L (96-109); Globulin 2.8 g/dL (1.6-3.3); Glucose 184 mg/dL (70-110); Non-African American GFR(CKD) 99.8 (60.0-200.0); Potassium 4.3 mmol/L (3.5-5.5); Sodium 141 mmol/L (135-145); Total Bilirubin <0.15 mg/dL (0.30-1.20); Total Protein 6.3 g/dL (6.2-8.2)
[2022-08-23 11:30] LABS: HCT 44.9 % (37.2-46.3); HGB 14.2 g/dL (12.0-15.0); MCH 28.2 pg (27.0-32.0); MCHC 31.6 g/dL (32.0-37.0); MCV 89.3 fL (80.0-97.0); Mean Platelet Volume 11.5 fL (9.5-12.2); NRBC Per 100 WBC 0 /100 WBCS (0.0-0.0); Platelet Count 273 X 10*3/uL (140-440); RBC 5.03 X 10*6/uL (4.10-5.20); RDW 13.1 % (11.5-14.5)
[2022-08-23 11:31] LABS: Basophils # (M) 0 X 10*3/uL (0.00-0.10); Eosinophils # (M) 0 X 10*3/uL (0.04-0.35); Lymphocytes # (M) 2.43 X 10*3/uL (0.90-5.00); Metamyelocytes % 1 % (0-0); Monocytes # (M) 1.12 X 10*3/uL (0.20-1.00); Myelocytes % 4 % (0-0); Neutrophils # (M) 14.03 X 10*3/uL (2.00-8.90); Neutrophils % (M) 75 %; Promyelocytes # (M) 0.19 k/uL (0); Promyelocytes % 1 % (0-0); RBC Morphology NORMAL
[2022-08-23] MEDS: BACLOFEN 10 MG TAB PO SCH (13:13)
--- NOTE | 2022-08-23 14:23 | P.PN ---
Subjective Progress Note Date: 08/23/22 Principal diagnosis: Pneumonia Patient is a 61-year old female with a past medical history significant for COPD CVA TIA reflux seizure disorder senior care resident suhas shaw has been sent to the ER for evaluation of mental status changes , patient did have evidence of airspace disease and a chest x-ray concerning for pneumonia patient did have a CT of the chest we did shows bibasilar infiltrate suggestive of pneumonia. On today's evaluation that is 08/23/2022, the patient remains to be afebrile, patient is breathing comfortably on room air, the patient did have a cough but mostly dry in nature, no vomiting no abdominal pain or diarrhea reported by the nursing staff Objective - Vital Signs Vital signs: Vital Signs Temp 98.3 F 08/23/22 07:04 Pulse 58 L 08/23/22 12:30 Resp 16 08/23/22 07:04 BP 99/63 08/23/22 07:04 Pulse Ox 97 08/23/22 10:00 FiO2 21 08/20/22 08:24 Intake & Output 08/22/22 08/23/22 08/23/22 18:59 06:59 18:59 Intake Total 118 Output Total 740 600 Balance -740 -600 118 Weight 63.503 kg Intake: Oral 118 Output: Urine 740 600 Other: Voiding Method External Catheter External Catheter # Bowel Movements 2 - Exam GENERAL DESCRIPTION: Middle-age female lying in bed in no distress RESPIRATORY SYSTEM: Unlabored breathing , decreased breath sounds at bases HEART: S1 S2 regular rate and rhythm , ABDOMEN: Soft , no tenderness EXTREMITIES: No edema feet - Labs CBC & Chem 7: 08/23/22 05:21 08/23/22 05:21 Labs: Abnormal Lab Results - Last 24 Hours (Table) 08/23/22 08/23/22 08/23/22 Range/Units 05:21 05:21 05:21 WBC 18.70 H (4.50-10.00) X 10*3/uL MCHC 31.6 L (32.0-37.0) g/dL Metamyelocytes % 1 H (0-0) % Myelocytes % 4 H (0-0) % Promyelocytes % 1 H (0-0) % Neutrophils # (Manual) 14.03 H (2.00-8.90) X 10*3/uL Monocytes # (Manual) 1.12 H (0.20-1.00) X 10*3/uL Eosinophils # (Manual) 0 L (0.04-0.35) X 10*3/uL Anion Gap 9.20 L (10.00-18.00) mmol/L BUN/Creatinine Ratio 39.83 H (12.00-20.00) Ratio Glucose 184 H (70-110) mg/dL Hemoglobin A1c 7.1 H (0.0-6.0) % Total Bilirubin <0.15 L (0.30-1.20) mg/dL AST 42 H (13-35) U/L ALT 185 H (8-44) U/L Albumin 3.5 L (3.8-4.9) g/dL Albumin/Globulin Ratio 1.25 L (1.60-3.17) g/dL Microbiology - Last 24 Hours (Table) 08/18/22 10:53 Blood Culture - Preliminary Blood 08/18/22 10:51 Blood Culture - Preliminary Blood Assessment and Plan (1) Pneumonia Current Visit: Yes Status: Acute Code(s): J18.9 - PNEUMONIA, UNSPECIFIED ORGANISM SNOMED Code(s): 136644122 Plan: 1patient presented to hospital with mental status changes in this patient with evidence of multifocal pneumonia on the chest x-ray possible community-acquired patient did tested negative for COVID-19 2-patient seemed to have shown some clinical improvement, patient has received doses of Rocephin and subsequently has been discontinued given short course of oral Ceftin, repeat Chest x-ray this morning shows interstitial infiltrate 3-leukocytosis likely steroid effect as a CRP remains to be normal Time with Patient: Less than 30
[2022-08-23 14:27] VITALS: BP 104/70; RESP 18; TEMP 98.6
[2022-08-23 15:42] VITALS: PULSE 60
[2022-08-23] MEDS ORDERED: CEFDINIR 300 MG CAP PO SCH (21:00)
[2022-08-24] MEDS ORDERED: ERGOCALCIFEROL 1,250 MCG (50,000 IU) CAPSULE PO SCH (07:00)
--- NOTE | 2022-08-25 11:37 | PN ---
PROGRESS NOTE Metabolic encephalopathy secondary to pneumonia. Acute hypoxemic respiratory failure. MMODL / IJN: [id number] /
== END 2022-08-23 20:13 | DRG 190 ==
LOC: EC 02:40 → 4SSUR 08:21
PROVIDERS: ADMIT Family Medicine; ATTEND Family Medicine
DX: J44.0 Chronic obstructive pulmonary disease with (acute) lower respiratory infection (principal); G93.41 Metabolic encephalopathy; J96.01 Acute respiratory failure with hypoxia; J18.0 Bronchopneumonia, unspecified organism; F20.0 Paranoid schizophrenia; G40.909 Epilepsy, unspecified, not intractable, without status epilepticus; K21.9 Gastro-esophageal reflux disease without esophagitis; R00.0 Tachycardia, unspecified; F81.9 Developmental disorder of scholastic skills, unspecified; D72.828 Other elevated white blood cell count; T38.0X5A Adverse effect of glucocorticoids and synthetic analogues, initial encounter; Z20.822 Contact with and (suspected) exposure to COVID-19; Z99.81 Dependence on supplemental oxygen; Z87.891 Personal history of nicotine dependence; Z86.73 Personal history of transient ischemic attack (TIA), and cerebral infarction without residual deficits; Z88.7 Allergy status to serum and vaccine; Z88.0 Allergy status to penicillin; Z91.040 Latex allergy status; Z88.1 Allergy status to other antibiotic agents; Z91.030 Bee allergy status; Z79.899 Other long term (current) drug therapy; Z79.82 Long term (current) use of aspirin
CPT/HCPCS: 36415; 70450; 71045; 71250; 80053; 80306; 80320; 81001; 83036; 83605; 83880; 84145; 84484; 85025; 85610; 85730; 86140; 87449; 87635; 93005; 94640; 94760; 96365; 99285

== ENCOUNTER 2024-04-16 14:44 | Inpatient (IN) | payer MEDICARE, OTHER ==
--- NOTE | 2024-04-16 15:28 | ED ---
General Adult HPI - General Chief complaint: Skin/Abscess/Foreign Body Stated complaint: wounds,UTI Time Seen by Provider: 04/16/24 14:55 Source: EMS, RN notes reviewed Mode of arrival: EMS Limitations: altered mental status, physical limitation - History of Present Illness Initial comments: This is a 63-year-old female who presents to the emergency department as a transfer from [facility]. She presented to their hospital this morning for altered mentation that started a few days ago. According to documentation, she has been in and out of the hospital over the last month for pneumonia, UTI, and sacral decubitus ulcers. Given her presentation, they were suspicious for another infection. She was found to have a large sacral decubitu s ulcer and there is concern for infection based on her laboratory studies. They do not have a surgeon on-call, and she was sent here for further management. She was treated with vancomycin and cefepime prior to transfer. - Related Data Home Medications Medication Instructions Recorded Confirmed RX: EPINEPHrine [Epipen 2-Molina] 0.3 mg IM ONCE PRN 09/09/18 04/16/24 RX: Escitalopram [Lexapro] 20 mg PO BID 09/09/18 04/16/24 RX: Ketoconazole 2% Shampoo 1 applic TOPICAL MOWEFR 09/09/18 04/16/24 [Nizoral] RX: Montelukast [Singulair] 10 mg PO HS 09/09/18 04/16/24 RX: Pravastatin Sodium [Pravachol] 20 mg PO HS 09/09/18 04/16/24 RX: haloperidoL [Haldol] 5 mg PO TID 09/09/18 04/16/24 RX: Aspirin EC [Ecotrin Low Dose] 81 mg PO DAILY 01/23/19 04/16/24 RX: Baclofen [Lioresal] 15 mg PO DAILY@0800 01/23/19 04/16/24 RX: Topiramate [Topamax] 100 mg PO BID 01/23/19 04/16/24 RX: Baclofen [Lioresal] 10 mg PO BID@1400,2000 07/19/21 04/16/24 RX: Famotidine [Pepcid] 20 mg PO DAILY 07/19/21 04/16/24 RX: clonazePAM [KlonoPIN] 1 mg PO TID 07/19/21 04/16/24 RX: Albuterol Inhaler [Ventolin 1 - 2 puff INHALATION RT-Q6H PRN 08/18/22 04/16/24 Hfa Inhaler] RX: Budesonide 0.5 mg INHALATION RT-BID 08/18/22 04/16/24 RX: Ergocalciferol [Vitamin D2 1,250 mcg PO FR 08/18/22 04/16/24 (1250 Mcg = 29475 Iu)] RX: Metoprolol Succinate (ER) 25 mg PO DAILY 08/18/22 04/16/24 [Toprol XL] RX: cloZAPine [Clozaril] 100 mg PO HS@199908/18/22 04/16/24 RX: polyethylene glycoL 3350 17 gm PO DAILY@0608/18/22 04/16/24 [Miralax] Budesonide-Formot 160-4.5 Mcg 2 puff INHALATION RT-BID PRN 04/16/24 04/16/24 [Symbicort 160-4.5 Mcg Inhaler] Ibuprofen [Motrin] 600 mg PO Q6HR PRN 04/16/24 04/16/24 Insulin Glargine [Lantus Vial] 10 unit SQ DAILY 04/16/24 04/16/24 Memantine [Namenda] 10 mg PO BID 04/16/24 04/16/24 Nystatin 100,000Unit/gm Cream 1 applic TOPICAL BID PRN 04/16/24 04/16/24 [Mycostatin Cream] cloZAPine [Clozaril] 50 mg PO TID@0800,1400,199904/16/24 04/16/24 Allergies Allergy/AdvReac Type Severity Reaction Status Date / Time bee venom protein (honey bee) Allergy Unknown Verified 04/16/24 16:09 beeswax Allergy Unknown Verified 04/16/24 16:09 Dihydroaminopryidine Allergy Unknown Verified 04/16/24 16:09 Antibiotics latex Allergy Unknown Verified 04/16/24 16:09 metformin Allergy Unknown Verified 04/16/24 16:09 Penicillins Allergy Unknown Verified 04/16/24 16:09 sulfamethoxazole Allergy Unknown Verified 04/16/24 16:09 [From Bactrim] Tetanus Vaccines and Toxoid Allergy Unknown Verified 04/16/24 16:09 trimethoprim [From Bactrim] Allergy Unknown Verified 04/16/24 16:09 Review of Systems ROS Statement: Those systems with pertinent positive or pertinent negative responses have been documented in the HPI. ROS Other: All systems not noted in ROS Statement are negative. Past Medical History Past Medical History: COPD, CVA/TIA, GERD/Reflux, Osteoarthritis (OA), Seizure Disorder Additional Past Medical History / Comment(s): Wears oxygen at night, no seizures for 10 years, bedrest can't bare weight anymore History of Any Multi-Drug Resistant Organisms: None Reported Past Surgical History: Orthopedic Surgery Additional Past Surgical History / Comment(s): previous trach Past Anesthesia/Blood Transfusion Reactions: No Reported Reaction Past Psychological History: Anxiety, Schizophrenia Smoking Status: Former smoker Past Alcohol Use History: None Reported Past Drug Use History: None Reported - Past Family History Father Family Medical History: Unable to Obtain Mother Family Medical History: Unable to Obtain General Exam Limitations: language barrier, altered mental status, physical limitation General appearance: alert, in no apparent distress Head exam: Present: atraumatic, normocephalic, normal inspection Respiratory exam: Present: decreased breath sounds, prolonged expiratory Cardiovascular Exam: Present: regular rate, normal rhythm GI/Abdominal exam: Present: soft. Absent: distended, tenderness Neurological exam: Present: alert Skin exam: Present: warm, dry, intact, normal color. Absent: rash Course Vital Signs 04/16/24 04/16/24 04/16/24 14:56 16:08 18:29 Temperature 97.9 F Pulse Rate 78 96 Respiratory 16 20 Rate Blood Pressure 109/68 O2 Sat by Pulse 100 Oximetry 04/16/24 18:32 Temperature Pulse Rate 83 Respiratory 16 Rate Blood Pressure 120/83 O2 Sat by Pulse 97 Oximetry Medical Decision Making - Medical Decision Making This is a 63-year-old female who presents to the emergency department as a transfer for infected sacral decubitus ulcers and altered mental status. Was pt. sent in by a medical professional or institution? @ -[facility] Did you speak to anyone other than the patient for history? @ -All history was obtained from [facility] documentation. Did you review nursing and triage notes? @ -Yes, and I agree, it is accurate with regards to the patient's symptoms. Were old charts reviewed? @ -Yes, documentation from [facility] was reviewed. WBC: 13.03 Procal: 0.11 UA: +Nitrites CXR: Hypoventilatory changes with diffuse interstitial and patchy bilateral opacities. CT brain: Similar moderate hydrocephalus. Otherwise no acute intracranial abnormality seen. CT Abd/Pelvis: Interval development of a midline decubitus ulcer and wound overlying the distal coccyx. This is full-thickness to nearly full-thickness. No chloe erosion to suggest osteomyelitis. Suggestion of additional shallow decubitus ulcer that has developed over the left ischial tuberosity. Ongoing severe groundglass and airspace disease within the lower lungs is visualized. Differential Diagnosis? @ -Differential Altered Mental Status: Hypoglycemia, DKA, hypercapnia, ETOH, overdose, CO poisoning, trauma, myxedema coma, HTN encephalopathy, infection, encephalitis, psychosis, intercranial hemorrhage, hepatic encephalopathy, meningitis, CVA, this is not meant to be an all-inclusive list EKG interpreted by me (3pts min.)? @ -EKG interpreted by me demonstrating the following: Sinus rhythm. Ventricular rate 82 bpm, OR interval 179 ms, QRS duration 98 ms, QTc 426 ms. X-rays interpreted by me (1pt min.)? @ -Chest x-ray obtained. My interpretation identifies bilateral opacities. CT interpreted by me (1pt min.)? @ -Not obtained U/S interpreted by me (1pt. min.)? @ -Not obtained What testing was considered but not performed? (CT, X-rays, U/S, labs)? Why? @ -None What meds were considered but not given? Why? @ -None Did you discuss the management of the patient with other professionals? @ -Yes, Dr. Hoffmann, who accepts the patient for admission. Did you reconcile home meds? @ -No Was smoking cessation discussed for >3mins.? @ -No Was critical care preformed (if so, how long)? @ -No Were there social determinants of health that impacted care today? How? (Homelessness, low income, unemployed, alcoholism, drug addiction, transportat ion, low edu. Level, literacy, decrease access to med. care, correction, rehab)? @ -No Was there de-escalation of care discussed even if they declined? (Discuss DNR or withdrawal of care, Hospice)? @ -No What co-morbidities impacted this encounter? (DM, HTN, Smoking, COPD, CAD, Cancer, CVA, Hep., AIDS, mental health diagnosis, sleep apnea, morbid obesity)? @ -COPD, Hx of CVA Was patient admitted / discharged? @ -Admitted. Patient was transferred from [facility] for altered mental status with sacral decubitus ulcers and a UTI. All documentation sent with the patient was reviewed. The disc containing her images was also scanned into the system. She had leukocytosis with a white blood cell count of 13.03. Procalcitonin was elevated and urinalysis was positive for nitrates. CT scan of the abdomen and pelvis demonstrated interval development of a midline decubitus ulcer and wound overlying the distal coccyx. This was full-thickness without evidence of osteomyelitis. She had an additional decubitus ulcer over the left ischial tuberosity. She continues to have severe groundglass airspace disease in the lower lungs. CT scan of the brain revealed no acute process. Chest x- ray redemonstrated diffuse interstitial and patchy bilateral opacities which is an ongoing issue for the patient. Repeat lab work obtained here. Leukocytosis had increased to 14.2. BNP is only 90 and not suggestive of CHF. Urinalysis appears less consistent with infection than it did at [place]. Her urine was sent for culture. Vila catheter was switched out at [place]. Patient continued on vancomycin and cefepime for management of the sacral decubitus ulcers and UTI. Consult placed for infectious disease and wound care. Case discussed with ED attending Dr. Holman. Undiagnosed new problem with uncertain prognosis? @ -None Drug Therapy requiring intensive monitoring for toxicity (Heparin, Nitro, Insulin, Cardizem)? @ -None Were any procedures done? @ -None Diagnosis/symptom? @ -Sacral decubitus ulcers, UTI, altered mental status Acute, or Chronic, or Acute on Chronic? @ -Acute Uncomplicated (without systemic symptoms) or Complicated (systemic symptoms)? @ -Complicated Side effects of treatment? @ -None Exacerbation, Progression, or Severe Exacerbation] @ -Not applicable Poses a threat to life or bodily function? @ -Yes, can lead to septic shock and - Lab Data Result diagrams: 04/16/24 18:01 04/16/24 18:01 Lab Results 04/16/24 Range/Units 16:05 Urine Color Light Yellow Urine Appearance Clear (Clear) Urine pH 5.5 (5.0-8.0) Ur Specific [place] >1.050 H (1.001-1.035) Urine Protein 1+ H (Negative) Urine Glucose (UA) Negative (Negative) Urine Ketones Negative (Negative) Urine Blood Trace H (Negative) Urine Nitrite Negative (Negative) Urine Bilirubin Negative (Negative) Urine Urobilinogen <2.0 (<2.0) mg/dL Ur Leukocyte Esterase Small H (Negative) Urine RBC 89 H (0-5) /hpf Urine WBC 33 H (0-5) /hpf Ur Squamous Epith Cells <1 (0-4) /hpf Urine Mucus Rare H (None) /hpf - Radiology Data Radiology results: report reviewed, image reviewed Disposition Clinical Impression: Sacral decubitus ulcer, UTI (urinary tract infection), Weakness Disposition: ADMITTED IP TO THIS HOSP
--- NOTE | 2024-04-16 16:19 | XR ---
EXAMINATION TYPE: XR chest 2V DATE OF EXAM: 04/16/2024 3:54 PM COMPARISON: Chest radiographs from 08/23/2022 CLINICAL INDICATION: Female, 63 years old with history of KARLEE; [facility] TECHNIQUE: XR chest 2V Frontal and lateral views of the chest. FINDINGS: Lungs/Pleura: Multifocal airspace opacities. No evidence of pneumothorax or pleural effusion. Pulmonary vascularity: Pulmonary vascular congestion. Heart/mediastinum: Cardiomediastinal silhouette is enlarged and stable. Musculoskeletal: No acute osseous pathology. IMPRESSION: Persistent multifocal airspace opacities correlate with serum BNP to exclude a component of congestiv e heart failure. [facility], , 04/16/2024 4:17 PM
[2024-04-16] MEDS ORDERED: MORPHINE SULFATE 4 MG/ML SYRINGE IV PRN (16:20)
[2024-04-16] MEDS ORDERED: ACETAMINOPHEN TAB 325 MG TAB PO PRN (16:20)
[2024-04-16] MEDS ORDERED: NALOXONE 0.4 MG/ML 1 ML VIAL IV PRN (16:20)
[2024-04-16] MEDS ORDERED: VANCOMYCIN IV PER PHARMACY 1 EACH MISC MISCELLANE PRN (16:21)
[2024-04-16 16:35] LABS: Appearance,Urine Clear (Clear); Bilirubin,Urine Negative (Negative); Blood,Urine Trace (Negative); Color,Urine Light Yellow; Glucose,Urine (UA) Negative (Negative); Ketones,Urine Negative (Negative); Leukocyte Esterase,Urine Small (Negative); Mucus,Urine Rare /hpf; Nitrite,Urine Negative (Negative); PH, Urine 5.5 (5.0-8.0); Protein,Urine 1+ (Negative); RBC,Urine 89 /hpf (0-5); Specific Gravity,Urine >1.050 (1.001-1.035); Squamous Epithelial Cell,Urine <1 /hpf (0-4); Urobilinogen,Urine <2.0 mg/dL (<2.0); WBC,Urine 33 /hpf (0-5)
[2024-04-16] MEDS: CEFEPIME 1 GM in SODIUM CHLORIDE 0.9% 50 ML IVPB STA (18:03)
[2024-04-16 18:13] LABS: Basophils % (A) 0 %; Eosinophils % (A) 0 %; HCT 42.6 % (34.0-46.0); HGB 13.4 gm/dL (11.4-16.0); Hypochromasia Slight; Lymphocytes # (A) 2.2 k/uL (1.0-4.8); Lymphocytes % (A) 16 %; MCH 28.4 pg (25.0-35.0); MCHC 31.6 g/dL (31.0-37.0); MCV 89.9 fL (80.0-100.0); Mean Platelet Volume 7.7; Monocytes # (A) 0.5 k/uL (0-1.0); Monocytes % (A) 3 %; Neutrophils # (A) 11.2 k/uL (1.3-7.7); Neutrophils % (A) 79 %; Platelet Count 168 k/uL (150-450); RBC 4.73 m/uL (3.80-5.40); WBC 14.2 k/uL (3.8-10.6)
[2024-04-16 18:28] LABS: INR 0.9 (<1.2); Prothrombin Time 10.3 sec (10.0-12.5)
[2024-04-16 18:30] LABS: ALT 40 U/L (4-34); AST 19 U/L (14-36); African American GFR (CKD) >90 (>60 ml/min/1.73 sqM); Albumin 3.6 g/dL (3.5-5.0); Alkaline Phosphatase 128 U/L (38-126); Anion Gap 10 mmol/L; Blood Urea Nitrogen 12 mg/dL (7-17); C Reactive Protein 6.5 mg/dL (<1.0); Calcium 9.2 mg/dL (8.4-10.2); Carbon Dioxide 23 mmol/L (22-30); Chloride 109 mmol/L (98-107); Glucose 179 mg/dL (74-99); Non-African American GFR(CKD) >90 (>60 ml/min/1.73 sqM); Sodium 142 mmol/L (137-145); Total Bilirubin 0.5 mg/dL (0.2-1.3); Total Protein 6.5 g/dL (6.3-8.2)
[2024-04-16 18:32] LABS: Partial Thromboplastin Time 19.8 sec (22.0-30.0)
[2024-04-16 18:33] LABS: NT-Pro-B-Type Natriuretic Pept 90 pg/mL
--- NOTE | 2024-04-16 18:57 | CT ---
EXAMINATION TYPE: CT chest wo con DATE OF EXAM: 04/16/2024 6:35 PM COMPARISON: 08/20/2022. CLINICAL INDICATION: Female, 63 years old with history of pleural effusion, cough TECHNIQUE: Multiple axial images were obtained through the chest. Sagittal and coronal reformats were created for review. MIP was performed on a separate workstation. Contrast used: mL of (None if empty) Oral contrast used: (None if empty) CT DLP: 388.4 mGycm, Automated exposure control for dose reduction was used. FINDINGS: LUNGS/ PLEURA: Multifocal groundglass opacities with interstitial thickening and No focal consolidati on, pneumothorax or pleural effusion. AIRWAY: Patent and unremarkable. HEART: The heart is mildly increased in size..Atherosclerosis of the arterial vasculature. MEDIASTINUM: No gross evidence of adenopathy. VASCULATURE: No aortic aneurysm. MUSCULOSKELETAL: No acute osseous abnormalities, ankylosis of the lower ribs bilaterally. SOFT TISSUES/LYMPH NODES: Unremarkable. LOWER NECK: No significant findings. UPPER ABDOMEN: Cholecystectomy changes. Right adrenal gland nodule measuring 13 mm and 32 Hounsfield units. IMPRESSION: 1. No pleural effusion visualized. 2. Multifocal ground glass opacities and interstitial thickening throughout the lungs seen dating ba ck to at least 01/23/2019. Superimposed infectious process is not definitively excluded. 3. Right adrenal nodule that is indeterminate and stable from 01/23/2019.. 4. Mild cardiomegaly with mild coronary artery atherosclerosis. [facility], , 04/16/2024 6:55 PM
[2024-04-16] MEDS: IPRATROPIUM-ALBUTEROL 3 ML NEB INHALATION SCH (20:37)
[2024-04-16] MEDS: BUDESONIDE 0.5 MG/2 ML NEBU INHALATION SCH (20:37)
[2024-04-16 21:15] LABS: Glucose,Whole Blood 138 mg/dL (70-110)
[2024-04-16] MEDS: BACLOFEN 10 MG TAB PO SCH (21:20)
[2024-04-16] MEDS: TOPIRAMATE 100 MG TAB PO SCH (21:20)
[2024-04-16] MEDS: MONTELUKAST 10 MG TAB PO SCH (21:20)
[2024-04-16] MEDS: ESCITALOPRAM 20 MG TAB PO SCH (21:20)
[2024-04-16] MEDS: MEMANTINE 10 MG TAB PO SCH (21:20)
[2024-04-16] MEDS: PRAVASTATIN SODIUM 20 MG TAB PO SCH (21:20)
[2024-04-16] MEDS: clonazePAM 1 MG TAB PO SCH (22:20)
[2024-04-16] MEDS: haloperidoL 5 MG TAB PO SCH (22:20)
[2024-04-16] MEDS: cloZAPine 25 MG TAB PO SCH (22:21)
[2024-04-16] MEDS: VANCOMYCIN 1,000 MG in SODIUM CHLORIDE 0.9% 250 ML IVPB SCH (22:21)
[2024-04-16] MEDS: cloZAPine 100 MG TAB PO SCH (22:21)
[2024-04-16] MEDS: FAMOTIDINE 20 MG TAB PO SCH (23:42)
--- NOTE | 2024-04-17 01:50 | HP ---
HISTORY AND PHYSICAL HISTORY OF PRESENT ILLNESS: A 63-year-old white female came to the ER transferred from [facility]. In the hospital, auto-mentation a few days ago. 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 Consult Dr. Cornelius for wound debridement, started on vancomycin and cefepime. HOME MEDICATIONS: Include: 1. EpiPen. 2. Lexapro 20 b.i.d. 3. Singulair 10 daily. 4. Pravachol 20 daily. 5. Haldol 5 mg t.i.d. 6. Ecotrin 81 daily. 7. Aerosol 50 mg daily. 8. Topamax 100 b.i.d. 9. Namenda 10 b.i.d. 10.Lantus 10 daily. 11.Metoprolol succinate 25 daily. 12.Clozaril 100 at bedtime. 13.Budesonide 0.5 b.i.d. 14.DuoNeb q.i.d. ALLERGIES: Bee venom and Beeswax. PAST MEDICAL HISTORY: COPD, CVA, TIA, GERD, osteoarthritis, seizure disorder. PAST SURGICAL HISTORY: Orthopedic surgeries. SOCIAL HISTORY: Anxiety, schizophrenia, former smoker. FAMILY HISTORY: Father and mother, unable to obtain. PHYSICAL EXAMINATION: VITAL SIGNS: Stable. Afebrile. She is weak, lethargic. Blood pressure 120/83, pulse 83, respiratory rate 16 to 18, O2 of 97%. CARDIOVASCULAR: S1 and S2. LUNGS: Transmitted upper sounds. GI: Soft. Sacral ulceration. HEMATOLOGY: Negative for Homans. PSYCH: Fair mood and affect. NEUROLOGIC: Alert and oriented x3. Altered, language barrier. OPHTHALMOLOGIC: Pupils are equal, round, and reactive. HEAD: Normocephalic and atraumatic. Decubitus ulcer, altered mental status. CAT scan shows bilateral possible pneumonia, ground-glass opacities, white count is elevated, sacral decubitus ulcer, UTI, most likely aspiration pneumonia, generalized weakness, COPD, asthma. Prognosis is guarded. Please see further orders. MMODL / IJN: [id number] /
[2024-04-17 05:28] LABS: ALT 30 U/L (4-34); AST 16 U/L (14-36); African American GFR (CKD) >90 (>60 ml/min/1.73 sqM); Albumin 2.7 g/dL (3.5-5.0); Alkaline Phosphatase 96 U/L (38-126); Anion Gap 6 mmol/L; Blood Urea Nitrogen 12 mg/dL (7-17); Calcium 8.5 mg/dL (8.4-10.2); Carbon Dioxide 25 mmol/L (22-30); Chloride 110 mmol/L (98-107); Globulin 2.7 g/dL; Glucose 128 mg/dL (74-99); Non-African American GFR(CKD) >90 (>60 ml/min/1.73 sqM); Potassium 3.5 mmol/L (3.5-5.1); Sodium 141 mmol/L (137-145); Total Bilirubin 0.4 mg/dL (0.2-1.3); Total Protein 5.4 g/dL (6.3-8.2)
[2024-04-17] MEDS: polyethylene glycoL 3350 17 GM POWD.PACK PO SCH (05:47)
[2024-04-17] MEDS: SODIUM CHLORIDE 0.9% 1,000 ML IV SCH (05:59)
[2024-04-17 06:14] LABS: Glucose,Whole Blood 125 mg/dL (70-110)
[2024-04-17] MEDS: ERGOCALCIFEROL 1,250 MCG (50,000 IU) CAPSULE PO SCH (08:29)
[2024-04-17] MEDS: ASPIRIN 81 MG PO SCH (08:29)
[2024-04-17] MEDS: INSULIN DETEMIR (LEVEMIR) 100 UNIT/ML SYR SQ SCH (08:29)
[2024-04-17 08:59] LABS: Basophils # (A) 0.07 X 10*3/uL (0.00-0.10); Basophils % (A) 0.6 %; Eosinophils # (A) 0 X 10*3/uL (0.04-0.35); Eosinophils % (A) 0 %; HCT 37.6 % (37.2-46.3); HGB 11.4 g/dL (12.0-15.0); Lymphocytes # (A) 2.79 X 10*3/uL (0.90-5.00); Lymphocytes % (A) 23.8 %; MCHC 30.3 g/dL (32.0-37.0); MCV 92.4 FL (80.0-97.0); Mean Platelet Volume 11.4 FL (9.5-12.2); Monocytes # (A) 0.67 X 10*3/uL (0.20-1.00); Monocytes % (A) 5.7 %; NRBC Per 100 WBC 0 X 10*3/uL (0.00-0.01); Neutrophils # (A) 7.89 X 10*3/uL (1.80-7.70); Neutrophils % (A) 67.3 %; Platelet Count 158 X 10*3/uL (140-440); RBC 4.07 X 10*6/uL (4.10-5.20); RDW 14.2 % (11.5-14.5); WBC 11.73 X 10*3/uL (4.50-10.00)
[2024-04-17] MEDS ORDERED: CEFEPIME 1 GM VIAL IVPB SCH (09:00)
[2024-04-17] MEDS ORDERED: CEFEPIME 1 GM VIAL IM SCH (09:00)
[2024-04-17] MEDS ORDERED: FAMOTIDINE 20 MG TAB PO SCH (09:00)
[2024-04-17] MEDS: PANTOPRAZOLE 40 MG/10 ML VIAL IV SCH (09:44)
[2024-04-17] MEDS: METOPROLOL SUCCINATE (ER) 25 MG TAB.ER.24H PO SCH (09:45)
[2024-04-17] MEDS: CEFEPIME 1 GM in SODIUM CHLORIDE 0.9% 50 ML IVPB SCH (09:53)
--- NOTE | 2024-04-17 11:17 | P.GSCN ---
History of Present Illness Consult date: 04/17/24 History of present illness: CHIEF COMPLAINT: Altered mental status HISTORY OF PRESENT ILLNESS: This is a 63-year-old female who was a transfer from [facility]. Patient initially presented to [facility] with altered mental status for the last few days. She had she previous hospitalizations over the last month for pneumonia UTI and sacral decubitus ulce rs. They were concerned for another infection due to her altered mental status. She was transferred to [facility] due to the sacral decubitus ulcer and possible need for debridement and concerns of possible infection. Patient is confused. And unable to provide history. PAST MEDICAL HISTORY: COPD, CVA/TIA, GERD/Reflux, Osteoarthritis (OA), Seizure Disorder, anxiety, schizophrenia PAST SURGICAL HISTORY: See below MEDICATIONS: See below ALLERGIES: See below SOCIAL HISTORY: No illicit drug use. REVIEW OF SYSTEMS: CONSTITUTIONAL: Denies fever or chills. HEENT: Denies blurred vision, vision changes, or eye pain. Denies hemoptysis CARDIOVASCULAR: Denies chest pain or pressure. RESPIRATORY: No shortness of breath. GASTROINTESTINAL: See HPI for pertinent findings HEMATOLOGIC: Denies bleeding disorders. GENITOURINARY: Denies any blood in urine or increased urinary frequency. SKIN: Denies pruitis. Denies rash. PHYSICAL EXAM: VITAL SIGNS: Reviewed GENERAL: in no acute distress. ABDOMEN: Soft. Nondistended. Nontender NEUROLOGIC: Sleepy, lethargic. Able to open her eyes. Confused. Skin: Sacral decubitus ulcer with granulation tissue no significant drainage. Small area of eschar tissue at the cephalic portion of the wound. Smaller wound noted on the lower left buttocks with granulation tissue. No foul odor. No drainage. LABORATORY DATA: WBC 14.2 down to 11.73 Hgb 11.4 platelets 158 Sodium 141 potassium 3.5 creatinine 0.45 IMAGING: ASSESSMENT: 1. Sacral decubitus ulcer PLAN: -Patient scheduled for debridement of sacral decubitus ulcer today with Dr. Cornelius -Keep patient n.p.o. Physician Veterinary X Ray Operator note has been reviewed by physician. Signing provider agrees with the documented findings, assessment, and plan of care. 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 Smoking Status: Former smoker Past Alcohol Use History: None Reported Past Drug Use History: None Reported - Past Family History Father Family Medical History: Unable to Obtain Mother Family Medical History: Unable to Obtain Medications and Allergies Home Medications Medication Instructions Recorded Confirmed Type EPINEPHrine [Epipen 2-Molina] 0.3 mg IM ONCE PRN 09/09/18 04/16/24 History Escitalopram [Lexapro] 20 mg PO BID 09/09/18 04/16/24 History Ketoconazole 2% Shampoo [Nizoral] 1 applic TOPICAL MOWEFR 09/09/18 04/16/24 History Montelukast [Singulair] 10 mg PO HS 09/09/18 04/16/24 History Pravastatin Sodium [Pravachol] 20 mg PO HS 09/09/18 04/16/24 History haloperidoL [Haldol] 5 mg PO TID 09/09/18 04/16/24 History Aspirin EC [Ecotrin Low Dose] 81 mg PO DAILY 01/23/19 04/16/24 History Baclofen [Lioresal] 15 mg PO DAILY@0800 01/23/19 04/16/24 History Topiramate [Topamax] 100 mg PO BID 01/23/19 04/16/24 History Baclofen [Lioresal] 10 mg PO BID@1400,2000 07/19/21 04/16/24 History Famotidine [Pepcid] 20 mg PO DAILY 07/19/21 04/16/24 History clonazePAM [KlonoPIN] 1 mg PO TID 07/19/21 04/16/24 History Albuterol Inhaler [Ventolin Hfa 1 - 2 puff INHALATION RT-Q6H PRN 08/18/22 04/16/24 History Inhaler] Budesonide 0.5 mg INHALATION RT-BID 08/18/22 04/16/24 History Ergocalciferol [Vitamin D2 (1250 1,250 mcg PO FR 08/18/22 04/16/24 History Mcg = 79765 Iu)] Metoprolol Succinate (ER) [Toprol 25 mg PO DAILY 08/18/22 04/16/24 History XL] cloZAPine [Clozaril] 100 mg PO HS@199908/18/22 04/16/24 History polyethylene glycoL 3350 [Miralax] 17 gm PO DAILY@0608/18/22 04/16/24 History Budesonide-Formot 160-4.5 Mcg 2 puff INHALATION RT-BID PRN 04/16/24 04/16/24 History [Symbicort 160-4.5 Mcg Inhaler] Ibuprofen [Motrin] 600 mg PO Q6HR PRN 04/16/24 04/16/24 History Insulin Glargine [Lantus Vial] 10 unit SQ DAILY 04/16/24 04/16/24 History Memantine [Namenda] 10 mg PO BID 04/16/24 04/16/24 History Nystatin 100,000Unit/gm Cream 1 applic TOPICAL BID PRN 04/16/24 04/16/24 History [Mycostatin Cream] cloZAPine [Clozaril] 50 mg PO TID@0800,1400,199904/16/24 04/16/24 History Allergies Allergy/AdvReac Type Severity Reaction Status Date / Time bee venom protein (honey bee) Allergy Unknown Verified 04/16/24 16:09 beeswax Allergy Unknown Verified 04/16/24 16:09 Dihydroaminopryidine Allergy Unknown Verified 04/16/24 16:09 Antibiotics latex Allergy Unknown Verified 04/16/24 16:09 metformin Allergy Unknown Verified 04/16/24 16:09 Penicillins Allergy Unknown Verified 04/16/24 16:09 sulfamethoxazole Allergy Unknown Verified 04/16/24 16:09 [From Bactrim] Tetanus Vaccines and Toxoid Allergy Unknown Verified 04/16/24 16:09 trimethoprim [From Bactrim] Allergy Unknown Verified 04/16/24 16:09 Surgical - Exam Vital Signs Pulse Resp BP 78 16 109/68 04/16/24 14:56 04/16/24 14:56 04/16/24 14:56 Results - Labs 04/17/24 04:54 04/17/24 04:54 Abnormal Lab Results - Last 24 Hours (Table) 04/16/24 04/16/24 04/16/24 Range/Units 16:05 18:01 18:01 WBC 14.2 H (3.8-10.6) k/uL RBC (4.10-5.20) X 10*6/uL Hgb (12.0-15.0) g/dL MCHC (32.0-37.0) g/dL Immature Gran # (0.00-0.04) X 10*3/uL Neutrophils # 11.2 H (1.3-7.7) k/uL Eosinophils # (0.04-0.35) X 10*3/uL APTT 19.8 L (22.0-30.0) sec Chloride (98-107) mmol/L Creatinine (0.52-1.04) mg/dL Glucose (74-99) mg/dL POC Glucose (mg/dL) (70-110) mg/dL ALT (4-34) U/L Alkaline Phosphatase (38-126) U/L C-Reactive Protein (<1.0) mg/dL Total Protein (6.3-8.2) g/dL Albumin (3.5-5.0) g/dL Ur Specific [place] >1.050 H (1.001-1.035) Urine Protein 1+ H (Negative) Urine Blood Trace H (Negative) Ur Leukocyte Esterase Small H (Negative) Urine RBC 89 H (0-5) /hpf Urine WBC 33 H (0-5) /hpf Urine Mucus Rare H (None) /hpf 04/16/24 04/16/24 04/17/24 Range/Units 18:01 21:13 04:54 WBC 11.73 H (3.8-10.6) k/uL RBC 4.07 L (4.10-5.20) X 10*6/uL Hgb 11.4 L (12.0-15.0) g/dL MCHC 30.3 L (32.0-37.0) g/dL Immature Gran # 0.31 H (0.00-0.04) X 10*3/uL Neutrophils # 7.89 H (1.3-7.7) k/uL Eosinophils # 0 L (0.04-0.35) X 10*3/uL APTT (22.0-30.0) sec Chloride 109 H (98-107) mmol/L Creatinine 0.46 L (0.52-1.04) mg/dL Glucose 179 H (74-99) mg/dL POC Glucose (mg/dL) 138 H (70-110) mg/dL ALT 40 H (4-34) U/L Alkaline Phosphatase 128 H (38-126) U/L C-Reactive Protein 6.5 H (<1.0) mg/dL Total Protein (6.3-8.2) g/dL Albumin (3.5-5.0) g/dL Ur Specific [place] (1.001-1.035) Urine Protein (Negative) Urine Blood (Negative) Ur Leukocyte Esterase (Negative) Urine RBC (0-5) /hpf Urine WBC (0-5) /hpf Urine Mucus (None) /hpf 04/17/24 04/17/24 Range/Units 04:54 06:12 WBC (3.8-10.6) k/uL RBC (4.10-5.20) X 10*6/uL Hgb (12.0-15.0) g/dL MCHC (32.0-37.0) g/dL Immature Gran # (0.00-0.04) X 10*3/uL Neutrophils # (1.3-7.7) k/uL Eosinophils # (0.04-0.35) X 10*3/uL APTT (22.0-30.0) sec Chloride 110 H (98-107) mmol/L Creatinine 0.45 L (0.52-1.04) mg/dL Glucose 128 H (74-99) mg/dL POC Glucose (mg/dL) 125 H (70-110) mg/dL ALT (4-34) U/L Alkaline Phosphatase (38-126) U/L C-Reactive Protein (<1.0) mg/dL Total Protein 5.4 L (6.3-8.2) g/dL Albumin 2.7 L (3.5-5.0) g/dL Ur Specific [place] (1.001-1.035) Urine Protein (Negative) Urine Blood (Negative) Ur Leukocyte Esterase (Negative) Urine RBC (0-5) /hpf Urine WBC (0-5) /hpf Urine Mucus (None) /hpf Diabetes panel 04/16/24 04/17/24 Range/Units 18:01 04:54 Sodium 142 141 (137-145) mmol/L Potassium 4.0 3.5 (3.5-5.1) mmol/L Chloride 109 H 110 H (98-107) mmol/L Carbon Dioxide 23 25 (22-30) mmol/L BUN 12 12 (7-17) mg/dL Creatinine 0.46 L 0.45 L (0.52-1.04) mg/dL Glucose 179 H 128 H (74-99) mg/dL Calcium 9.2 8.5 (8.4-10.2) mg/dL AST 19 16 (14-36) U/L ALT 40 H 30 (4-34) U/L Alkaline Phosphatase 128 H 96 (38-126) U/L Total Protein 6.5 5.4 L (6.3-8.2) g/dL Albumin 3.6 2.7 L (3.5-5.0) g/dL Calcium panel 04/16/24 04/17/24 Range/Units 18:01 04:54 Calcium 9.2 8.5 (8.4-10.2) mg/dL Albumin 3.6 2.7 L (3.5-5.0) g/dL Pituitary panel 04/16/24 04/17/24 Range/Units 18:01 04:54 Sodium 142 141 (137-145) mmol/L Potassium 4.0 3.5 (3.5-5.1) mmol/L Chloride 109 H 110 H (98-107) mmol/L Carbon Dioxide 23 25 (22-30) mmol/L BUN 12 12 (7-17) mg/dL Creatinine 0.46 L 0.45 L (0.52-1.04) mg/dL Glucose 179 H 128 H (74-99) mg/dL Calcium 9.2 8.5 (8.4-10.2) mg/dL Adrenal panel 04/16/24 04/17/24 Range/Units 18:01 04:54 Sodium 142 141 (137-145) mmol/L Potassium 4.0 3.5 (3.5-5.1) mmol/L Chloride 109 H 110 H (98-107) mmol/L Carbon Dioxide 23 25 (22-30) mmol/L BUN 12 12 (7-17) mg/dL Creatinine 0.46 L 0.45 L (0.52-1.04) mg/dL Glucose 179 H 128 H (74-99) mg/dL Calcium 9.2 8.5 (8.4-10.2) mg/dL Total Bilirubin 0.5 0.4 (0.2-1.3) mg/dL AST 19 16 (14-36) U/L ALT 40 H 30 (4-34) U/L Alkaline Phosphatase 128 H 96 (38-126) U/L Total Protein 6.5 5.4 L (6.3-8.2) g/dL Albumin 3.6 2.7 L (3.5-5.0) g/dL
[2024-04-17 11:42] LABS: Glucose,Whole Blood 175 mg/dL (70-110)
[2024-04-17 12:25] VITALS: BMI 21.7
[2024-04-17] MEDS: LACTATED RINGERS 1,000 ML BAG IV STA (12:25)
[2024-04-17] MEDS: IV FLUID CONTINUATION 1,000 ML IV ONE ×2 (12:26→15:59)
[2024-04-17] MEDS: DEXAMETHASONE SOD PHOSPHATE 4 MG/ML 1 ML VIAL IVP STA (12:40)
[2024-04-17] MEDS: ONDANSETRON 4 MG/2 ML VIAL IVP PRN (12:40)
[2024-04-17] MEDS ORDERED: fentaNYL (PF) 50 MCG/ML 2 ML AMP ONE (14:14)
[2024-04-17] MEDS ORDERED: PHENYLEPHRINE-0.9% NACL SYG 1,000 MCG/10 ML SYRINGE ONE (14:14)
[2024-04-17] MEDS ORDERED: LIDOCAINE 1% INJ 10MG/ML (20 ML MDV) ONE (14:14)
[2024-04-17] MEDS ORDERED: PROPOFOL 10 MG/ML 20 ML VIAL IV ONE (14:14)
[2024-04-17] MEDS: LIDOCAINE 1% INJ 10MG/ML (20 ML MDV) SQ ONE (14:36)
--- NOTE | 2024-04-17 14:47 | P.PN ---
Progress Note - Text Progress Note Date: 04/17/24 Debridement of Sacral Decubitus Ulcer Performed. Wound cultures and tissue cultures collected and sent to lab. Formal operative note to follow. Tushar Cornelius DO [facility] [phone]
[2024-04-17 16:38] LABS: Glucose,Whole Blood 160 mg/dL (70-110)
[2024-04-17 20:56] LABS: Glucose,Whole Blood 312 mg/dL (70-110)
[2024-04-17] MEDS ORDERED: VANCOMYCIN 1,250 MG in SODIUM CHLORIDE 0.9% 250 ML IVPB SCH (21:15)
[2024-04-17] MEDS: VANCOMYCIN TROUGH DUE 1 EACH MISC MISCELLANE ONE (22:35)
[2024-04-17 23:25] LABS: Glucose,Whole Blood 243 mg/dL (70-110)
--- NOTE | 2024-04-18 01:03 | PN ---
PROGRESS NOTE VITAL SIGNS: Temperature is 97.8, pulse 85, respiratory rate 16, blood pressure 100/64, O2 of 92% on room air. Sugars in the mid 100s. Urine culture shows group D enterococcus. Preliminary sensitivity pending. She was taken to surgery by Dr. Tushar Cornelius for debridement of sacral decubitus ulcer performed. Wound cultures, tissue cultures collected, sent to the lab. Went for Dr. Aldridge's consult. Broad-spectrum antibiotics. Vancomycin and cefepime have been ordered. Prognosis guarded. Keep her on bed rest. Alternating movements every 2 hours. Wait for recommendation from wound center and Dr. Aldridge. MMODL / IJN: [id number] /
[2024-04-18 06:05] LABS: Glucose,Whole Blood 173 mg/dL (70-110)
--- NOTE | 2024-04-18 07:30 | P.CONS ---
History of Present Illness - Reason for Consult Consult date: 04/17/24 Worsening sacral decubitus ulcer Requesting physician: Orquidea Mallory - Chief Complaint Weakness and worsening sacral ulcer x days - History of Present Illness Patient is a 63-year-old female with a past medical history significant for reflux osteoarthritis seizure disorder CVA TIA COPD patient has been brought into the hospital as a transfer from [facility] with the patient was noticed to have altered mentation for the last few days patient apparently has been in and out of the hospital over the last month has been treated for pneumonia UTI and an pressure ulcer and the patient was noticed to have worsening of her sacral pressure ulcer concerning for infection for the patient be transferred to [facility] for further evaluation it is not very clear when did she start having a problem with the sacral pressure ulcer or what has been done for for it at that facility, patient presentation the hospital was afebrile and no fever have been recorded subsequently patient was not tachycardic hypotensive or hypoxic patient did have white count of 14.2 with a left shift creatinine 0.46 electrolytes has been normal urine was mildly posit chris patient did have a chest x-ray persistent multifocal airspace opacity correlate with a serum BNP CT of the chest multifocal ground glass opacities superimposed infectious process not entirely excluded patient has been treated with cefepime and vancomycin infectious was consulted for further management for antibiotic therapy for her sacral pressure ulcer most information has been obtained from review the chart talking nursing staff as the patient herself not a very good historian Review of Systems Positive points has been mentioned in HPI complete review could not be obtained because of his underlying mental status 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 Smoking Status: Former smoker Past Alcohol Use History: None Reported Past Drug Use History: None Reported - Past Family History Father Family Medical History: Unable to Obtain Mother Family Medical History: Unable to Obtain Medications and Allergies Home Medications Medication Instructions Recorded Confirmed Type EPINEPHrine [Epipen 2-Molina] 0.3 mg IM ONCE PRN 09/09/18 04/16/24 History Escitalopram [Lexapro] 20 mg PO BID 09/09/18 04/16/24 History Ketoconazole 2% Shampoo [Nizoral] 1 applic TOPICAL MOWEFR 09/09/18 04/16/24 History Montelukast [Singulair] 10 mg PO HS 09/09/18 04/16/24 History Pravastatin Sodium [Pravachol] 20 mg PO HS 09/09/18 04/16/24 History haloperidoL [Haldol] 5 mg PO TID 09/09/18 04/16/24 History Aspirin EC [Ecotrin Low Dose] 81 mg PO DAILY 01/23/19 04/16/24 History Topiramate [Topamax] 100 mg PO BID 01/23/19 04/16/24 History Baclofen [Lioresal] 10 mg PO BID@1400,199907/19/21 04/16/24 History clonazePAM [KlonoPIN] 1 mg PO TID 07/19/21 04/16/24 History Budesonide 0.5 mg INHALATION RT-BID 08/18/22 04/16/24 History Ergocalciferol [Vitamin D2 (1250 1,250 mcg PO FR 08/18/22 04/16/24 History Mcg = 20246 Iu)] Metoprolol Succinate (ER) [Toprol 25 mg PO DAILY 08/18/22 04/16/24 History XL] cloZAPine [Clozaril] 100 mg PO HS@199908/18/22 04/16/24 History polyethylene glycoL 3350 [Miralax] 17 gm PO DAILY@0600 08/18/22 04/16/24 History Budesonide-Formot 160-4.5 Mcg 2 puff INHALATION RT-BID PRN 04/16/24 04/16/24 History [Symbicort 160-4.5 Mcg Inhaler] Ibuprofen [Motrin] 600 mg PO Q6HR PRN 04/16/24 04/16/24 History Insulin Glargine [Lantus Vial] 10 unit SQ DAILY 04/16/24 04/16/24 History Memantine [Namenda] 10 mg PO BID 04/16/24 04/16/24 History Nystatin 100,000Unit/gm Cream 1 applic TOPICAL BID PRN 04/16/24 04/16/24 History [Mycostatin Cream] cloZAPine [Clozaril] 50 mg PO TID@0800,1400,2000 04/16/24 04/16/24 History Cefepime [Maxipime] 2 gm IVPB Q8HR each 04/22/24 Rx Famotidine [Pepcid] 20 mg PO BID tab 04/22/24 Rx Ipratropium-Albuterol Nebulize 3 ml INHALATION RT-QID each 04/22/24 Rx [Duoneb 0.5 mg-3 mg/3 ml Soln] Midodrine [ProAmatine] 5 mg PO AC-TID tab 04/22/24 Rx Vancomycin 1,000 mg IVPB Q8H each 04/22/24 Rx Allergies Allergy/AdvReac Type Severity Reaction Status Date / Time bee venom protein (honey bee) Allergy Unknown Verified 04/16/24 16:09 beeswax Allergy Unknown Verified 04/16/24 16:09 Dihydroaminopryidine Allergy Unknown Verified 04/16/24 16:09 Antibiotics latex Allergy Unknown Verified 04/16/24 16:09 metformin Allergy Unknown Verified 04/16/24 16:09 Penicillins Allergy Unknown Verified 04/16/24 16:09 sulfamethoxazole Allergy Unknown Verified 04/16/24 16:09 [From Bactrim] Tetanus Vaccines and Toxoid Allergy Unknown Verified 04/16/24 16:09 trimethoprim [From Bactrim] Allergy Unknown Verified 04/16/24 16:09 Physical Exam Vitals: Vital Signs Temp Pulse Pulse Resp BP BP Pulse Ox 04/17/24 08:08 76 04/17/24 07:56 74 99 04/17/24 06:48 97.6 F 74 16 120/74 98 04/17/24 01:15 97.5 F L 78 15 118/71 100 04/16/24 20:45 84 04/16/24 20:40 83 04/16/24 19:40 97.5 F L 81 16 107/70 97 04/16/24 18:32 83 16 120/83 97 04/16/24 18:29 97.9 F 04/16/24 16:08 96 20 100 04/16/24 14:56 78 16 109/68 Intake and Output 04/16/24 04/17/24 04/17/24 22:59 06:59 14:59 Output Total 800 Balance -800 Output: Urine 800 Uretheral (Vila) 450 Other: Voiding Method Indwelling Catheter Indwelling Catheter Weight 64.8 kg GENERAL DESCRIPTION: Middle-aged female lying in bed, no distress. No tachypnea or accessory muscle of respiration use. HEENT: Shows Pallor , no scleral icterus. Oral mucous membrane is dry. NECK: Trachea central, no thyromegaly. LUNGS: Unlabored breathing. Clear to auscultation anteriorly. No wheeze or crackle. HEART: S1, S2, regular rate and rhythm. No loud murmur ABDOMEN: Soft, no tenderness , guarding or rigidity, no organomegaly EXTREMITIES: No edema of feet. SKIN: Patient did have unstageable pressure ulcer to the sacral area with some surrounding redness no foul-smelling drainage NEUROLOGICAL: The patient is awake, mood and affect normal. Results CBC & Chem 7: 04/22/24 06:15 04/21/24 04:14 Labs: Abnormal Lab Results - Last 24 Hours (Table) 04/16/24 04/16/24 04/16/24 Range/Units 16:05 18:01 18:01 WBC 14.2 H (3.8-10.6) k/uL RBC (4.10-5.20) X 10*6/uL Hgb (12.0-15.0) g/dL MCHC (32.0-37.0) g/dL Immature Gran # (0.00-0.04) X 10*3/uL Neutrophils # 11.2 H (1.3-7.7) k/uL Eosinophils # (0.04-0.35) X 10*3/uL APTT 19.8 L (22.0-30.0) sec Chloride (98-107) mmol/L Creatinine (0.52-1.04) mg/dL Glucose (74-99) mg/dL POC Glucose (mg/dL) (70-110) mg/dL ALT (4-34) U/L Alkaline Phosphatase (38-126) U/L C-Reactive Protein (<1.0) mg/dL Total Protein (6.3-8.2) g/dL Albumin (3.5-5.0) g/dL Ur Specific [place] >1.050 H (1.001-1.035) Urine Protein 1+ H (Negative) Urine Blood Trace H (Negative) Ur Leukocyte Esterase Small H (Negative) Urine RBC 89 H (0-5) /hpf Urine WBC 33 H (0-5) /hpf Urine Mucus Rare H (None) /hpf 04/16/24 04/16/24 04/17/24 Range/Units 18:01 21:13 04:54 WBC 11.73 H (3.8-10.6) k/uL RBC 4.07 L (4.10-5.20) X 10*6/uL Hgb 11.4 L (12.0-15.0) g/dL MCHC 30.3 L (32.0-37.0) g/dL Immature Gran # 0.31 H (0.00-0.04) X 10*3/uL Neutrophils # 7.89 H (1.3-7.7) k/uL Eosinophils # 0 L (0.04-0.35) X 10*3/uL APTT (22.0-30.0) sec Chloride 109 H (98-107) mmol/L Creatinine 0.46 L (0.52-1.04) mg/dL Glucose 179 H (74-99) mg/dL POC Glucose (mg/dL) 138 H (70-110) mg/dL ALT 40 H (4-34) U/L Alkaline Phosphatase 128 H (38-126) U/L C-Reactive Protein 6.5 H (<1.0) mg/dL Total Protein (6.3-8.2) g/dL Albumin (3.5-5.0) g/dL Ur Specific [place] (1.001-1.035) Urine Protein (Negative) Urine Blood (Negative) Ur Leukocyte Esterase (Negative) Urine RBC (0-5) /hpf Urine WBC (0-5) /hpf Urine Mucus (None) /hpf 04/17/24 04/17/24 Range/Units 04:54 06:12 WBC (3.8-10.6) k/uL RBC (4.10-5.20) X 10*6/uL Hgb (12.0-15.0) g/dL MCHC (32.0-37.0) g/dL Immature Gran # (0.00-0.04) X 10*3/uL Neutrophils # (1.3-7.7) k/uL Eosinophils # (0.04-0.35) X 10*3/uL APTT (22.0-30.0) sec Chloride 110 H (98-107) mmol/L Creatinine 0.45 L (0.52-1.04) mg/dL Glucose 128 H (74-99) mg/dL POC Glucose (mg/dL) 125 H (70-110) mg/dL ALT (4-34) U/L Alkaline Phosphatase (38-126) U/L C-Reactive Protein (<1.0) mg/dL Total Protein 5.4 L (6.3-8.2) g/dL Albumin 2.7 L (3.5-5.0) g/dL Ur Specific [place] (1.001-1.035) Urine Protein (Negative) Urine Blood (Negative) Ur Leukocyte Esterase (Negative) Urine RBC (0-5) /hpf Urine WBC (0-5) /hpf Urine Mucus (None) /hpf Assessment and Plan (1) Unstageable pressure ulcer of sacral region Status: Acute Code(s): L89.150 - PRESSURE ULCER OF SACRAL REGION, UNSTAGEABLE SNOMED Code(s): 46530244519469245 (2) Cellulitis of sacral region Status: Acute Code(s): L03.319 - CELLULITIS OF TRUNK, UNSPECIFIED SNOMED Code(s): 659022547 (3) Leukocytosis Status: Acute Code(s): D72.829 - ELEVATED WHITE BLOOD CELL COUNT, UNSPECIFIED SNOMED Code(s): 530704410 (4) Allergy to multiple antibiotics Status: Acute Code(s): Z88.1 - ALLERGY STATUS TO OTHER ANTIBIOTIC AGENTS SNOMED Code(s): 182742710 (5) Sacral decubitus ulcer Status: Acute Code(s): L89.159 - PRESSURE ULCER OF SACRAL REGION, UNSPECIFIED STAGE SNOMED Code(s): 631265766 Plan: 1patient presented to hospital with worsening sacral pressure ulcer not very clear for how long she had this also on any treatment before presentation to hospital, patient sacral wound did have a necrotic base with surrounding erythema and will need to cover for both resistant gram-positive as well as gram-negative pathogen. 2patient also have abnormality on the chest x-ray and CT however the patient seem to have no significant cough clinically not behaving as pneumonia 3-patient also have a positive UA with mental status changes elevated white count will qualify for UTI as the patient because of her mental status unable to provide any reliable history as for his urinary symptoms. 4patient with multiple antibiotic ALLERGIES that would limit the number of antibiotic safe to use. 5await surgical debridement and deep culture both aerobic and anaerobic. 6vancomycin pharmacy to dose target trough of 15 while watching kidney function and Vanco trough closely and cefepime empirically will provide adequate antibiotic coverage We will follow on clinical condition and cultures to further adjust medication if needed Thank you for this consultation we will follow the patient along with you Dictation was produced using ustyme dictation software. please excuse any grammatical, word or spelling errors. Time with Patient: Greater than 30
[2024-04-18] MEDS: CEFEPIME 2 GM in SODIUM CHLORIDE 0.9% 100 ML IVPB SCH (10:01)
[2024-04-18 11:56] LABS: Glucose,Whole Blood 198 mg/dL (70-110)
--- NOTE | 2024-04-18 11:56 | PN ---
PROGRESS NOTE SUBJECTIVE: A 63-year-old white female with worsening cultures have been drawn. Waiting for Dr. Aldrdige's recommendations. Sugars in the mid 100s to 200s up to 300s. She has group D Enterococcus UTI. She is on broad-spectrum antibiotics. OBJECTIVE: VITAL SIGNS: Temperature 97, O2 of 94 to 96, blood pressure is 105/60, pulse 60s to 70s, respiratory rate 16 to 18. CARDIOVASCULAR: S1, S2. LUNGS: Transmitted upper sounds. GI: Soft. ASSESSMENT: 1. Sacral decubitus ulcers medical problems. Wait for further cultures. Continue broad-spectrum antibiotics. Treat for bilateral pneumonia, also seen on the CAT scan. 2. Community-acquired pneumonia. 3. Sacral decubitus ulcer. 4. Generalized debility. PROGNOSIS: Guarded. Please see further orders. MMODL / IJN: [id number] /
[2024-04-18 12:40] LABS: African American GFR (CKD) >90 (>60 ml/min/1.73 sqM); Non-African American GFR(CKD) >90 (>60 ml/min/1.73 sqM)
[2024-04-18] MEDS: VANCOMYCIN TROUGH DUE 1 EACH MISC MISCELLANE ONE (13:46)
--- NOTE | 2024-04-18 16:22 | P.PN ---
Subjective Progress Note Date: 04/18/24 Principal diagnosis: Reason for follow-up with infected sacral pressure ulcer and UTI Patient is a 63-year-old female with a past medical history significant for reflux osteoarthritis seizure disorder CVA TIA COPD patient has been brought into the hospital as a transfer from [facility] with concern for worsening mental status and worsening sacral wound patient did have a debridement of the sacral wound by general surgery and culture completed on 04/17/2024. On today's evaluation that is 04/18/2024, patient did not have any fever and denies any chills, patient is breathing comfortably on room air, patient does not seem in any distress no vomiting or diarrhea reported by the nursing staff. Patient did have a creatinine 0.49 vancomycin trough is 17.6 urine is growing Enterococcus sacral wound with Pseudomonas and Enterococcus faecalis Objective - Vital Signs Vital signs: Vital Signs Temp 98.1 F 04/18/24 13:37 Pulse 74 04/18/24 15:29 Resp 18 04/18/24 13:37 BP 101/61 04/18/24 13:37 Pulse Ox 96 04/18/24 13:37 FiO2 Intake & Output 04/17/24 04/18/24 04/18/24 18:59 06:59 18:59 Intake Total 1000 Output Total 605 1075 Balance 395 -1075 Weight 64.8 kg Intake: IV 1000 Output: Urine 600 1075 Uretheral (Vila) 550 Estimated Blood Loss 5 Other: Voiding Method Indwelling Catheter Indwelling Catheter Indwelling Catheter - Exam GENERAL DESCRIPTION: Middle-age female lying in bed in no distress RESPIRATORY SYSTEM: Unlabored breathing , decreased breath sounds at bases HEART: S1 S2 regular rate and rhythm , ABDOMEN: Soft , no tenderness EXTREMITIES: No edema feet - Labs CBC & Chem 7: 04/17/24 04:54 04/18/24 11:05 Labs: Abnormal Lab Results - Last 24 Hours (Table) 04/17/24 04/17/24 04/17/24 Range/Units 16:36 20:54 23:24 Creatinine (0.52-1.04) mg/dL POC Glucose (mg/dL) 160 H 312 H 243 H (70-110) mg/dL 04/18/24 04/18/24 04/18/24 Range/Units 06:04 11:05 11:54 Creatinine 0.49 L (0.52-1.04) mg/dL POC Glucose (mg/dL) 173 H 198 H (70-110) mg/dL Microbiology - Last 24 Hours (Table) 04/17/24 01:25 Gram Stain - Preliminary Buttock Wound Culture - Preliminary Pseudomonas aeruginosa Enterococcus faecalis 04/17/24 14:40 Gram Stain - Preliminary Back 04/16/24 16:05 Urine Culture - Preliminary Urine,Voided Group D Enterococcus Assessment and Plan (1) Unstageable pressure ulcer of sacral region Current Visit: Yes Status: Acute Code(s): L89.150 - PRESSURE ULCER OF SACRAL REGION, UNSTAGEABLE SNOMED Code(s): 44980568193560337 (2) Cellulitis of sacral region Current Visit: Yes Status: Acute Code(s): L03.319 - CELLULITIS OF TRUNK, UNSPECIFIED SNOMED Code(s): 964932287 (3) Leukocytosis Current Visit: Yes Status: Acute Code(s): D72.829 - ELEVATED WHITE BLOOD CELL COUNT, UNSPECIFIED SNOMED Code(s): 167573547 (4) Allergy to multiple antibiotics Current Visit: Yes Status: Acute Code(s): Z88.1 - ALLERGY STATUS TO OTHER ANTIBIOTIC AGENTS SNOMED Code(s): 306662476 (5) Sacral decubitus ulcer Current Visit: Yes Status: Acute Code(s): L89.159 - PRESSURE ULCER OF SACRAL REGION, UNSPECIFIED STAGE SNOMED Code(s): 122126564 Plan: 1patient presented to hospital with worsening sacral pressure ulcer not very clear for home and she has this pressure ulcer and workup of treatment has been widely to wait patient also did have a necrotic base with surrounding erythema and will need to cover for both resistant gram-positive as well as gram-negative pathogen. 2patient also have abnormality on the chest x-ray and CT however the patient seem to have no significant cough clinically not behaving as pneumonia 3-patient also have a positive UA with mental status changes elevated white count will qualify for UTI as the patient because of her mental status unable to provide any reliable history as for his urinary symptoms. 4patient with multiple antibiotic ALLERGIES that would limit the number of antibiotic safe to use. 5patient is status post surgical debridement and deep culture currently growing Pseudomonas and Enterococcus 6patient to be continued with vancomycin pharmacy to dose target trough of 15 while watching kidney function and Vanco trough closely and cefepime while waiting for the culture to finalize Dictation was produced using [employer] dictation software. please excuse any grammatical, word or spelling errors. Time with Patient: Less than 30
[2024-04-18 16:57] LABS: Glucose,Whole Blood 177 mg/dL (70-110)
[2024-04-18 21:00] LABS: Glucose,Whole Blood 160 mg/dL (70-110)
--- NOTE | 2024-04-19 00:23 | P.PN ---
Progress Note - Text Progress Note Date: 04/18/24 Patient seen and examined. No acute events overnight. Pain is controlled. Denies fevers and chills. PHYSICAL EXAM: VITAL SIGNS: Reviewed GENERAL: in no acute distress. ABDOMEN: Soft. Nondistended. Nontender NEUROLOGIC: Sleepy, lethargic. Able to open her eyes. Confused. Skin: Sacral decubitus ulcer with granulation tissue no significant drainage. Small area of eschar tissue at the cephalic portion of the wound. Smaller wound noted on the lower left buttocks with granulation tissue. No foul odor. No drainage. ASSESSMENT: 1. Sacral decubitus ulcer s/p Debridement 04/18/23 PLAN: -Local Wound Care per Nursing/Wound Care -Cultures Pending -Clindamycin/Vancomycin -ID ashlyn Cornelius DO [facility] [phone]
[2024-04-19 06:11] LABS: Glucose,Whole Blood 175 mg/dL (70-110)
[2024-04-19 11:27] LABS: Glucose,Whole Blood 192 mg/dL (70-110)
--- NOTE | 2024-04-19 13:52 | P.PN ---
Subjective Progress Note Date: 04/19/24 Principal diagnosis: Reason for follow-up with infected sacral pressure ulcer and UTI Patient is a 63-year-old female with a past medical history significant for reflux osteoarthritis seizure disorder CVA TIA COPD patient has been brought into the hospital as a transfer from [facility] with concern for worsening mental status and worsening sacral wound patient did have a debridement of the sacral wound by general surgery and culture completed on 04/17/2024. On today's evaluation that is 04/19/2024, Patient is afebrile patient is currently on room air and breathing comfortably denies any chest pain or cough no abdominal pain or worsening pain to the sacral wound area. No new lab has been repeated today cultures currently growing Pseudomonas Enterococcus faecalis Objective - Vital Signs Vital signs: Vital Signs Temp 98.8 F 04/19/24 13:13 Pulse 81 04/19/24 13:13 Resp 17 04/19/24 13:13 BP 110/67 04/19/24 13:13 Pulse Ox 95 04/19/24 13:13 FiO2 Intake & Output 04/18/24 04/19/24 04/19/24 18:59 06:59 18:59 Output Total 741 833 2153 Balance -800 -575 -1150 Output: Urine 693 155 8519 Other: Voiding Method Indwelling Catheter Indwelling Catheter Indwelling Catheter # Bowel Movements 3 1 - Exam GENERAL DESCRIPTION: Middle-age female lying in bed in no distress RESPIRATORY SYSTEM: Unlabored breathing , decreased breath sounds at bases HEART: S1 S2 regular rate and rhythm , ABDOMEN: Soft , no tenderness, sacral wound some slough tissue surrounding redness EXTREMITIES: No edema feet - Labs CBC & Chem 7: 04/17/24 04:54 04/18/24 11:05 Labs: Abnormal Lab Results - Last 24 Hours (Table) 04/18/24 04/18/24 04/19/24 Range/Units 16:56 20:59 06:09 POC Glucose (mg/dL) 177 H 160 H 175 H (70-110) mg/dL 04/19/24 Range/Units 11:20 POC Glucose (mg/dL) 192 H (70-110) mg/dL Microbiology - Last 24 Hours (Table) 04/17/24 01:25 Anaerobic Culture - Preliminary Buttock 04/17/24 01:25 Gram Stain - Final Buttock Wound Culture - Final Pseudomonas aeruginosa Enterococcus faecalis Nani albicans 04/17/24 14:41 Gram Stain - Preliminary Back Wound Culture - Preliminary Enterococcus faecalis 04/17/24 14:40 Gram Stain - Preliminary Back Tissue Culture - Preliminary Enterococcus faecalis 04/16/24 16:05 Urine Culture - Final Urine,Voided Enterococcus faecalis Assessment and Plan (1) Unstageable pressure ulcer of sacral region Current Visit: Yes Status: Acute Code(s): L89.150 - PRESSURE ULCER OF SACRAL REGION, UNSTAGEABLE SNOMED Code(s): 97867935341365749 (2) Cellulitis of sacral region Current Visit: Yes Status: Acute Code(s): L03.319 - CELLULITIS OF TRUNK, UNSPECIFIED SNOMED Code(s): 306481904 (3) Leukocytosis Current Visit: Yes Status: Acute Code(s): D72.829 - ELEVATED WHITE BLOOD CELL COUNT, UNSPECIFIED SNOMED Code(s): 355986699 (4) Allergy to multiple antibiotics Current Visit: Yes Status: Acute Code(s): Z88.1 - ALLERGY STATUS TO OTHER ANTIBIOTIC AGENTS SNOMED Code(s): 533549498 (5) Sacral decubitus ulcer Current Visit: Yes Status: Acute Code(s): L89.159 - PRESSURE ULCER OF SACRAL REGION, UNSPECIFIED STAGE SNOMED Code(s): 582750823 Plan: 1patient presented to hospital with worsening sacral pressure ulcer not very clear for home and she has this pressure ulcer and workup of treatment has been widely to wait patient also did have a necrotic base with surrounding erythema and will need to cover for both resistant gram-positive as well as gram-negative pathogen. 2patient also have abnormality on the chest x-ray and CT however the patient seem to have no significant cough clinically not behaving as pneumonia 3-patient also have a positive UA with mental status changes elevated white count will qualify for UTI as the patient because of her mental status unable to provide any reliable history as for his urinary symptoms. 4patient with multiple antibiotic ALLERGIES that would limit the number of antibiotic safe to use. 5patient is status post surgical debridement and deep culture currently growing Pseudomonas and Enterococcus 6patient to continue with the cefepime and vancomycin because of her penicillin allergy will need a PICC line for outpatient IV antibiotics Dictation was produced using [employer] dictation software. please excuse any grammatical, word or spelling errors. Time with Patient: Less than 30
[2024-04-19 16:46] LABS: Glucose,Whole Blood 239 mg/dL (70-110)
[2024-04-19] MEDS: FUROSEMIDE 10 MG/ML 2 ML VIAL IV ONE (20:02)
[2024-04-19 20:10] LABS: Glucose,Whole Blood 267 mg/dL (70-110)
[2024-04-19] MEDS: HYDROcodone/APAP 5-325MG 1 EACH TAB PO PRN (20:45)
--- NOTE | 2024-04-20 02:05 | P.PN ---
Progress Note - Text Progress Note Date: 04/19/24 Patient seen and examined. No acute events overnight. Pain is controlled. Denies fevers and chills. Preliminary Culture results are Enterococcus, Pseudomonas, and Nani. PHYSICAL EXAM: VITAL SIGNS: Reviewed GENERAL: in no acute distress. ABDOMEN: Soft. Nondistended. Nontender NEUROLOGIC: Sleepy, lethargic. Able to open her eyes. Confused. Skin: Sacral decubitus ulcer with granulation tissue no significant drainage. Small area of eschar tissue at the cephalic portion of the wound. Smaller wound noted on the lower left buttocks with granulation tissue. No foul odor. No drainage. ASSESSMENT: 1. Sacral decubitus ulcer s/p Debridement 04/18/23 PLAN: -Local Wound Care per Nursing/Wound Care -Final Culture Results Pending -Clindamycin/Vancomycin -ID ashlyn Cornelius DO [facility] [phone]
[2024-04-20 05:11] LABS: ALT 17 U/L (4-34); AST 12 U/L (14-36); African American GFR (CKD) >90 (>60 ml/min/1.73 sqM); Albumin 2.7 g/dL (3.5-5.0); Alkaline Phosphatase 108 U/L (38-126); Anion Gap 8 mmol/L; Blood Urea Nitrogen 13 mg/dL (7-17); Calcium 8.6 mg/dL (8.4-10.2); Carbon Dioxide 21 mmol/L (22-30); Chloride 112 mmol/L (98-107); Globulin 2.7 g/dL; Glucose 236 mg/dL (74-99); Non-African American GFR(CKD) >90 (>60 ml/min/1.73 sqM); Potassium 3.6 mmol/L (3.5-5.1); Sodium 141 mmol/L (137-145); Total Bilirubin 0.2 mg/dL (0.2-1.3); Total Protein 5.4 g/dL (6.3-8.2)
--- NOTE | 2024-04-20 05:11 | PN ---
PROGRESS NOTE A 63-year-old white female, status post sacral decubitus ulcer, surgical drainage and surgical debridement. Cultures were positive for Enterococcus faecalis, Pseudomonas aeruginosa, Nani albicans. Dr. Aldridge has been consulted and has her on broad- spectrum antibiotics to cover all of these bugs. Urine culture is pending, but it looks like it is positive for Enterobacter also. OBJECTIVE: LUNGS: Show scattered rhonchi and wheeze. VITAL SIGNS: She was sating at 95 on room air, blood pressure 110/67, temperature 98, pulse 81, respiratory rate 17. I will give her 1 dose of Lasix 20 mg a day due to continue IV down to Hep-Lock. Continue broad-spectrum antibiotics per Dr. Aldridge's recommendations. She will need a PICC line outpatient due to recent drug resistance, unstageable pressure ulcer in the sacral region; cellulitis of the sacral region. Continue on cefepime and vancomycin. PROGNOSIS: Guarded. Ambulate as tolerated. Please see further orders. MMODL / IJN: [id number] /
[2024-04-20 06:03] LABS: Glucose,Whole Blood 188 mg/dL (70-110)
[2024-04-20 09:58] LABS: Basophils # (A) 0.05 X 10*3/uL (0.00-0.10); Basophils % (A) 0.5 %; Eosinophils # (A) 0 X 10*3/uL (0.04-0.35); Eosinophils % (A) 0 %; HCT 34.8 % (37.2-46.3); HGB 10.8 g/dL (12.0-15.0); Lymphocytes # (A) 2.69 X 10*3/uL (0.90-5.00); Lymphocytes % (A) 25.5 %; MCH 27.9 pg (27.0-32.0); MCV 89.9 FL (80.0-97.0); Monocytes # (A) 0.59 X 10*3/uL (0.20-1.00); Monocytes % (A) 5.6 %; NRBC Per 100 WBC 0 X 10*3/uL (0.00-0.01); Neutrophils # (A) 6.94 X 10*3/uL (1.80-7.70); Neutrophils % (A) 65.9 %; Platelet Count 134 X 10*3/uL (140-440); RBC 3.87 X 10*6/uL (4.10-5.20); RDW 14.8 % (11.5-14.5); WBC 10.53 X 10*3/uL (4.50-10.00)
[2024-04-20 11:56] LABS: Glucose,Whole Blood 232 mg/dL (70-110)
--- NOTE | 2024-04-20 14:44 | P.PN ---
Subjective Progress Note Date: 04/20/24 SURGICAL PROGRESS NOTE CHIEF COMPLAINT: Sacral decubitus ulcer HISTORY OF PRESENT ILLNESS: Patient status post debridement on April 18, 2023. No acute events overnight. Afebrile. WBC is down from 11.7-10.53. Final wound culture results pending PHYSICAL EXAM: VITAL SIGNS: Reviewed. GENERAL: Well-developed in no acute distress. ABDOMEN: Soft. Nondistended. Nontender. ASSESSMENT: 1. Sacral decubitus ulcer status postdebridement PLAN: -Continue local wound care -Antibiotics per infectious disease -Patient scheduled for PICC line placement for IV antibiotics outpatient Physician Security Shift Supervisor note has been reviewed by physician. Signing provider agrees with the documented findings, assessment, and plan of care. Objective - Vital Signs Vital signs: Vital Signs Temp 98.0 F 04/20/24 06:44 Pulse 76 04/20/24 08:46 Resp 16 04/20/24 06:44 BP 112/72 04/20/24 06:44 Pulse Ox 94 L 04/20/24 08:38 FiO2 21 04/20/24 08:38 Intake & Output 04/19/24 04/20/24 04/20/24 18:59 06:59 18:59 Output Total 1950 2270 Balance -1950 -0 Weight 64.8 kg Output: Urine 1950 2270 Other: Voiding Method Indwelling Catheter Indwelling Catheter # Bowel Movements 1 - Labs CBC & Chem 7: 04/20/24 04:19 04/20/24 04:19 Labs: Abnormal Lab Results - Last 24 Hours (Table) 04/19/24 04/19/24 04/20/24 Range/Units 16:44 20:08 04:19 WBC (4.50-10.00) X 10*3/uL RBC (4.10-5.20) X 10*6/uL Hgb (12.0-15.0) g/dL Hct (37.2-46.3) % MCHC (32.0-37.0) g/dL RDW (11.5-14.5) % Plt Count (140-440) X 10*3/uL Immature Gran # (0.00-0.04) X 10*3/uL Eosinophils # (0.04-0.35) X 10*3/uL Chloride 112 H (98-107) mmol/L Carbon Dioxide 21 L (22-30) mmol/L Creatinine 0.47 L (0.52-1.04) mg/dL Glucose 236 H (74-99) mg/dL POC Glucose (mg/dL) 239 H 267 H (70-110) mg/dL AST 12 L (14-36) U/L Total Protein 5.4 L (6.3-8.2) g/dL Albumin 2.7 L (3.5-5.0) g/dL 04/20/24 04/20/24 04/20/24 Range/Units 04:19 06:01 11:55 WBC 10.53 H (4.50-10.00) X 10*3/uL RBC 3.87 L (4.10-5.20) X 10*6/uL Hgb 10.8 L (12.0-15.0) g/dL Hct 34.8 L (37.2-46.3) % MCHC 31.0 L (32.0-37.0) g/dL RDW 14.8 H (11.5-14.5) % Plt Count 134 L (140-440) X 10*3/uL Immature Gran # 0.26 H (0.00-0.04) X 10*3/uL Eosinophils # 0 L (0.04-0.35) X 10*3/uL Chloride (98-107) mmol/L Carbon Dioxide (22-30) mmol/L Creatinine (0.52-1.04) mg/dL Glucose (74-99) mg/dL POC Glucose (mg/dL) 188 H 232 H (70-110) mg/dL AST (14-36) U/L Total Protein (6.3-8.2) g/dL Albumin (3.5-5.0) g/dL Microbiology - Last 24 Hours (Table) 04/17/24 14:41 Anaerobic Culture - Preliminary Back 04/17/24 14:40 Anaerobic Culture - Preliminary Back 04/17/24 01:25 Anaerobic Culture - Preliminary Buttock 04/17/24 01:25 Gram Stain - Final Buttock Wound Culture - Final Pseudomonas aeruginosa Enterococcus faecalis Nani albicans 04/17/24 14:41 Gram Stain - Preliminary Back Wound Culture - Preliminary Enterococcus faecalis 04/17/24 14:40 Gram Stain - Preliminary Back Tissue Culture - Preliminary Enterococcus faecalis
[2024-04-20 16:32] LABS: Glucose,Whole Blood 211 mg/dL (70-110)
[2024-04-20 20:26] LABS: Glucose,Whole Blood 236 mg/dL (70-110)
--- NOTE | 2024-04-21 01:18 | PN ---
PROGRESS NOTE OBJECTIVE: VITAL SIGNS: Temperature 97.4, O2 of 99% on 2 L, blood pressure 99/63, pulse 63, respiratory rate 16 to 18. CARDIOVASCULAR: S1, S2. LUNGS: Transmitted breath sounds. Scattered wheeze at the bases. HEMATOLOGY: Negative Homans. PSYCH: Fair mood and affect GI: Soft. NEUROLOGIC: Alert and oriented x3. Surgery has seen her. The final wound cultures are pending. Multiple growths are seen. IV antibiotics currently given. Sacral decubitus ulcer, status post debridement, community-acquired pneumonia, asthma, COPD. Prognosis guarded. Continue current treatment. Hypotension, we may have to give fluids. Withhold hypertension medications as she is hypotensive at this point. Wait for Pulmonary consult. Please see further orders. MMODL / IJN: [id number] /
[2024-04-21 04:51] LABS: African American GFR (CKD) >90 (>60 ml/min/1.73 sqM); Non-African American GFR(CKD) >90 (>60 ml/min/1.73 sqM)
[2024-04-21] MEDS: VANCOMYCIN TROUGH DUE 1 EACH MISC MISCELLANE ONE (05:07)
[2024-04-21 06:11] LABS: Glucose,Whole Blood 208 mg/dL (70-110)
[2024-04-21] MEDS: INSULIN DETEMIR (LEVEMIR) 100 UNIT/ML SYR SQ SCH (06:41)
[2024-04-21] MEDS: MIDODRINE 5 MG TAB PO SCH (06:41)
[2024-04-21] MEDS: LIDOCAINE 1% INJ 10MG/ML (20 ML MDV) SQ ONE (09:53)
--- NOTE | 2024-04-21 09:57 | P.CNPUL ---
History of Present Illness Consult date: 04/21/24 Reason for consult: dyspnea, cough, pneumonia Chief complaint: Shortness of breath History of present illness: 63-year-old seen evaluate examined, patient admitted into the hospital transfer from [facility] on April 16, 2023 with confusion and altered mental status which started few days ago. She has a history of pneumonia urinary tract infection sacral decubitus ulcer and patient has been in and out of [facility] for the last 1 month. Patient was transferred as due to large sacral decubitus ulcer which thought to be infected and required surgical intervention. Patient has been on local wound care as well as of vancomycin along with cefepime. On arrival she was afebrile hemodynamic status was stable, her chest x-ray wass significant for Patchy bilateral focal airspace disease with a differential diagnosis CHF versus pneumonia. CT scan of the chest negative for pleural effusion, bilateral groundglass opacities and interstitial thickening throughout the lung noted stable since 2019 with a right adrenal nodule and mild cardiomegaly and coronary arthrosclerosis. Patient underwent surgical debridement, patient remains on 2 L oxygen hemodynamic status and oxygen saturation remained stable patient is afebrile. Last set of laboratory data include WBC count 10.5 hemoglobin hematocrit 10/34 platelet count of 134 sodium 140 potassium 3.6 BUN/creatinine 13/0.47 blood glucose 208 alk phos is 108 LFTs within normal limit vancomycin level 18.6. Currently patient is on pain management with [place] 5 along with bronchodilator and Pulmicort, cefepime as well as sliding scale insulin continuation of her home medications as well as IV vancomycin. Wound culture positive for Enterococcus with Pseudomonas. Echocardiogram not done Her past medical history significant for mood disorder depression, chronic asthma, dyslipidemia, generalized anxiety disorder, peptic ulcer disease, COPD, hypertension hypertensive cardiovascular disease, type 2 diabetes mellitus, h istory of CVA, seizure disorder, nocturnal hypoxia requiring oxygen support, schizophrenia 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 Smoking Status: Former smoker Past Alcohol Use History: None Reported Past Drug Use History: None Reported - Past Family History Father Family Medical History: Unable to Obtain Mother Family Medical History: Unable to Obtain Medications and Allergies Home Medications Medication Instructions Recorded Confirmed Type EPINEPHrine [Epipen 2-Molina] 0.3 mg IM ONCE PRN 09/09/18 04/16/24 History Escitalopram [Lexapro] 20 mg PO BID 09/09/18 04/16/24 History Ketoconazole 2% Shampoo [Nizoral] 1 applic TOPICAL MOWEFR 09/09/18 04/16/24 History Montelukast [Singulair] 10 mg PO HS 09/09/18 04/16/24 History Pravastatin Sodium [Pravachol] 20 mg PO HS 09/09/18 04/16/24 History haloperidoL [Haldol] 5 mg PO TID 09/09/18 04/16/24 History Aspirin EC [Ecotrin Low Dose] 81 mg PO DAILY 01/23/19 04/16/24 History Baclofen [Lioresal] 15 mg PO DAILY@0800 01/23/19 04/16/24 History Topiramate [Topamax] 100 mg PO BID 01/23/19 04/16/24 History Baclofen [Lioresal] 10 mg PO BID@1400,199907/19/21 04/16/24 History Famotidine [Pepcid] 20 mg PO DAILY 07/19/21 04/16/24 History clonazePAM [KlonoPIN] 1 mg PO TID 07/19/21 04/16/24 History Albuterol Inhaler [Ventolin Hfa 1 - 2 puff INHALATION RT-Q6H PRN 08/18/22 04/16/24 History Inhaler] Budesonide 0.5 mg INHALATION RT-BID 08/18/22 04/16/24 History Ergocalciferol [Vitamin D2 (1250 1,250 mcg PO FR 08/18/22 04/16/24 History Mcg = 51437 Iu)] Metoprolol Succinate (ER) [Toprol 25 mg PO DAILY 08/18/22 04/16/24 History XL] cloZAPine [Clozaril] 100 mg PO HS@199908/18/22 04/16/24 History polyethylene glycoL 3350 [Miralax] 17 gm PO DAILY@0608/18/22 04/16/24 History Budesonide-Formot 160-4.5 Mcg 2 puff INHALATION RT-BID PRN 04/16/24 04/16/24 History [Symbicort 160-4.5 Mcg Inhaler] Ibuprofen [Motrin] 600 mg PO Q6HR PRN 04/16/24 04/16/24 History Insulin Glargine [Lantus Vial] 10 unit SQ DAILY 04/16/24 04/16/24 History Memantine [Namenda] 10 mg PO BID 04/16/24 04/16/24 History Nystatin 100,000Unit/gm Cream 1 applic TOPICAL BID PRN 04/16/24 04/16/24 History [Mycostatin Cream] cloZAPine [Clozaril] 50 mg PO TID@0800,1400,199904/16/24 04/16/24 History Allergies Allergy/AdvReac Type Severity Reaction Status Date / Time bee venom protein (honey bee) Allergy Unknown Verified 04/16/24 16:09 beeswax Allergy Unknown Verified 04/16/24 16:09 Dihydroaminopryidine Allergy Unknown Verified 04/16/24 16:09 Antibiotics latex Allergy Unknown Verified 04/16/24 16:09 metformin Allergy Unknown Verified 04/16/24 16:09 Penicillins Allergy Unknown Verified 04/16/24 16:09 sulfamethoxazole Allergy Unknown Verified 04/16/24 16:09 [From Bactrim] Tetanus Vaccines and Toxoid Allergy Unknown Verified 04/16/24 16:09 trimethoprim [From Bactrim] Allergy Unknown Verified 04/16/24 16:09 Physical Exam Vitals: Vital Signs Temp Pulse Resp BP Pulse Ox 04/21/24 06:46 97.5 F L 67 16 123/70 100 04/21/24 02:05 98.1 F 66 17 105/63 98 04/20/24 19:22 97.4 F L 63 17 99/63 99 04/20/24 13:27 98.0 F 101 H 16 93/60 94 L Intake and Output 04/20/24 04/21/24 04/21/24 22:59 06:59 14:59 Output Total 575 650 Balance -575 -650 Output: Urine 575 650 Other: # Bowel Movements 2 2 - Constitutional General appearance: average body habitus, no acute distress - EENT Eyes: EOMI, PERRLA ENT: normal oropharynx Ears: bilateral: normal - Neck Carotids: bilateral: upstroke normal Thyroid: bilateral: normal size - Respiratory Respiratory: bilateral: CTA - Cardiovascular Rhythm: regular Heart sounds: normal: S1, S2 - Gastrointestinal General gastrointestinal: normal bowel sounds, soft - Neurologic Neurologic: CNII-XII intact, focal deficits - Musculoskeletal Musculoskeletal: gait normal, strength equal bilaterally - Psychiatric Psychiatric: A&O x's 3, appropriate affect, intact judgment & insight Results - Laboratory Findings CBC and BMP: 04/20/24 04:19 04/21/24 04:14 PT/INR, D-dimer PT 10.3 sec (10.0-12.5) 04/16/24 18:01 INR 0.9 (<1.2) 04/16/24 18:01 Abnormal lab findings: Abnormal Labs 04/16/24 04/16/24 04/16/24 16:05 18:01 18:01 WBC 14.2 H RBC Hgb Hct MCHC RDW Plt Count Immature Gran # Neutrophils # 11.2 H Eosinophils # APTT 19.8 L Chloride Carbon Dioxide Creatinine Glucose POC Glucose (mg/dL) AST ALT Alkaline Phosphatase C-Reactive Protein Total Protein Albumin Ur Specific Upperco >1.050 H Urine Protein 1+ H Urine Blood Trace H Ur Leukocyte Esterase Small H Urine RBC 89 H Urine WBC 33 H Urine Mucus Rare H 04/16/24 04/16/24 04/17/24 18:01 21:13 04:54 WBC 11.73 H RBC 4.07 L Hgb 11.4 L Hct MCHC 30.3 L RDW Plt Count Immature Gran # 0.31 H Neutrophils # 7.89 H Eosinophils # 0 L APTT Chloride 109 H Carbon Dioxide Creatinine 0.46 L Glucose 179 H POC Glucose (mg/dL) 138 H AST ALT 40 H Alkaline Phosphatase 128 H C-Reactive Protein 6.5 H Total Protein Albumin Ur Specific Upperco Urine Protein Urine Blood Ur Leukocyte Esterase Urine RBC Urine WBC Urine Mucus 04/17/24 04/17/24 04/17/24 04:54 06:12 11:41 WBC RBC Hgb Hct MCHC RDW Plt Count Immature Gran # Neutrophils # Eosinophils # APTT Chloride 110 H Carbon Dioxide Creatinine 0.45 L Glucose 128 H POC Glucose (mg/dL) 125 H 175 H AST ALT Alkaline Phosphatase C-Reactive Protein Total Protein 5.4 L Albumin 2.7 L Ur Specific Upperco Urine Protein Urine Blood Ur Leukocyte Esterase Urine RBC Urine WBC Urine Mucus 04/17/24 04/17/24 04/17/24 16:36 20:54 23:24 WBC RBC Hgb Hct MCHC RDW Plt Count Immature Gran # Neutrophils # Eosinophils # APTT Chloride Carbon Dioxide Creatinine Glucose POC Glucose (mg/dL) 160 H 312 H 243 H AST ALT Alkaline Phosphatase C-Reactive Protein Total Protein Albumin Ur Specific Upperco Urine Protein Urine Blood Ur Leukocyte Esterase Urine RBC Urine WBC Urine Mucus 04/18/24 04/18/24 04/18/24 06:04 11:05 11:54 WBC RBC Hgb Hct MCHC RDW Plt Count Immature Gran # Neutrophils # Eosinophils # APTT Chloride Carbon Dioxide Creatinine 0.49 L Glucose POC Glucose (mg/dL) 173 H 198 H AST ALT Alkaline Phosphatase C-Reactive Protein Total Protein Albumin Ur Specific Upperco Urine Protein Urine Blood Ur Leukocyte Esterase Urine RBC Urine WBC Urine Mucus 04/18/24 04/18/24 04/19/24 16:56 20:59 06:09 WBC RBC Hgb Hct MCHC RDW Plt Count Immature Gran # Neutrophils # Eosinophils # APTT Chloride Carbon Dioxide Creatinine Glucose POC Glucose (mg/dL) 177 H 160 H 175 H AST ALT Alkaline Phosphatase C-Reactive Protein Total Protein Albumin Ur Specific Upperco Urine Protein Urine Blood Ur Leukocyte Esterase Urine RBC Urine WBC Urine Mucus 04/19/24 04/19/24 04/19/24 11:20 16:44 20:08 WBC RBC Hgb Hct MCHC RDW Plt Count Immature Gran # Neutrophils # Eosinophils # APTT Chloride Carbon Dioxide Creatinine Glucose POC Glucose (mg/dL) 192 H 239 H 267 H AST ALT Alkaline Phosphatase C-Reactive Protein Total Protein Albumin Ur Specific Upperco Urine Protein Urine Blood Ur Leukocyte Esterase Urine RBC Urine WBC Urine Mucus 04/20/24 04/20/24 04/20/24 04:19 04:19 06:01 WBC 10.53 H RBC 3.87 L Hgb 10.8 L Hct 34.8 L MCHC 31.0 L RDW 14.8 H Plt Count 134 L Immature Gran # 0.26 H Neutrophils # Eosinophils # 0 L APTT Chloride 112 H Carbon Dioxide 21 L Creatinine 0.47 L Glucose 236 H POC Glucose (mg/dL) 188 H AST 12 L ALT Alkaline Phosphatase C-Reactive Protein Total Protein 5.4 L Albumin 2.7 L Ur Specific Upperco Urine Protein Urine Blood Ur Leukocyte Esterase Urine RBC Urine WBC Urine Mucus 04/20/24 04/20/24 04/20/24 11:55 16:31 20:24 WBC RBC Hgb Hct MCHC RDW Plt Count Immature Gran # Neutrophils # Eosinophils # APTT Chloride Carbon Dioxide Creatinine Glucose POC Glucose (mg/dL) 232 H 211 H 236 H AST ALT Alkaline Phosphatase C-Reactive Protein Total Protein Albumin Ur Specific Upperco Urine Protein Urine Blood Ur Leukocyte Esterase Urine RBC Urine WBC Urine Mucus 04/21/24 04/21/24 04:14 06:08 WBC RBC Hgb Hct MCHC RDW Plt Count Immature Gran # Neutrophils # Eosinophils # APTT Chloride Carbon Dioxide Creatinine 0.47 L Glucose POC Glucose (mg/dL) 208 H AST ALT Alkaline Phosphatase C-Reactive Protein Total Protein Albumin Ur Specific Upperco Urine Protein Urine Blood Ur Leukocyte Esterase Urine RBC Urine WBC Urine Mucus Assessment and Plan Assessment: Sepsis related to sacral decubitus ulcer on broad-spectrum antibiotics status Mauri broad-spectrum antibiotics as well as w, ound debridement COPD, on bronchodilators and inhaled aerosolized steroids Abnormal chest x-ray with groundglass attenuation, likely interstitial lung disease, consider trial of steroids Hypertension hypertensive cardiovascular disease Mood disorder depression Dementia Alzheimer's disease Type 2 diabetes mellitus with hyperglycemia Plan: Trial of steroid 40 mg IV every 12 Repeat chest x-ray in next 48 to 72 hours Continue broad-spectrum antibiotics with vancomycin and cefepime Continue bronchodilators and inhaled aerosolized steroids Further recommendations pending plan of care as per clinical response with the patient Time with Patient: Greater than 30
--- NOTE | 2024-04-21 10:15 | P.OP ---
Date of Procedure: 04/21/24 Description of Procedure: Date of Procedure: Preoperative Diagnosis: Need for long-term IV antibiotic access. Postoperative Diagnosis: Same. Procedure(s) Performed: Ultrasound-guided cannulation right brachial vein. Venogram Insertion of peripherally inserted central catheter under fluoroscopic guidance. Anesthesia: local (1% Xylocaine.) Surgeon: Julito Estimated Blood Loss (ml): 5 IV fluids (ml): 0 Urine output (ml): 0 Pathology: none sent Condition: stable Disposition: no change Indications for Procedure: Patient is a 63-year-old female with a sacral wound. Patient will require long- term IV antibiotics as an outpatient patient is offered a PICC line to allow for intravenous administration of antibiotics. Description of Procedure: Patient was brought to the special procedure suite. The right upper extremity sterilely prepped and draped in usual manner. Ultrasound was utilized to identi fy the brachial vein which was normally compressible free of visible thrombus. Permenant image was stored. 1% Xylocaine was utilized for local anesthesia tissues overlying the vein. There was no significantly sized visualized cephalic or basilic vein identified. Through this anesthetized area and with the aid of ultrasound a micropuncture needle was utilized to cannulate the vein. Once cannulated, Softip guidewire was advanced into the vein. The needle was withdrawn and a micropuncture sheath and dilator advanced over the guidewire. The guidewire was withdrawn and exchanged for the PICC guidewire and measured initially to 39 cm to the cavoatrial junction. The catheter was cut to size and advanced into the cavoatrial junction. Initially there was resistance at the level of the subclavian, the catheter was withdrawn and a venogram was performed showing patent vessels with significant angulation and multiple branches, is uncertain if there is a true stenosis of the area where it inserts at the axillary from this position. Multiple attempts and maneuvers were trialed to cross this area, it was unsuccessful therefore a midline catheter was left in the space at 29 cm. The sheath was peeled away. Blood was easily withdrawn through the catheter and the catheter was then flushed with heparinized saline solution and secured to the skin. Patient tolerated procedure well and was returned to their room in satisfactory and stable condition.
--- NOTE | 2024-04-21 11:28 | P.PN ---
Subjective Progress Note Date: 04/21/24 SURGICAL PROGRESS NOTE CHIEF COMPLAINT: Sacral decubitus ulcer HISTORY OF PRESENT ILLNESS: Patient status post debridement on April 18, 2023. No acute events overnight. Afebrile. No new labs for today. Wound culture results finalized with Enterococcus faecalis, Pseudomonas and Nani albicans. Patient status post PICC line placement PHYSICAL EXAM: VITAL SIGNS: Reviewed. GENERAL: Well-developed in no acute distress. ABDOMEN: Soft. Nondistended. Nontender. ASSESSMENT: 1. Sacral decubitus ulcer status postdebridement PLAN: -Can be discharge from surgical standpoint when medically cleared -Continue local wound care -Antibiotics per infectious disease Physician Media Sales Executive note has been reviewed by physician. Signing provider agrees with the documented findings, assessment, and plan of care. Objective - Vital Signs Vital signs: Vital Signs Temp 97.5 F L 04/21/24 06:46 Pulse 67 04/21/24 06:46 Resp 16 04/21/24 08:00 BP 123/70 04/21/24 06:46 Pulse Ox 100 04/21/24 06:46 FiO2 21 04/20/24 08:38 Intake & Output 04/20/24 04/21/24 04/21/24 18:59 06:59 18:59 Output Total 575 650 Balance -575 -650 Weight 64.8 kg Output: Urine 575 650 Other: Voiding Method Indwelling Catheter Indwelling Catheter # Bowel Movements 2 2 - Labs CBC & Chem 7: 04/20/24 04:19 04/21/24 04:14 Labs: Abnormal Lab Results - Last 24 Hours (Table) 04/20/24 04/20/24 04/20/24 Range/Units 11:55 16:31 20:24 Creatinine (0.52-1.04) mg/dL POC Glucose (mg/dL) 232 H 211 H 236 H (70-110) mg/dL 04/21/24 04/21/24 Range/Units 04:14 06:08 Creatinine 0.47 L (0.52-1.04) mg/dL POC Glucose (mg/dL) 208 H (70-110) mg/dL Microbiology - Last 24 Hours (Table) 04/17/24 14:41 Gram Stain - Final Back Wound Culture - Final Enterococcus faecalis 04/17/24 14:40 Gram Stain - Final Back Tissue Culture - Final Enterococcus faecalis 04/17/24 14:41 Anaerobic Culture - Preliminary Back 04/17/24 14:40 Anaerobic Culture - Preliminary Back
[2024-04-21 11:29] LABS: Glucose,Whole Blood 179 mg/dL (70-110)
--- NOTE | 2024-04-21 13:09 | P.PN ---
Subjective Progress Note Date: 04/20/24 Principal diagnosis: Reason for follow-up with infected sacral pressure ulcer and UTI Patient is a 63-year-old female with a past medical history significant for reflux osteoarthritis seizure disorder CVA TIA COPD patient has been brought into the hospital as a transfer from [facility] with concern for worsening mental status and worsening sacral wound patient did have a debridement of the sacral wound by general surgery and culture completed on 04/17/2024. On today's evaluation that is 04/20/2023, patient has been afebrile, patient is breathing comfortably and is currently on 2 L current oxygen, patient is awake in no distress elevated good historian though denies any chest pain, no abdominal pain and no diarrhea reported. Patient white count is 10.53, creatinine 0.47, local culture with Enterococcus faecalis penicillin and Vanco sensitive Objective - Vital Signs Vital signs: Vital Signs Temp 98.0 F 04/20/24 06:44 Pulse 76 04/20/24 08:46 Resp 16 04/20/24 06:44 BP 112/72 04/20/24 06:44 Pulse Ox 94 L 04/20/24 08:38 FiO2 21 04/20/24 08:38 Intake & Output 04/19/24 04/20/24 04/20/24 18:59 06:59 18:59 Output Total 1950 2270 Balance -1949 -2269 Output: Urine 19490 Other: Voiding Method Indwelling Catheter Indwelling Catheter # Bowel Movements 1 - Exam GENERAL DESCRIPTION: Middle-age female lying in bed in no distress RESPIRATORY SYSTEM: Unlabored breathing , decreased breath sounds at bases HEART: S1 S2 regular rate and rhythm , ABDOMEN: Soft , no tenderness, sacral wound some slough tissue surrounding redness EXTREMITIES: No edema feet - Labs CBC & Chem 7: 04/20/24 04:19 04/21/24 04:14 Labs: Abnormal Lab Results - Last 24 Hours (Table) 04/19/24 04/19/24 04/20/24 Range/Units 16:44 20:08 04:19 WBC (4.50-10.00) X 10*3/uL RBC (4.10-5.20) X 10*6/uL Hgb (12.0-15.0) g/dL Hct (37.2-46.3) % MCHC (32.0-37.0) g/dL RDW (11.5-14.5) % Plt Count (140-440) X 10*3/uL Immature Gran # (0.00-0.04) X 10*3/uL Eosinophils # (0.04-0.35) X 10*3/uL Chloride 112 H (98-107) mmol/L Carbon Dioxide 21 L (22-30) mmol/L Creatinine 0.47 L (0.52-1.04) mg/dL Glucose 236 H (74-99) mg/dL POC Glucose (mg/dL) 239 H 267 H (70-110) mg/dL AST 12 L (14-36) U/L Total Protein 5.4 L (6.3-8.2) g/dL Albumin 2.7 L (3.5-5.0) g/dL 04/20/24 04/20/24 04/20/24 Range/Units 04:19 06:01 11:55 WBC 10.53 H (4.50-10.00) X 10*3/uL RBC 3.87 L (4.10-5.20) X 10*6/uL Hgb 10.8 L (12.0-15.0) g/dL Hct 34.8 L (37.2-46.3) % MCHC 31.0 L (32.0-37.0) g/dL RDW 14.8 H (11.5-14.5) % Plt Count 134 L (140-440) X 10*3/uL Immature Gran # 0.26 H (0.00-0.04) X 10*3/uL Eosinophils # 0 L (0.04-0.35) X 10*3/uL Chloride (98-107) mmol/L Carbon Dioxide (22-30) mmol/L Creatinine (0.52-1.04) mg/dL Glucose (74-99) mg/dL POC Glucose (mg/dL) 188 H 232 H (70-110) mg/dL AST (14-36) U/L Total Protein (6.3-8.2) g/dL Albumin (3.5-5.0) g/dL Microbiology - Last 24 Hours (Table) 04/17/24 01:25 Anaerobic Culture - Preliminary Buttock 04/17/24 01:25 Gram Stain - Final Buttock Wound Culture - Final Pseudomonas aeruginosa Enterococcus faecalis Nani albicans 04/17/24 14:41 Gram Stain - Preliminary Back Wound Culture - Preliminary Enterococcus faecalis 04/17/24 14:40 Gram Stain - Preliminary Back Tissue Culture - Preliminary Enterococcus faecalis Assessment and Plan (1) Unstageable pressure ulcer of sacral region Current Visit: Yes Status: Acute Code(s): L89.150 - PRESSURE ULCER OF SACRAL REGION, UNSTAGEABLE SNOMED Code(s): 74537449087758140 (2) Cellulitis of sacral region Current Visit: Yes Status: Acute Code(s): L03.319 - CELLULITIS OF TRUNK, UNSPECIFIED SNOMED Code(s): 097431419 (3) Leukocytosis Current Visit: Yes Status: Acute Code(s): D72.829 - ELEVATED WHITE BLOOD CELL COUNT, UNSPECIFIED SNOMED Code(s): 527526370 (4) Allergy to multiple antibiotics Current Visit: Yes Status: Acute Code(s): Z88.1 - ALLERGY STATUS TO OTHER ANTIBIOTIC AGENTS SNOMED Code(s): 582426336 (5) Sacral decubitus ulcer Current Visit: Yes Status: Acute Code(s): L89.159 - PRESSURE ULCER OF SACRAL REGION, UNSPECIFIED STAGE SNOMED Code(s): 482225995 Plan: 1patient presented to hospital with worsening sacral pressure ulcer not very clear for home and she has this pressure ulcer and workup of treatment has been widely to wait patient also did have a necrotic base with surrounding erythema and will need to cover for both resistant gram-positive as well as gram-negative pathogen. 2patient also have abnormality on the chest x-ray and CT however the patient seem to have no significant cough clinically not behaving as pneumonia 3-patient also have a positive UA with mental status changes elevated white count concerning for possible UTI urine is growing Enterococcus faecalis 4patient with multiple antibiotic ALLERGIES that would limit the number of antibiotic safe to use. 5patient is status post surgical debridement and deep culture currently growing Pseudomonas and Enterococcus 6patient to continue with the cefepime and vancomycin because of her penicillin allergy PICC line has been ordered for outpatient IV antibiotics Dictation was produced using [employer] dictation software. please excuse any grammatical, word or spelling errors. Time with Patient: Less than 30
--- NOTE | 2024-04-21 13:21 | P.PN ---
Subjective Progress Note Date: 04/21/24 Principal diagnosis: Reason for follow-up with infected sacral pressure ulcer and UTI Patient is a 63-year-old female with a past medical history significant for reflux osteoarthritis seizure disorder CVA TIA COPD patient has been brought into the hospital as a transfer from [facility] with concern for worsening mental status and worsening sacral wound patient did have a debridement of the sacral wound by general surgery and culture completed on 04/17/2024. On today's evaluation that is 04/21/2023, Patient is afebrile this morning patient denies having any chest pain shortness of breath or cough, the patient is currently on room air, patient denies any abdominal pain no diarrhea no nausea no vomiting. Patient creatinine 0.47 Vanco trough is 18.6 local cultures with Pseudomonas and Enterococcus faecalis Objective - Vital Signs Vital signs: Vital Signs Temp 97.5 F L 04/21/24 06:46 Pulse 80 04/21/24 13:03 Resp 16 04/21/24 08:00 BP 113/67 04/21/24 13:03 Pulse Ox 100 04/21/24 06:46 FiO2 21 04/20/24 08:38 Intake & Output 04/20/24 04/21/24 04/21/24 18:59 06:59 18:59 Output Total 575 650 Balance -575 -650 Weight 64.8 kg Output: Urine 575 650 Other: Voiding Method Indwelling Catheter Indwelling Catheter # Bowel Movements 2 2 - Exam GENERAL DESCRIPTION: Middle-age female lying in bed in no distress RESPIRATORY SYSTEM: Unlabored breathing , decreased breath sounds at bases HEART: S1 S2 regular rate and rhythm , ABDOMEN: Soft , no tenderness, sacral wound some slough tissue surrounding redness EXTREMITIES: No edema feet - Labs CBC & Chem 7: 04/20/24 04:19 04/21/24 04:14 Labs: Abnormal Lab Results - Last 24 Hours (Table) 04/20/24 04/20/24 04/21/24 Range/Units 16:31 20:24 04:14 Creatinine 0.47 L (0.52-1.04) mg/dL POC Glucose (mg/dL) 211 H 236 H (70-110) mg/dL 04/21/24 04/21/24 Range/Units 06:08 11:27 Creatinine (0.52-1.04) mg/dL POC Glucose (mg/dL) 208 H 179 H (70-110) mg/dL Microbiology - Last 24 Hours (Table) 04/17/24 01:25 Anaerobic Culture - Final Buttock 04/17/24 14:41 Gram Stain - Final Back Wound Culture - Final Enterococcus faecalis 04/17/24 14:40 Gram Stain - Final Back Tissue Culture - Final Enterococcus faecalis 04/17/24 14:41 Anaerobic Culture - Preliminary Back 04/17/24 14:40 Anaerobic Culture - Preliminary Back Assessment and Plan (1) Unstageable pressure ulcer of sacral region Current Visit: Yes Status: Acute Code(s): L89.150 - PRESSURE ULCER OF SACRAL REGION, UNSTAGEABLE SNOMED Code(s): 36525753566469755 (2) Cellulitis of sacral region Current Visit: Yes Status: Acute Code(s): L03.319 - CELLULITIS OF TRUNK, UNSPECIFIED SNOMED Code(s): 825670570 (3) Leukocytosis Current Visit: Yes Status: Acute Code(s): D72.829 - ELEVATED WHITE BLOOD CELL COUNT, UNSPECIFIED SNOMED Code(s): 483592395 (4) Allergy to multiple antibiotics Current Visit: Yes Status: Acute Code(s): Z88.1 - ALLERGY STATUS TO OTHER ANTIBIOTIC AGENTS SNOMED Code(s): 029809051 (5) Sacral decubitus ulcer Current Visit: Yes Status: Acute Code(s): L89.159 - PRESSURE ULCER OF SACRAL REGION, UNSPECIFIED STAGE SNOMED Code(s): 736435420 Plan: 1patient presented to hospital with worsening sacral pressure ulcer not very clear for home and she has this pressure ulcer and workup of treatment has been widely to wait patient also did have a necrotic base with surrounding erythema and will need to cover for both resistant gram-positive as well as gram-negative pathogen. 2patient also have abnormality on the chest x-ray and CT however the patient seem to have no significant cough clinically not behaving as pneumonia 3-patient also have a positive UA with mental status changes elevated white count concerning for possible UTI urine is growing Enterococcus faecalis 4patient with multiple antibiotic ALLERGIES that would limit the number of antibiotic safe to use. 5patient is status post surgical debridement and deep culture currently growing Pseudomonas and Enterococcus 6patient to continue with the cefepime and vancomycin because of her penicillin allergy, PICC line could not be placed vascular surgery has seen the patient and has placed a midline plan is for at least 4 weeks of antibiotics on discharge Dictation was produced using [employer] dictation software. please excuse any grammatical, word or spelling errors. Time with Patient: Less than 30
--- NOTE | 2024-04-21 13:32 | CDI ---
Documentation Clarification Form Date: 04/21/2024 12:51:45 PM From: Nighat Grant RN CCDS Phone: [phone] Admit Date: 04/16/2024 04:36:00 PM Patient Name: Vilma Armstrong Visit Number: [id number] Discharge Date: ATTENTION: The Clinical Documentation Specialists (CDI) and [facility] Coding Staff appreciate your assistance in clarifying documentation. Please respond to the clarification below the line at the bottom and electronically sign. The CDI & [facility] Coding staff will review the response and follow-up if needed. Please note: Queries are made part of the Legal Health Record. If you have any questions, please contact the author of this message via ITS. Dr Louis Hoffmann The patient has Sepsis related to sacral decubitus ulcer on broad spectrum antibiotics. 04/21, Pulmonary Consult. Based on this information and the findings below, is there an additional diagnosis that is clinically appropriate for this patient? History/Risk Factors: 63 year old female presents to the ED as a transfer from [facility] for suspicion of infected sacral decubitus ulcer. Medical history: The patient has been in and out of the hospital over the last month for pneumonia, uti and sacral decubitus ulcer, COPD, CVA, TIA, GERD, OA and seizure. Wears oxygen at night. 04/16, ED Note. Clinical Indicators: WBC, 04/16 : 14.2; Neutrophils, 12: 11.2 Plasma Lactic acid, 04/16: 1.5 Urine culture, 04/16: Enterococcus faecalis Buttock culture, 04/17: Pseudomonas aeruginosa Enterococcus faecalis Nani albicans Back culture, 04/17: Enterococcus faecalis Vitals signs: 04/16: B/P 107/70 HR 81 Temp 97.5 F oral, RR 16, SpO2 97% room air Treatment: 04/17 04/19 0.9NS IV 75cc/hr ID Consult, 04/17: 1patient presented to hospital with worsening sacral pressure ulcer not very clear for home and she has this pressure ulcer and workup of treatment has been widely to wait patient also did have a necrotic base with surrounding erythema and will need to cover for both resistant gram-positive as well as gram-negative pathogen. Antibiotics: 1/2 Vancomycin IVPB Q8H, 2 Cefepime ivpb x 1, 04/17 Cefepime 1gm IVPB Q12H dcd after 2 doses, / Cefepime 2gm IVPB Q8H Is there an additional diagnosis that is clinically appropriate for this patient? [ ] Sepsis, present on admission [ ] Sepsis, developed during stay, not present on admission [ ] Sepsis ruled out [ ] Other, please specify [ ] Unable to determine SIRS Criteria: 2 or more of the following may indicate SIRS Temperature < 96.8F (36C) or > 101.0F (38.3C) Heart Rate > 90 bpm Respiratory Rate > 20 breaths/min or PaCO2 < 32 mmHg White Blood Cell Count > 12,000 or < 4,000 cells/mm3 or > 10% bands (Template Last Reviewed: April 2022) MTDD
--- NOTE | 2024-04-21 13:58 | IR ---
EXAMINATION TYPE: IR cvc insert non tunneled DATE OF EXAM: 04/21/2024 FLUOROSCOPY PICC Line, 5.6min, 5.79 DAP 37 images are submitted. [facility], Workstation: [id number], 04/21/2024 1:55 PM
[2024-04-21 16:41] LABS: Glucose,Whole Blood 228 mg/dL (70-110)
[2024-04-21 20:31] LABS: Glucose,Whole Blood 248 mg/dL (70-110)
[2024-04-21] MEDS: methylPREDNISolone SOD SUCCI 40 MG/ML 1 ML VIAL IV SCH (21:13)
[2024-04-21] MEDS: INSULIN ASPART (NovoLOG) 100 UNIT/ML VIAL SQ SCH (22:57)
--- NOTE | 2024-04-22 02:09 | P.OP ---
Date of Procedure: 04/17/24 Preoperative Diagnosis: Stage IV Sacral Decubitus Ulcer Postoperative Diagnosis: Stage IV Sacral Decubitus Ulcer Procedure(s) Performed: Sharp Excisional Debridement Sacral Decubitus Ulcer Anesthesia: MAC Surgeon: Tushar Cornelius Pathology: other (Sacral Decub Tissue and Cultures Taken) Condition: stable Disposition: PACU Description of Procedure: The patient was brought to the operating suite. Anesthesia was given and the patient was intubated. The patient was then placed in the left lateral decubi tus position. The patient was prepped and drape in usual sterile fashion. A Timeout was performed. A sharp exicisonal debridement was performed using a #10 blade removing necrotic nonviable tissue. The ulcer was sharply debrided down to the bone. There was healthy bleeding noted which was controlled. Once debridement was completed a sterile dressing was applied. The patient tolerated the procedure well and was sent to the PACU in stable condition.
[2024-04-22 06:19] LABS: Glucose,Whole Blood 372 mg/dL (70-110)
[2024-04-22 07:05] LABS: Basophils % (A) 0 %; Eosinophils % (A) 0 %; HGB 11.7 gm/dL (11.4-16.0); Hypochromasia Moderate; Lymphocytes # (A) 0.7 k/uL (1.0-4.8); Lymphocytes % (A) 6 %; MCH 28.6 pg (25.0-35.0); MCHC 31.6 g/dL (31.0-37.0); MCV 90.5 fL (80.0-100.0); Monocytes # (A) 0.3 k/uL (0-1.0); Monocytes % (A) 3 %; Neutrophils # (A) 11.1 k/uL (1.3-7.7); Neutrophils % (A) 91 %; Platelet Count 166 k/uL (150-450); RBC 4.08 m/uL (3.80-5.40); RDW 14.4 % (11.5-15.5); WBC 12.2 k/uL (3.8-10.6)
[2024-04-22 12:27] LABS: Glucose,Whole Blood 390 mg/dL (70-110)
--- NOTE | 2024-04-22 12:52 | P.PN ---
Subjective Progress Note Date: 04/22/24 SURGICAL PROGRESS NOTE CHIEF COMPLAINT: Sacral decubitus ulcer HISTORY OF PRESENT ILLNESS: Patient status post debridement on April 18, 2023. No acute events overnight. Afebrile. WBC up from 10-12.2. Patient is status post PICC line placement. She is scheduled for discharge today with antibiotics per ID recommendations. PHYSICAL EXAM: VITAL SIGNS: Reviewed. GENERAL: Well-developed in no acute distress. ABDOMEN: Soft. Nondistended. Nontender. ASSESSMENT: 1. Sacral decubitus ulcer status post debridement PLAN: -Can be discharge from surgical standpoint when medically cleared -Continue local wound care -Antibiotics per infectious disease -Surgical service will sign off. Please call with any questions or concerns. Physician Boot Maker note has been reviewed by physician. Signing provider agrees with the documented findings, assessment, and plan of care. Attestation Patient seen and examined at bedside. No acute events. No significant changes to sacral decubitus ulcer status postdebridement. Continue local wound care. Antibiotics per infectious disease. Surgically stable for discharge. Please call service for any reevaluation should patient's clinical progress change. Matt Ponce, Objective - Vital Signs Vital signs: Vital Signs Temp 98.5 F 04/22/24 06:55 Pulse 102 H 04/22/24 06:55 Resp 16 04/22/24 06:55 BP 107/67 04/22/24 06:55 Pulse Ox 96 04/22/24 06:55 FiO2 21 04/20/24 08:38 Intake & Output 04/21/24 04/22/24 04/22/24 18:59 06:59 18:59 Intake Total 1190 120 Output Total 3500 Balance 1190 -3500 120 Intake: Intake, IV Titration 1190 Amount Cefepime 2 gm In Sodium 100 Chloride 0.9% 100 ml @ 25 mls/hr IVPB Q8HR [facility] Rx# :[id number] IV Fluid Continuation 1, 840 000 ml @ 0 mls/hr IV .STK -MED ONE Rx#:[id number] Vancomycin 1,000 mg In 250 Sodium Chloride 0.9% 250 ml @ 125 mls/hr IVPB Q8H [facility] Rx#:[id number] Oral 120 Output: Urine 3500 Other: Voiding Method Indwelling Catheter Indwelling Catheter Indwelling Catheter # Bowel Movements 3 - Labs CBC & Chem 7: 04/22/24 06:15 04/21/24 04:14 Labs: Abnormal Lab Results - Last 24 Hours (Table) 04/21/24 04/21/24 04/22/24 Range/Units 16:40 20:28 06:15 WBC 12.2 H (3.8-10.6) k/uL Neutrophils # 11.1 H (1.3-7.7) k/uL Lymphocytes # 0.7 L (1.0-4.8) k/uL POC Glucose (mg/dL) 228 H 248 H (70-110) mg/dL 04/22/24 04/22/24 Range/Units 06:17 12:25 WBC (3.8-10.6) k/uL Neutrophils # (1.3-7.7) k/uL Lymphocytes # (1.0-4.8) k/uL POC Glucose (mg/dL) 372 H 390 H (70-110) mg/dL Microbiology - Last 24 Hours (Table) 04/17/24 14:41 Anaerobic Culture - Final Back 04/17/24 14:40 Anaerobic Culture - Final Back 04/17/24 01:25 Anaerobic Culture - Final Buttock
[2024-04-22 14:51] VITALS: TEMP 98.2
--- NOTE | 2024-04-22 15:35 | PN ---
PROGRESS NOTE SUBJECTIVE: A 63-year-old white female came in with sacral decubitus ulcer, status post debridement. She has positive cultures for bacteria, for which IV antibiotics have been ordered, and she will get that outpatient for about 4 to [address] Aldridge's recommendations. OBJECTIVE: CARDIOVASCULAR: . LUNGS: Clear. GI: Soft. Pleasantly confused. ASSESSMENT: 1. Worrisome sacral decubitus ulcer. 2. Possible aspiration pneumonia. 3. Chronic obstructive pulmonary disease. 4. Asthma. 5. Generalized debility. She will be sent back to rehab center where she lives with IV antibiotics and wound recommendations per Dr. Aldridge. Please see further orders. MMODL / IJN: [id number] /
--- NOTE | 2024-04-22 16:06 | DS ---
DISCHARGE SUMMARY DISCHARGE MEDICATIONS: 1. Maxipime 2 g IV piggyback q.8 hours. 2. Vancomycin 1 g piggyback q.8 hours, see duration 4 to 6 weeks. 3. DuoNeb q.i.d. 4. Pepcid 20 b.i.d. 5. Midodrine 5 a.c. t.i.d. 6. EpiPen 2 p.r.n. 7. Nizoral shampoo, Saturday, Saturday, Saturday. 8. Pravastatin 20 daily. 9. Singulair 10 daily. 10.Lexapro 20 b.i.d. 11.Haldol 5 t.i.d. 12.Aspirin 81 daily. 13.Topamax 100 b.i.d. 14.Klonopin 1 mg t.i.d. 15.Toprol-XL 25 daily. 16.Budesonide 0.5 nebulizer b.i.d. 17.Clozaril 100 mg at bedtime. 18.Polyethylene glycol. 19.MiraLax 17 g daily. 20.Symbicort 160/4.5 two puffs b.i.d. 21.Lantus 10 units daily. 22.Namenda 10 b.i.d. 23. b.i.d. 24.Vitamin D once a week. 25. t.i.d. 26.Nystatin powder b.i.d. CONDITION: Stable. PROGNOSIS: Guarded. DIAGNOSES: 1. Sacral ulcer with wound debridement stage 3 of the sacral region. 2. Sacral decubitus ulcer. 3. Multiple allergies to antibiotics. 4. Aspiration pneumonia. 5. Chronic obstructive pulmonary disease. 6. Asthma. 7. Generalized weakness. 8. disorder. The patient came into the hospital to get IV antibiotics and wound debridement of the sacral ulcer. Had cultures . Dr. Aldridge recommended antibiotics with a PICC line for 4 to 6 weeks. She did have Enterococcus faecalis, Pseudomonas aeruginosa, and Nani albicans. Urine culture showed enterococcus also. The patient will need antibiotics per Dr. Aldridge's recommendations. Discharge home. Diet as tolerated with nurse assisted feeds. PT/OT for ambulation. Prognosis is guarded. Rotate her every 2 hours wound care on her sacral ulcer. MMODL / IJN: [id number] /
[2024-04-22 16:47] LABS: Glucose,Whole Blood 373 mg/dL (70-110)
[2024-04-22 20:26] LABS: Glucose,Whole Blood 312 mg/dL (70-110)
[2024-04-22 20:29] VITALS: BP 97/61; PULSE 83; RESP 18
--- NOTE | 2024-04-24 12:54 | P.PN ---
Subjective Progress Note Date: 04/22/24 Principal diagnosis: Reason for follow-up with infected sacral pressure ulcer and UTI Patient is a 63-year-old female with a past medical history significant for reflux osteoarthritis seizure disorder CVA TIA COPD patient has been brought into the hospital as a transfer from [facility] with concern for worsening mental status and worsening sacral wound patient did have a debridement of the sacral wound by general surgery and culture completed on 04/17/2024. On today's evaluation that is 04/22/2024,the patient denies any fever or any chills, patient is breathing comfortably on 2 L of cannula oxygen, the patient and specifically denies any chest pain or cough or abdominal pain or worsening pain to the sacral wound. Patient white count is 12.2 culture with Enterococcus faecalis Pseudomonas Objective - Vital Signs Vital signs: Vital Signs Temp 98.5 F 04/22/24 06:55 Pulse 102 H 04/22/24 06:55 Resp 16 04/22/24 06:55 BP 107/67 04/22/24 06:55 Pulse Ox 96 04/22/24 06:55 FiO2 21 04/20/24 08:38 Intake & Output 04/21/24 04/22/24 04/22/24 18:59 06:59 18:59 Intake Total 1190 120 Output Total 3500 Balance 1190 -3500 120 Intake: Intake, IV Titration 1190 Amount Cefepime 2 gm In Sodium 100 Chloride 0.9% 100 ml @ 25 mls/hr IVPB Q8HR [facility] Rx# :[id number] IV Fluid Continuation 1, 840 000 ml @ 0 mls/hr IV .STK -[facility] ONE Rx#:[id number] Vancomycin 1,000 mg In 250 Sodium Chloride 0.9% 250 ml @ 125 mls/hr IVPB Q8H [facility] Rx#:[id number] Oral 120 Output: Urine 3500 Other: Voiding Method Indwelling Catheter Indwelling Catheter Indwelling Catheter # Bowel Movements 3 - Exam GENERAL DESCRIPTION: Middle-age female lying in bed in no distress RESPIRATORY SYSTEM: Unlabored breathing , decreased breath sounds at bases HEART: S1 S2 regular rate and rhythm , ABDOMEN: Soft , no tenderness, sacral wound some slough tissue surrounding redness EXTREMITIES: No edema feet - Labs CBC & Chem 7: 04/22/24 06:15 04/21/24 04:14 Labs: Abnormal Lab Results - Last 24 Hours (Table) 04/21/24 04/21/24 04/22/24 Range/Units 16:40 20:28 06:15 WBC 12.2 H (3.8-10.6) k/uL Neutrophils # 11.1 H (1.3-7.7) k/uL Lymphocytes # 0.7 L (1.0-4.8) k/uL POC Glucose (mg/dL) 228 H 248 H (70-110) mg/dL 04/22/24 Range/Units 06:17 WBC (3.8-10.6) k/uL Neutrophils # (1.3-7.7) k/uL Lymphocytes # (1.0-4.8) k/uL POC Glucose (mg/dL) 372 H (70-110) mg/dL Microbiology - Last 24 Hours (Table) 04/17/24 01:25 Anaerobic Culture - Final Buttock Assessment and Plan (1) Unstageable pressure ulcer of sacral region Status: Acute Code(s): L89.150 - PRESSURE ULCER OF SACRAL REGION, UNSTAGEABLE SNOMED Code(s): 12567442303673544 (2) Cellulitis of sacral region Status: Acute Code(s): L03.319 - CELLULITIS OF TRUNK, UNSPECIFIED SNOMED Code(s): 526146250 (3) Leukocytosis Status: Acute Code(s): D72.829 - ELEVATED WHITE BLOOD CELL COUNT, UNSPECIFIED SNOMED Code(s): 830615501 (4) Allergy to multiple antibiotics Status: Acute Code(s): Z88.1 - ALLERGY STATUS TO OTHER ANTIBIOTIC AGENTS SNOMED Code(s): 523282248 (5) Sacral decubitus ulcer Status: Acute Code(s): L89.159 - PRESSURE ULCER OF SACRAL REGION, UNSPECIFIED STAGE SNOMED Code(s): 796776248 Plan: 1patient presented to hospital with worsening sacral pressure ulcer not very clear for home and she has this pressure ulcer and workup of treatment has been widely to wait patient also did have a necrotic base with surrounding erythema and will need to cover for both resistant gram-positive as well as gram-negative pathogen. 2patient also have abnormality on the chest x-ray and CT however the patient seem to have no significant cough clinically not behaving as pneumonia 3-patient also have a positive UA with mental status changes elevated white count concerning for possible UTI urine bleeding grew Enterococcus faecalis 4patient with multiple antibiotic ALLERGIES that would limit the number of antibiotic safe to use. 5patient is status post surgical debridement and deep culture currently growing Pseudomonas and Enterococcus 6patient to continue with the cefepime and vancomycin because of her penicillin allergy, midline has been placed plan is for at least 4 weeks of antibiotics on discharge and close outpatient follow-up local wound care per the wound care team Dictation was produced using [employer] dictation software. please excuse any grammatical, word or spelling errors. Time with Patient: Less than 30
--- NOTE | 2024-04-26 23:47 | PN ---
PROGRESS NOTE A 63-year-old white female. Sepsis was present on admission. MMODL / IJN: [id number] /
== END 2024-04-22 20:42 | DRG 853 ==
LOC: EC 14:44 → 5NMEDONC 16:36 → 4SSUR 17:16
PROVIDERS: ADMIT Family Medicine; ATTEND Family Medicine
PROC: B5161ZZ Fluoroscopy of Right Subclavian Vein using Low Osmolar Contrast (ICD-10-PCS; 2024-04-21)
PROC: 05H933Z Insertion of Infusion Device into Right Brachial Vein, Percutaneous Approach (ICD-10-PCS; principal; 2024-04-21 15:35)
PROC: 0QB10ZZ Excision of Sacrum, Open Approach (ICD-10-PCS; 2024-04-22)
DX: A41.9 Sepsis, unspecified organism (principal); J18.9 Pneumonia, unspecified organism; L89.154 Pressure ulcer of sacral region, stage 4; J69.0 Pneumonitis due to inhalation of food and vomit; F02.83 Dementia in other diseases classified elsewhere, unspecified severity, with mood disturbance; L03.319 Cellulitis of trunk, unspecified; N39.0 Urinary tract infection, site not specified; J44.0 Chronic obstructive pulmonary disease with (acute) lower respiratory infection; F02.84 Dementia in other diseases classified elsewhere, unspecified severity, with anxiety; F20.9 Schizophrenia, unspecified; F32.A Depression, unspecified; K21.9 Gastro-esophageal reflux disease without esophagitis; B95.2 Enterococcus as the cause of diseases classified elsewhere; I11.9 Hypertensive heart disease without heart failure; I95.9 Hypotension, unspecified; E78.5 Hyperlipidemia, unspecified; E11.65 Type 2 diabetes mellitus with hyperglycemia; G30.9 Alzheimer's disease, unspecified; G40.909 Epilepsy, unspecified, not intractable, without status epilepticus; B96.5 Pseudomonas (aeruginosa) (mallei) (pseudomallei) as the cause of diseases classified elsewhere; Z88.2 Allergy status to sulfonamides; Z88.0 Allergy status to penicillin; Z79.82 Long term (current) use of aspirin; Z88.7 Allergy status to serum and vaccine; Z88.8 Allergy status to other drugs, medicaments and biological substances; Z91.030 Bee allergy status; Z91.040 Latex allergy status; Z87.891 Personal history of nicotine dependence; Z86.73 Personal history of transient ischemic attack (TIA), and cerebral infarction without residual deficits; Z79.4 Long term (current) use of insulin; Z88.1 Allergy status to other antibiotic agents; Z79.51 Long term (current) use of inhaled steroids; Z79.899 Other long term (current) drug therapy
CPT/HCPCS: 36573; 71046; 71250; 80053; 80202; 81001; 82565; 83605; 83880; 84145; 84484; 85025; 85610; 85730; 86140; 87070; 87075; 87077; 87086; 87186; 87205; 93005; 94640; 94760; 96365; 96375; 99285

== ENCOUNTER 2024-08-18 09:54 | Inpatient (IN) | payer MEDICARE, OTHER ==
--- NOTE | 2024-08-18 10:12 | ED ---
General Adult HPI - General Chief complaint: Wound/Laceration Stated complaint: infected wound Time Seen by Provider: 08/18/24 10:01 Source: RN notes reviewed, Caregiver Mode of arrival: wheelchair Limitations: no limitations - History of Present Illness Initial comments: This is a 63-year-old female presenting from [facility] with referral from general surgery with concerns for sacral and coccyx nonhealing pressure wound. History was obtained from nursing note and caregiver at bedside. patient had appointment this morning with general surgeon where he recommended that she be admitted for surgical debridement of wound. Patient does currently have PICC line in place and is receiving antibiotics. - Related Data Home Medications Medication Instructions Recorded Confirmed Escitalopram [Lexapro] 20 mg PO DAILY@89909/09/18 08/18/24 Montelukast [Singulair] 10 mg PO HS@209909/09/18 08/18/24 Pravastatin Sodium [Pravachol] 20 mg PO HS@209909/09/18 08/18/24 haloperidoL [Haldol] 5 mg PO TID@0900,1300,209909/09/18 08/18/24 Topiramate [Topamax] 100 mg PO BID@0900,209901/23/19 08/18/24 clonazePAM [KlonoPIN] 1 mg PO TID@0900,1300,209907/19/21 08/18/24 Ergocalciferol [Vitamin D2 (1250 1,250 mcg PO FR 08/18/22 08/18/24 Mcg = 60284 Iu)] Metoprolol Succinate (ER) [Toprol 25 mg PO DAILY@89908/18/22 08/18/24 XL] cloZAPine [Clozaril] 100 mg PO HS@209908/18/22 08/18/24 polyethylene glycoL 3350 [Miralax] 17 gm PO Q24H PRN 08/18/22 08/18/24 Budesonide-Formot 160-4.5 Mcg 2 puff INHALATION RT-BID@00,209904/16/24 08/18/24 [Symbicort 160-4.5 Mcg Inhaler] Memantine [Namenda] 10 mg PO BID@0900,209904/16/24 08/18/24 Acetaminophen [Tylenol] 650 mg PO Q4H PRN 08/18/24 08/18/24 Aspirin 81 mg PO DAILY@0900 08/18/24 08/18/24 Doxycycline Hyclate 100 mg PO Q12H 08/18/24 08/18/24 Famotidine [Pepcid] 20 mg PO DAILY@0900 08/18/24 08/18/24 HYDROcodone/APAP 5-325MG [[place] 1 tab PO BID@0500,1800 08/18/24 08/18/24 5-325] HYDROcodone/APAP 5-325MG [[place] 1 tab PO Q24H PRN 08/18/24 08/18/24 5-325] Insulin Glargine,Hum.rec.anlog 10 units SQ DAILY@0908/18/24 08/18/24 [Lantus Solostar Pen] Lactobacillus Acidophilus 1 cap PO DAILY@0900 08/18/24 08/18/24 [Acidophilus] Magnesium Hydroxide [Milk of 2,400 mg PO DAILY PRN 08/18/24 08/18/24 Magnesia] Midodrine [ProAmatine] 5 mg PO Q8H PRN 08/18/24 08/18/24 Prostat Awc 30 ml PO HS@2100 08/18/24 08/18/24 Previous Rx's Medication Instructions Recorded Ipratropium-Albuterol Nebulize 3 ml INHALATION RT-QID each 04/22/24 [Duoneb 0.5 mg-3 mg/3 ml Soln] Allergies Allergy/AdvReac Type Severity Reaction Status Date / Time bee venom protein (honey bee) Allergy Unknown Verified 08/18/24 13:49 beeswax Allergy Unknown Verified 08/18/24 13:49 Dihydroaminopryidine Allergy Unknown Verified 08/18/24 13:49 Antibiotics furosemide [From Lasix] Allergy Unknown Verified 08/18/24 13:49 latex Allergy Unknown Verified 08/18/24 13:49 metformin Allergy Unknown Verified 08/18/24 13:49 Penicillins Allergy Unknown Verified 08/18/24 13:49 sulfamethoxazole Allergy Unknown Verified 08/18/24 13:49 [From Bactrim] Tetanus Vaccines and Toxoid Allergy Unknown Verified 08/18/24 13:49 trimethoprim [From Bactrim] Allergy Unknown Verified 08/18/24 13:49 Review of Systems ROS Statement: Those systems with pertinent positive or pertinent negative responses have been documented in the HPI. ROS Other: All systems not noted in ROS Statement are negative. Past Medical History Past Medical History: COPD, CVA/TIA, GERD/Reflux, Osteoarthritis (OA), Seizure Disorder Additional Past Medical History / Comment(s): Wears oxygen at night, no seizures for 10 years, bedrest can't bare weight anymore History of Any Multi-Drug Resistant Organisms: None Reported Past Surgical History: Orthopedic Surgery Additional Past Surgical History / Comment(s): previous trach, debridement of sacral ulcer- 2023 Past Anesthesia/Blood Transfusion Reactions: No Reported Reaction Past Psychological History: Anxiety, Schizophrenia Smoking Status: Former smoker Past Alcohol Use History: None Reported Past Drug Use History: None Reported - Past Family History Father Family Medical History: Unable to Obtain Mother Family Medical History: Unable to Obtain General Exam Limitations: language barrier, physical limitation General appearance: alert, in no apparent distress ENT exam: Present: normal exam, mucous membranes moist Neck exam: Present: normal inspection. Absent: tenderness, meningismus, lymphadenopathy Respiratory exam: Present: normal lung sounds bilaterally. Absent: respiratory distress, wheezes, rales, rhonchi, stridor Cardiovascular Exam: Present: regular rate, normal rhythm, normal heart sounds. Absent: systolic murmur, diastolic murmur, rubs, gallop, clicks GI/Abdominal exam: Present: soft, normal bowel sounds. Absent: distended, tenderness, guarding, rebound, rigid Extremities exam: Present: normal inspection, full ROM, normal capillary refill, other (sacral/coccyx unstageable wound with patch in place, surrounding eschar). Absent: tenderness, pedal edema, joint swelling, calf tenderness Course Vital Signs 08/18/24 08/18/24 09:57 13:58 Temperature 97.8 F Pulse Rate 92 97 Respiratory 18 16 Rate Blood Pressure 96/63 101/65 O2 Sat by Pulse 92 L 95 Oximetry Medical Decision Making - Medical Decision Making Was pt. sent in by a medical professional or institution (, PA, KIL[employer]CHANIC, urgent care, hospital, or residential...) When possible be specific @ -Patient was advised by general surgeon to report to the emergency department for admission for debridement of sacral and coccyx wound. Did you speak to anyone other than the patient for history (EMS, parent, family, police, friend...)? What history was obtained from this source @ -Spoke to caregiver at bedside from patient's recent facility was states that patient is currently being treated for sacral ulcer with antibiotics. Did you review nursing and triage notes (agree or disagree)? Why? @ -I reviewed and agree with nursing and triage notes Were old charts reviewed (outside hosp., previous admission, EMS record, old EKG, old radiological studies, urgent care reports/EKG's, residential records)? Report findings @ -I reviewed tissue Gram stain that was completed on 04/17/2024 which revealed culture growth of Enterococcus bacillus with susceptibility to ampicillin, penicillin, gentamicin and vancomycin Differential Diagnosis (chest pain, altered mental status, abdominal pain women, abdominal pain men, vaginal bleeding, weakness, fever, dyspnea, syncope, headache, dizziness, GI bleed, back pain, seizure, CVA, palpatations, mental health, musculoskeletal)? @ -Cellulitis, sacral ulcer, coccyx ulcer, sepsis, this list is not all inclusive EKG interpreted by me (3pts min.). @ -none X-rays interpreted by me (1pt min.). @ -None done CT interpreted by me (1pt min.). @ -None done U/S interpreted by me (1pt. min.). @ -None done What testing was considered but not performed or refused? (CT, X-rays, U/S, labs)? Why? @ -None What meds were considered but not given or refused? Why? @ -None Did you discuss the management of the patient with other professionals (professionals i.e. DrMartine, PA, KIL[employer] MECHANIC, lab, RT, psych nurse, clinical social worker, automobile upholsterer apprentice, teacher, quarantine officer, case investigator)? Give summary @ -Spoke with on-call general surgeon, Dr. Cornelius, in regard to the patient's presentation emergency department.-The patient be mated to internal medicine with a general surgeon consult. I spoke with Dr. Hair, with [facility], was agreed to admit the patient recommends that patient's disease consult be placed. Was smoking cessation discussed for >3mins.? @ -No Was critical care preformed (if so, how long)? @ -No Were there social determinants of health that impacted care today? How? (Homelessness, low income, unemployed, alcoholism, drug addiction, transportation, low edu. Level, literacy, decrease access to med. care, fpc, rehab)? @ -No Was there de-escalation of care discussed even if they declined (Discuss DNR or withdrawal of care, Hospice)? DNR status @ -No What co-morbidities impacted this encounter? (DM, HTN, Smoking, COPD, CAD, Cancer, CVA, ARF, Chemo, Hep., AIDS, mental health diagnosis, sleep apnea, morbid obesity)? @ -None Was patient admitted / discharged? Hospital course, mention meds given and route, prescriptions, significant lab abnormalities, going to OR and other pertinent info. @ -Admitted. 63-year-old female resents emergency department with referral from general surgery with concerns of a sacral and coccyx ulcer. There is a unstageable ulcer with surrounding eschar. Initial vitals are stable. Laboratory testing reveals leukocytosis of 15.17, elevated CRP of 6.3. Patient will be admitted to internal medicine with infectious disease and general surgery on consult. She is started on vancomycin. Case discussed with Dr. Dupont Undiagnosed new problem with uncertain prognosis? @ -No Drug Therapy requiring intensive monitoring for toxicity (Heparin, Nitro, In sulin, Cardizem)? @ -No Were any procedures done? @ -No Diagnosis/symptom? @ -sacral/coccyx ulcer Acute, or Chronic, or Acute on Chronic? @ -acute Uncomplicated (without systemic symptoms) or Complicated (systemic symptoms)? @ -complicated Side effects of treatment? @ -No Exacerbation, Progression, or Severe Exacerbation? @ -No Poses a threat to life or bodily function? How? (Chest pain, USA, SD, pneumonia, PE, COPD, DKA, ARF, appy, cholecystitis, CVA, Diverticulitis, Homicidal, Suicidal, threat to staff... and all critical care pts) @ -No - Lab Data Result diagrams: 08/18/24 11:14 08/18/24 11:14 Lab Results 08/18/24 08/18/24 08/18/24 Range/Units 11:14 11:14 11:14 WBC 15.17 H (4.50-10.00) 10*3/uL RBC 4.67 (4.10-5.20) 10*6/uL Hgb 12.8 (12.0-15.0) g/dL Hct 40.6 (37.2-46.3) % MCV 86.9 (80.0-97.0) fL MCH 27.4 (27.0-32.0) pg MCHC 31.5 L (32.0-37.0) g/dL Plt Count 323 (140-440) 10*3/uL MPV 9.8 (9.5-12.2) fL Immature Gran % (Auto) 1.3 % Neutrophils % 78.1 % Lymphocytes % 16.2 % Monocytes % 4.0 % Eosinophils % 0.0 % Basophils % 0.4 % Immature Gran # 0.20 H (0.00-0.04) 10*3/uL Neutrophils # 11.86 H (1.80-7.70) 10*3/uL Lymphocytes # 2.45 (0.90-5.00) 10*3/uL Monocytes # 0.60 (0.20-1.00) 10*3/uL Eosinophils # 0.00 L (0.04-0.35) 10*3/uL Basophils # 0.06 (0.00-0.10) 10*3/uL Sodium 141 (137-145) mmol/L Potassium 3.8 (3.5-5.1) mmol/L Chloride 104 (98-107) mmol/L Carbon Dioxide 24 (22-30) mmol/L Anion Gap 13 mmol/L BUN 27 H (7-17) mg/dL Creatinine 0.50 L (0.52-1.04) mg/dL Est GFR (CKD-EPI)AfAm >90 (>60 ml/min/1.73 sqM) Est GFR (CKD-EPI)NonAf >90 (>60 ml/min/1.73 sqM) Glucose 205 H (74-99) mg/dL Plasma Lactic Acid Philip 1.7 (0.7-2.0) mmol/L Calcium 9.4 (8.4-10.2) mg/dL Total Bilirubin 0.4 (0.2-1.3) mg/dL AST 25 (14-36) U/L ALT 17 (4-34) U/L Alkaline Phosphatase 164 H (38-126) U/L C-Reactive Protein 6.3 H (<1.0) mg/dL Total Protein 7.6 (6.3-8.2) g/dL Albumin 3.0 L (3.5-5.0) g/dL Disposition Clinical Impression: Ulcer of sacral region, unstageable Disposition: ADMITTED IP TO THIS [facility] Condition: Stable Decision to Admit Reason: Admit from EC Decision Date: 08/18/24 Decision Time: 13:44
[2024-08-18 11:19] LABS: Basophils # (A) 0.06 10*3/uL (0.00-0.10); Basophils % (A) 0.4 %; HCT 40.6 % (37.2-46.3); HGB 12.8 g/dL (12.0-15.0); Lymphocytes # (A) 2.45 10*3/uL (0.90-5.00); Lymphocytes % (A) 16.2 %; MCH 27.4 pg (27.0-32.0); MCHC 31.5 g/dL (32.0-37.0); MCV 86.9 fL (80.0-97.0); Mean Platelet Volume 9.8 fL (9.5-12.2); Neutrophils # (A) 11.86 10*3/uL (1.80-7.70); Neutrophils % (A) 78.1 %; Platelet Count 323 10*3/uL (140-440); RBC 4.67 10*6/uL (4.10-5.20); RDW 15.1 % (11.5-14.5); WBC 15.17 10*3/uL (4.50-10.00)
[2024-08-18 11:32] LABS: ALT 17 U/L (4-34); AST 25 U/L (14-36); African American GFR (CKD) >90 (>60 ml/min/1.73 sqM); Alkaline Phosphatase 164 U/L (38-126); Anion Gap 13 mmol/L; Blood Urea Nitrogen 27 mg/dL (7-17); C Reactive Protein 6.3 mg/dL (<1.0); Calcium 9.4 mg/dL (8.4-10.2); Carbon Dioxide 24 mmol/L (22-30); Chloride 104 mmol/L (98-107); Glucose 205 mg/dL (74-99); Non-African American GFR(CKD) >90 (>60 ml/min/1.73 sqM); Potassium 3.8 mmol/L (3.5-5.1); Sodium 141 mmol/L (137-145); Total Bilirubin 0.4 mg/dL (0.2-1.3); Total Protein 7.6 g/dL (6.3-8.2)
[2024-08-18] MEDS ORDERED: VANCOMYCIN IV PER PHARMACY 1 EACH MISC MISCELLANE PRN (13:39)
[2024-08-18] MEDS ORDERED: ACETAMINOPHEN TAB 325 MG TAB PO PRN (13:41)
[2024-08-18] MEDS ORDERED: NALOXONE 0.4 MG/ML 1 ML VIAL IV PRN (13:41)
[2024-08-18] MEDS: VANCOMYCIN 1,250 MG in SODIUM CHLORIDE 0.9% 250 ML IVPB ONE (14:48)
--- NOTE | 2024-08-18 15:06 | P.GSCN ---
History of Present Illness Consult date: 08/18/24 History of present illness: CHIEF COMPLAINT: Sacral wound HISTORY OF PRESENT ILLNESS: This is a 63-year-old female with a nonhealing chronic sacral wound. History was obtained from patient's chart and nursing staff. Apparently patient was seen by her general surgeon this morning who recommended that she present to the hospital for debridement. She does have a PICC line and is receiving IV antibiotics. Patient has had prior debridements of her sacral wound. Last debridement was in April 2024. PAST MEDICAL HISTORY: See below PAST SURGICAL HISTORY: See below MEDICATIONS: See below ALLERGIES: See below SOCIAL HISTORY: No illicit drug use. REVIEW OF SYSTEMS: CONSTITUTIONAL: Denies fever or chills. HEENT: Denies blurred vision, vision changes, or eye pain. Denies hemoptysis CARDIOVASCULAR: Denies chest pain or pressure. RESPIRATORY: No shortness of breath. GASTROINTESTINAL: See HPI for pertinent findings HEMATOLOGIC: Denies bleeding disorders. GENITOURINARY: Denies any blood in urine or increased urinary frequency. SKIN: Denies pruitis. Denies rash. PHYSICAL EXAM: VITAL SIGNS: Reviewed GENERAL: Well-developed in no acute distress. HEENT: No sclera icterus. Extraocular movements grossly intact. Moist buccal mucosa. Head is atraumatic, normocephalic. No nasal drainage. ABDOMEN: Soft. Nondistended. Nontender NEUROLOGIC: Awake and alert. Cranial nerves II through XII grossly intact. SKIN: Sacral wound with foul odor. Serous drainage noted. There is a large amount of slough and granulation tissue. Around to the sacral wound the skin is erythematous. LABORATORY DATA: WBC 15.17 Hgb 12.8 platelets 323 Sodium is 141 potassium 3.8 creatinine 0.50 lactic acid 1.7 CRP 6.3 IMAGING: ASSESSMENT: 1. Stage IV sacral decubitus ulcer 2. Diabetes mellitus PLAN: - Patient is scheduled for debridement of sacral decubitus ulcer - Antibiotics per ID service - Continue offloading Physician Wet Process Operator note has been reviewed by physician. Signing provider agrees with the documented findings, assessment, and plan of care. Past Medical History Past Medical History: COPD, CVA/TIA, GERD/Reflux, Osteoarthritis (OA), Seizure Disorder Additional Past Medical History / Comment(s): Wears oxygen at night, no seizures for 10 years, bedrest can't bare weight anymore History of Any Multi-Drug Resistant Organisms: None Reported Past Surgical History: Orthopedic Surgery Additional Past Surgical History / Comment(s): previous trach, debridement of sacral ulcer- 2023 Past Anesthesia/Blood Transfusion Reactions: No Reported Reaction Past Psychological History: Anxiety, Schizophrenia Smoking Status: Former smoker Past Alcohol Use History: None Reported Past Drug Use History: None Reported - Past Family History Father Family Medical History: Unable to Obtain Mother Family Medical History: Unable to Obtain Medications and Allergies Home Medications Medication Instructions Recorded Confirmed Type Escitalopram [Lexapro] 20 mg PO DAILY@0900 09/09/18 08/18/24 History Montelukast [Singulair] 10 mg PO HS@209909/09/18 08/18/24 History Pravastatin Sodium [Pravachol] 20 mg PO HS@209909/09/18 08/18/24 History haloperidoL [Haldol] 5 mg PO TID@0900,1300,209909/09/18 08/18/24 History Topiramate [Topamax] 100 mg PO BID@0900,209901/23/19 08/18/24 History clonazePAM [KlonoPIN] 1 mg PO TID@0900,1300,209907/19/21 08/18/24 History Ergocalciferol [Vitamin D2 (1250 1,250 mcg PO FR 08/18/22 08/18/24 History Mcg = 35908 Iu)] Metoprolol Succinate (ER) [Toprol 25 mg PO DAILY@0900 08/18/22 08/18/24 History XL] cloZAPine [Clozaril] 100 mg PO HS@209908/18/22 08/18/24 History polyethylene glycoL 3350 [Miralax] 17 gm PO Q24H PRN 08/18/22 08/18/24 History Budesonide-Formot 160-4.5 Mcg 2 puff INHALATION RT-BID@899,209904/16/24 08/18/24 History [Symbicort 160-4.5 Mcg Inhaler] Memantine [Namenda] 10 mg PO BID@0900,209904/16/24 08/18/24 History Ipratropium-Albuterol Nebulize 3 ml INHALATION RT-QID each 04/22/24 08/18/24 Rx [Duoneb 0.5 mg-3 mg/3 ml Soln] Acetaminophen [Tylenol] 650 mg PO Q4H PRN 08/18/24 08/18/24 History Aspirin 81 mg PO DAILY@0900 08/18/24 08/18/24 History Doxycycline Hyclate 100 mg PO Q12H 08/18/24 08/18/24 History Famotidine [Pepcid] 20 mg PO DAILY@0900 08/18/24 08/18/24 History HYDROcodone/APAP 5-325MG [[place] 1 tab PO BID@0500,1800 08/18/24 08/18/24 History 5-325] HYDROcodone/APAP 5-325MG [[place] 1 tab PO Q24H PRN 08/18/24 08/18/24 History 5-325] Insulin Glargine,Hum.rec.anlog 10 units SQ DAILY@0900 08/18/24 08/18/24 History [Lantus Solostar Pen] Lactobacillus Acidophilus 1 cap PO DAILY@0900 08/18/24 08/18/24 History [Acidophilus] Magnesium Hydroxide [Milk of 2,400 mg PO DAILY PRN 08/18/24 08/18/24 History Magnesia] Midodrine [ProAmatine] 5 mg PO Q8H PRN 08/18/24 08/18/24 History Prostat Awc 30 ml PO HS@2100 08/18/24 08/18/24 History Allergies Allergy/AdvReac Type Severity Reaction Status Date / Time bee venom protein (honey bee) Allergy Unknown Verified 08/18/24 13:49 beeswax Allergy Unknown Verified 08/18/24 13:49 Dihydroaminopryidine Allergy Unknown Verified 08/18/24 13:49 Antibiotics furosemide [From Lasix] Allergy Unknown Verified 08/18/24 13:49 latex Allergy Unknown Verified 08/18/24 13:49 metformin Allergy Unknown Verified 08/18/24 13:49 Penicillins Allergy Unknown Verified 08/18/24 13:49 sulfamethoxazole Allergy Unknown Verified 08/18/24 13:49 [From Bactrim] Tetanus Vaccines and Toxoid Allergy Unknown Verified 08/18/24 13:49 trimethoprim [From Bactrim] Allergy Unknown Verified 08/18/24 13:49 Surgical - Exam Vital Signs Temp Pulse Resp BP Pulse Ox 97.8 F 92 18 96/63 92 L 08/18/24 09:57 08/18/24 09:57 08/18/24 09:57 08/18/24 09:57 08/18/24 09:57 Results - Labs 08/18/24 11:14 08/18/24 11:14 Abnormal Lab Results - Last 24 Hours (Table) 08/18/24 08/18/24 Range/Units 11:14 11:14 WBC 15.17 H (4.50-10.00) 10*3/uL MCHC 31.5 L (32.0-37.0) g/dL Immature Gran # 0.20 H (0.00-0.04) 10*3/uL Neutrophils # 11.86 H (1.80-7.70) 10*3/uL Eosinophils # 0.00 L (0.04-0.35) 10*3/uL BUN 27 H (7-17) mg/dL Creatinine 0.50 L (0.52-1.04) mg/dL Glucose 205 H (74-99) mg/dL Alkaline Phosphatase 164 H (38-126) U/L C-Reactive Protein 6.3 H (<1.0) mg/dL Albumin 3.0 L (3.5-5.0) g/dL Diabetes panel 08/18/24 Range/Units 11:14 Sodium 141 (137-145) mmol/L Potassium 3.8 (3.5-5.1) mmol/L Chloride 104 (98-107) mmol/L Carbon Dioxide 24 (22-30) mmol/L BUN 27 H (7-17) mg/dL Creatinine 0.50 L (0.52-1.04) mg/dL Glucose 205 H (74-99) mg/dL Calcium 9.4 (8.4-10.2) mg/dL AST 25 (14-36) U/L ALT 17 (4-34) U/L Alkaline Phosphatase 164 H (38-126) U/L Total Protein 7.6 (6.3-8.2) g/dL Albumin 3.0 L (3.5-5.0) g/dL Calcium panel 08/18/24 Range/Units 11:14 Calcium 9.4 (8.4-10.2) mg/dL Albumin 3.0 L (3.5-5.0) g/dL Pituitary panel 08/18/24 Range/Units 11:14 Sodium 141 (137-145) mmol/L Potassium 3.8 (3.5-5.1) mmol/L Chloride 104 (98-107) mmol/L Carbon Dioxide 24 (22-30) mmol/L BUN 27 H (7-17) mg/dL Creatinine 0.50 L (0.52-1.04) mg/dL Glucose 205 H (74-99) mg/dL Calcium 9.4 (8.4-10.2) mg/dL Adrenal panel 08/18/24 Range/Units 11:14 Sodium 141 (137-145) mmol/L Potassium 3.8 (3.5-5.1) mmol/L Chloride 104 (98-107) mmol/L Carbon Dioxide 24 (22-30) mmol/L BUN 27 H (7-17) mg/dL Creatinine 0.50 L (0.52-1.04) mg/dL Glucose 205 H (74-99) mg/dL Calcium 9.4 (8.4-10.2) mg/dL Total Bilirubin 0.4 (0.2-1.3) mg/dL AST 25 (14-36) U/L ALT 17 (4-34) U/L Alkaline Phosphatase 164 H (38-126) U/L Total Protein 7.6 (6.3-8.2) g/dL Albumin 3.0 L (3.5-5.0) g/dL
[2024-08-18] MEDS ORDERED: polyethylene glycoL 3350 17 GM POWD.PACK PO PRN (19:14)
[2024-08-18] MEDS ORDERED: MAGNESIUM HYDROXIDE 2,400 MG/30 ML CUP PO PRN (19:14)
[2024-08-18] MEDS ORDERED: DEXTROSE 50% SYRINGE 50 ML IVP PRN ×2 (19:20)
--- NOTE | 2024-08-18 19:26 | P.HPIM ---
History of Present Illness H&P Date: 08/18/24 Chief Complaint: Sacral wound infection Patient is a 63-year-old female with a known history of CVA/TIA, seizure disorder,, COPD, GERD and seizure disorder who was sent by general surgery from [facility] due to concern for sacral and coccyx nonhealing pressure wound. Patient is awake alert but could not provide much history. Does have caregiver. Patient is receiving antibiotics every nursing facility does have PICC line. Patient was afebrile. Was tachycardic on admission. Laboratory data showed WBC 14.1 hemoglobin 12.8 and platelets 323 sodium 141 potassium 3.8 chloride 104 bicarb is 24 BUN 27 creatinine 0.5 blood sugar 205 alk phos 164 CRP 6.3 and albumin 3.0. Review of Systems ROS unobtainable: due to mental status Past Medical History Past Medical History: COPD, CVA/TIA, GERD/Reflux, Osteoarthritis (OA), Seizure Disorder Additional Past Medical History / Comment(s): Wears oxygen at night, no seizures for 10 years, bedrest can't bare weight anymore History of Any Multi-Drug Resistant Organisms: None Reported Past Surgical History: Orthopedic Surgery Additional Past Surgical History / Comment(s): previous trach, debridement of sacral ulcer- 2023 Past Anesthesia/Blood Transfusion Reactions: No Reported Reaction Past Psychological History: Anxiety, Schizophrenia Smoking Status: Former smoker Past Alcohol Use History: None Reported Past Drug Use History: None Reported - Past Family History Father Family Medical History: Unable to Obtain Mother Family Medical History: Unable to Obtain Medications and Allergies Home Medications Medication Instructions Recorded Confirmed Type Escitalopram [Lexapro] 20 mg PO DAILY@0900 09/09/18 08/18/24 History Montelukast [Singulair] 10 mg PO HS@209909/09/18 08/18/24 History Pravastatin Sodium [Pravachol] 20 mg PO HS@209909/09/18 08/18/24 History haloperidoL [Haldol] 5 mg PO TID@0900,1300,209909/09/18 08/18/24 History Topiramate [Topamax] 100 mg PO BID@0900,2100 01/23/19 08/18/24 History clonazePAM [KlonoPIN] 1 mg PO TID@0900,1300,209907/19/21 08/18/24 History Ergocalciferol [Vitamin D2 (1250 1,250 mcg PO FR 08/18/22 08/18/24 History Mcg = 04775 Iu)] Metoprolol Succinate (ER) [Toprol 25 mg PO DAILY@0908/18/22 08/18/24 History XL] cloZAPine [Clozaril] 100 mg PO HS@2100 08/18/22 08/18/24 History polyethylene glycoL 3350 [Miralax] 17 gm PO Q24H PRN 08/18/22 08/18/24 History Budesonide-Formot 160-4.5 Mcg 2 puff INHALATION RT-BID@0900,2100 04/16/24 08/18/24 History [Symbicort 160-4.5 Mcg Inhaler] Memantine [Namenda] 10 mg PO BID@0900,2100 04/16/24 08/18/24 History Ipratropium-Albuterol Nebulize 3 ml INHALATION RT-QID each 04/22/24 08/18/24 Rx [Duoneb 0.5 mg-3 mg/3 ml Soln] Acetaminophen [Tylenol] 650 mg PO Q4H PRN 08/18/24 08/18/24 History Aspirin 81 mg PO DAILY@89908/18/24 08/18/24 History Doxycycline Hyclate 100 mg PO Q12H 08/18/24 08/18/24 History Famotidine [Pepcid] 20 mg PO DAILY@0908/18/24 08/18/24 History HYDROcodone/APAP 5-325MG [[place] 1 tab PO BID@0500,1800 08/18/24 08/18/24 History 5-325] HYDROcodone/APAP 5-325MG [[place] 1 tab PO Q24H PRN 08/18/24 08/18/24 History 5-325] Insulin Glargine,Hum.rec.anlog 10 units SQ DAILY@0908/18/24 08/18/24 History [Lantus Solostar Pen] Lactobacillus Acidophilus 1 cap PO DAILY@0908/18/24 08/18/24 History [Acidophilus] Magnesium Hydroxide [Milk of 2,400 mg PO DAILY PRN 08/18/24 08/18/24 History Magnesia] Midodrine [ProAmatine] 5 mg PO Q8H PRN 08/18/24 08/18/24 History Prostat Awc 30 ml PO HS@2100 08/18/24 08/18/24 History Allergies Allergy/AdvReac Type Severity Reaction Status Date / Time bee venom protein (honey bee) Allergy Unknown Verified 08/18/24 13:49 beeswax Allergy Unknown Verified 08/18/24 13:49 Dihydroaminopryidine Allergy Unknown Verified 08/18/24 13:49 Antibiotics furosemide [From Lasix] Allergy Unknown Verified 08/18/24 13:49 latex Allergy Unknown Verified 08/18/24 13:49 metformin Allergy Unknown Verified 08/18/24 13:49 Penicillins Allergy Unknown Verified 08/18/24 13:49 sulfamethoxazole Allergy Unknown Verified 08/18/24 13:49 [From Bactrim] Tetanus Vaccines and Toxoid Allergy Unknown Verified 08/18/24 13:49 trimethoprim [From Bactrim] Allergy Unknown Verified 08/18/24 13:49 Physical Exam Vitals: Vital Signs Temp Pulse Resp BP Pulse Ox 08/18/24 18:00 101 H 20 97/66 95 08/18/24 13:58 97 16 101/65 95 08/18/24 09:57 97.8 F 92 18 96/63 92 L Intake and Output 08/18/24 08/18/24 08/18/24 06:59 14:59 22:59 Other: Weight 64.682 kg PHYSICAL EXAMINATION: Patient is lying in the bed, no acute distress, awake and alert. Could not provide history.. HEENT: Normocephalic. Neck is supple. Pupils reactive. Nostrils clear. Oral cavity is moist. Neck reveals no JVD, carotid bruits, or thyromegaly. CHEST EXAMINATION: Trachea is central. Symmetrical expansion. Bibasilar diminished sounds otherwise lung johns clear to auscultation and percussion. CARDIAC: Normal S1, S2 with no gallops. No murmurs ABDOMEN: Soft. Bowel sounds normal. No organomegaly. No abdominal bruits. Extremities: reveal no edema. No clubbing or cyanosis Neurologically awake, alert, oriented x 0-1. Able to move extremities while in bed. Skin: No rash or skin lesions. Sacral ulcer with purulent base and skin slough at the edges. Malodorous. Psychiatric: Coperative. Could not be assessed completely Musculoskeletal: No joint swelling or deformity. Results CBC & Chem 7: 08/18/24 11:14 08/18/24 11:14 Labs: Abnormal Lab Results - Last 24 Hours (Table) 08/18/24 08/18/24 Range/Units 11:14 11:14 WBC 15.17 H (4.50-10.00) 10*3/uL MCHC 31.5 L (32.0-37.0) g/dL Immature Gran # 0.20 H (0.00-0.04) 10*3/uL Neutrophils # 11.86 H (1.80-7.70) 10*3/uL Eosinophils # 0.00 L (0.04-0.35) 10*3/uL BUN 27 H (7-17) mg/dL Creatinine 0.50 L (0.52-1.04) mg/dL Glucose 205 H (74-99) mg/dL Alkaline Phosphatase 164 H (38-126) U/L C-Reactive Protein 6.3 H (<1.0) mg/dL Albumin 3.0 L (3.5-5.0) g/dL Thrombosis Risk Factor Assmnt - DVT/VTE Prophylaxis DVT/VTE Prophylaxis: Pharmacologic Prophylaxis ordered Assessment and Plan Assessment: Stage IV sacral decubitus ulcer with surrounding cellulitis/skin wound Diabetes type 2 insulin-dependent Chronic sacral wound History of CVA/TIA Seizure disorder COPD not in exacerbation Medical debility/patient is bedridden Anxiety/schizophrenia Prior history of smoking DVT prophylax with heparin subcu Plan: Patient will be continued on IV antibiotics in the form of vancomycin. General surgery was consulted for possible debridement. Continue with home medications and continue sliding scale. ID service was consulted. Continue to follow closely. Time with Patient: Greater than 30
[2024-08-18] MEDS: IPRATROPIUM-ALBUTEROL 3 ML NEB INHALATION SCH (20:03)
[2024-08-18] MEDS ORDERED: IPRATROPIUM-ALBUTEROL 3 ML NEB INHALATION PRN ×2 (20:14)
[2024-08-18] MEDS: SYMBICORT 160-4.5 MCG INHALER INHALATION SCH (20:18)
[2024-08-18 20:27] LABS: Glucose,Whole Blood 182 mg/dL (70-110)
[2024-08-18] MEDS: SCOPOLAMINE 1 MG/72 HR PATCH TRANSDERM STA (22:14)
[2024-08-18] MEDS: MEMANTINE 10 MG TAB PO SCH (22:15)
[2024-08-18] MEDS: PRAVASTATIN SODIUM 20 MG TAB PO SCH (22:15)
[2024-08-18] MEDS: INSULIN LISPRO (HumaLOG) 100 UNIT/ML 10 mL VL SQ SCH (22:15)
[2024-08-18] MEDS: HEPARIN SODIUM,PORCINE 5,000 UNIT/ML 1 ML VIAL SQ SCH (22:15)
[2024-08-18] MEDS: MONTELUKAST 10 MG TAB PO SCH (22:15)
[2024-08-18] MEDS: cloZAPine 100 MG TAB PO SCH (22:15)
[2024-08-18] MEDS: TOPIRAMATE 100 MG TAB PO SCH (22:15)
[2024-08-19] MEDS: VANCOMYCIN 1,000 MG in SODIUM CHLORIDE 0.9% 250 ML IVPB SCH (03:50)
[2024-08-19 06:26] LABS: Glucose,Whole Blood 151 mg/dL (70-110)
--- NOTE | 2024-08-19 07:31 | P.CONS ---
History of Present Illness - Reason for Consult Consult date: 08/18/24 Nonhealing sacral wound Requesting physician: Bettye Lee - Chief Complaint Sacral wound nonhealing x months - History of Present Illness Patient is a 63-year-old female with a past medical history difficult for COPD CVA TIA reflux osteoarthritis seizure disorder in this patient has been dealing with the pressure ulcer to the sacral area for many months and did have a infection with Enterococcus Pseudomonas back in April 2024 for the patient has completed antibiotic therapy however the patient still has a PICC line and is not very clear what antibiotic the patient has been receiving at the residential as review of her medication list she has been on oral doxycycline patient was sent to the surgical office for evaluation for possible debridement for the patient subsequently has been sent to hospital for admission and need for surgical debridement patient has still not a very good historian denies having any fever or any chills she has been complaining of pain all over and pain to the sacral wound area however not able to quantify it any further no chest pain shortness with or cough no abdominal pain no diarrhea or presented to the hospital patient was afebrile no fever have recorded subsequently patient was not tachycardic hypotensive or hypoxic patient did have white count of 15.17 creatinine 0.50 electrolytes are normal liver enzymes are normal patient did have a blood and local cultures obtained which are currently pending patient was started on vancomycin infectious disease was consulted for further management of antibiotic therapy Review of Systems Positive points has been mentioned in HPI complete review could not be obtained because of his underlying mental status Past Medical History Past Medical History: COPD, CVA/TIA, GERD/Reflux, Osteoarthritis (OA), Seizure Disorder Additional Past Medical History / Comment(s): Wears oxygen at night, no seizures for 10 years, bedrest can't bare weight anymore History of Any Multi-Drug Resistant Organisms: None Reported Past Surgical History: Orthopedic Surgery Additional Past Surgical History / Comment(s): previous trach, debridement of sacral ulcer- 2023 Past Anesthesia/Blood Transfusion Reactions: No Reported Reaction Past Psychological History: Anxiety, Schizophrenia Smoking Status: Former smoker Past Alcohol Use History: None Reported Past Drug Use History: None Reported - Past Family History Father Family Medical History: Unable to Obtain Mother Family Medical History: Unable to Obtain Medications and Allergies Home Medications Medication Instructions Recorded Confirmed Type Escitalopram [Lexapro] 20 mg PO DAILY@0900 09/09/18/06/25 History Montelukast [Singulair] 10 mg PO HS@209909/09/18 08/18/24 History Pravastatin Sodium [Pravachol] 20 mg PO HS@209909/09/18 08/18/24 History haloperidoL [Haldol] 5 mg PO TID@0900,1300,209909/09/18 08/18/24 History Topiramate [Topamax] 100 mg PO BID@0900,209901/23/19 08/18/24 History clonazePAM [KlonoPIN] 1 mg PO TID@0900,1300,209907/19/21 08/18/24 History Ergocalciferol [Vitamin D2 (1250 1,250 mcg PO FR 08/18/22 08/18/24 History Mcg = 78966 Iu)] Metoprolol Succinate (ER) [Toprol 25 mg PO DAILY@89908/18/22 08/18/24 History XL] cloZAPine [Clozaril] 100 mg PO HS@209908/18/22 08/18/24 History polyethylene glycoL 3350 [Miralax] 17 gm PO Q24H PRN 08/18/22 08/18/24 History Budesonide-Formot 160-4.5 Mcg 2 puff INHALATION RT-BID@899,209904/16/24 History [Symbicort 160-4.5 Mcg Inhaler] Memantine [Namenda] 10 mg PO BID@0900,209904/16/24 08/18/24 History Ipratropium-Albuterol Nebulize 3 ml INHALATION RT-QID each 04/22/24 08/18/24 Rx [Duoneb 0.5 mg-3 mg/3 ml Soln] Acetaminophen [Tylenol] 650 mg PO Q4H PRN 08/18/24 08/18/24 History Aspirin 81 mg PO DAILY@89908/18/24 08/18/24 History Doxycycline Hyclate 100 mg PO Q12H 08/18/24 08/18/24 History Famotidine [Pepcid] 20 mg PO DAILY@89908/18/24 08/18/24 History HYDROcodone/APAP 5-325MG [[place] 1 tab PO BID@0500,1800 08/18/24 08/18/24 History 5-325] HYDROcodone/APAP 5-325MG [[place] 1 tab PO Q24H PRN 08/18/24 08/18/24 History 5-325] Insulin Glargine,Hum.rec.anlog 10 units SQ DAILY@0900 08/18/24 08/18/24 History [Lantus Solostar Pen] Lactobacillus Acidophilus 1 cap PO DAILY@0900 08/18/24 08/18/24 History [Acidophilus] Magnesium Hydroxide [Milk of 2,400 mg PO DAILY PRN 08/18/24 08/18/24 History Magnesia] Midodrine [ProAmatine] 5 mg PO Q8H PRN 08/18/24 08/18/24 History Prostat Awc 30 ml PO HS@2100 08/18/24 08/18/24 History Allergies Allergy/AdvReac Type Severity Reaction Status Date / Time bee venom protein (honey bee) Allergy Unknown Verified 08/18/24 13:49 beeswax Allergy Unknown Verified 08/18/24 13:49 Dihydroaminopryidine Allergy Unknown Verified 08/18/24 13:49 Antibiotics furosemide [From Lasix] Allergy Unknown Verified 08/18/24 13:49 latex Allergy Unknown Verified 08/18/24 13:49 metformin Allergy Unknown Verified 08/18/24 13:49 Penicillins Allergy Unknown Verified 08/18/24 13:49 sulfamethoxazole Allergy Unknown Verified 08/18/24 13:49 [From Bactrim] Tetanus Vaccines and Toxoid Allergy Unknown Verified 08/18/24 13:49 trimethoprim [From Bactrim] Allergy Unknown Verified 08/18/24 13:49 Physical Exam Vitals: Vital Signs Temp Pulse Resp BP Pulse Ox 08/18/24 09:57 97.8 F 92 18 96/63 92 L Intake and Output 08/17/24 08/18/24 08/18/24 22:59 06:59 14:59 Other: Weight 64.682 kg GENERAL DESCRIPTION: Middle-age female lying in bed, no distress. No tachypnea or accessory muscle of respiration use. HEENT: Shows Pallor , no scleral icterus. Oral mucous membrane is dry. NECK: Trachea central, no thyromegaly. LUNGS: Unlabored breathing. Clear to auscultation anteriorly. No wheeze or crackle. HEART: S1, S2, regular rate and rhythm. No loud murmur ABDOMEN: Soft, no tenderness , guarding or rigidity, no organomegaly EXTREMITIES: No edema of feet. SKIN: Patient did have a stage IV sacral pressure ulcer with significant amount of slough tissue and also bones palpable NEUROLOGICAL: The patient is awake, alert, pleasantly confused orientation could not be determined Results CBC & Chem 7: 08/18/24 11:14 08/18/24 11:14 Labs: Abnormal Lab Results - Last 24 Hours (Table) 08/18/24 08/18/24 Range/Units 11:14 11:14 WBC 15.17 H (4.50-10.00) 10*3/uL MCHC 31.5 L (32.0-37.0) g/dL Immature Gran # 0.20 H (0.00-0.04) 10*3/uL Neutrophils # 11.86 H (1.80-7.70) 10*3/uL Eosinophils # 0.00 L (0.04-0.35) 10*3/uL BUN 27 H (7-17) mg/dL Creatinine 0.50 L (0.52-1.04) mg/dL Glucose 205 H (74-99) mg/dL Alkaline Phosphatase 164 H (38-126) U/L C-Reactive Protein 6.3 H (<1.0) mg/dL Albumin 3.0 L (3.5-5.0) g/dL Assessment and Plan (1) Stage IV pressure ulcer of sacral region Current Visit: Yes Status: Acute Code(s): L89.154 - PRESSURE ULCER OF SACRAL REGION, STAGE 4 SNOMED Code(s): 14495951893613 (2) Sacral osteomyelitis Current Visit: Yes Status: Acute Code(s): M46.28 - OSTEOMYELITIS OF VERTEBRA, SACRAL AND SACROCOCCYGEAL REGION SNOMED Code(s): 164194094 (3) Allergy to multiple antibiotics Current Visit: No Status: Acute Code(s): Z88.1 - ALLERGY STATUS TO OTHER ANTIBIOTIC AGENTS SNOMED Code(s): 274286748 Plan: 1patient with a chronic nonhealing wound to the sacral area that has been there for many months now with the previous episode of infection with a Pseudomonas Enterococcus now present to the hospital with her worsening of the sacral wound/nonhealing wound did have significant amount of slough tissue with the wound palpable confirming the sacral osteomyelitis and will need to cover for resistant gram-positive as well as gram-negative pathogen to be the likely etiology 2local culture have been obtained however the patient benefit from deep surgical culture at the time of I&D 3patient with multiple antibiotic ALLERGIES that would limit the number of antibiotic safe to use 4patient will be treated with vancomycin pharmacy to dose while watching kidney function closely along with cefepime while waiting for the culture to finalize We will follow on clinical condition and cultures to further adjust medication if needed Thank you for this consultation we will follow the patient along with you Dictation was produced using [employer] NET dictation software. please excuse any grammatical, word or spelling errors. Time with Patient: Greater than 30
[2024-08-19] MEDS: IPRATROPIUM-ALBUTEROL 3 ML NEB INHALATION SCH (07:48)
[2024-08-19] MEDS ORDERED: IPRATROPIUM-ALBUTEROL 3 ML NEB INHALATION SCH (08:00)
[2024-08-19 08:30] LABS: ALT 11 U/L (8-44); AST 21 U/L (13-35); Albumin 2.5 g/dL (3.8-4.9); Albumin/Globulin Ratio 0.66 Ratio (1.60-3.17); Alkaline Phosphatase 136 U/L (41-126); Calcium 8.6 mg/dL (8.7-10.3); Carbon Dioxide 21.6 mmol/L (21.6-31.8); Chloride 108 mmol/L (96-109); Globulin 3.8 g/dL (1.6-3.3); Glucose 162 mg/dL (70-110); Potassium 3.6 mmol/L (3.5-5.5); Sodium 140 mmol/L (135-145); Total Bilirubin 0.2 mg/dL (0.3-1.2); Total Protein 6.3 g/dL (6.2-8.2)
[2024-08-19 08:35] LABS: Basophils # (A) 0.04 X 10*3/uL (0.00-0.10); Basophils % (A) 0.3 %; Eosinophils # (A) 0.01 X 10*3/uL (0.04-0.35); Eosinophils % (A) 0.1 %; HCT 35.8 % (37.2-46.3); HGB 10.7 g/dL (12.0-15.0); Lymphocytes # (A) 2.87 X 10*3/uL (0.90-5.00); Lymphocytes % (A) 23.2 %; MCH 26.4 pg (27.0-32.0); MCHC 29.9 g/dL (32.0-37.0); MCV 88.4 FL (80.0-97.0); Mean Platelet Volume 10.2 FL (9.5-12.2); Monocytes # (A) 0.84 X 10*3/uL (0.20-1.00); Monocytes % (A) 6.8 %; NRBC Per 100 WBC 0 X 10*3/uL (0.00-0.01); Neutrophils # (A) 8.45 X 10*3/uL (1.80-7.70); Neutrophils % (A) 68.1 %; Platelet Count 316 X 10*3/uL (140-440); RBC 4.05 X 10*6/uL (4.10-5.20); RDW 15.3 % (11.5-14.5); WBC 12.39 X 10*3/uL (4.50-10.00)
[2024-08-19] MEDS: FAMOTIDINE 20 MG TAB PO SCH (09:02)
[2024-08-19] MEDS: ESCITALOPRAM 20 MG TAB PO SCH (09:02)
[2024-08-19] MEDS: INSULIN GLARGINE (LANTUS) 100 UNIT/ML SYR SQ SCH (09:03)
[2024-08-19] MEDS: LACTOBACILLUS ACIDOPHILUS/PECT 1 EACH CAPSULE PO SCH (09:03)
[2024-08-19] MEDS: METOPROLOL SUCCINATE (ER) 25 MG TAB.ER.24H PO SCH (09:03)
[2024-08-19 10:54] VITALS: BMI 26.0
[2024-08-19] MEDS: IV FLUID CONTINUATION 1,000 ML IV ONE (10:59)
[2024-08-19 11:24] LABS: Glucose,Whole Blood 153 mg/dL (70-110)
[2024-08-19] MEDS ORDERED: MIDAZOLAM 2 MG/2 ML VIAL ONE (11:49)
[2024-08-19] MEDS ORDERED: LIDOCAINE 1% INJ 10MG/ML (20 ML MDV) ONE (11:49)
[2024-08-19] MEDS ORDERED: PHENYLEPHRINE-0.9% NACL SYG 1,000 MCG/10 ML SYRINGE ONE (11:49)
[2024-08-19] MEDS ORDERED: PROPOFOL 10 MG/ML 20 ML VIAL IV ONE (11:49)
[2024-08-19] MEDS ORDERED: fentaNYL (PF) 50 MCG/ML 2 ML AMP ONE (11:49)
[2024-08-19] MEDS: LIDOCAINE 1% INJ 10MG/ML (20 ML MDV) SQ ONE (12:13)
--- NOTE | 2024-08-19 13:10 | P.OP ---
Date of Procedure: 08/19/24 Preoperative Diagnosis: Sacral decubitus ulcer Postoperative Diagnosis: Stage IV sacral decubitus ulcer, infected Procedure(s) Performed: Excisional debridement of sacral decubitus ulcer, stage IV, measuring 15 x 12 x 5 cm Anesthesia: NOHEMI Surgeon: Matt Ponce Pathology: other (Cultures) Condition: stable Disposition: floor Indications for Procedure: 63-year-old female presented to the emergency department with finding of infected sacral decubitus ulcer. Plan is for excisional debridement. Risks, benefits and alternatives were provided to patient's power of assistant city attorney and consent was provided. Operative Findings: 15 x 12 x 5 cm sacral decubitus ulcer, infected Description of Procedure: Patient was brought to the operative suite and placed in supine position. She underwent endotracheal intubation after anesthetic was provided. She was then placed in right lateral decubitus position. Local anesthetic was administered after patient was prepped and draped in regular sterile fashion. Sharp excisional debridement was performed of the ulcer of all necrotic and infected appearing tissue. Debridement was carried to the level of the bone as this is a stage IV decubitus ulcer. Debridement was performed until bleeding was noted and healthy tissue did appear. Cultures were taken. Wound was irrigated. Hemostatic agent was applied and hemostasis was noted. Packing and dressing was placed and patient was awakened and taken to postanesthesia care unit in stable condition.
[2024-08-19 16:25] LABS: Glucose,Whole Blood 197 mg/dL (70-110)
[2024-08-19 20:42] LABS: Glucose,Whole Blood 197 mg/dL (70-110)
[2024-08-19] MEDS: MORPHINE SULFATE 4 MG/ML SYRINGE IV PRN (20:45)
--- NOTE | 2024-08-20 05:50 | P.PN ---
Subjective Progress Note Date: 08/19/24 Patient is a 63-year-old female with a known history of CVA/TIA, seizure disorder,, COPD, GERD and seizure disorder who was sent by general surgery from [facility] due to concern for sacral and coccyx nonhealing pressure wound. Patient is awake alert but could not provide much history. Does have caregiver. Patient is receiving antibiotics every nursing facility does have PICC line. Patient was afebrile. Was tachycardic on admission. Laboratory data showed WBC 14.1 hemoglobin 12.8 and platelets 323 sodium 141 potassium 3.8 chloride 104 bicarb is 24 BUN 27 creatinine 0.5 blood sugar 205 alk phos 164 CRP 6.3 and albumin 3.0. 08/19/2024 Patient is seen in follow-up today currently working with general surgery scheduled for debridement with cultures and infectious disease following and will continue current medication regimen while awaiting cultures. Review of systems: Constitutional: No reports of fatigue, fever, or chills Cardiovascular: No reports of chest pain or palpitations Respiratory: No reports of shortness of breath or cough GI: No reports of nausea, vomiting, or diarrhea : No reports of dysuria or retention Neurovascular: reports of weakness or numbness All medications have been reviewed PHYSICAL EXAMINATION: Patient is lying in the bed, no acute distress, awake and alert. Could not provide history.. Well-developed HEENT: Normocephalic. Neck is supple. Pupils reactive. Nostrils clear. Oral cavity is moist. Neck reveals no JVD, carotid bruits, or thyromegaly. CHEST EXAMINATION: Trachea is central. Symmetrical expansion. Bibasilar diminished sounds otherwise lung johns clear to auscultation and percussion. CARDIAC: Normal S1, S2 with no gallops. No murmurs ABDOMEN: Soft. Bowel sounds normal. No organomegaly. No abdominal bruits. Extremities: reveal no edema. No clubbing or cyanosis Neurologically awake, alert, oriented x 0-1. Able to move extremities while in bed. Skin: No rash or skin lesions. Sacral ulcer with purulent base and skin slough at the edges. Malodorous. Psychiatric: Cooperative. Could not be assessed completely Musculoskeletal: No joint swelling or deformity. Assessment: Stage IV sacral decubitus ulcer with surrounding cellulitis/skin wound, present on admission Diabetes type 2 insulin-dependent Chronic sacral wound History of CVA/TIA Seizure disorder COPD not in exacerbation Medical debility/patient is bedridden Anxiety/schizophrenia Prior history of smoking DVT prophylax with heparin subcu Plan: Patient will be continued on IV antibiotics in the form of vancomycin. Infectious disease following along with general surgery and patient is scheduled to undergo debridement of the sacral wound today. Will await report Continue with home medications and continue sliding scale. Recommend monitoring Accu-Cheks AC and at bedtime and will adjust insulins accordingly Continue local wound care per ID recommendations along with surgery recommendations Follow-up on repeat labs. Replace electrolytes per protocol Case management to be consulted regarding discharge planning need Due to multiple complex medical issues, overall prognosis is guarded The impression and plan of care has been dictated by Janny Box, Nurse Practitioner as directed. Dr. Neo MD I have performed a history and examination and MDM of this patient, discussed the same with the dictator, and agree with the dictator's assessment and plan as written ,documented as a scribe. Based on total visit time, I have performed more than 50% of the visit. Objective - Vital Signs Vital signs: Vital Signs Temp 97.6 F 08/19/24 07:32 Pulse 95 08/19/24 07:51 Resp 17 08/19/24 07:32 BP 105/65 08/19/24 07:32 Pulse Ox 96 08/19/24 07:32 FiO2 Intake & Output 08/18/24 08/19/24 08/19/24 18:59 06:59 18:59 Weight 64.682 kg 64.682 kg Other: Voiding Method Diaper Incontinent # Voids 1 - Labs CBC & Chem 7: 08/19/24 03:37 08/19/24 03:37 Labs: Abnormal Lab Results - Last 24 Hours (Table) 08/18/24 08/18/24 08/18/24 Range/Units 11:14 11:14 20:25 WBC 15.17 H (4.50-10.00) 10*3/uL RBC (4.10-5.20) X 10*6/uL Hgb (12.0-15.0) g/dL Hct (37.2-46.3) % MCH (27.0-32.0) pg MCHC 31.5 L (32.0-37.0) g/dL RDW (11.5-14.5) % Immature Gran # 0.20 H (0.00-0.04) 10*3/uL Neutrophils # 11.86 H (1.80-7.70) 10*3/uL Eosinophils # 0.00 L (0.04-0.35) 10*3/uL BUN 27 H (7-17) mg/dL Creatinine 0.50 L (0.52-1.04) mg/dL BUN/Creatinine Ratio (12.00-20.00) Ratio Glucose 205 H (74-99) mg/dL POC Glucose (mg/dL) 182 H (70-110) mg/dL Hemoglobin A1c (<=6.0) % Calcium (8.7-10.3) mg/dL Total Bilirubin (0.3-1.2) mg/dL Alkaline Phosphatase 164 H (38-126) U/L C-Reactive Protein 6.3 H (<1.0) mg/dL Albumin 3.0 L (3.5-5.0) g/dL Globulin (1.6-3.3) g/dL Albumin/Globulin Ratio (1.60-3.17) Ratio 08/19/24 08/19/24 08/19/24 Range/Units 03:37 03:37 03:37 WBC 12.39 H (4.50-10.00) 10*3/uL RBC 4.05 L (4.10-5.20) X 10*6/uL Hgb 10.7 L (12.0-15.0) g/dL Hct 35.8 L (37.2-46.3) % MCH 26.4 L (27.0-32.0) pg MCHC 29.9 L (32.0-37.0) g/dL RDW 15.3 H (11.5-14.5) % Immature Gran # 0.18 H (0.00-0.04) 10*3/uL Neutrophils # 8.45 H (1.80-7.70) 10*3/uL Eosinophils # 0.01 L (0.04-0.35) 10*3/uL BUN (7-17) mg/dL Creatinine 0.5 L (0.52-1.04) mg/dL BUN/Creatinine Ratio 46.00 H (12.00-20.00) Ratio Glucose 162 H (74-99) mg/dL POC Glucose (mg/dL) (70-110) mg/dL Hemoglobin A1c 10.1 H (<=6.0) % Calcium 8.6 L (8.7-10.3) mg/dL Total Bilirubin 0.2 L (0.3-1.2) mg/dL Alkaline Phosphatase 136 H (38-126) U/L C-Reactive Protein (<1.0) mg/dL Albumin 2.5 L (3.5-5.0) g/dL Globulin 3.8 H (1.6-3.3) g/dL Albumin/Globulin Ratio 0.66 L (1.60-3.17) Ratio 08/19/24 Range/Units 06:25 WBC (4.50-10.00) 10*3/uL RBC (4.10-5.20) X 10*6/uL Hgb (12.0-15.0) g/dL Hct (37.2-46.3) % MCH (27.0-32.0) pg MCHC (32.0-37.0) g/dL RDW (11.5-14.5) % Immature Gran # (0.00-0.04) 10*3/uL Neutrophils # (1.80-7.70) 10*3/uL Eosinophils # (0.04-0.35) 10*3/uL BUN (7-17) mg/dL Creatinine (0.52-1.04) mg/dL BUN/Creatinine Ratio (12.00-20.00) Ratio Glucose (74-99) mg/dL POC Glucose (mg/dL) 151 H (70-110) mg/dL Hemoglobin A1c (<=6.0) % Calcium (8.7-10.3) mg/dL Total Bilirubin (0.3-1.2) mg/dL Alkaline Phosphatase (38-126) U/L C-Reactive Protein (<1.0) mg/dL Albumin (3.5-5.0) g/dL Globulin (1.6-3.3) g/dL Albumin/Globulin Ratio (1.60-3.17) Ratio Microbiology - Last 24 Hours (Table) 08/18/24 14:27 Gram Stain - Preliminary Buttock
[2024-08-20 06:02] LABS: Glucose,Whole Blood 151 mg/dL (70-110)
--- NOTE | 2024-08-20 11:01 | XR ---
EXAMINATION TYPE: XR chest 1V portable DATE OF EXAM: 08/20/2024 CLINICAL INDICATION: Female, 63 years old with history of shortness of breath, progress study. TECHNIQUE: Single AP portable upright view of the chest is obtained. COMPARISON: Chest CT from April 16, 2024 FINDINGS: Persistent low lung volumes and chronic opacities bilaterally favoring parenchymal fibroti c changes are redemonstrated. Stable mild cardiomegaly with atherosclerotic thoracic aorta. Cholecyst ectomy clips are redemonstrated. Osseous structures are intact. IMPRESSION: Low lung volumes and chronic parenchymal fibrotic changes bilaterally redemonstrated. Dif ficult to entirely exclude new acute infiltrate. [facility], , 08/20/2024 10:59 AM
[2024-08-20 11:24] LABS: Glucose,Whole Blood 211 mg/dL (70-110)
[2024-08-20 11:31] LABS: Basophils # (A) 0.04 10*3/uL (0.00-0.10); Basophils % (A) 0.3 %; Eosinophils # (A) 0.01 10*3/uL (0.04-0.35); Eosinophils % (A) 0.1 %; HCT 32.8 % (37.2-46.3); HGB 10.2 g/dL (12.0-15.0); Lymphocytes # (A) 1.61 10*3/uL (0.90-5.00); Lymphocytes % (A) 13.3 %; MCH 27.3 pg (27.0-32.0); MCHC 31.1 g/dL (32.0-37.0); MCV 87.7 fL (80.0-97.0); Mean Platelet Volume 9.9 fL (9.5-12.2); Monocytes # (A) 0.66 10*3/uL (0.20-1.00); Monocytes % (A) 5.5 %; Neutrophils # (A) 9.63 10*3/uL (1.80-7.70); Neutrophils % (A) 79.8 %; Platelet Count 281 10*3/uL (140-440); RBC 3.74 10*6/uL (4.10-5.20); RDW 15.1 % (11.5-14.5); WBC 12.07 10*3/uL (4.50-10.00)
[2024-08-20 11:37] LABS: African American GFR (CKD) >90 (>60 ml/min/1.73 sqM); Anion Gap 10 mmol/L; Blood Urea Nitrogen 19 mg/dL (7-17); Calcium 8.7 mg/dL (8.4-10.2); Carbon Dioxide 21 mmol/L (22-30); Chloride 108 mmol/L (98-107); Glucose 201 mg/dL (74-99); Magnesium 1.8 mg/dL (1.6-2.3); Non-African American GFR(CKD) >90 (>60 ml/min/1.73 sqM); Potassium 3.3 mmol/L (3.5-5.1); Sodium 139 mmol/L (137-145)
--- NOTE | 2024-08-20 12:46 | P.PN ---
Subjective Progress Note Date: 08/20/24 SURGICAL PROGRESS NOTE CHIEF COMPLAINT: Stage IV sacral decubitus ulcer HISTORY OF PRESENT ILLNESS: Patient postop day #1 status post excisional debridement of sacral decubitus ulcer. Patient lying in bed comfortably. Afebrile. WBC is 12 Hgb 10.2 platelets 281. Cultures pending PHYSICAL EXAM: VITAL SIGNS: Reviewed. GENERAL: Well-developed in no acute distress. ABDOMEN: Soft. Nondistended. Nontender. NEUROLOGIC: Alert and oriented. Cranial nerves II through XII grossly intact. ASSESSMENT: 1. Stage IV infected sacral decubitus ulcer status postdebridement PLAN: - Continue offloading - Continue local wound care - Antibiotics per ID service Physician [employer] Up Operator note has been reviewed by physician. Signing provider agrees with the documented findings, assessment, and plan of care. Attestation Patient seen and examined at bedside. Continue offloading and continue local wound care. Consult wound care service. IV antibiotics per infectious disease team. No further surgical intervention planned at this time. Matt Ponce DO Objective - Vital Signs Vital signs: Vital Signs Temp 97.8 F 08/20/24 07:15 Pulse 85 08/20/24 09:50 Resp 17 08/20/24 07:15 BP 93/60 08/20/24 07:15 Pulse Ox 95 08/20/24 07:15 FiO2 Intake & Output 08/19/24 08/20/24 08/20/24 18:59 06:59 18:59 Intake Total 300 Output Total 17 Balance 283 Weight 64.682 kg Intake: IV 300 Output: Estimated Blood Loss 17 Other: Voiding Method Diaper Incontinent # Voids 1 1 # Bowel Movements 1 - Labs CBC & Chem 7: 08/20/24 10:50 08/20/24 12:42 Labs: Abnormal Lab Results - Last 24 Hours (Table) 08/19/24 08/19/24 08/20/24 Range/Units 16:24 20:41 06:01 WBC (4.50-10.00) 10*3/uL RBC (4.10-5.20) 10*6/uL Hgb (12.0-15.0) g/dL Hct (37.2-46.3) % MCHC (32.0-37.0) g/dL RDW (11.5-14.5) % Immature Gran # (0.00-0.04) 10*3/uL Neutrophils # (1.80-7.70) 10*3/uL Eosinophils # (0.04-0.35) 10*3/uL Potassium (3.5-5.1) mmol/L Chloride (98-107) mmol/L Carbon Dioxide (22-30) mmol/L BUN (7-17) mg/dL Glucose (74-99) mg/dL POC Glucose (mg/dL) 197 H 197 H 151 H (70-110) mg/dL 08/20/24 08/20/24 08/20/24 Range/Units 10:50 10:50 11:22 WBC 12.07 H (4.50-10.00) 10*3/uL RBC 3.74 L (4.10-5.20) 10*6/uL Hgb 10.2 L (12.0-15.0) g/dL Hct 32.8 L (37.2-46.3) % MCHC 31.1 L (32.0-37.0) g/dL RDW 15.1 H (11.5-14.5) % Immature Gran # 0.12 H (0.00-0.04) 10*3/uL Neutrophils # 9.63 H (1.80-7.70) 10*3/uL Eosinophils # 0.01 L (0.04-0.35) 10*3/uL Potassium 3.3 L (3.5-5.1) mmol/L Chloride 108 H (98-107) mmol/L Carbon Dioxide 21 L (22-30) mmol/L BUN 19 H (7-17) mg/dL Glucose 201 H (74-99) mg/dL POC Glucose (mg/dL) 211 H (70-110) mg/dL Microbiology - Last 24 Hours (Table) 08/18/24 11:14 Blood Culture - Preliminary Blood
[2024-08-20 13:09] LABS: African American GFR (CKD) >90 (>60 ml/min/1.73 sqM); Non-African American GFR(CKD) >90 (>60 ml/min/1.73 sqM)
[2024-08-20] MEDS: VANCOMYCIN TROUGH DUE 1 EACH MISC MISCELLANE ONE (13:24)
--- NOTE | 2024-08-20 16:16 | P.PN ---
Subjective Progress Note Date: 08/19/24 Principal diagnosis: Reason for follow-up is infected sacral pressure ulcer Patient is a 63-year-old female with a past medical history difficult for COPD CVA TIA reflux osteoarthritis seizure disorder in this patient has been dealing with the pressure ulcer to the sacral area for many months has been brought to the hospital with worsening sacral wound patient did have a surgical debridement of the wound on 08/19/2024 along with deep culture. On today's evaluation that is 08/19/2024, the patient continues to be afebrile, the patient is on room air and breathing comfortably, the Pt denies having any chest pain or cough, the patient denies having any abdominal pain no vomiting or any diarrhea has been reported by the nursing staff Patient white count is down to 12.39 creatinine 0.5 Objective - Vital Signs Vital signs: Vital Signs Temp 98.6 F 08/19/24 20:14 Pulse 100 08/19/24 20:59 Resp 18 08/19/24 20:14 BP 106/67 08/19/24 20:14 Pulse Ox 94 L 08/19/24 20:14 FiO2 Intake & Output 08/19/24 08/19/24 08/20/24 06:59 18:59 06:59 Intake Total 300 Output Total 17 Balance 283 Weight 64.682 kg 64.682 kg Intake: IV 300 Output: Estimated Blood Loss 17 Other: Voiding Method Diaper Diaper Incontinent Incontinent # Voids 1 1 # Bowel Movements 1 - Exam GENERAL DESCRIPTION: Middle-age female lying in bed in no distress RESPIRATORY SYSTEM: Unlabored breathing , decreased breath sounds at bases HEART: S1 S2 regular rate and rhythm , ABDOMEN: Soft , no tenderness EXTREMITIES: No edema feet - Labs CBC & Chem 7: 08/20/24 10:50 08/20/24 12:42 Labs: Abnormal Lab Results - Last 24 Hours (Table) 08/19/24 08/19/24 08/19/24 Range/Units 03:37 03:37 03:37 WBC 12.39 H (4.50-10.00) X 10*3/uL RBC 4.05 L (4.10-5.20) X 10*6/uL Hgb 10.7 L (12.0-15.0) g/dL Hct 35.8 L (37.2-46.3) % MCH 26.4 L (27.0-32.0) pg MCHC 29.9 L (32.0-37.0) g/dL RDW 15.3 H (11.5-14.5) % Immature Gran # 0.18 H (0.00-0.04) X 10*3/uL Neutrophils # 8.45 H (1.80-7.70) X 10*3/uL Eosinophils # 0.01 L (0.04-0.35) X 10*3/uL Creatinine 0.5 L (0.6-1.5) mg/dL BUN/Creatinine Ratio 46.00 H (12.00-20.00) Ratio Glucose 162 H (70-110) mg/dL POC Glucose (mg/dL) (70-110) mg/dL Hemoglobin A1c 10.1 H (<=6.0) % Calcium 8.6 L (8.7-10.3) mg/dL Total Bilirubin 0.2 L (0.3-1.2) mg/dL Alkaline Phosphatase 136 H (41-126) U/L Albumin 2.5 L (3.8-4.9) g/dL Globulin 3.8 H (1.6-3.3) g/dL Albumin/Globulin Ratio 0.66 L (1.60-3.17) Ratio 08/19/24 08/19/24 08/19/24 Range/Units 06:25 11:23 16:24 WBC (4.50-10.00) X 10*3/uL RBC (4.10-5.20) X 10*6/uL Hgb (12.0-15.0) g/dL Hct (37.2-46.3) % MCH (27.0-32.0) pg MCHC (32.0-37.0) g/dL RDW (11.5-14.5) % Immature Gran # (0.00-0.04) X 10*3/uL Neutrophils # (1.80-7.70) X 10*3/uL Eosinophils # (0.04-0.35) X 10*3/uL Creatinine (0.6-1.5) mg/dL BUN/Creatinine Ratio (12.00-20.00) Ratio Glucose (70-110) mg/dL POC Glucose (mg/dL) 151 H 153 H 197 H (70-110) mg/dL Hemoglobin A1c (<=6.0) % Calcium (8.7-10.3) mg/dL Total Bilirubin (0.3-1.2) mg/dL Alkaline Phosphatase (41-126) U/L Albumin (3.8-4.9) g/dL Globulin (1.6-3.3) g/dL Albumin/Globulin Ratio (1.60-3.17) Ratio 08/19/24 Range/Units 20:41 WBC (4.50-10.00) X 10*3/uL RBC (4.10-5.20) X 10*6/uL Hgb (12.0-15.0) g/dL Hct (37.2-46.3) % MCH (27.0-32.0) pg MCHC (32.0-37.0) g/dL RDW (11.5-14.5) % Immature Gran # (0.00-0.04) X 10*3/uL Neutrophils # (1.80-7.70) X 10*3/uL Eosinophils # (0.04-0.35) X 10*3/uL Creatinine (0.6-1.5) mg/dL BUN/Creatinine Ratio (12.00-20.00) Ratio Glucose (70-110) mg/dL POC Glucose (mg/dL) 197 H (70-110) mg/dL Hemoglobin A1c (<=6.0) % Calcium (8.7-10.3) mg/dL Total Bilirubin (0.3-1.2) mg/dL Alkaline Phosphatase (41-126) U/L Albumin (3.8-4.9) g/dL Globulin (1.6-3.3) g/dL Albumin/Globulin Ratio (1.60-3.17) Ratio Microbiology - Last 24 Hours (Table) 08/18/24 11:14 Blood Culture - Preliminary Blood 08/18/24 14:27 Gram Stain - Preliminary Buttock Assessment and Plan (1) Stage IV pressure ulcer of sacral region Current Visit: Yes Status: Acute Code(s): L89.154 - PRESSURE ULCER OF SACRAL REGION, STAGE 4 SNOMED Code(s): 80999310512415 (2) Sacral osteomyelitis Current Visit: Yes Status: Acute Code(s): M46.28 - OSTEOMYELITIS OF VERTEBRA , SACRAL AND SACROCOCCYGEAL REGION SNOMED Code(s): 763454376 (3) Allergy to multiple antibiotics Current Visit: No Status: Acute Code(s): Z88.1 - ALLERGY STATUS TO OTHER ANTIBIOTIC AGENTS SNOMED Code(s): 137808599 Plan: 1patient with a chronic nonhealing wound to the sacral area that has been there for many months now with the previous episode of infection with a Pseudomonas Enterococcus now present to the hospital with her worsening of the sacral wound/nonhealing wound did have significant amount of slough tissue with the wound palpable confirming the sacral osteomyelitis and will need to cover for resistant gram-positive as well as gram-negative pathogen to be the likely etiology 2patient with multiple antibiotic ALLERGIES that would limit the number of antibiotic safe to use 4patient is status post surgical debridement and deep culture, patient will be treated with vancomycin pharmacy to dose while watching kidney function closely along with cefepime while waiting for the culture to finalize Dictation was produced using [employer] dictation software. please excuse any grammatical, word or spelling errors. Time with Patient: Less than 30
--- NOTE | 2024-08-20 16:18 | P.PN ---
Subjective Progress Note Date: 08/20/24 Principal diagnosis: Reason for follow-up is infected sacral pressure ulcer Patient is a 63-year-old female with a past medical history difficult for COPD CVA TIA reflux osteoarthritis seizure disorder in this patient has been dealing with the pressure ulcer to the sacral area for many months has been brought to the hospital with worsening sacral wound patient did have a surgical debridement of the wound on 08/19/2024 along with deep culture. On today's evaluation that is 08/20/2024, Patient is afebrile patient is currently on room air and denies having any shortness of breath, the patient denies any chest pain or cough, the patient denies any nausea vomiting did not have any abdominal pain and no diarrhea or any worsening pain to the sacral wound area Patient white count is down to 12.07 creatinine 0.57 cultures currently pending Objective - Vital Signs Vital signs: Vital Signs Temp 97.8 F 08/20/24 07:15 Pulse 85 08/20/24 09:50 Resp 17 08/20/24 07:15 BP 93/60 08/20/24 07:15 Pulse Ox 95 08/20/24 07:15 FiO2 Intake & Output 08/19/24 08/20/24 08/20/24 18:59 06:59 18:59 Intake Total 300 Output Total 17 Balance 283 Weight 64.682 kg Intake: IV 300 Output: Estimated Blood Loss 17 Other: Voiding Method Diaper Incontinent # Voids 1 1 # Bowel Movements 1 - Exam GENERAL DESCRIPTION: Middle-age female lying in bed in no distress RESPIRATORY SYSTEM: Unlabored breathing , decreased breath sounds at bases HEART: S1 S2 regular rate and rhythm , ABDOMEN: Soft , no tenderness EXTREMITIES: No edema feet - Labs CBC & Chem 7: 08/20/24 10:50 08/20/24 12:42 Labs: Abnormal Lab Results - Last 24 Hours (Table) 08/19/24 08/19/24 08/20/24 Range/Units 16:24 20:41 06:01 WBC (4.50-10.00) 10*3/uL RBC (4.10-5.20) 10*6/uL Hgb (12.0-15.0) g/dL Hct (37.2-46.3) % MCHC (32.0-37.0) g/dL RDW (11.5-14.5) % Immature Gran # (0.00-0.04) 10*3/uL Neutrophils # (1.80-7.70) 10*3/uL Eosinophils # (0.04-0.35) 10*3/uL Potassium (3.5-5.1) mmol/L Chloride (98-107) mmol/L Carbon Dioxide (22-30) mmol/L BUN (7-17) mg/dL Glucose (74-99) mg/dL POC Glucose (mg/dL) 197 H 197 H 151 H (70-110) mg/dL 08/20/24 08/20/24 08/20/24 Range/Units 10:50 10:50 11:22 WBC 12.07 H (4.50-10.00) 10*3/uL RBC 3.74 L (4.10-5.20) 10*6/uL Hgb 10.2 L (12.0-15.0) g/dL Hct 32.8 L (37.2-46.3) % MCHC 31.1 L (32.0-37.0) g/dL RDW 15.1 H (11.5-14.5) % Immature Gran # 0.12 H (0.00-0.04) 10*3/uL Neutrophils # 9.63 H (1.80-7.70) 10*3/uL Eosinophils # 0.01 L (0.04-0.35) 10*3/uL Potassium 3.3 L (3.5-5.1) mmol/L Chloride 108 H (98-107) mmol/L Carbon Dioxide 21 L (22-30) mmol/L BUN 19 H (7-17) mg/dL Glucose 201 H (74-99) mg/dL POC Glucose (mg/dL) 211 H (70-110) mg/dL Microbiology - Last 24 Hours (Table) 08/18/24 11:14 Blood Culture - Preliminary Blood Assessment and Plan (1) Stage IV pressure ulcer of sacral region Current Visit: Yes Status: Acute Code(s): L89.154 - PRESSURE ULCER OF SACRAL REGION, STAGE 4 SNOMED Code(s): 23533101984571 (2) Sacral osteomyelitis Current Visit: Yes Status: Acute Code(s): M46.28 - OSTEOMYELITIS OF VERTEBRA , SACRAL AND SACROCOCCYGEAL REGION SNOMED Code(s): 120273894 (3) Allergy to multiple antibiotics Current Visit: No Status: Acute Code(s): Z88.1 - ALLERGY STATUS TO OTHER ANTIBIOTIC AGENTS SNOMED Code(s): 732274395 Plan: 1patient with a chronic nonhealing wound to the sacral area that has been there for many months now with the previous episode of infection with a Pseudomonas Enterococcus now present to the hospital with her worsening of the sacral wound/nonhealing wound did have significant amount of slough tissue with the wound palpable confirming the sacral osteomyelitis and will need to cover for resistant gram-positive as well as gram-negative pathogen to be the likely etiology 2patient with multiple antibiotic ALLERGIES that would limit the number of antibiotic safe to use 4patient is status post surgical debridement and deep culture which are currently pending. 5 patient currently on vancomycin pharmacy to dose and cefepime, with the discharge antibiotic on the basis of final culture Dictation was produced using [employer] dictation software. please excuse any grammatical, word or spelling errors. Time with Patient: Less than 30
[2024-08-20 16:38] LABS: Glucose,Whole Blood 151 mg/dL (70-110)
[2024-08-20] MEDS: VANCOMYCIN 750 MG in SODIUM CHLORIDE 0.9% 250 ML IVPB SCH (18:30)
[2024-08-20 20:40] LABS: Glucose,Whole Blood 160 mg/dL (70-110)
[2024-08-21 06:10] LABS: African American GFR (CKD) >90 (>60 ml/min/1.73 sqM); Anion Gap 7 mmol/L; Blood Urea Nitrogen 16 mg/dL (7-17); Calcium 8.6 mg/dL (8.4-10.2); Carbon Dioxide 24 mmol/L (22-30); Chloride 109 mmol/L (98-107); Glucose 125 mg/dL (74-99); Non-African American GFR(CKD) >90 (>60 ml/min/1.73 sqM); Potassium 3.2 mmol/L (3.5-5.1); Sodium 140 mmol/L (137-145)
[2024-08-21 06:15] LABS: Glucose,Whole Blood 139 mg/dL (70-110)
[2024-08-21 08:22] LABS: Basophils # (A) 0.04 X 10*3/uL (0.00-0.10); Basophils % (A) 0.3 %; Eosinophils # (A) 0.01 X 10*3/uL (0.04-0.35); Eosinophils % (A) 0.1 %; HGB 9.5 g/dL (12.0-15.0); Lymphocytes # (A) 1.92 X 10*3/uL (0.90-5.00); Lymphocytes % (A) 16.2 %; MCH 26.5 pg (27.0-32.0); MCHC 29.7 g/dL (32.0-37.0); MCV 89.4 FL (80.0-97.0); Mean Platelet Volume 10.4 FL (9.5-12.2); Monocytes # (A) 0.84 X 10*3/uL (0.20-1.00); Monocytes % (A) 7.1 %; NRBC Per 100 WBC 0 X 10*3/uL (0.00-0.01); Neutrophils # (A) 8.92 X 10*3/uL (1.80-7.70); Neutrophils % (A) 75.3 %; Platelet Count 261 X 10*3/uL (140-440); RBC 3.58 X 10*6/uL (4.10-5.20); RDW 15.3 % (11.5-14.5); WBC 11.85 X 10*3/uL (4.50-10.00)
--- NOTE | 2024-08-21 08:53 | P.PN ---
Subjective Progress Note Date: 08/20/24 Patient is a 63-year-old female with a known history of CVA/TIA, seizure disorder,, COPD, GERD and seizure disorder who was sent by general surgery from [facility] due to concern for sacral and coccyx nonhealing pressure wound. Patient is awake alert but could not provide much history. Does have caregiver. Patient is receiving antibiotics every nursing facility does have PICC line. Patient was afebrile. Was tachycardic on admission. Laboratory data showed WBC 14.1 hemoglobin 12.8 and platelets 323 sodium 141 potassium 3.8 chloride 104 bicarb is 24 BUN 27 creatinine 0.5 blood sugar 205 alk phos 164 CRP 6.3 and albumin 3.0. 08/19/2024 Patient is seen in follow-up today currently working with general surgery scheduled for debridement with cultures and infectious disease following and will continue current medication regimen while awaiting cultures. 08/20/2024 Patient is seen in follow-up this morning and per nursing staff is unsure if she was choking taking her medicines but sounds wet and gurgly in the lung sounds and will obtain a chest x-ray. Patient does have history of COPD and is maintained on breathing treatments and wears oxygen has been instructed to place oxygen for supportive care. Patient is afebrile with no reports of chest pain. Patient is status post incisional debridement of the sacral wound with general surgery and infectious disease following. Will await cultures to determine appropriate treatment plan moving forward. Continue with wound care per general surgery and ID. Review of systems: Constitutional: No reports of fatigue, fever, or chills Cardiovascular: No reports of chest pain or palpitations Respiratory: reports of shortness of breath and cough GI: No reports of nausea, vomiting, or diarrhea : No reports of dysuria or retention Neurovascular: reports of weakness or numbness All medications have been reviewed PHYSICAL EXAMINATION: Patient is lying in the bed, no acute distress, awake and alert. Could not provide history.. Well-developed, elderly appearing, delayed HEENT: Normocephalic. Neck is supple. Pupils reactive. Nostrils clear. Oral cavity is moist. Neck reveals no JVD, carotid bruits, or thyromegaly. CHEST EXAMINATION: Trachea is central. Symmetrical expansion. Bibasilar diminished sounds with faint crackles and congestion in the upper airways, with a strong cough reflex noted able to clear CARDIAC: Normal S1, S2 with no gallops. No murmurs ABDOMEN: Soft. Bowel sounds normal. No organomegaly. No abdominal bruits. Extremities: reveal no edema. No clubbing or cyanosis Neurologically awake, alert, oriented x 0-1. Able to move extremities while in bed. Skin: No rash or skin lesions. Sacral ulcer with surgical dressings dry and intact. Psychiatric: Cooperative. Could not be assessed completely Musculoskeletal: No joint swelling or deformity. Assessment: Stage IV sacral decubitus ulcer with surrounding cellulitis/skin wound, present on admission Coughing and choking on food, concerns for aspiration Diabetes type 2 insulin-dependent Chronic sacral wound History of CVA/TIA Seizure disorder COPD not in exacerbation Medical debility/patient is bedridden Anxiety/schizophrenia Prior history of smoking DVT prophylax with heparin subcu GI prophylaxis Full code Plan: Patient will be continued on IV antibiotics in the form of vancomycin. Infectious disease following along with general surgery and is status post debridement of the sacral wound awaiting cultures Continue with home medications and continue sliding scale. Recommend monitoring Accu-Cheks AC and at bedtime and will adjust insulins accordingly Continue local wound care per ID recommendations along with surgery recommendations Follow-up on repeat labs. Replace electrolytes per protocol Patient was having some coughing and upper airway congestion with medication. Chest x-ray was obtained showing low lung volumes with chronic parenchymal fibrotic changes bilaterally redemonstrated difficult to entirely exclude a new infiltrate Patient will be provided incentive spirometer also continue with breathing treatments and will be evaluated by speech Case management following regarding discharge planning needs and will await cultures to determine appropriate discharge antibiotics along with wound care recommendations. Due to multiple complex medical issues, overall prognosis is guarded The impression and plan of care has been dictated by Janny Box, Nurse Practitioner as directed. Dr. Neo MD I have performed a history and examination and MDM of this patient, discussed the same with the dictator, and agree with the dictator's assessment and plan as written ,documented as a scribe. Based on total visit time, I have performed more than 50% of the visit. Objective - Vital Signs Vital signs: Vital Signs Temp 98.5 F 08/21/24 07:47 Pulse 84 08/21/24 07:47 Resp 17 08/21/24 07:47 BP 109/71 08/21/24 07:47 Pulse Ox 98 08/21/24 07:47 FiO2 Intake & Output 08/20/24 08/21/24 08/21/24 18:59 06:59 18:59 Intake Total 250 Balance 250 Intake: Oral 250 Other: Voiding Method Diaper Diaper Incontinent # Voids 3 2 - Labs CBC & Chem 7: 08/21/24 04:39 08/21/24 04:39 Labs: Abnormal Lab Results - Last 24 Hours (Table) 08/20/24 08/20/24 08/20/24 Range/Units 10:50 10:50 11:22 WBC 12.07 H (4.50-10.00) 10*3/uL RBC 3.74 L (4.10-5.20) 10*6/uL Hgb 10.2 L (12.0-15.0) g/dL Hct 32.8 L (37.2-46.3) % MCH (27.0-32.0) pg MCHC 31.1 L (32.0-37.0) g/dL RDW 15.1 H (11.5-14.5) % Immature Gran # 0.12 H (0.00-0.04) 10*3/uL Neutrophils # 9.63 H (1.80-7.70) 10*3/uL Eosinophils # 0.01 L (0.04-0.35) 10*3/uL Potassium 3.3 L (3.5-5.1) mmol/L Chloride 108 H (98-107) mmol/L Carbon Dioxide 21 L (22-30) mmol/L BUN 19 H (7-17) mg/dL Creatinine (0.52-1.04) mg/dL Glucose 201 H (74-99) mg/dL POC Glucose (mg/dL) 211 H (70-110) mg/dL 08/20/24 08/20/24 08/21/24 Range/Units 16:37 20:38 04:39 WBC (4.50-10.00) 10*3/uL RBC (4.10-5.20) 10*6/uL Hgb (12.0-15.0) g/dL Hct (37.2-46.3) % MCH (27.0-32.0) pg MCHC (32.0-37.0) g/dL RDW (11.5-14.5) % Immature Gran # (0.00-0.04) 10*3/uL Neutrophils # (1.80-7.70) 10*3/uL Eosinophils # (0.04-0.35) 10*3/uL Potassium 3.2 L (3.5-5.1) mmol/L Chloride 109 H (98-107) mmol/L Carbon Dioxide (22-30) mmol/L BUN (7-17) mg/dL Creatinine 0.51 L (0.52-1.04) mg/dL Glucose 125 H (74-99) mg/dL POC Glucose (mg/dL) 151 H 160 H (70-110) mg/dL 08/21/24 08/21/24 Range/Units 04:39 06:13 WBC 11.85 H (4.50-10.00) 10*3/uL RBC 3.58 L (4.10-5.20) 10*6/uL Hgb 9.5 L (12.0-15.0) g/dL Hct 32.0 L (37.2-46.3) % MCH 26.5 L (27.0-32.0) pg MCHC 29.7 L (32.0-37.0) g/dL RDW 15.3 H (11.5-14.5) % Immature Gran # 0.12 H (0.00-0.04) 10*3/uL Neutrophils # 8.92 H (1.80-7.70) 10*3/uL Eosinophils # 0.01 L (0.04-0.35) 10*3/uL Potassium (3.5-5.1) mmol/L Chloride (98-107) mmol/L Carbon Dioxide (22-30) mmol/L BUN (7-17) mg/dL Creatinine (0.52-1.04) mg/dL Glucose (74-99) mg/dL POC Glucose (mg/dL) 139 H (70-110) mg/dL Microbiology - Last 24 Hours (Table) 08/19/24 12:17 Gram Stain - Preliminary Back 08/18/24 11:14 Blood Culture - Preliminary Blood 08/19/24 12:20 Gram Stain - Preliminary Back 08/18/24 14:27 Gram Stain - Preliminary Buttock Wound Culture - Preliminary Strep agalactiae - (group b) Proteus mirabilis
--- NOTE | 2024-08-21 10:03 | P.CONS ---
History of Present Illness - Reason for Consult Consult date: 08/21/24 wound care - History of Present Illness This is a 63-year-old patient who is a poor historian with past medical history significant for COPD CVA TIA. Patient went underwent a surgical debridement of a stage IV pressure ulcer. ulcer measures approximately 15 x 12 x 5 cm. the ulceration shows granulation to the wound bed, from 1:00 to 4:00 patient has nonviable eschar tissue present. Wound edges are not attached to the wound base no tunneling noted undermining noted circumferentially to the ulceration. Review of systems: Unable to obtain due to patient mental status Physical exam: General Appearance: Alert, cooperative, no distress, appears stated age. Skin: See HPI all other Skin color, texture, tugor normal, no rashes or lesions. Neurologic: Alert oriented x1 Assessment: 1. Stage IV pressure ulcer sacrum 2. Osteomyelitis sacral Plan: 1. In the hospital we will utilize Santyl with daily dressing change. Apply Santyl saline moist gauze and cover with bordered foam change daily. Turn patient every 2 hours. 2. Discontinue Santyl once negative pressure wound VAC is available at [facility]. Anticipated Plan for discharge is on Saturday. When patient returns to [facility] we will utilize a negative pressure wound VAC at 150 mm/HG at continuous pressure. Utilizing black foam only. Patient would benefit from advanced wound care and wound care center. We would be happy to see her upon discharge. Thank you for the consultation any questions please contact the wound care center DNP note has been reviewed and discussed with Dr. Laurent and the impression and plan of care has been directed as dictated. Past Medical History Past Medical History: COPD, CVA/TIA, GERD/Reflux, Osteoarthritis (OA), Seizure Disorder Additional Past Medical History / Comment(s): Wears oxygen at night, no seizures for 10 years, bedrest can't bare weight anymore History of Any Multi-Drug Resistant Organisms: None Reported Past Surgical History: Orthopedic Surgery Additional Past Surgical History / Comment(s): previous trach, debridement of sacral ulcer- 2023 Past Anesthesia/Blood Transfusion Reactions: No Reported Reaction Past Psychological History: Anxiety, Schizophrenia Smoking Status: Former smoker Past Alcohol Use History: None Reported Past Drug Use History: None Reported - Past Family History Father Family Medical History: Unable to Obtain Mother Family Medical History: Unable to Obtain Medications and Allergies Home Medications Medication Instructions Recorded Confirmed Type Escitalopram [Lexapro] 20 mg PO DAILY@89909/09/18 08/18/24 History Montelukast [Singulair] 10 mg PO HS@209909/09/18 08/18/24 History Pravastatin Sodium [Pravachol] 20 mg PO HS@209909/09/18 08/18/24 History haloperidoL [Haldol] 5 mg PO TID@0900,1300,209909/09/18 08/18/24 History Topiramate [Topamax] 100 mg PO BID@00,209901/23/19 08/18/24 History clonazePAM [KlonoPIN] 1 mg PO TID@0900,1300,209907/19/21 08/18/24 History Ergocalciferol [Vitamin D2 (1250 1,250 mcg PO FR 08/18/22 08/18/24 History Mcg = 87361 Iu)] Metoprolol Succinate (ER) [Toprol 25 mg PO DAILY@89908/18/22 08/18/24 History XL] cloZAPine [Clozaril] 100 mg PO HS@209908/18/22 08/18/24 History polyethylene glycoL 3350 [Miralax] 17 gm PO Q24H PRN 08/18/22 08/18/24 History Budesonide-Formot 160-4.5 Mcg 2 puff INHALATION RT-BID@899,209904/16/24 08/18/24 History [Symbicort 160-4.5 Mcg Inhaler] Memantine [Namenda] 10 mg PO BID@0900,209904/16/24 08/18/24 History Ipratropium-Albuterol Nebulize 3 ml INHALATION RT-QID each 04/22/24 08/18/24 Rx [Duoneb 0.5 mg-3 mg/3 ml Soln] Acetaminophen [Tylenol] 650 mg PO Q4H PRN 08/18/24 08/18/24 History Aspirin 81 mg PO DAILY@89908/18/24 08/18/24 History Doxycycline Hyclate 100 mg PO Q12H 08/18/24 08/18/24 History Famotidine [Pepcid] 20 mg PO DAILY@89908/18/24 08/18/24 History HYDROcodone/APAP 5-325MG [[place] 1 tab PO BID@0500,1800 08/18/24 08/18/24 History 5-325] HYDROcodone/APAP 5-325MG [[place] 1 tab PO Q24H PRN 08/18/24 08/18/24 History 5-325] Insulin Glargine,Hum.rec.anlog 10 units SQ DAILY@0900 08/18/24 08/18/24 History [Lantus Solostar Pen] Lactobacillus Acidophilus 1 cap PO DAILY@0900 08/18/24 08/18/24 History [Acidophilus] Magnesium Hydroxide [Milk of 2,400 mg PO DAILY PRN 08/18/24 08/18/24 History Magnesia] Midodrine [ProAmatine] 5 mg PO Q8H PRN 08/18/24 08/18/24 History Prostat Awc 30 ml PO HS@2100 08/18/24 08/18/24 History Allergies Allergy/AdvReac Type Severity Reaction Status Date / Time bee venom protein (honey bee) Allergy Unknown Verified 08/19/24 11:01 beeswax Allergy Unknown Verified 08/19/24 11:01 Dihydroaminopryidine Allergy Unknown Verified 08/19/24 11:01 Antibiotics furosemide [From Lasix] Allergy Unknown Verified 08/19/24 11:01 latex Allergy Unknown Verified 08/19/24 11:01 metformin Allergy Unknown Verified 08/19/24 11:01 Penicillins Allergy Unknown Verified 08/19/24 11:01 sulfamethoxazole Allergy Unknown Verified 08/19/24 11:01 [From Bactrim] Tetanus Vaccines and Toxoid Allergy Unknown Verified 08/19/24 11:01 trimethoprim [From Bactrim] Allergy Unknown Verified 08/19/24 11:01 Physical Exam Vitals: Vital Signs Temp Pulse Pulse Resp BP Pulse Ox 08/21/24 09:39 90 08/21/24 09:28 92 08/21/24 07:47 98.5 F 84 17 109/71 98 08/21/24 00:40 98.7 F 100 19 109/70 99 08/20/24 21:26 94 08/20/24 21:09 100 08/20/24 19:18 98.6 F 106 H 18 143/77 97 08/20/24 17:02 97 08/20/24 16:52 95 08/20/24 14:35 97.3 F L 93 18 92/60 96 08/20/24 13:33 78 08/20/24 13:21 79 08/20/24 13:11 18 Intake and Output 08/20/24 08/21/24 08/21/24 22:59 06:59 14:59 Other: Voiding Method Diaper # Voids 3 2 Results CBC & Chem 7: 08/21/24 04:39 08/21/24 04:39 Labs: Abnormal Lab Results - Last 24 Hours (Table) 08/20/24 08/20/24 08/20/24 Range/Units 10:50 10:50 11:22 WBC 12.07 H (4.50-10.00) 10*3/uL RBC 3.74 L (4.10-5.20) 10*6/uL Hgb 10.2 L (12.0-15.0) g/dL Hct 32.8 L (37.2-46.3) % MCH (27.0-32.0) pg MCHC 31.1 L (32.0-37.0) g/dL RDW 15.1 H (11.5-14.5) % Immature Gran # 0.12 H (0.00-0.04) 10*3/uL Neutrophils # 9.63 H (1.80-7.70) 10*3/uL Eosinophils # 0.01 L (0.04-0.35) 10*3/uL Potassium 3.3 L (3.5-5.1) mmol/L Chloride 108 H (98-107) mmol/L Carbon Dioxide 21 L (22-30) mmol/L BUN 19 H (7-17) mg/dL Creatinine (0.52-1.04) mg/dL Glucose 201 H (74-99) mg/dL POC Glucose (mg/dL) 211 H (70-110) mg/dL 08/20/24 08/20/24 08/21/24 Range/Units 16:37 20:38 04:39 WBC (4.50-10.00) 10*3/uL RBC (4.10-5.20) 10*6/uL Hgb (12.0-15.0) g/dL Hct (37.2-46.3) % MCH (27.0-32.0) pg MCHC (32.0-37.0) g/dL RDW (11.5-14.5) % Immature Gran # (0.00-0.04) 10*3/uL Neutrophils # (1.80-7.70) 10*3/uL Eosinophils # (0.04-0.35) 10*3/uL Potassium 3.2 L (3.5-5.1) mmol/L Chloride 109 H (98-107) mmol/L Carbon Dioxide (22-30) mmol/L BUN (7-17) mg/dL Creatinine 0.51 L (0.52-1.04) mg/dL Glucose 125 H (74-99) mg/dL POC Glucose (mg/dL) 151 H 160 H (70-110) mg/dL 08/21/24 08/21/24 Range/Units 04:39 06:13 WBC 11.85 H (4.50-10.00) 10*3/uL RBC 3.58 L (4.10-5.20) 10*6/uL Hgb 9.5 L (12.0-15.0) g/dL Hct 32.0 L (37.2-46.3) % MCH 26.5 L (27.0-32.0) pg MCHC 29.7 L (32.0-37.0) g/dL RDW 15.3 H (11.5-14.5) % Immature Gran # 0.12 H (0.00-0.04) 10*3/uL Neutrophils # 8.92 H (1.80-7.70) 10*3/uL Eosinophils # 0.01 L (0.04-0.35) 10*3/uL Potassium (3.5-5.1) mmol/L Chloride (98-107) mmol/L Carbon Dioxide (22-30) mmol/L BUN (7-17) mg/dL Creatinine (0.52-1.04) mg/dL Glucose (74-99) mg/dL POC Glucose (mg/dL) 139 H (70-110) mg/dL Microbiology - Last 24 Hours (Table) 08/19/24 12:20 Gram Stain - Preliminary Back Wound Culture - Preliminary Proteus mirabilis Strep agalactiae - (group b) 08/19/24 12:17 Gram Stain - Preliminary Back Wound Culture - Preliminary Proteus mirabilis Strep agalactiae - (group b) 08/18/24 11:14 Blood Culture - Preliminary Blood 08/18/24 14:27 Gram Stain - Preliminary Buttock Wound Culture - Preliminary Strep agalactiae - (group b) Proteus mirabilis Assessment and Plan (1) Sacral osteomyelitis Current Visit: Yes Status: Acute Code(s): M46.28 - OSTEOMYELITIS OF VERTEBR A, SACRAL AND SACROCOCCYGEAL REGION SNOMED Code(s): 093839440 (2) Stage IV pressure ulcer of sacral region Current Visit: Yes Status: Acute Code(s): L89.154 - PRESSURE ULCER OF SACRAL REGION, STAGE 4 SNOMED Code(s): 40478910792540
[2024-08-21 11:39] LABS: Glucose,Whole Blood 127 mg/dL (70-110)
--- NOTE | 2024-08-21 12:31 | P.PN ---
Subjective Progress Note Date: 08/21/24 SURGICAL PROGRESS NOTE CHIEF COMPLAINT: Stage IV sacral decubitus ulcer HISTORY OF PRESENT ILLNESS: Patient postop day #2 status post excisional debridement of sacral decubitus ulcer. Patient lying in bed comfortably. Afebrile. WBC 11.85 hgb 9.5 PHYSICAL EXAM: VITAL SIGNS: Reviewed. GENERAL: Well-developed in no acute distress. ABDOMEN: Soft. Nondistended. Nontender. NEUROLOGIC: Alert and oriented. Cranial nerves II through XII grossly intact. ASSESSMENT: 1. Stage IV infected sacral decubitus ulcer status post debridement PLAN: - Continue offloading - Continue local wound care. Patient seen by wound care service. They are recommending Santyl and then wound VAC at discharge - Antibiotics per ID service Physician Mud Engineer note has been reviewed by physician. Signing provider agrees with the documented findings, assessment, and plan of care. Attestation Patient seen and examined at bedside. Wound care has evaluated patient secondary to stage IV sacral decubitus ulcer. No further debridement planned. Continue Santyl and wound VAC at discharge. Antibiotics per ID service. Continue with current management. Matt Ponce DO Objective - Vital Signs Vital signs: Vital Signs Temp 98.5 F 08/21/24 07:47 Pulse 90 08/21/24 09:39 Resp 17 08/21/24 07:47 BP 109/71 08/21/24 07:47 Pulse Ox 98 08/21/24 07:47 FiO2 Intake & Output 08/20/24 08/21/24 08/21/24 18:59 06:59 18:59 Intake Total 250 Balance 250 Intake: Oral 250 Other: Voiding Method Diaper Diaper External Catheter Incontinent # Voids 3 2 - Labs CBC & Chem 7: 08/21/24 04:39 08/21/24 04:39 Labs: Abnormal Lab Results - Last 24 Hours (Table) 08/20/24 08/20/24 08/21/24 Range/Units 16:37 20:38 04:39 WBC (4.50-10.00) X 10*3/uL RBC (4.10-5.20) X 10*6/uL Hgb (12.0-15.0) g/dL Hct (37.2-46.3) % MCH (27.0-32.0) pg MCHC (32.0-37.0) g/dL RDW (11.5-14.5) % Immature Gran # (0.00-0.04) X 10*3/uL Neutrophils # (1.80-7.70) X 10*3/uL Eosinophils # (0.04-0.35) X 10*3/uL Potassium 3.2 L (3.5-5.1) mmol/L Chloride 109 H (98-107) mmol/L Creatinine 0.51 L (0.52-1.04) mg/dL Glucose 125 H (74-99) mg/dL POC Glucose (mg/dL) 151 H 160 H (70-110) mg/dL 08/21/24 08/21/24 08/21/24 Range/Units 04:39 06:13 11:37 WBC 11.85 H (4.50-10.00) X 10*3/uL RBC 3.58 L (4.10-5.20) X 10*6/uL Hgb 9.5 L (12.0-15.0) g/dL Hct 32.0 L (37.2-46.3) % MCH 26.5 L (27.0-32.0) pg MCHC 29.7 L (32.0-37.0) g/dL RDW 15.3 H (11.5-14.5) % Immature Gran # 0.12 H (0.00-0.04) X 10*3/uL Neutrophils # 8.92 H (1.80-7.70) X 10*3/uL Eosinophils # 0.01 L (0.04-0.35) X 10*3/uL Potassium (3.5-5.1) mmol/L Chloride (98-107) mmol/L Creatinine (0.52-1.04) mg/dL Glucose (74-99) mg/dL POC Glucose (mg/dL) 139 H 127 H (70-110) mg/dL Microbiology - Last 24 Hours (Table) 08/19/24 12:20 Gram Stain - Preliminary Back Wound Culture - Preliminary Proteus mirabilis Strep agalactiae - (group b) 08/19/24 12:17 Gram Stain - Preliminary Back Wound Culture - Preliminary Proteus mirabilis Strep agalactiae - (group b) 08/18/24 11:14 Blood Culture - Preliminary Blood 08/18/24 14:27 Gram Stain - Preliminary Buttock Wound Culture - Preliminary Strep agalactiae - (group b) Proteus mirabilis
[2024-08-21] MEDS: COLLAGENASE 250 UNIT/GM OINTMENT 30 GM TUBE TOPICAL SCH (13:59)
[2024-08-21] MEDS ORDERED: HYDROcodone/APAP 5-325MG 1 EACH TAB PO PRN (14:39)
[2024-08-21] MEDS ORDERED: Potassium Replacement Protocol 1 EACH MISC MISCELLANE PRN (14:42)
[2024-08-21] MEDS: ERGOCALCIFEROL 1,250 MCG (50,000 IU) CAPSULE PO SCH (15:10)
[2024-08-21] MEDS: KETOROLAC 15 MG/ML 1 ML VIAL IVP STA (15:11)
[2024-08-21] MEDS: MIDODRINE 5 MG TAB PO PRN (15:11)
[2024-08-21 17:02] LABS: Glucose,Whole Blood 139 mg/dL (70-110)
[2024-08-21] MEDS: POTASSIUM CHLORIDE 10 MEQ in WATER FOR INJECTION 1 100ML.BAG IVPB SCH (17:39)
[2024-08-21 21:04] LABS: Glucose,Whole Blood 120 mg/dL (70-110)
[2024-08-21] MEDS: haloperidoL 5 MG TAB PO SCH (21:10)
--- NOTE | 2024-08-21 23:55 | P.PN ---
Subjective Progress Note Date: 08/21/24 Patient is a 63-year-old female with a known history of CVA/TIA, seizure disorder,, COPD, GERD and seizure disorder who was sent by general surgery from [facility] due to concern for sacral and coccyx nonhealing pressure wound. Patient is awake alert but could not provide much history. Does have caregiver. Patient is receiving antibiotics every nursing facility does have PICC line. Patient was afebrile. Was tachycardic on admission. Laboratory data showed WBC 14.1 hemoglobin 12.8 and platelets 323 sodium 141 potassium 3.8 chloride 104 bicarb is 24 BUN 27 creatinine 0.5 blood sugar 205 alk phos 164 CRP 6.3 and albumin 3.0. 08/19/2024 Patient is seen in follow-up today currently working with general surgery scheduled for debridement with cultures and infectious disease following and will continue current medication regimen while awaiting cultures. 08/20/2024 Patient is seen in follow-up this morning and per nursing staff is unsure if she was choking taking her medicines but sounds wet and gurgly in the lung sounds and will obtain a chest x-ray. Patient does have history of COPD and is maintained on breathing treatments and wears oxygen has been instructed to place oxygen for supportive care. Patient is afebrile with no reports of chest pain. Patient is status post incisional debridement of the sacral wound with general surgery and infectious disease following. Will await cultures to determine appropriate treatment plan moving forward. Continue with wound care per general surgery and ID. 08/21/2024 Patient seen and evaluated this morning remains n.p.o. and is scheduled to undergo modified barium swallow study with speech today as patient was noted to be choking coughing frequently on food. Patient is maintained on breathing treatments and will continue at this time. Patient is noted to have a PICC line in her chest and nursing staff reports it was documented to be placed in April and infectious diseases following and maintained on antibiotics and recommend to remove the PICC line as it is nonfunctioning and places patient at increased risk from infection. May need to obtain new PICC line prior to discharge although awaiting cultures at this time. Continue with frequent offloading and position changes every 2 hours and awaiting finalized cultures. Potassium was slightly low at 3.2 and will be replaced. White count is trending down and currently 11.85. Review of systems: Constitutional: No reports of fatigue, fever, or chills Cardiovascular: No reports of chest pain or palpitations Respiratory: reports of shortness of breath but feels slightly improved, and cough GI: No reports of nausea, vomiting, or diarrhea, reports to feeling hungry and awaiting speech therapy evaluation : No reports of dysuria or retention Neurovascular: reports of weakness or numbness All medications have been reviewed PHYSICAL EXAMINATION: Patient is lying in the bed, no acute distress, awake and alert. Could not provide history.. Well-developed, elderly appearing, delayed, pleasant HEENT: Normocephalic. Neck is supple. Pupils reactive. Nostrils clear. Oral cavity is moist. Neck reveals no JVD, carotid bruits, or thyromegaly. CHEST EXAMINATION: Trachea is central. Symmetrical expansion. Bibasilar diminished sounds with some upper bronchial congestion in the upper airways, with a strong cough reflex noted able to clear, PICC line noted on the left upper chest CARDIAC: Normal S1, S2 with no gallops. No murmurs ABDOMEN: Soft. Bowel sounds normal. No organomegaly. No abdominal bruits. Extremities: reveal no edema. No clubbing or cyanosis Neurologically awake, alert, oriented x 0-1. Able to move extremities while in bed. Skin: No rash or skin lesions. Sacral ulcer with surgical dressings dry and intact. Psychiatric: Cooperative. Could not be assessed completely Musculoskeletal: No joint swelling or deformity. 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 Infectious disease following along with general surgery and is status post debridement of the sacral wound awaiting cultures. Patient has a previous PICC line in her chest wall on the left and nursing staff is reporting this was fabricio kandace in April and will be removed. It is reported as nonfunctioning and not flushing. Continue with home medications and continue sliding scale. Recommend monitoring Accu-Cheks AC and at bedtime and will adjust insulins accordingly Continue local wound care per ID recommendations along with surgery recommendations Follow-up on repeat labs. Replace electrolytes per protocol. Potassium 3.2 today and will repeat labs in the a.m. Patient was having some coughing and upper airway congestion with medication. Chest x-ray was obtained showing low lung volumes with chronic parenchymal fibrotic changes bilaterally redemonstrated difficult to entirely exclude a new infiltrate Patient will be provided incentive spirometer also continue with breathing treatments and was evaluated by speech goal MBS today 08/21/2024. Continue n.p.o. for now until evaluated by speech Case management following regarding discharge planning needs and will await cultures to determine appropriate discharge antibiotics along with wound care recommendations. Patient will be returning to [facility] The impression and plan of care has been dictated by Janny Box, Nurse Practitioner as directed. Dr. Kacie MD I have performed a history and examination and MDM of this patient, discussed the same with the dictator, and agree with the dictator's assessment and plan as written ,documented as a scribe. Based on total visit time, I have performed more than 50% of the visit. Objective - Vital Signs Vital signs: Vital Signs Temp 98.5 F 08/21/24 07:47 Pulse 84 08/21/24 07:47 Resp 17 08/21/24 07:47 BP 109/71 08/21/24 07:47 Pulse Ox 98 08/21/24 07:47 FiO2 Intake & Output 08/20/24 08/21/24 08/21/24 18:59 06:59 18:59 Intake Total 250 Balance 250 Intake: Oral 250 Other: Voiding Method Diaper Diaper Incontinent # Voids 3 2 - Labs CBC & Chem 7: 08/21/24 04:39 08/21/24 04:39 Labs: Abnormal Lab Results - Last 24 Hours (Table) 08/20/24 08/20/24 08/20/24 Range/Units 10:50 10:50 11:22 WBC 12.07 H (4.50-10.00) 10*3/uL RBC 3.74 L (4.10-5.20) 10*6/uL Hgb 10.2 L (12.0-15.0) g/dL Hct 32.8 L (37.2-46.3) % MCH (27.0-32.0) pg MCHC 31.1 L (32.0-37.0) g/dL RDW 15.1 H (11.5-14.5) % Immature Gran # 0.12 H (0.00-0.04) 10*3/uL Neutrophils # 9.63 H (1.80-7.70) 10*3/uL Eosinophils # 0.01 L (0.04-0.35) 10*3/uL Potassium 3.3 L (3.5-5.1) mmol/L Chloride 108 H (98-107) mmol/L Carbon Dioxide 21 L (22-30) mmol/L BUN 19 H (7-17) mg/dL Creatinine (0.52-1.04) mg/dL Glucose 201 H (74-99) mg/dL POC Glucose (mg/dL) 211 H (70-110) mg/dL 08/20/24 08/20/24 08/21/24 Range/Units 16:37 20:38 04:39 WBC (4.50-10.00) 10*3/uL RBC (4.10-5.20) 10*6/uL Hgb (12.0-15.0) g/dL Hct (37.2-46.3) % MCH (27.0-32.0) pg MCHC (32.0-37.0) g/dL RDW (11.5-14.5) % Immature Gran # (0.00-0.04) 10*3/uL Neutrophils # (1.80-7.70) 10*3/uL Eosinophils # (0.04-0.35) 10*3/uL Potassium 3.2 L (3.5-5.1) mmol/L Chloride 109 H (98-107) mmol/L Carbon Dioxide (22-30) mmol/L BUN (7-17) mg/dL Creatinine 0.51 L (0.52-1.04) mg/dL Glucose 125 H (74-99) mg/dL POC Glucose (mg/dL) 151 H 160 H (70-110) mg/dL 08/21/24 08/21/24 Range/Units 04:39 06:13 WBC 11.85 H (4.50-10.00) 10*3/uL RBC 3.58 L (4.10-5.20) 10*6/uL Hgb 9.5 L (12.0-15.0) g/dL Hct 32.0 L (37.2-46.3) % MCH 26.5 L (27.0-32.0) pg MCHC 29.7 L (32.0-37.0) g/dL RDW 15.3 H (11.5-14.5) % Immature Gran # 0.12 H (0.00-0.04) 10*3/uL Neutrophils # 8.92 H (1.80-7.70) 10*3/uL Eosinophils # 0.01 L (0.04-0.35) 10*3/uL Potassium (3.5-5.1) mmol/L Chloride (98-107) mmol/L Carbon Dioxide (22-30) mmol/L BUN (7-17) mg/dL Creatinine (0.52-1.04) mg/dL Glucose (74-99) mg/dL POC Glucose (mg/dL) 139 H (70-110) mg/dL Microbiology - Last 24 Hours (Table) 08/19/24 12:17 Gram Stain - Preliminary Back 08/18/24 11:14 Blood Culture - Preliminary Blood 08/19/24 12:20 Gram Stain - Preliminary Back 08/18/24 14:27 Gram Stain - Preliminary Buttock Wound Culture - Preliminary Strep agalactiae - (group b) Proteus mirabilis
[2024-08-22] MEDS ORDERED: VANCOMYCIN TROUGH DUE 1 EACH MISC MISCELLANE ONE (05:00)
[2024-08-22 05:51] LABS: African American GFR (CKD) >90 (>60 ml/min/1.73 sqM); Anion Gap 4 mmol/L; Blood Urea Nitrogen 13 mg/dL (7-17); Calcium 8.8 mg/dL (8.4-10.2); Carbon Dioxide 26 mmol/L (22-30); Chloride 108 mmol/L (98-107); Glucose 101 mg/dL (74-99); Non-African American GFR(CKD) >90 (>60 ml/min/1.73 sqM); Potassium 3.8 mmol/L (3.5-5.1); Sodium 138 mmol/L (137-145)
[2024-08-22 06:16] LABS: Glucose,Whole Blood 107 mg/dL (70-110)
--- NOTE | 2024-08-22 09:55 | FL ---
Exam Date: 08/21/2024 12:49 PM. Modified barium swallow for dysphagia. Consistencies administered: Various consistency of barium. No images were sent to PACS. Please see speech pathology report. DAP: 133.43 mGym2 Gycm2 [facility], , 08/22/2024 9:53 AM
--- NOTE | 2024-08-22 10:25 | P.PN ---
Progress Note - Text Progress Note Date: 08/22/24 CHIEF COMPLAINT: Stage IV sacral decubitus ulcer HISTORY OF PRESENT ILLNESS: Patient postop day #3 status post excisional debridement of sacral decubitus ulcer. No acute events overnight PHYSICAL EXAM: VITAL SIGNS: Reviewed. GENERAL: Well-developed in no acute distress. ABDOMEN: Soft. Nondistended. Nontender. NEUROLOGIC: Alert and oriented. Cranial nerves II through XII grossly intact. ASSESSMENT: 1. Stage IV infected sacral decubitus ulcer status post debridement PLAN: - Continue offloading - Continue local wound care. Patient seen by wound care service. They are recommending Santyl and then wound VAC at discharge - Antibiotics per ID service Tushar Cornelius DO [facility] [phone]
[2024-08-22 11:31] LABS: Glucose,Whole Blood 139 mg/dL (70-110)
--- NOTE | 2024-08-22 11:54 | P.PN ---
Subjective 08/22/2024 Patient underwent barium swallow after which patient was evaluated by speech therapy and patient was started on pured honey thickened liquids. Patient does have oral thrush for which he will use nystatin. Patient has a PICC line for long time which is nonfunctional which was removed at this time. REVIEW OF SYSTEMS: All other systems are negative except those mentioned in the HPI PHYSICAL EXAMINATION: GENERAL: The patient is alert and oriented x3, not in any acute distress. Well developed, well nourished. HEENT: Pupils are round and equally reacting to light. EOMI. No scleral icterus. No conjunctival pallor. Normocephalic, atraumatic. No pharyngeal erythema. No thyromegaly. Oral thrush as mentioned above CARDIOVASCULAR: S1 and S2 present. No murmurs, rubs, or gallops. PULMONARY: Chest is clear to auscultation, no wheezing or crackles. ABDOMEN: Soft, nontender, nondistended, normoactive bowel sounds. No palpable or ganomegaly. MUSCULOSKELETAL: No joint swelling or deformity. EXTREMITIES: No cyanosis, clubbing, or pedal edema. NEUROLOGICAL: Gross neurological examination did not reveal any focal deficits. SKIN: No rashes. Assessment and plan Stage IV sacral decubitus ulcer with surrounding cellulitis/skin wound, present on admission status postdebridement, wound culture showing Proteus mirabilis and strep agalactiae, patient is presently on cefepime. - Oral thrush for which we will use nystatin swish and swallow -Dysphagia for which patient is on pured diet, modified barium swallow as mentioned above Diabetes type 2 insulin-dependent Chronic sacral wound History of CVA/TIA Seizure disorder COPD not in exacerbation Medical debility/patient is bedridden Anxiety/schizophrenia Prior history of smoking DVT prophylax with heparin subcu GI prophylaxis Full code DVT prophylaxis: Subcutaneous heparin Objective - Vital Signs Vital signs: Vital Signs Temp 97.4 F L 08/22/24 07:37 Pulse 80 08/22/24 11:50 Resp 16 08/22/24 07:37 BP 95/51 08/22/24 07:37 Pulse Ox 99 08/22/24 08:21 FiO2 Intake & Output 08/21/24 08/22/24 08/22/24 18:59 06:59 18:59 Output Total 200 Balance -200 Weight 64.682 kg Output: Urine 200 Other: Voiding Method External Catheter Diaper # Voids 1 2 1 # Bowel Movements 1 - Labs CBC & Chem 7: 08/21/24 04:39 08/22/24 05:08 Labs: Abnormal Lab Results - Last 24 Hours (Table) 08/21/24 08/21/24 08/22/24 Range/Units 17:01 21:03 05:08 Chloride 108 H (98-107) mmol/L Glucose 101 H (74-99) mg/dL POC Glucose (mg/dL) 139 H 120 H (70-110) mg/dL 08/22/24 Range/Units 11:29 Chloride (98-107) mmol/L Glucose (74-99) mg/dL POC Glucose (mg/dL) 139 H (70-110) mg/dL Microbiology - Last 24 Hours (Table) 08/19/24 12:20 Gram Stain - Final Back Wound Culture - Final Proteus mirabilis Strep agalactiae - (group b) 08/19/24 12:17 Gram Stain - Final Back Wound Culture - Final Proteus mirabilis Strep agalactiae - (group b) 08/18/24 14:27 Gram Stain - Final Buttock Wound Culture - Final Strep agalactiae - (group b) Proteus mirabilis 08/18/24 11:14 Blood Culture - Preliminary Blood 08/18/24 14:27 Anaerobic Culture - Preliminary Coccyx
[2024-08-22 16:50] LABS: Glucose,Whole Blood 153 mg/dL (70-110)
[2024-08-22 20:02] LABS: Glucose,Whole Blood 171 mg/dL (70-110)
[2024-08-22] MEDS: metroNIDAZOLE 500 MG TAB PO SCH (23:13)
[2024-08-23 06:23] LABS: Glucose,Whole Blood 141 mg/dL (70-110)
[2024-08-23] MEDS: INSULIN GLARGINE (LANTUS) 100 UNIT/ML SYR SQ SCH (09:36)
[2024-08-23 11:40] LABS: Glucose,Whole Blood 107 mg/dL (70-110)
--- NOTE | 2024-08-23 12:15 | P.PN ---
Subjective 08/22/2024 Patient underwent barium swallow after which patient was evaluated by speech therapy and patient was started on pured honey thickened liquids. Patient does have oral thrush for which he will use nystatin. Patient has a PICC line for long time which is nonfunctional which was removed at this time. 08/23/2024 Patient will wean off oxygen today possible disposition to subacute rehab tomorrow, discharge antibiotics as per infectious disease REVIEW OF SYSTEMS: All other systems are negative except those mentioned in the HPI PHYSICAL EXAMINATION: GENERAL: The patient is alert and oriented x3, not in any acute distress. Well developed, well nourished. HEENT: Pupils are round and equally reacting to light. EOMI. No scleral icterus. No conjunctival pallor. Normocephalic, atraumatic. No pharyngeal erythema. No thyromegaly. Oral thrush as mentioned above CARDIOVASCULAR: S1 and S2 present. No murmurs, rubs, or gallops. PULMONARY: Chest is clear to auscultation, no wheezing or crackles. ABDOMEN: Soft, nontender, nondistended, normoactive bowel sounds. No palpable organomegaly. MUSCULOSKELETAL: No joint swelling or deformity. EXTREMITIES: No cyanosis, clubbing, or pedal edema. NEUROLOGICAL: Gross neurological examination did not reveal any focal deficits. SKIN: No rashes. Assessment and plan Stage IV sacral decubitus ulcer with surrounding cellulitis/skin wound, present on admission status postdebridement, wound culture showing Proteus mirabilis and strep agalactiae, patient is presently on cefepime. - Oral thrush for which we will use nystatin swish and swallow -Dysphagia for which patient is on pured diet, modified barium swallow as mentioned above Diabetes type 2 insulin-dependent Chronic sacral wound History of CVA/TIA Seizure disorder COPD not in exacerbation Medical debility/patient is bedridden Anxiety/schizophrenia Prior history of smoking DVT prophylax with heparin subcu GI prophylaxis Full code DVT prophylaxis: Subcutaneous heparin Objective - Vital Signs Vital signs: Vital Signs Temp 98.6 F 08/23/24 08:06 Pulse 76 08/23/24 09:16 Resp 17 08/23/24 08:06 BP 94/59 08/23/24 08:06 Pulse Ox 97 08/23/24 09:04 FiO2 Intake & Output 08/22/24 08/23/24 08/23/24 18:59 06:59 18:59 Intake Total 120 Balance 120 Intake: Oral 120 Other: Voiding Method Diaper External Catheter # Voids 1 2 - Labs CBC & Chem 7: 08/21/24 04:39 08/22/24 05:08 Labs: Abnormal Lab Results - Last 24 Hours (Table) 08/22/24 08/22/24 08/23/24 Range/Units 16:48 20:01 06:21 POC Glucose (mg/dL) 153 H 171 H 141 H (70-110) mg/dL Microbiology - Last 24 Hours (Table) 08/19/24 12:17 Anaerobic Culture - Preliminary Back Bacteroi caccae(b fragilis grp 08/19/24 12:20 Anaerobic Culture - Preliminary Back Bacteroi caccae(b fragilis [facility] [place] 08/19/24 12:20 Gram Stain - Final Back Wound Culture - Final Proteus mirabilis Strep agalactiae - (group b) 08/19/24 12:17 Gram Stain - Final Back Wound Culture - Final Proteus mirabilis Strep agalactiae - (group b)
--- NOTE | 2024-08-23 12:27 | P.PN ---
Subjective Progress Note Date: 08/21/24 Principal diagnosis: Reason for follow-up is infected sacral pressure ulcer Patient is a 63-year-old female with a past medical history difficult for COPD CVA TIA reflux osteoarthritis seizure disorder in this patient has been dealing with the pressure ulcer to the sacral area for many months has been brought to the hospital with worsening sacral wound patient did have a surgical debridement of the wound on 08/19/2024 along with deep culture. On today's evaluation that is 08/21/2024, patient has been afebrile, patient is breathing comfortably and is currently on room air, patient denies having any chest pain and cough, patient denies nausea vomiting or diarrhea and no abdominal pain. Patient wanted close on 11.85 creatinine 0.51 Objective - Vital Signs Vital signs: Vital Signs Temp 98.5 F 08/21/24 07:47 Pulse 90 08/21/24 09:39 Resp 17 08/21/24 07:47 BP 109/71 08/21/24 07:47 Pulse Ox 98 08/21/24 07:47 FiO2 Intake & Output 08/20/24 08/21/24 08/21/24 18:59 06:59 18:59 Intake Total 250 Balance 250 Intake: Oral 250 Other: Voiding Method Diaper Diaper External Catheter Incontinent # Voids 3 2 - Exam GENERAL DESCRIPTION: Middle-age female lying in bed in no distress RESPIRATORY SYSTEM: Unlabored breathing , decreased breath sounds at bases HEART: S1 S2 regular rate and rhythm , ABDOMEN: Soft , no tenderness EXTREMITIES: No edema feet - Labs CBC & Chem 7: 08/21/24 04:39 08/22/24 05:08 Labs: Abnormal Lab Results - Last 24 Hours (Table) 08/20/24 08/20/24 08/21/24 Range/Units 16:37 20:38 04:39 WBC (4.50-10.00) X 10*3/uL RBC (4.10-5.20) X 10*6/uL Hgb (12.0-15.0) g/dL Hct (37.2-46.3) % MCH (27.0-32.0) pg MCHC (32.0-37.0) g/dL RDW (11.5-14.5) % Immature Gran # (0.00-0.04) X 10*3/uL Neutrophils # (1.80-7.70) X 10*3/uL Eosinophils # (0.04-0.35) X 10*3/uL Potassium 3.2 L (3.5-5.1) mmol/L Chloride 109 H (98-107) mmol/L Creatinine 0.51 L (0.52-1.04) mg/dL Glucose 125 H (74-99) mg/dL POC Glucose (mg/dL) 151 H 160 H (70-110) mg/dL 08/21/24 08/21/24 08/21/24 Range/Units 04:39 06:13 11:37 WBC 11.85 H (4.50-10.00) X 10*3/uL RBC 3.58 L (4.10-5.20) X 10*6/uL Hgb 9.5 L (12.0-15.0) g/dL Hct 32.0 L (37.2-46.3) % MCH 26.5 L (27.0-32.0) pg MCHC 29.7 L (32.0-37.0) g/dL RDW 15.3 H (11.5-14.5) % Immature Gran # 0.12 H (0.00-0.04) X 10*3/uL Neutrophils # 8.92 H (1.80-7.70) X 10*3/uL Eosinophils # 0.01 L (0.04-0.35) X 10*3/uL Potassium (3.5-5.1) mmol/L Chloride (98-107) mmol/L Creatinine (0.52-1.04) mg/dL Glucose (74-99) mg/dL POC Glucose (mg/dL) 139 H 127 H (70-110) mg/dL Microbiology - Last 24 Hours (Table) 08/19/24 12:20 Gram Stain - Preliminary Back Wound Culture - Preliminary Proteus mirabilis Strep agalactiae - (group b) 08/19/24 12:17 Gram Stain - Preliminary Back Wound Culture - Preliminary Proteus mirabilis Strep agalactiae - (group b) 08/18/24 11:14 Blood Culture - Preliminary Blood 08/18/24 14:27 Gram Stain - Preliminary Buttock Wound Culture - Preliminary Strep agalactiae - (group b) Proteus mirabilis Assessment and Plan (1) Stage IV pressure ulcer of sacral region Current Visit: Yes Status: Acute Code(s): L89.154 - PRESSURE ULCER OF SACRAL REGION, STAGE 4 SNOMED Code(s): 13602624012976 (2) Sacral osteomyelitis Current Visit: Yes Status: Acute Code(s): M46.28 - OSTEOMYELITIS OF VERTEBRA, SACRAL AND SACROCOCCYGEAL REGION SNOMED Code(s): 133289696 (3) Allergy to multiple antibiotics Current Visit: No Status: Acute Code(s): Z88.1 - ALLERGY STATUS TO OTHER ANTIBIOTIC AGENTS SNOMED Code(s): 147884540 Plan: 1patient with a chronic nonhealing wound to the sacral area that has been there for many months now with the previous episode of infection with a Pseudomonas Enterococcus now present to the hospital with her worsening of the sacral wound/nonhealing wound did have significant amount of slough tissue with the wound palpable confirming the sacral osteomyelitis and will need to cover for resistant gram-positive as well as gram-negative pathogen to be the likely etiology 2patient with multiple antibiotic ALLERGIES that would limit the number of a ntibiotic safe to use 4patient is status post surgical debridement and deep culture which are curre ntly growing strep and Proteus 5 patient to continue with cefepime will discontinue vancomycin as no MRSA Dictation was produced using [employer] dictation software. please excuse any grammatical, word or spelling errors.
--- NOTE | 2024-08-23 12:28 | P.PN ---
Subjective Progress Note Date: 08/22/24 Principal diagnosis: Reason for follow-up is infected sacral pressure ulcer Patient is a 63-year-old female with a past medical history difficult for COPD CVA TIA reflux osteoarthritis seizure disorder in this patient has been dealing with the pressure ulcer to the sacral area for many months has been brought to the hospital with worsening sacral wound patient did have a surgical debridement of the wound on 08/19/2024 along with deep culture. On today's evaluation that is 08/22/2024, Patient is afebrile this morning patient denies having any chest pain shortness of breath or cough, the patient is currently on room air, patient denies any abdominal pain no diarrhea no nausea no vomiting. The patient did have a creatinine 0.53 no CBC was done today cultures are g rowing Proteus Streptococcus agalactiae and bacteroids Objective - Vital Signs Vital signs: Vital Signs Temp 98.6 F 08/22/24 08:06 Pulse 76 08/22/24 09:16 Resp 17 08/22/24 08:06 BP 94/59 08/22/24 08:06 Pulse Ox 97 08/22/24 09:04 FiO2 - Exam GENERAL DESCRIPTION: Middle-age female lying in bed in no distress RESPIRATORY SYSTEM: Unlabored breathing , decreased breath sounds at bases HEART: S1 S2 regular rate and rhythm , ABDOMEN: Soft , no tenderness EXTREMITIES: No edema feet - Labs CBC & Chem 7: 08/21/24 04:39 08/22/24 05:08 Labs: Abnormal Lab Results - Last 24 Hours (Table) 08/22/24 08/22/24 08/23/24 Range/Units 16:48 20:01 06:21 POC Glucose (mg/dL) 153 H 171 H 141 H (70-110) mg/dL Microbiology - Last 24 Hours (Table) 08/19/24 12:17 Anaerobic Culture - Preliminary Back Bacteroi caccae(b fragilis [facility] 08/19/24 12:20 Anaerobic Culture - Preliminary Back Bacteroi caccae(b fragilis [facility] 08/19/24 12:20 Gram Stain - Final Back Wound Culture - Final Proteus mirabilis Strep agalactiae - (group b) 08/19/24 12:17 Gram Stain - Final Back Wound Culture - Final Proteus mirabilis Strep agalactiae - (group b) Assessment and Plan (1) Stage IV pressure ulcer of sacral region Current Visit: Yes Status: Acute Code(s): L89.154 - PRESSURE ULCER OF SACRAL REGION, STAGE 4 SNOMED Code(s): 61521320498044 (2) Sacral osteomyelitis Current Visit: Yes Status: Acute Code(s): M46.28 - OSTEOMYELITIS OF VERTEBRA, SACRAL AND SACROCOCCYGEAL REGION SNOMED Code(s): 334288166 (3) Allergy to multiple antibiotics Current Visit: No Status: Acute Code(s): Z88.1 - ALLERGY STATUS TO OTHER ANTIBIOTIC AGENTS SNOMED Code(s): 243329236 Plan: 1patient with a chronic nonhealing wound to the sacral area that has been there for many months now with the previous episode of infection with a Pseudomonas Enterococcus now present to the hospital with her worsening of the sacral wound/nonhealing wound did have significant amount of slough tissue with the wound palpable confirming the sacral osteomyelitis and will need to cover for resistant gram-positive as well as gram-negative pathogen to be the likely et iology 2patient with multiple antibiotic ALLERGIES that would limit the number of antibiotic safe to use 4patient is status post surgical debridement and deep culture which are currently growing strep Proteus and bacteroids 5 patient to continue with cefepime will add Flagyl to cover for the bacteroids and monitor clinical course closely Dictation was produced using [employer] dictation software. please excuse any grammatical, word or spelling errors.
--- NOTE | 2024-08-23 13:15 | P.PN ---
Progress Note - Text Progress Note Date: 08/23/24 CHIEF COMPLAINT: Stage IV sacral decubitus ulcer HISTORY OF PRESENT ILLNESS: Patient postop day #3 status post excisional debridement of sacral decubitus ulcer. No acute events overnight PHYSICAL EXAM: VITAL SIGNS: Reviewed. GENERAL: Well-developed in no acute distress. ABDOMEN: Soft. Nondistended. Nontender. NEUROLOGIC: Alert and oriented. Cranial nerves II through XII grossly intact. ASSESSMENT: 1. Stage IV infected sacral decubitus ulcer status post debridement PLAN: - Continue offloading - Continue local wound care. Patient seen by wound care service. They are recommending Santyl and then wound VAC at discharge - Antibiotics per ID service Tushar Cornelius DO [facility] [phone]
[2024-08-23 16:58] LABS: Glucose,Whole Blood 95 mg/dL (70-110)
[2024-08-23 21:02] LABS: Glucose,Whole Blood 174 mg/dL (70-110)
[2024-08-24 06:14] LABS: Glucose,Whole Blood 174 mg/dL (70-110)
--- NOTE | 2024-08-24 07:30 | P.PN ---
Subjective Progress Note Date: 08/23/24 Principal diagnosis: Reason for follow-up is infected sacral pressure ulcer Patient is a 63-year-old female with a past medical history difficult for COPD CVA TIA reflux osteoarthritis seizure disorder in this patient has been dealing with the pressure ulcer to the sacral area for many months has been brought to the hospital with worsening sacral wound patient did have a surgical debridement of the wound on 08/19/2024 along with deep culture. On today's evaluation that is 08/23/2024,the patient denies any fever or any chills, patient is breathing comfortably on room air, the patient denies chest pain shortness of breath and no significant cough, patient denies abdominal pain, no nausea vomiting or diarrhea. Patient did have a left chest wall tunneled catheter currently not functioning. No new labs culture with Bacteroides Proteus and strep Objective - Vital Signs Vital signs: Vital Signs Temp 97.7 F 08/23/24 13:38 Pulse 84 08/23/24 16:22 Resp 17 08/23/24 08:06 BP 107/55 08/23/24 13:38 Pulse Ox 93 L 08/23/24 13:38 FiO2 Intake & Output 08/22/24 08/23/24 08/23/24 18:59 06:59 18:59 Intake Total 120 Balance 120 Intake: Oral 120 Other: Voiding Method Diaper External Catheter # Voids 1 2 - Exam GENERAL DESCRIPTION: Middle-age female lying in bed in no distress RESPIRATORY SYSTEM: Unlabored breathing , decreased breath sounds at bases HEART: S1 S2 regular rate and rhythm , ABDOMEN: Soft , no tenderness Stage IV sacral ulcer with no slough tissue EXTREMITIES: No edema feet - Labs CBC & Chem 7: 08/21/24 04:39 08/22/24 05:08 Labs: Abnormal Lab Results - Last 24 Hours (Table) 08/22/24 08/23/24 Range/Units 20:01 06:21 POC Glucose (mg/dL) 171 H 141 H (70-110) mg/dL Microbiology - Last 24 Hours (Table) 08/18/24 11:14 Blood Culture - Final Blood 08/19/24 12:17 Anaerobic Culture - Final Back Bacteroi caccae(b fragilis grp 08/18/24 14:27 Anaerobic Culture - Final Coccyx 08/19/24 12:20 Anaerobic Culture - Preliminary Back Bacteroi caccae(b fragilis grp Assessment and Plan (1) Stage IV pressure ulcer of sacral region Current Visit: Yes Status: Acute Code(s): L89.154 - PRESSURE ULCER OF SACRAL REGION, STAGE 4 SNOMED Code(s): 11496691891456 (2) Sacral osteomyelitis Current Visit: Yes Status: Acute Code(s): M46.28 - OSTEOMYELITIS OF VERTEBRA, SACRAL AND SACROCOCCYGEAL REGION SNOMED Code(s): 660297729 (3) Allergy to multiple antibiotics Current Visit: No Status: Acute Code(s): Z88.1 - ALLERGY STATUS TO OTHER ANTIBIOTIC AGENTS SNOMED Code(s): 469546751 Plan: 1patient with a chronic nonhealing wound to the sacral area that has been there for many months now with the previous episode of infection with a Pseudomonas Enterococcus now present to the hospital with her worsening of the sacral wound/nonhealing wound did have significant amount of slough tissue with the wound palpable confirming the sacral osteomyelitis and will need to cover for resistant gram-positive as well as gram-negative pathogen to be the likely etiology 2patient with multiple antibiotic ALLERGIES that would limit the number of antibiotic safe to use 4patient is status post surgical debridement and deep culture which are currently growing strep Proteus and bacteroids 5 patient did have a nonfunctioning left chest wall tunneled PICC line nursing staff to check with radiology regarding removal of this catheter and placement of another PICC line for outpatient antibiotic. 6antibiotics will be adjusted to Rocephin 2 g daily and Flagyl with the plan for 6-week course of therapy Dictation was produced using [employer] dictation software. please excuse any grammatical, word or spelling errors. Time with Patient: Less than 30
[2024-08-24 08:34] LABS: HCT 29.9 % (37.2-46.3); HGB 8.9 g/dL (12.0-15.0); MCH 26.7 pg (27.0-32.0); MCHC 29.8 g/dL (32.0-37.0); MCV 89.8 FL (80.0-97.0); Mean Platelet Volume 10.9 FL (9.5-12.2); NRBC Per 100 WBC 0.02 X 10*3/uL (0.00-0.01); Platelet Count 214 X 10*3/uL (140-440); RBC 3.33 X 10*6/uL (4.10-5.20); RDW 15.6 % (11.5-14.5); WBC 9.24 X 10*3/uL (4.50-10.00)
[2024-08-24] MEDS: cefTRIAXone 2 GM in DEXTROSE 5% IN WATER 50 ML IVPB SCH (08:35)
--- NOTE | 2024-08-24 11:18 | P.PN ---
Subjective Progress Note Date: 08/24/24 SURGICAL PROGRESS NOTE CHIEF COMPLAINT: Stage IV sacral decubitus ulcer HISTORY OF PRESENT ILLNESS: Patient postop day #5 status post excisional debridement of sacral decubitus ulcer. Patient scheduled for PICC line placement today. Possible discharge to [facility] today. Afebrile. WBC 9.24 Hgb 8.9 PHYSICAL EXAM: VITAL SIGNS: Reviewed. GENERAL: Well-developed in no acute distress. ABDOMEN: Soft. Nondistended. Nontender. NEUROLOGIC: Awake and alert ASSESSMENT: 1. Stage IV infected sacral decubitus ulcer status post debridement PLAN: - Continue offloading - Continue local wound care. Patient seen by wound care service. They are recommending Santyl and then wound VAC at discharge - Antibiotics per ID service - Patient can be discharged from surgical standpoint when medically cleared Physician Drag Sawyer note has been reviewed by physician. Signing provider agrees with the documented findings, assessment, and plan of care. Objective - Vital Signs Vital signs: Vital Signs Temp 99.1 F 08/24/24 07:03 Pulse 78 08/24/24 07:03 Resp 18 08/24/24 07:03 BP 114/66 08/24/24 07:03 Pulse Ox 95 08/24/24 07:03 FiO2 Intake & Output 08/23/24 08/24/24 08/24/24 18:59 06:59 18:59 Other: Voiding Method External Catheter External Catheter External Catheter # Voids 3 1 # Bowel Movements 1 - Labs CBC & Chem 7: 08/24/24 03:15 08/22/24 05:08 Labs: Abnormal Lab Results - Last 24 Hours (Table) 08/23/24 08/24/24 08/24/24 Range/Units 21:01 03:15 06:13 RBC 3.33 L (4.10-5.20) X 10*6/uL Hgb 8.9 L (12.0-15.0) g/dL Hct 29.9 L (37.2-46.3) % MCH 26.7 L (27.0-32.0) pg MCHC 29.8 L (32.0-37.0) g/dL RDW 15.6 H (11.5-14.5) % NRBC/100 WBC Diff 0.02 H (0.00-0.01) X 10*3/uL POC Glucose (mg/dL) 174 H 174 H (70-110) mg/dL Microbiology - Last 24 Hours (Table) 08/18/24 11:14 Blood Culture - Final Blood 08/19/24 12:17 Anaerobic Culture - Final Back Bacteroi caccae(b fragilis grp 08/18/24 14:27 Anaerobic Culture - Final Coccyx
[2024-08-24 11:41] LABS: Glucose,Whole Blood 95 mg/dL (70-110)
--- NOTE | 2024-08-24 14:44 | P.GSCN ---
History of Present Illness Consult date: 08/24/24 Reason for Consult: Tunneled PICC line removal Requesting physician: Janny Box History of present illness: This is a 63-year-old female with chronic sacral wounds and infection who has been on long-term IV antibiotics who has a left chest wall catheter apparently that is thrombosed. Plan was for removal however nursing try to remove it as they thought it was a regular PICC line and they are unable to remove. Cardiovascular unit was contacted and believe that it is a tunneled catheter. Apparently this was placed at an outside facility. Vascular surgery was consulted for removal of tunneled PICC line. Past medical history includes COPD, CVA/TIA, GERD, seizure disorder, anxiety schizophrenia and former smoker. Patient denies any chest pain, no shortness of breath, no tenderness around PICC line. Past Medical History Past Medical History: COPD, CVA/TIA, GERD/Reflux, Osteoarthritis (OA), Seizure Disorder Additional Past Medical History / Comment(s): Wears oxygen at night, no seizures for 10 years, bedrest can't bare weight anymore History of Any Multi-Drug Resistant Organisms: None Reported Past Surgical History: Orthopedic Surgery Additional Past Surgical History / Comment(s): previous trach, debridement of sacral ulcer- 2023 Past Anesthesia/Blood Transfusion Reactions: No Reported Reaction Past Psychological History: Anxiety, Schizophrenia Smoking Status: Former smoker Past Alcohol Use History: None Reported Past Drug Use History: None Reported - Past Family History Father Family Medical History: Unable to Obtain Mother Family Medical History: Unable to Obtain Medications and Allergies Home Medications Medication Instructions Recorded Confirmed Type Escitalopram [Lexapro] 20 mg PO DAILY@0900 09/09/18 08/18/24 History Montelukast [Singulair] 10 mg PO HS@209909/09/18 08/18/24 History Pravastatin Sodium [Pravachol] 20 mg PO HS@209909/09/18 08/18/24 History haloperidoL [Haldol] 5 mg PO TID@0900,1300,209909/09/18 08/18/24 History Topiramate [Topamax] 100 mg PO BID@0900,2100 01/23/19 08/18/24 History clonazePAM [KlonoPIN] 1 mg PO TID@0900,1300,209907/19/21 08/18/24 History Ergocalciferol [Vitamin D2 (1250 1,250 mcg PO FR 08/18/22 08/18/24 History Mcg = 03179 Iu)] Metoprolol Succinate (ER) [Toprol 25 mg PO DAILY@89908/18/22 08/18/24 History XL] cloZAPine [Clozaril] 100 mg PO HS@209908/18/22 08/18/24 History polyethylene glycoL 3350 [Miralax] 17 gm PO Q24H PRN 08/18/22 08/18/24 History Budesonide-Formot 160-4.5 Mcg 2 puff INHALATION RT-BID@0900,209904/16/24 08/18/24 History [Symbicort 160-4.5 Mcg Inhaler] Memantine [Namenda] 10 mg PO BID@0900,2100 04/16/24 08/18/24 History Ipratropium-Albuterol Nebulize 3 ml INHALATION RT-QID each 04/22/24 08/18/24 Rx [Duoneb 0.5 mg-3 mg/3 ml Soln] Acetaminophen [Tylenol] 650 mg PO Q4H PRN 08/18/24 08/18/24 History Aspirin 81 mg PO DAILY@89908/18/24 08/18/24 History Doxycycline Hyclate 100 mg PO Q12H 08/18/24 08/18/24 History Famotidine [Pepcid] 20 mg PO DAILY@0908/18/24 08/18/24 History HYDROcodone/APAP 5-325MG [Rousseau 1 tab PO BID@0500,1800 08/18/24 08/18/24 History 5-325] HYDROcodone/APAP 5-325MG [Rousseau 1 tab PO Q24H PRN 08/18/24 08/18/24 History 5-325] Insulin Glargine,Hum.rec.anlog 10 units SQ DAILY@89908/18/24 08/18/24 History [Lantus Solostar Pen] Lactobacillus Acidophilus 1 cap PO DAILY@89908/18/24 08/18/24 History [Acidophilus] Magnesium Hydroxide [Milk of 2,400 mg PO DAILY PRN 08/18/24 08/18/24 History Magnesia] Midodrine [ProAmatine] 5 mg PO Q8H PRN 08/18/24 08/18/24 History Prostat Awc 30 ml PO HS@2100 08/18/24 08/18/24 History Allergies Allergy/AdvReac Type Severity Reaction Status Date / Time bee venom protein (honey bee) Allergy Unknown Verified 08/19/24 11:01 beeswax Allergy Unknown Verified 08/19/24 11:01 Dihydroaminopryidine Allergy Unknown Verified 08/19/24 11:01 Antibiotics furosemide [From Lasix] Allergy Unknown Verified 08/19/24 11:01 latex Allergy Unknown Verified 08/19/24 11:01 metformin Allergy Unknown Verified 08/19/24 11:01 Penicillins Allergy Unknown Verified 08/19/24 11:01 sulfamethoxazole Allergy Unknown Verified 08/19/24 11:01 [From Bactrim] Tetanus Vaccines and Toxoid Allergy Unknown Verified 08/19/24 11:01 trimethoprim [From Bactrim] Allergy Unknown Verified 08/19/24 11:01 Surgical - Exam Vital Signs Temp Pulse Resp BP Pulse Ox 97.8 F 92 18 96/63 92 L 08/18/24 09:57 08/18/24 09:57 08/18/24 09:57 08/18/24 09:57 08/18/24 09:57 General appearance: The patient is alert, oriented to self, appears in no acute distress. HET: Head is normocephalic and atraumatic. Pupils are equal and reactive. Neck: Supple. Chest: Left upper chest wall with catheter without any surrounding erythema, drainage, nontender. Heart: Regular. Lungs: Equal expansion, normal respiratory effort. Abdomen: Soft, nondistended. Extremities: Normal skin color and turgor. Neurological: Alert and oriented to self. Results - Labs 08/24/24 03:15 08/22/24 05:08 Abnormal Lab Results - Last 24 Hours (Table) 08/23/24 08/24/24 08/24/24 Range/Units 21:01 03:15 06:13 RBC 3.33 L (4.10-5.20) X 10*6/uL Hgb 8.9 L (12.0-15.0) g/dL Hct 29.9 L (37.2-46.3) % MCH 26.7 L (27.0-32.0) pg MCHC 29.8 L (32.0-37.0) g/dL RDW 15.6 H (11.5-14.5) % NRBC/100 WBC Diff 0.02 H (0.00-0.01) X 10*3/uL POC Glucose (mg/dL) 174 H 174 H (70-110) mg/dL Microbiology - Last 24 Hours (Table) 08/19/24 12:20 Anaerobic Culture - Final Back Bacteroi caccae(b fragilis [facility] 08/18/24 11:14 Blood Culture - Final Blood 08/19/24 12:17 Anaerobic Culture - Final Back Bacteroi caccae(b fragilis [facility] 08/18/24 14:27 Anaerobic Culture - Final Coccyx Assessment and Plan Assessment: 1. Nonfunctioning tunneled catheter 2. Need for termite inspector IV antibiotics 3. Chronic sacral wound with infection 4. Diabetes Plan: Will plan for tunneled catheter removal tomorrow, likely can be done at the bedside per vascular surgeon Continue with PICC line as ordered per PICC line team Thank you for this consultation, we will continue to follow. The impression and plan of care has been dictated as directed. I performed a history and examination of this patient, discussed the same with the dictator. I agree with the dictator's note ,documented as a scribe. Any additional findings or plans will be noted.
[2024-08-24 16:27] LABS: Glucose,Whole Blood 166 mg/dL (70-110)
[2024-08-24 21:29] LABS: Glucose,Whole Blood 220 mg/dL (70-110)
[2024-08-25 05:59] LABS: Glucose,Whole Blood 142 mg/dL (70-110)
--- NOTE | 2024-08-25 06:03 | P.PN ---
Subjective Progress Note Date: 08/24/24 Patient is a 63-year-old female with a known history of CVA/TIA, seizure disorder,, COPD, GERD and seizure disorder who was sent by general surgery from [facility] due to concern for sacral and coccyx nonhealing pressure wound. Patient is awake alert but could not provide much history. Does have caregiver. Patient is receiving antibiotics every nursing facility does have PICC line. Patient was afebrile. Was tachycardic on admission. Laboratory data showed WBC 14.1 hemoglobin 12.8 and platelets 323 sodium 141 potassium 3.8 chloride 104 bicarb is 24 BUN 27 creatinine 0.5 blood sugar 205 alk phos 164 CRP 6.3 and albumin 3.0. 08/19/2024 Patient is seen in follow-up today currently working with general surgery scheduled for debridement with cultures and infectious disease following and will continue current medication regimen while awaiting cultures. 08/20/2024 Patient is seen in follow-up this morning and per nursing staff is unsure if she was choking taking her medicines but sounds wet and gurgly in the lung sounds and will obtain a chest x-ray. Patient does have history of COPD and is maintained on breathing treatments and wears oxygen has been instructed to place oxygen for supportive care. Patient is afebrile with no reports of chest pain. Patient is status post incisional debridement of the sacral wound with general surgery and infectious disease following. Will await cultures to determine appropriate treatment plan moving forward. Continue with wound care per general surgery and ID. 08/21/2024 Patient seen and evaluated this morning remains n.p.o. and is scheduled to undergo modified barium swallow study with speech today as patient was noted to be choking coughing frequently on food. Patient is maintained on breathing treatments and will continue at this time. Patient is noted to have a PICC line in her chest and nursing staff reports it was documented to be placed in April and infectious diseases following and maintained on antibiotics and recommend to remove the PICC line as it is nonfunctioning and places patient at increased risk from infection. May need to obtain new PICC line prior to discharge although awaiting cultures at this time. Continue with frequent offloading and position changes every 2 hours and awaiting finalized cultures. Potassium was slightly low at 3.2 and will be replaced. White count is trending down and currently 11.85. 08/24/2024 Patient is seen in follow-up today with no acute overnight issues noted. Patient is scheduled to return to [facility] and has received insurance authorization. PICC line in the chest wall was attempted to be removed by nursing staff although unable to and feels it may be a tunneled catheter and vascular surgery was consulted for removal of as it is no longer functional and was placed at an outside facility. Patient tolerating current diet and will continue with aspiration precautions maintained on antibiotics along with local wound care per infectious disease and is planning on returning to [facility] with continued antibiotic therapy. Possible discharge in 24 hours if previous PICC line can be removed. Review of systems: Constitutional: No reports of fatigue, fever, or chills Cardiovascular: No reports of chest pain or palpitations Respiratory: reports of shortness of breath but feels slightly improved, and cough GI: No reports of nausea, vomiting, or diarrhea, reports to tolerating dysphagia diet : No reports of dysuria or retention Neurovascular: reports of weakness or numbness All medications have been reviewed PHYSICAL EXAMINATION: Patient is lying in the bed, no acute distress, awake and alert. Could not provide history.. Well-developed, elderly appearing, delayed, pleasant HEENT: Normocephalic. Neck is supple. Pupils reactive. Nostrils clear. Oral cavi ty is moist. Neck reveals no JVD, carotid bruits, or thyromegaly. CHEST EXAMINATION: Trachea is central. Symmetrical expansion. Bibasilar diminished sounds with some upper bronchial congestion in the upper airways, with a strong cough reflex noted able to clear, PICC line noted on the left upper chest CARDIAC: Normal S1, S2 with no gallops. No murmurs ABDOMEN: Soft. Bowel sounds normal. No organomegaly. No abdominal bruits. Extremities: reveal no edema. No clubbing or cyanosis Neurologically awake, alert, oriented x 0-1. Able to move extremities while in bed. Skin: No rash or skin lesions. Sacral ulcer with surgical dressings dry and intact. Psychiatric: Cooperative. Could not be assessed completely Musculoskeletal: No joint swelling or deformity. Assessment: Stage IV sacral decubitus ulcer with surrounding cellulitis/skin wound, present on admission status postdebridement with culture showing bacteroi caccae along with Proteus Mirabella's and group B strep Coughing and choking on food, considered high risk for aspiration, status post MBS maintained on dysphagia diet per speech Diabetes type 2 insulin-dependent Chronic sacral wound History of CVA/TIA Seizure disorder COPD not in exacerbation Medical debility/patient is bedridden Anxiety/schizophrenia Prior history of smoking DVT prophylax with heparin subcu GI prophylaxis Full code Plan: Patient will be continued on IV antibiotics with infectious disease following along with general surgery and is status post debridement of the sacral wound. Patient had a previous PICC line in her chest wall that appears to be tunneled and vascular surgery has been consulted for removal of as it is no longer functional. Patient has received a new PICC line for IV antibiotic therapy in the outpatient setting. Per case management patient has received insurance authorization and has been accepted at [facility] Vascular surgery consulted and tentatively plan for PICC line removal on 08/25/2024 Continue with home medications and continue sliding scale. Recommend monitoring Accu-Cheks AC and at bedtime and will adjust insulins accordingly Continue local wound care per ID recommendations along with surgery recommenda tions Continue dysphagia diet per speech and aspiration precautions Case management following regarding discharge planning needs and will be returning to [facility] in the next 24 hours The impression and plan of care has been dictated by Janny Box, Nurse Practitioner as directed. Dr. Neo MD I have performed a history and examination and MDM of this patient, discussed the same with the dictator, and agree with the dictator's assessment and plan as written ,documented as a scribe. Based on total visit time, I have performed more than 50% of the visit. Objective - Vital Signs Vital signs: Vital Signs Temp 99.1 F 08/24/24 07:03 Pulse 78 08/24/24 07:03 Resp 18 08/24/24 07:03 BP 114/66 08/24/24 07:03 Pulse Ox 95 08/24/24 07:03 FiO2 Intake & Output 08/23/24 08/24/24 08/24/24 18:59 06:59 18:59 Other: Voiding Method External Catheter External Catheter # Voids 3 1 # Bowel Movements 1 - Labs CBC & Chem 7: 08/24/24 03:15 08/22/24 05:08 Labs: Abnormal Lab Results - Last 24 Hours (Table) 08/23/24 08/24/24 08/24/24 Range/Units 21:01 03:15 06:13 RBC 3.33 L (4.10-5.20) X 10*6/uL Hgb 8.9 L (12.0-15.0) g/dL Hct 29.9 L (37.2-46.3) % MCH 26.7 L (27.0-32.0) pg MCHC 29.8 L (32.0-37.0) g/dL RDW 15.6 H (11.5-14.5) % NRBC/100 WBC Diff 0.02 H (0.00-0.01) X 10*3/uL POC Glucose (mg/dL) 174 H 174 H (70-110) mg/dL Microbiology - Last 24 Hours (Table) 08/18/24 11:14 Blood Culture - Final Blood 08/19/24 12:17 Anaerobic Culture - Final Back Bacteroi caccae(b fragilis grp 08/18/24 14:27 Anaerobic Culture - Final Coccyx
--- NOTE | 2024-08-25 10:58 | P.PN ---
Subjective Progress Note Date: 08/25/24 Principal diagnosis: Malfunctioning tunneled catheter Patient is seen and examined today as a follow-up. Plan was for removal of left chest wall tunneled catheter however patient has underlying cognitive development disability and has a legal guardian. There is no consent for removal therefore procedure on hold. Objective - Vital Signs Vital signs: Vital Signs Temp 98.4 F 08/25/24 07:41 Pulse 84 08/25/24 09:04 Resp 16 08/25/24 07:41 BP 107/69 08/25/24 07:41 Pulse Ox 99 08/25/24 07:41 FiO2 Intake & Output 08/24/24 08/25/24 08/25/24 18:59 06:59 18:59 Other: Voiding Method External Catheter # Voids 3 2 # Bowel Movements 2 1 - Exam General appearance: The patient is alert, oriented and oriented to self, appears in no acute distress. HET: Head is normocephalic and atraumatic. Pupils are equal and reactive. Neck: Supple. Chest: Left tunneled catheter in place without any surrounding redness, drainage. Nontender. Heart: Regular. Lungs: Equal expansion, normal respiratory effort. Abdomen: Soft, nondistended. Extremities: Normal skin color and turgor. Neurological: Cognitive impairment, alert and oriented x 1. - Labs CBC & Chem 7: 08/24/24 03:15 08/22/24 05:08 Labs: Abnormal Lab Results - Last 24 Hours (Table) 08/24/24 08/24/24 08/25/24 Range/Units 16:26 21:27 05:58 POC Glucose (mg/dL) 166 H 220 H 142 H (70-110) mg/dL Microbiology - Last 24 Hours (Table) 08/19/24 12:20 Anaerobic Culture - Final Back Bacteroi caccae(b fragilis grp Assessment and Plan Assessment: 1. Nonfunctioning tunneled catheter 2. Need for moth exterminator IV antibiotics 3. Chronic sacral wound with infection 4. Diabetes Plan: Will plan for tunneled catheter removal today or tomorrow. Obtain consent from legal guardian. Continue with PICC line as ordered per PICC line team Thank you for this consultation, we will continue to follow. The impression and plan of care has been dictated as directed. Dr.Cuppari Henriquez performed a history and examination of this patient, discussed the same with the dictator. I agree with the dictator's note ,documented as a scribe. Any additional findings or plans will be noted.
[2024-08-25 11:30] LABS: Glucose,Whole Blood 163 mg/dL (70-110)
[2024-08-25] MEDS: LIDOCAINE 1% INJ 10MG/ML (20 ML MDV) SQ ONE (13:04)
--- NOTE | 2024-08-25 14:26 | P.PCN ---
Date of Procedure: 08/25/24 Preoperative Diagnosis: malfunctioning tunneled left chest catheter Postoperative Diagnosis: same Procedure(s) Performed: Removal of tunneled chest catheter Anesthesia: local Surgeon: Davis Cedillo Pathology: none sent Condition: stable Disposition: floor Description of Procedure: After written and informed consent was obtained from the patient's guardian the procedure was done at the bedside. The area of the catheter was prepped and draped in usual sterile fashion. Local anesthetic was infused around the existing cuff. Dissection was then carried around the cuff in the circumferential manner and once it was freed it was removed from the chest without issue. Pressure was held for hemostasis. Patient tolerated the procedure well.
--- NOTE | 2024-08-25 16:12 | P.PN ---
Subjective Progress Note Date: 08/24/24 Principal diagnosis: Reason for follow-up is infected sacral pressure ulcer Patient is a 63-year-old female with a past medical history difficult for COPD CVA TIA reflux osteoarthritis seizure disorder in this patient has been dealing with the pressure ulcer to the sacral area for many months has been brought to the hospital with worsening sacral wound patient did have a surgical debridement of the wound on 08/19/2024 along with deep culture. On today's evaluation that is 08/24/2024,the patient remains to be afebrile, patient is on room air not requiring supplemental oxygen and denies any shortness of breath no chest pain or cough.Patient denies having any nausea or vomiting, no abdominal pain and no diarrhea has been reported. Patient white count is 9.24 creatinine 0.53 Objective - Vital Signs Vital signs: Vital Signs Temp 97.8 F 08/24/24 01:08 Pulse 54 L 08/24/24 01:08 Resp 17 08/24/24 01:08 BP 98/60 08/24/24 01:08 Pulse Ox 96 08/24/24 01:08 FiO2 Intake & Output 08/23/24 08/24/24 08/24/24 18:59 06:59 18:59 Other: Voiding Method External Catheter External Catheter # Voids 3 1 # Bowel Movements 1 - Exam GENERAL DESCRIPTION: Middle-age female lying in bed in no distress RESPIRATORY SYSTEM: Unlabored breathing , decreased breath sounds at bases HEART: S1 S2 regular rate and rhythm , ABDOMEN: Soft , no tenderness Stage IV sacral ulcer with no slough tissue EXTREMITIES: No edema feet - Labs CBC & Chem 7: 08/24/24 03:15 08/22/24 05:08 Labs: Abnormal Lab Results - Last 24 Hours (Table) 08/23/24 08/24/24 Range/Units 21:01 06:13 POC Glucose (mg/dL) 174 H 174 H (70-110) mg/dL Microbiology - Last 24 Hours (Table) 08/18/24 11:14 Blood Culture - Final Blood 08/19/24 12:17 Anaerobic Culture - Final Back Bacteroi caccae(b fragilis grp 08/18/24 14:27 Anaerobic Culture - Final Coccyx Assessment and Plan (1) Stage IV pressure ulcer of sacral region Current Visit: Yes Status: Acute Code(s): L89.154 - PRESSURE ULCER OF SACRAL REGION, STAGE 4 SNOMED Code(s): 43418708666871 (2) Sacral osteomyelitis Current Visit: Yes Status: Acute Code(s): M46.28 - OSTEOMYELITIS OF VERTEBRA, SACRAL AND SACROCOCCYGEAL REGION SNOMED Code(s): 048607213 (3) Allergy to multiple antibiotics Current Visit: No Status: Acute Code(s): Z88.1 - ALLERGY STATUS TO OTHER ANTIBIOTIC AGENTS SNOMED Code(s): 008984916 Plan: 1patient with a chronic nonhealing wound to the sacral area that has been there for many months now with the previous episode of infection with a Pseudomonas Enterococcus now present to the hospital with her worsening of the sacral wound/nonhealing wound did have significant amount of slough tissue with the wound palpable confirming the sacral osteomyelitis and will need to cover for resistant gram-positive as well as gram-negative pathogen to be the likely etiology 2patient with multiple antibiotic ALLERGIES that would limit the number of antibiotic safe to use 4patient is status post surgical debridement and deep culture which are c urrently growing strep Proteus and bacteroids 5 patient did have a nonfunctioning left chest wall tunneled PICC line that intervenable before discharge vascular surgery has been consulted 6patient is currently being treated Rocephin 2 g daily and Flagyl and monitor clinical course closely Dictation was produced using [employer] dictation software. please excuse any grammatical, word or spelling errors. Time with Patient: Less than 30
--- NOTE | 2024-08-25 16:13 | P.PN ---
Subjective Progress Note Date: 08/25/24 Principal diagnosis: Reason for follow-up is infected sacral pressure ulcer Patient is a 63-year-old female with a past medical history difficult for COPD CVA TIA reflux osteoarthritis seizure disorder in this patient has been dealing with the pressure ulcer to the sacral area for many months has been brought to the hospital with worsening sacral wound patient did have a surgical debridement of the wound on 08/19/2024 along with deep culture. On today's evaluation that is 08/25/2024, the patient continues to be afebrile, the patient is on room air and breathing comfortably, the Pt not a very good historian today, no distress no vomiting or diarrhea has been reported. No new lab has been obtained today her white count was 9.24 yesterday cultures with Proteus strep and bacteroids Objective - Vital Signs Vital signs: Vital Signs Temp 98.4 F 08/25/24 07:41 Pulse 86 08/25/24 12:23 Resp 16 08/25/24 07:41 BP 107/69 08/25/24 07:41 Pulse Ox 99 08/25/24 07:41 FiO2 Intake & Output 08/24/24 08/25/24 08/25/24 18:59 06:59 18:59 Other: Voiding Method External Catheter External Catheter # Voids 3 2 1 # Bowel Movements 2 1 1 - Exam GENERAL DESCRIPTION: Middle-age female lying in bed in no distress RESPIRATORY SYSTEM: Unlabored breathing , decreased breath sounds at bases HEART: S1 S2 regular rate and rhythm , ABDOMEN: Soft , no tenderness Stage IV sacral ulcer with no slough tissue EXTREMITIES: No edema feet - Labs CBC & Chem 7: 08/24/24 03:15 08/22/24 05:08 Labs: Abnormal Lab Results - Last 24 Hours (Table) 08/24/24 08/24/24 08/25/24 Range/Units 16:26 21:27 05:58 POC Glucose (mg/dL) 166 H 220 H 142 H (70-110) mg/dL 08/25/24 Range/Units 11:28 POC Glucose (mg/dL) 163 H (70-110) mg/dL Microbiology - Last 24 Hours (Table) 08/19/24 12:20 Anaerobic Culture - Final Back Bacteroi caccae(b fragilis grp Assessment and Plan (1) Stage IV pressure ulcer of sacral region Current Visit: Yes Status: Acute Code(s): L89.154 - PRESSURE ULCER OF SACRAL REGION, STAGE 4 SNOMED Code(s): 49857981505112 (2) Sacral osteomyelitis Current Visit: Yes Status: Acute Code(s): M46.28 - OSTEOMYELITIS OF VERTEBRA, SACRAL AND SACROCOCCYGEAL REGION SNOMED Code(s): 058517676 (3) Allergy to multiple antibiotics Current Visit: No Status: Acute Code(s): Z88.1 - ALLERGY STATUS TO OTHER ANTIBIOTIC AGENTS SNOMED Code(s): 163210060 Plan: 1patient with a chronic nonhealing wound to the sacral area that has been there for many months now with the previous episode of infection with a Pseudomonas Enterococcus now present to the hospital with her worsening of the sacral wo und/nonhealing wound did have significant amount of slough tissue with the wound palpable confirming the sacral osteomyelitis and will need to cover for resistant gram-positive as well as gram-negative pathogen to be the likely etiology 2patient with multiple antibiotic ALLERGIES that would limit the number of antibiotic safe to use 4patient is status post surgical debridement and deep culture which are currently growing strep Proteus and bacteroids 5 patient did have a nonfunctioning left chest wall tunneled PICC line that intervenable before discharge vascular surgery has been consulted and did have removal of the catheter on 08/25/2024 6patient is currently being treated Rocephin 2 g daily and Flagyl which she will need to finish 6-week course of therapy Dictation was produced using [employer] dictation software. please excuse any grammatical, word or spelling errors. Time with Patient: Less than 30
[2024-08-25 16:33] LABS: Glucose,Whole Blood 147 mg/dL (70-110)
[2024-08-25 20:43] LABS: Glucose,Whole Blood 110 mg/dL (70-110)
[2024-08-26 03:59] LABS: Basophils # (A) 0.09 10*3/uL (0.00-0.10); Basophils % (A) 0.9 %; Eosinophils # (A) 0.01 10*3/uL (0.04-0.35); Eosinophils % (A) 0.1 %; HCT 31.1 % (37.2-46.3); HGB 9.4 g/dL (12.0-15.0); Lymphocytes # (A) 3.16 10*3/uL (0.90-5.00); Lymphocytes % (A) 32.8 %; MCH 27.1 pg (27.0-32.0); MCHC 30.2 g/dL (32.0-37.0); MCV 89.6 fL (80.0-97.0); Mean Platelet Volume 10.4 fL (9.5-12.2); Monocytes # (A) 0.71 10*3/uL (0.20-1.00); Monocytes % (A) 7.4 %; Neutrophils # (A) 5.27 10*3/uL (1.80-7.70); Neutrophils % (A) 54.7 %; Platelet Count 231 10*3/uL (140-440); RBC 3.47 10*6/uL (4.10-5.20); RDW 15.9 % (11.5-14.5); WBC 9.64 10*3/uL (4.50-10.00)
--- NOTE | 2024-08-26 05:50 | P.PN ---
Subjective Progress Note Date: 08/25/24 Patient is a 63-year-old female with a known history of CVA/TIA, seizure disorder,, COPD, GERD and seizure disorder who was sent by general surgery from [facility] due to concern for sacral and coccyx nonhealing pressure wound. Patient is awake alert but could not provide much history. Does have caregiver. Patient is receiving antibiotics every nursing facility does have PICC line. Patient was afebrile. Was tachycardic on admission. Laboratory data showed WBC 14.1 hemoglobin 12.8 and platelets 323 sodium 141 potassium 3.8 chloride 104 bicarb is 24 BUN 27 creatinine 0.5 blood sugar 205 alk phos 164 CRP 6.3 and albumin 3.0. 08/19/2024 Patient is seen in follow-up today currently working with general surgery scheduled for debridement with cultures and infectious disease following and will continue current medication regimen while awaiting cultures. 08/20/2024 Patient is seen in follow-up this morning and per nursing staff is unsure if she was choking taking her medicines but sounds wet and gurgly in the lung sounds and will obtain a chest x-ray. Patient does have history of COPD and is maintained on breathing treatments and wears oxygen has been instructed to place oxygen for supportive care. Patient is afebrile with no reports of chest pain. Patient is status post incisional debridement of the sacral wound with general surgery and infectious disease following. Will await cultures to determine appropriate treatment plan moving forward. Continue with wound care per general surgery and ID. 08/21/2024 Patient seen and evaluated this morning remains n.p.o. and is scheduled to undergo modified barium swallow study with speech today as patient was noted to be choking coughing frequently on food. Patient is maintained on breathing treatments and will continue at this time. Patient is noted to have a PICC line in her chest and nursing staff reports it was documented to be placed in April and infectious diseases following and maintained on antibiotics and recommend to remove the PICC line as it is nonfunctioning and places patient at increased risk from infection. May need to obtain new PICC line prior to discharge although awaiting cultures at this time. Continue with frequent offloading and position changes every 2 hours and awaiting finalized cultures. Potassium was slightly low at 3.2 and will be replaced. White count is trending down and currently 11.85. 08/24/2024 Patient is seen in follow-up today with no acute overnight issues noted. Patient is scheduled to return to [facility] and has received insurance authorization. PICC line in the chest wall was attempted to be removed by nursing staff although unable to and feels it may be a tunneled catheter and vascular surgery was consulted for removal of as it is no longer functional and was placed at an outside facility. Patient tolerating current diet and will continue with aspiration precautions maintained on antibiotics along with local wound care per infectious disease and is planning on returning to [facility] with continued antibiotic therapy. Possible discharge in 24 hours if previous PICC line can be removed. 08/25/2024 Patient is seen in follow-up with multiple consultations following. Patient apparently had a PICC line that appeared to be tunneled cath into the chest wall although nonfunctioning vascular surgery consulted for removal. PICC line team was salted for new PICC line as patient will be continued on IV antibiotics in the outpatient setting. PICC team apparently awaiting for previous catheter to be removed. Patient is afebrile with no reports of chest pain or shortness of breath. Patient maintaining oxygen saturations above 90% on room air. Patient is high risk for aspiration and recommend aspiration precautions and will continue current diet regimen. Patient was reevaluated by speech and recommend to continue dysphagia diet. Supervision with meals. Patient will be going to [facility] once PICC line is placed. Review of systems: Constitutional: No reports of fatigue, fever, or chills Cardiovascular: No reports of chest pain or palpitations Respiratory: reports of shortness of breath but feels slightly improved, and cough GI: No reports of nausea, vomiting, or diarrhea, reports to tolerating dysphagia diet : No reports of dysuria or retention Neurovascular: reports of weakness or numbness All medications have been reviewed PHYSICAL EXAMINATION: Patient is lying in the bed, no acute distress, awake and alert. Could not provide history.. Well-developed, elderly appearing, delayed, pleasant HEENT: Normocephalic. Neck is supple. Pupils reactive. Nostrils clear. Oral cavity is moist. Neck reveals no JVD, carotid bruits, or thyromegaly. CHEST EXAMINATION: Trachea is central. Symmetrical expansion. Bibasilar diminished sounds with some upper bronchial congestion in the upper airways, with a strong cough reflex noted able to clear, PICC line noted on the left upper chest which was removed today 08/25/2024 and dressing is dry and intact CARDIAC: Normal S1, S2 with no gallops. No murmurs ABDOMEN: Soft. Bowel sounds normal. No organomegaly. No abdominal bruits. Extremities: reveal no edema. No clubbing or cyanosis Neurologically awake, alert, oriented x 0-1. Able to move extremities while in bed. Skin: No rash or skin lesions. Sacral ulcer with surgical dressings dry and intact. Psychiatric: Cooperative. Could not be assessed completely Musculoskeletal: No joint swelling or deformity. Assessment: Stage IV sacral decubitus ulcer with surrounding cellulitis/skin wound, present on admission status postdebridement with culture showing bacteroi caccae along with Proteus Mirabella's and group B strep Coughing and choking on food, considered high risk for aspiration, status post MBS maintained on dysphagia diet per speech Diabetes type 2 insulin-dependent Chronic sacral wound History of CVA/TIA Seizure disorder COPD not in exacerbation Medical debility/patient is bedridden Anxiety/schizophrenia Prior history of smoking DVT prophylax with heparin subcu GI prophylaxis Full code Plan: Patient will be continued on IV antibiotics with infectious disease following along with general surgery and is status post debridement of the sacral wound. Patient had a previous PICC line in her chest wall that appears to be tunneled and vascular surgery has been consulted and has removed this PICC line with dressing on the chest wall that is dry and intact. Apparently picc team was awaiting removal previous PICC line to place new. Per nursing, PICC line was attempted although unsuccessful and will reattempt tomorrow 08/26/2024. Have discussed with vascular surgery and if unable to be placed by PICC team, may need to be placed by vascular surgery who was not available until 08/27/2024 Case management following and patient has received insurance authorization to [facility] Continue with home medications and continue sliding scale. Recommend monitoring Accu-Cheks AC and at bedtime and will adjust insulins accordingly Continue local wound care per ID recommendations along with surgery recommendations Continue dysphagia diet per speech and aspiration precautions Case management following regarding discharge planning needs and will be returning to [facility] possibly in the next 24-48 hours The impression and plan of care has been dictated by Janny Box, Nurse Practitioner as directed. Dr. Neo MD I have performed a history and examination and MDM of this patient, discussed the same with the dictator, and agree with the dictator's assessment and plan as written ,documented as a scribe. Based on total visit time, I have performed more than 50% of the visit. Objective - Vital Signs Vital signs: Vital Signs Temp 98.9 F 08/26/24 00:32 Pulse 78 08/26/24 00:32 Resp 15 08/26/24 00:32 BP 100/66 08/26/24 00:32 Pulse Ox 92 L 08/26/24 00:32 FiO2 Intake & Output 08/25/24 08/25/24 08/26/24 06:59 18:59 06:59 Weight 64.682 kg Other: Voiding Method External Catheter Diaper Incontinent # Voids 2 4 1 # Bowel Movements 1 2 - Labs CBC & Chem 7: 08/26/24 03:32 08/22/24 05:08 Labs: Abnormal Lab Results - Last 24 Hours (Table) 08/25/24 08/25/24 08/25/24 Range/Units 05:58 11:28 16:31 RBC (4.10-5.20) 10*6/uL Hgb (12.0-15.0) g/dL Hct (37.2-46.3) % MCHC (32.0-37.0) g/dL RDW (11.5-14.5) % Immature Gran # (0.00-0.04) 10*3/uL Eosinophils # (0.04-0.35) 10*3/uL POC Glucose (mg/dL) 142 H 163 H 147 H (70-110) mg/dL 08/26/24 Range/Units 03:32 RBC 3.47 L (4.10-5.20) 10*6/uL Hgb 9.4 L (12.0-15.0) g/dL Hct 31.1 L (37.2-46.3) % MCHC 30.2 L (32.0-37.0) g/dL RDW 15.9 H (11.5-14.5) % Immature Gran # 0.40 H (0.00-0.04) 10*3/uL Eosinophils # 0.01 L (0.04-0.35) 10*3/uL POC Glucose (mg/dL) (70-110) mg/dL
[2024-08-26 06:07] LABS: Glucose,Whole Blood 104 mg/dL (70-110)
[2024-08-26 08:06] VITALS: BP 101/66; PULSE 76; RESP 18; TEMP 97.9
[2024-08-26 08:51] LABS: Blood Urea Nitrogen 14.5 mg/dL (9.0-27.0); Calcium 8.2 mg/dL (8.7-10.3); Carbon Dioxide 24.5 mmol/L (21.6-31.8); Chloride 111 mmol/L (96-109); Glucose 119 mg/dL (70-110); Potassium 3.6 mmol/L (3.5-5.5); Sodium 142 mmol/L (135-145)
--- NOTE | 2024-08-26 10:15 | P.PN ---
Subjective Progress Note Date: 08/26/24 Principal diagnosis: Malfunctioning tunneled catheter Patient is seen and examined today as a follow-up. Yesterday her left chest tunneled port was removed without complications. Plan was for PICC line placement with [facility] PICC nurse yesterday however they had some difficulty and met resistance and are planning on trying again today. Then plan is for discharge home. No bleeding from previous tunneled cath site. Objective - Vital Signs Vital signs: Vital Signs Temp 97.9 F 08/26/24 07:35 Pulse 76 08/26/24 07:35 Resp 18 08/26/24 07:35 BP 101/66 08/26/24 07:35 Pulse Ox 94 L 08/26/24 07:35 FiO2 Intake & Output 08/25/24 08/26/24 08/26/24 18:59 06:59 18:59 Intake Total 100 Balance 100 Weight 64.682 kg Intake: Oral 100 Other: Voiding Method External Catheter Diaper Incontinent # Voids 4 1 1 # Bowel Movements 2 1 - Exam General appearance: The patient is alert, oriented and oriented to self, appears in no acute distress. HET: Head is normocephalic and atraumatic. Pupils are equal and reactive. Neck: Supple. Chest: Left chest wall previous tunnel cath site without any active bleeding, drainage or erythema. Nontender. Abdomen: Soft, nondistended. Extremities: Normal skin color and turgor. Neurological: Cognitive impairment, alert and oriented x 1. - Labs CBC & Chem 7: 08/26/24 03:32 08/26/24 03:31 Labs: Abnormal Lab Results - Last 24 Hours (Table) 08/25/24 08/25/24 08/26/24 Range/Units 11:28 16:31 03:31 RBC (4.10-5.20) 10*6/uL Hgb (12.0-15.0) g/dL Hct (37.2-46.3) % MCHC (32.0-37.0) g/dL RDW (11.5-14.5) % Immature Gran # (0.00-0.04) 10*3/uL Eosinophils # (0.04-0.35) 10*3/uL Chloride 111 H (96-109) mmol/L Creatinine 0.5 L (0.6-1.5) mg/dL BUN/Creatinine Ratio 29.00 H (12.00-20.00) Ratio Glucose 119 H (70-110) mg/dL POC Glucose (mg/dL) 163 H 147 H (70-110) mg/dL Calcium 8.2 L (8.7-10.3) mg/dL 08/26/24 Range/Units 03:32 RBC 3.47 L (4.10-5.20) 10*6/uL Hgb 9.4 L (12.0-15.0) g/dL Hct 31.1 L (37.2-46.3) % MCHC 30.2 L (32.0-37.0) g/dL RDW 15.9 H (11.5-14.5) % Immature Gran # 0.40 H (0.00-0.04) 10*3/uL Eosinophils # 0.01 L (0.04-0.35) 10*3/uL Chloride (96-109) mmol/L Creatinine (0.6-1.5) mg/dL BUN/Creatinine Ratio (12.00-20.00) Ratio Glucose (70-110) mg/dL POC Glucose (mg/dL) (70-110) mg/dL Calcium (8.7-10.3) mg/dL Assessment and Plan Assessment: 1. Nonfunctioning tunneled catheter status post removal 2. Need for fci IV antibiotics 3. Chronic sacral wound with infection 4. Diabetes Plan: Tunneled catheter was removed. PICC line per PICC line team If PICC line cannot be placed from PICC nurse, please contact us for placement. Otherwise we will sign off at this time. The impression and plan of care has been dictated as directed. Dr. Vila I performed a history and examination of this patient, discussed the same with the dictator. I agree with the dictator's note ,documented as a scribe. Any additional findings or plans will be noted.
[2024-08-26 11:26] LABS: Glucose,Whole Blood 112 mg/dL (70-110)
--- NOTE | 2024-08-26 11:42 | P.DS ---
Providers Date of admission: 08/18/24 12:18 Expected date of discharge: 08/26/24 Attending physician: Alirio Larson Consults: 08/18/24 13:41 Consult Physician Routine Consulting Provider: Dinesh Aldridge Consult Reason/Comments: non-healing sacral wound Do you want consulting provider notified?: Yes, Notify in am 08/24/24 14:05 Consult Physician Urgent Consulting Provider: Corinna Tipton Consult Reason/Comments: left chest wall old picc needs removal, unable to remove per picc team Do you want consulting provider notified?: Yes Primary care physician: Saul Carlson Hospital Course: Final diagnosis Stage IV sacral decubitus ulcer with surrounding cellulitis/skin wound, present on admission status postdebridement with culture showing bacteroi caccae along with Proteus Mirabella's and group B strep Coughing and choking on food, considered high risk for aspiration, status post MBS maintained on dysphagia diet per speech Diabetes type 2 insulin-dependent Chronic sacral wound History of CVA/TIA Seizure disorder COPD not in exacerbation Medical debility/patient is bedridden Anxiety/schizophrenia Prior history of smoking DVT prophylax with heparin subcu GI prophylaxis Full code Discharge disposition Patient is being discharged in a stable condition with guarded prognosis to [facility]. Patient will follow-up with Dr. Carlson in the outpatient setting upon discharge. Patient is to continue with PICC line and IV antibiotics with outpatient follow-up with the wound care as well as infectious disease as scheduled. Total time taken is greater than 35 minutes. Hospital course This is a 63-year-old female who was recently admitted from [facility] with sacral and coccyx nonhealing pressure wounds with concerns of infection with multiple consultations following including infectious disease. Patient did have general surgery evaluate the patient and underwent debridement and cultures showing bacteroi caccae with Proteus Mirabella's and group B strep. Patient maintained on IV antibiotics and will continue ceftriaxone 2 g daily along with Flagyl 3 times daily for the next 6 weeks per ID recommendations. Patient is also continued on wound care recommendations and will continue. Recommend outpatient follow-up with wound care as well as infectious disease. Patient was evaluated by speech as patient has significant aspiration risk and is maintained on dysphagia 1 pured diet with honey thickened liquids, aspiration precautions with head of the bed elevated 30 to 45 degrees at all times and supervision with meals. Patient did have a pre-existing tunnel cath picc in her left chest wall that was reportedly there since April and was removed by vascular surgery. Patient did receive a new PICC line and will be going home with IV antibiotic therapy for 6 weeks. Patient has been cleared by consultations and will need close outpatient follow-up. Please refer to other consultation notes for further HPI. Currently no reports of chest pain, shortness of breath, or palpitations. Patient is afebrile. No reports of nausea or vomiting and patient is tolerating diet. Patient will be going to [facility] today. Guarded prognosis and high risk for readmissions given significant comorbidities Physical exam: Gen: This is a 63-year-old female who is awake, alert and oriented x 1-2, baseline, well-developed, elderly appearing, delayed HEENT: Head is atraumatic, normocephalic. Pupils equal, round. Sclerae is anicteric. NECK: Supple. No JVD. No lymphadenopathy. No thyromegaly. LUNGS: Diminished breath sounds bilaterally otherwise clear to auscultation. No wheezes or rhonchi. There is some bronchial congestion noted in the upper airways. No intercostal retractions. HEART: Regular rate and rhythm. No murmur. ABDOMEN: Soft. Obese. Bowel sounds are present. No masses. No tenderness. EXTREMITIES: No pedal edema. No calf tenderness. NEUROLOGICAL: Patient is awake, alert and oriented x2. Baseline cranial nerves 2 through 12 are grossly intact. Diffusely weak Please refer to medication reconciliation sheet for a list of medications. The impression and plan of care has been dictated by Janny Box, Nurse Practitioner as directed. Dr. Neo MD I have performed a history and examination and MDM of this patient, discussed the same with the dictator, and agree with the dictator's assessment and plan as written ,documented as a scribe. Based on total visit time, I have performed more than 50% of the visit. Patient Condition at Discharge: Fair Plan - Discharge Summary Discharge Rx Participant: No New Discharge Prescriptions: New Heparin Sodium,Porcine (1 ml) [Heparin Sodium] 5,000 unit SQ Q12HR each INSULIN LISPRO (HumaLOG) [HumaLOG] 0 unit SQ ACHS each cefTRIAXone [Rocephin] 2 gm IVPB Q24HR each Collagenase [Santyl Ointment] 1 applic TOPICAL DAILY each Ipratropium-Albuterol Nebulize [Duoneb 0.5 mg-3 mg/3 ml Soln] 3 ml INHALATION RT-Q2H PRN each PRN Reason: Shortness Of Breath Or Wheezing metroNIDAZOLE [Flagyl] 500 mg PO TID tab Continue Pravastatin Sodium [Pravachol] 20 mg PO HS@2100 Montelukast [Singulair] 10 mg PO HS@2100 Escitalopram [Lexapro] 20 mg PO DAILY@0900 haloperidoL [Haldol] 5 mg PO TID@0900,1300,2099 Topiramate [Topamax] 100 mg PO BID@0900,2099 Metoprolol Succinate (ER) [Toprol XL] 25 mg PO DAILY@0900 cloZAPine [Clozaril] 100 mg PO HS@2099 polyethylene glycoL 3350 [Miralax] 17 gm PO Q24H PRN PRN Reason: Constipation Budesonide-Formot 160-4.5 Mcg [Symbicort 160-4.5 Mcg Inhaler] 2 puff INHALATION RT-BID@0900,2099 Memantine [Namenda] 10 mg PO BID@0900,2100 Magnesium Hydroxide [Milk of Magnesia] 2,400 mg PO DAILY PRN PRN Reason: Constipation Lactobacillus Acidophilus [Acidophilus] 1 cap PO DAILY@0900 Aspirin 81 mg PO DAILY@0900 Midodrine [ProAmatine] 5 mg PO Q8H PRN PRN Reason: SBP less than 100 clonazePAM [KlonoPIN] 1 mg PO TID@0900,1300,2100 #6 tab HYDROcodone/APAP 5-325MG [Waterproof 5-325] 1 tab PO BID@0500,1800 #4 tab Ergocalciferol [Vitamin D2 (1250 Mcg = 48334 Iu)] 1,250 mcg PO FR Ipratropium-Albuterol Nebulize [Duoneb 0.5 mg-3 mg/3 ml Soln] 3 ml INHALATION RT-QID each Acetaminophen [Tylenol] 650 mg PO Q4H PRN PRN Reason: Pain Prostat Awc 30 ml PO HS@2100 Insulin Glargine,Hum.rec.anlog [Lantus Solostar Pen] 10 units SQ DAILY@0900 Famotidine [Pepcid] 20 mg PO DAILY@0900 Discontinued Doxycycline Hyclate 100 mg PO Q12H HYDROcodone/APAP 5-325MG [Waterproof 5-325] 1 tab PO Q24H PRN PRN Reason: Pain Discharge Medication List Escitalopram [Lexapro] 20 mg PO DAILY@89909/09/18 [History] Montelukast [Singulair] 10 mg PO HS@209909/09/18 [History] Pravastatin Sodium [Pravachol] 20 mg PO HS@209909/09/18 [History] haloperidoL [Haldol] 5 mg PO TID@0900,1300,209909/09/18 [History] Topiramate [Topamax] 100 mg PO BID@899,209901/23/19 [History] Ergocalciferol [Vitamin D2 (1250 Mcg = 66883 Iu)] 1,250 mcg PO FR 08/18/22 [History] Metoprolol Succinate (ER) [Toprol XL] 25 mg PO DAILY@89908/18/22 [History] cloZAPine [Clozaril] 100 mg PO HS@209908/18/22 [History] polyethylene glycoL 3350 [Miralax] 17 gm PO Q24H PRN 08/18/22 [History] Budesonide-Formot 160-4.5 Mcg [Symbicort 160-4.5 Mcg Inhaler] 2 puff INHALATION RT-BID@899,209904/16/24 [History] Memantine [Namenda] 10 mg PO BID@899,209904/16/24 [History] Ipratropium-Albuterol Nebulize [Duoneb 0.5 mg-3 mg/3 ml Soln] 3 ml INHALATION RT-QID each 04/22/24 [Rx] Acetaminophen [Tylenol] 650 mg PO Q4H PRN 08/18/24 [History] Aspirin 81 mg PO DAILY@89908/18/24 [History] Famotidine [Pepcid] 20 mg PO DAILY@89908/18/24 [History] Insulin Glargine,Hum.rec.anlog [Lantus Solostar Pen] 10 units SQ DAILY@89908/18/24 [History] Lactobacillus Acidophilus [Acidophilus] 1 cap PO DAILY@89908/18/24 [History] Magnesium Hydroxide [Milk of Magnesia] 2,400 mg PO DAILY PRN 08/18/24 [History] Midodrine [ProAmatine] 5 mg PO Q8H PRN 08/18/24 [History] Prostat Awc 30 ml PO HS@2100 08/18/24 [History] Collagenase [Santyl Ointment] 1 applic TOPICAL DAILY each 08/26/24 [Rx] HYDROcodone/APAP 5-325MG [Waterproof 5-325] 1 tab PO BID@0500,1800 #4 tab 08/26/24 [Rx] Heparin Sodium,Porcine (1 ml) [Heparin Sodium] 5,000 unit SQ Q12HR each 08/26/24 [Rx] INSULIN LISPRO (HumaLOG) [HumaLOG] 0 unit SQ ACHS each 08/26/24 [Rx] Ipratropium-Albuterol Nebulize [Duoneb 0.5 mg-3 mg/3 ml Soln] 3 ml INHALATION RT-Q2H PRN each 08/26/24 [Rx] cefTRIAXone [Rocephin] 2 gm IVPB Q24HR each 08/26/24 [Rx] clonazePAM [KlonoPIN] 1 mg PO TID@0900,1300,2100 #6 tab 08/26/24 [Rx] metroNIDAZOLE [Flagyl] 500 mg PO TID tab 08/26/24 [Rx] Follow up Appointment(s)/Referral(s): Saul Carlson MD [Primary Care Provider] - 1-2 days [facility] [NON-STAFF] - 1 Week Activity/Diet/Wound Care/Special Instructions: Patient is going to [facility] Activity as tolerated Follow-up with primary care provider on discharge Continue IV antibiotics in the form of ceftriaxone 2 g daily along with Flagyl and will need 6 weeks course per ID recommendations Continue with dysphagia level 1 pured diet with mashed potatoes, no straws, one-to-one supervision with aspiration precautions and honey thickened liquids Keep head of the bed elevated 30 to 45 degrees at all times Continue with wound care instructions including Saturday/Saturday/Saturday and will continue with Santyl until wound VAC is available at [facility] and recommend to apply negative pressure wound VAC utilizing black foam at 150 mmHg with continuous pressure and change dressings on Saturday/Saturday/Saturday Wound care daily to the coccyx/sacrum region by applying Santyl, saline moistened gauze with dry gauze and covered with a bordered foam and change daily or if becoming soiled Frequent offloading to the bottom area at least every 2 hours with position changes Patient has received a new PICC line and will continue on IV antibiotics for 6 weeks course Continue monitoring Accu-Cheks AC and at bedtime and continue with current insulin regimen as well as sliding scale NovoLog sliding scale 0-150 equals 0 units 151-200 equals 2 units 201-250 equals 4 units 251-300 equals 6 units 301-350 equals 8 units 351-400 equals 10 units Please notify provider if blood sugar is 400 or above Discharge Disposition: TRANSFER TO SNF/ECF
--- NOTE | 2024-08-26 12:14 | XR ---
EXAMINATION TYPE: XR chest 1V DATE OF EXAM: 08/26/2024 11:45 AM COMPARISON: Chest radiographs from 08/20/2024. CLINICAL INDICATION: Female, 63 years old with history of For placement of PICC line; [facility] TECHNIQUE: XR chest 1V Frontal view of the chest. FINDINGS: Lungs/Pleura: There is no evidence of pleural effusion, focal consolidation, or pneumothorax. Pulmonary vascularity: Pulmonary vascular congestion. Heart/mediastinum: Cardiomediastinal silhouette is unremarkable. Musculoskeletal: No acute osseous pathology. Other findings: None Lines/Tubes: Left-sided PICC with distal tip at the superior vena cava/brachiocephalic confluence. IMPRESSION: 1. Left PICC in appropriate position. 2. Pulmonary vascular congestion. [facility], , 08/26/2024 12:12 PM
--- NOTE | 2024-08-28 13:17 | P.PN ---
Subjective Progress Note Date: 08/26/24 Principal diagnosis: Reason for follow-up is infected sacral pressure ulcer Patient is a 63-year-old female with a past medical history difficult for COPD CVA TIA reflux osteoarthritis seizure disorder in this patient has been dealing with the pressure ulcer to the sacral area for many months has been brought to the hospital with worsening sacral wound patient did have a surgical debridement of the wound on 08/19/2024 along with deep culture. On today's evaluation that is 08/26/2024, Patient is afebrile patient is currently on room air and does not seem to be any distress patient did have some coughing spell no vomiting or choking on the food has been described or diarrhea. Patient white count is 9.64, creatinine is 0.5 cultures with Bacteroides Proteus and strep Objective - Vital Signs Vital signs: Vital Signs Temp 97.9 F 08/26/24 07:35 Pulse 76 08/26/24 07:35 Resp 18 08/26/24 07:35 BP 101/66 08/26/24 07:35 Pulse Ox 94 L 08/26/24 07:35 FiO2 Intake & Output 08/25/24 08/26/24 08/26/24 18:59 06:59 18:59 Intake Total 100 Balance 100 Weight 64.682 kg Intake: Oral 100 Other: Voiding Method External Catheter Diaper Diaper Incontinent # Voids 4 1 1 # Bowel Movements 2 1 - Exam GENERAL DESCRIPTION: Middle-age female lying in bed in no distress RESPIRATORY SYSTEM: Unlabored breathing , decreased breath sounds at bases HEART: S1 S2 regular rate and rhythm , ABDOMEN: Soft , no tenderness Stage IV sacral ulcer with no slough tissue EXTREMITIES: No edema feet - Labs CBC & Chem 7: 08/26/24 03:32 08/26/24 03:31 Labs: Abnormal Lab Results - Last 24 Hours (Table) 08/25/24 08/26/24 08/26/24 Range/Units 16:31 03:31 03:32 RBC 3.47 L (4.10-5.20) 10*6/uL Hgb 9.4 L (12.0-15.0) g/dL Hct 31.1 L (37.2-46.3) % MCHC 30.2 L (32.0-37.0) g/dL RDW 15.9 H (11.5-14.5) % Immature Gran # 0.40 H (0.00-0.04) 10*3/uL Eosinophils # 0.01 L (0.04-0.35) 10*3/uL Chloride 111 H (96-109) mmol/L Creatinine 0.5 L (0.6-1.5) mg/dL BUN/Creatinine Ratio 29.00 H (12.00-20.00) Ratio Glucose 119 H (70-110) mg/dL POC Glucose (mg/dL) 147 H (70-110) mg/dL Calcium 8.2 L (8.7-10.3) mg/dL 08/26/24 Range/Units 11:25 RBC (4.10-5.20) 10*6/uL Hgb (12.0-15.0) g/dL Hct (37.2-46.3) % MCHC (32.0-37.0) g/dL RDW (11.5-14.5) % Immature Gran # (0.00-0.04) 10*3/uL Eosinophils # (0.04-0.35) 10*3/uL Chloride (96-109) mmol/L Creatinine (0.6-1.5) mg/dL BUN/Creatinine Ratio (12.00-20.00) Ratio Glucose (70-110) mg/dL POC Glucose (mg/dL) 112 H (70-110) mg/dL Calcium (8.7-10.3) mg/dL Assessment and Plan (1) Stage IV pressure ulcer of sacral region Status: Acute Code(s): L89.154 - PRESSURE ULCER OF SACRAL REGION, STAGE 4 SNOMED Code(s): 70059592487826 (2) Sacral osteomyelitis Status: Acute Code(s): M46.28 - OSTEOMYELITIS OF VERTEBRA, SACRAL AND SACROCOCCYGEAL REGION SNOMED Code(s): 269247479 (3) Allergy to multiple antibiotics Status: Acute Code(s): Z88.1 - ALLERGY STATUS TO OTHER ANTIBIOTIC AGENTS SNOMED Code(s): 883535634 Plan: 1patient with a chronic nonhealing wound to the sacral area that has been there for many months now with the previous episode of infection with a Pseudomonas Enterococcus now present to the hospital with her worsening of the sacral wound/nonhealing wound did have significant amount of slough tissue with the wound palpable confirming the sacral osteomyelitis and will need to cover for resistant gram-positive as well as gram-negative pathogen to be the likely etiology 2patient with multiple antibiotic ALLERGIES that would limit the number of antibiotic safe to use 4patient is status post surgical debridement and deep culture which are currently growing strep Proteus and bacteroids 5 patient did have a nonfunctioning left chest wall tunneled PICC line that intervenable before discharge vascular surgery has been consulted and did have removal of the catheter on 08/25/2024 6patient has been advised Rocephin 2 g daily and Flagyl to finish 6-week course of therapy with weekly monitoring of CRP and sed rate and close outpatient follow-up Dictation was produced using [employer] dictation software. please excuse any grammatical, word or spelling errors. Time with Patient: Less than 30
== END 2024-08-26 15:45 | DRG 571 ==
LOC: EC 09:54 → 4SSUR 12:18
PROVIDERS: ADMIT Internal Medicine; ATTEND Internal Medicine
PROC: 0JB70ZZ Excision of Back Subcutaneous Tissue and Fascia, Open Approach (ICD-10-PCS; principal; 2024-08-19 07:30)
PROC: 0JPT0XZ Removal of Tunneled Vascular Access Device from Trunk Subcutaneous Tissue and Fascia, Open Approach (ICD-10-PCS; 2024-08-25)
PROC: 05HA33Z Insertion of Infusion Device into Left Brachial Vein, Percutaneous Approach (ICD-10-PCS; 2024-08-26)
DX: L89.154 Pressure ulcer of sacral region, stage 4 (principal); B37.0 Candidal stomatitis; T82.514A Breakdown (mechanical) of infusion catheter, initial encounter; M46.28 Osteomyelitis of vertebra, sacral and sacrococcygeal region; L03.312 Cellulitis of back [any part except buttock and flank]; R13.10 Dysphagia, unspecified; E11.69 Type 2 diabetes mellitus with other specified complication; J44.9 Chronic obstructive pulmonary disease, unspecified; F20.9 Schizophrenia, unspecified; G40.909 Epilepsy, unspecified, not intractable, without status epilepticus; Z79.4 Long term (current) use of insulin; B96.4 Proteus (mirabilis) (morganii) as the cause of diseases classified elsewhere; B95.1 Streptococcus, group B, as the cause of diseases classified elsewhere; F41.9 Anxiety disorder, unspecified; W44.F3XA Food entering into or through a natural orifice, initial encounter; K21.9 Gastro-esophageal reflux disease without esophagitis; Z79.82 Long term (current) use of aspirin; Z79.51 Long term (current) use of inhaled steroids; Z79.899 Other long term (current) drug therapy; Z79.891 Long term (current) use of opiate analgesic; Z86.73 Personal history of transient ischemic attack (TIA), and cerebral infarction without residual deficits; Z87.891 Personal history of nicotine dependence; Z74.01 Bed confinement status; Z88.1 Allergy status to other antibiotic agents; Z91.040 Latex allergy status; Z88.0 Allergy status to penicillin; Z88.2 Allergy status to sulfonamides; Z88.7 Allergy status to serum and vaccine; Z88.8 Allergy status to other drugs, medicaments and biological substances
CPT/HCPCS: 36415; 36573; 71045; 74230; 80048; 80053; 80202; 82565; 83036; 83605; 83735; 85025; 85027; 86140; 87040; 87070; 87075; 87077; 87186; 87205; 94640; 94760; 96365; 96366; 99285